=== PATIENT | female | born 1940 | race African-American/Black ===

== ENCOUNTER 2017-08-03 22:07 | Observation (INO) | payer MEDICARE ==
[2017-08-03 23:46] LABS: Prothrombin Time 13.4 SEC (12.0-14.7)
[2017-08-03 23:54] LABS: #Eosinphils 0.1 thou/uL (0.0-0.7); #Lymphocytes 2.5 thou/uL (1.20-3.40); #Monocytes 0.8 thou/uL (0.11-0.59); #Neutrophils 4.6 thou/uL (1.40-6.50); %Basophils 0.6 % (0.0-1.0); %Eosinophils 1.1 % (0.0-10.0); %Lymphocytes 31.4 % (21.0-51.0); %Monocytes 9.8 % (0.0-10.0); %Neutrophils 57.2 % (42.0-75.0); Hemoglobin 12.2 g/dL (12.0-16.0); Mean Corpuscular HGB CONC 36.2 g/dL (32.0-36.0); Mean Corpuscular Hemoglobin 30.7 pg (27.0-31.0); Mean Corpuscular Volume 84.7 fl (81.0-99.0); Platelet Count 277 thou/uL (130-400); RBC Distribution Width 13.9 % (11.5-14.5); Red Blood Cell (RBC) Count 3.98 mill/uL (4.20-5.40); White Blood Cell (WBC) Count 8.1 thou/uL (4.8-10.8)
[2017-08-03 23:55] LABS: ALT (SGPT) 10 U/L (8-55); AST (SGOT) 14 U/L (5-34); Alkaline Phosphatase 76 U/L (40-150); Anion Gap 13 mmol/L (10-20); BUN (Urea Nitrogen) 16 mg/dL (9.8-20.1); Bilirubin, Total 0.5 mg/dL (0.2-1.2); CK (CPK) 191 U/L (29-168); Calc. Creatinine Clearance 0 mL/min (70-130); Calcium 9.6 mg/dL (7.8-10.44); Carbon Dioxide 23 mmol/L (23-31); Chloride 99 mmol/L (98-107); Estimated GFR-MDRD 53; Globulin 3.1 g/dL (2.4-3.5); Glucose 104 mg/dL (83-110); Magnesium 1.7 mg/dL (1.6-2.6); Potassium 3.7 mmol/L (3.5-5.1); Protein, Total 7.1 g/dL (6.0-8.3); Sodium 131 mmol/L (136-145)
[2017-08-03 23:59] LABS: CKMB 3.8 ng/mL (0-6.6); Troponin I Less than 0.010 ng/mL (< 0.028)
--- NOTE | 2017-08-04 00:01 | RAD ---
PORTABLE AP CHEST X-RAY 08/03/17 HISTORY: Chest pain, bilateral arm cramping which started this morning. COMPARISON: 11/18/16. FINDINGS: Postsurgical changes related to CABG are again noted. Cardiac silhouette is magnified by projection b ut does appear mildly enlarged. Vascular calcifications are seen in the an ectatic thoracic aorta. Em physematous changes are again seen within the lungs bilaterally with increased linear densities at ea ch lung base probably related to mild chronic lung changes and scarring. There is patchy densities se en at the right lung base, but there were mass-like opacities within the right lower lobe on prior CT scan on 11/18/16 as well as a study on 11/09/15, and these areas were also present on study in 2012 ag ain suggesting chronic lung changes. There is osteopenia. IMPRESSION: 1. Chronic lung changes without evidence of an acute cardiopulmonary process. 2. Mild cardiomegaly. 3. Ectasia of the thoracic aorta. POS: [facility]
--- NOTE | 2017-08-04 02:07 | PDOC.FPRHP ---
- History of Present Illness Chief Complaint: Arm cramping History of Present Illness: This is a 77 yo AAF w/ PMH CABG x3 in 1999, HTN, tobacco abuse, PAD, HLD, COPD, dCHF presents w/ bilateral arm pain, which she states is the same pain as she had in the past with her heart attack. The pain is described as cramping in nature and starts at her hands and works proximally. Time of onset was around 1200 yesterday when she was going about her daily routine. She denies associated CP, dizziness, or SOB at home. She did have an episode of CP and SOB while here in the ED. The CP here lasted for no more than 10 min. She denies associated n/v or diaphoresis. In the ED, EKG was not concerning for ACS and trops were negative x1. A CTA chest was performed and the read is pending. - Allergies/Adverse Reactions Allergies Allergy/AdvReac Type Severity Reaction Status Date / Time codeine Allergy Verified 10/16/16 00:37 hydrocodone Allergy itching Verified 10/16/16 00:37 hydrocodone bitartrate Allergy itching Verified 10/16/16 00:37 [From Vicodin] - Home Medications Medication Instructions Recorded Confirmed Type Amlodipine Besylate [amLODIPine 0.5 tab PO DAILY #0 tablet 11/09/15 08/04/17 Rx Besylate] Aspirin [Aspirin EC] 325 mg PO DAILY #0 tablet. 11/09/15 08/04/17 Rx Valsartan/Hydrochlorothiazide 0.5 tablet PO DAILY #0 tablet 11/09/15 08/04/17 Rx [Valsartan-Hctz 160-12.5 mg Tab] Budesonide-Formoterol [Symbicort 08/04/17 History 160-4.5] Gabapentin [Gabapentin] 08/04/17 History Rosuvastatin Calcium [Rosuvastatin 08/04/17 History Calcium] - History PMHx: 1. CAD s/p 3v CABG 2. HTN 3. COPD 4. HLD 5. Claudication 6. Tobacco abuse PSHx: 3v CABG in 1999 FHx: Unk Social: 40-50 pack year smoking No etoh No recreational drugs - Review of Systems General: denies: fever/chills, weight/appetite/sleep changes, night sweats Eyes: denies: vision changes ENT: denies: nasal congestion, rhinorrhea Respiratory: reports: cough, shortness of breath, exercise intolerance Cardiovascular: reports: chest pain, paroxysmal nocturnal dyspnea. denies: palpitation, edema Gastrointestinal: denies: nausea, vomiting Skin: denies: rashes, lesions Musculoskeletal: reports: pain (Cramping pain in both arms), stiffness Neurological: denies: numbness, syncope Psychological: denies: anxiety, depression - Vital signs BP: 122/67 HR: 72 RR: 16 Tmax: 98.4 Pox: 96% on RA Wt: 82 kg - Physical Exam Constitutional: NAD, awake, alert and oriented, well developed HEENT: normocephalic and atraumatic, PERRLA, EOMI Neck: supple, FROM, trachea midline Chest: no-tender to palpation Heart: RRR, normal S1/S2, no murmurs/rubs/gallops, no edema Lungs: CTAB, no respiratory distress, good air movement Abdomen: soft, non-tender, bowel sounds present Musculoskeletal: normal structure -Musculoskeletal: Decreased ROM in active flexion of arms b/l Neurological: no focal deficit, CN II-XII intact Skin: no rash/lesions, good turgor Heme/Lymphatic: no unusual bruising or bleeding Psychiatric: normal mood and affect, good judgment and insight FMR H&P: Results - Labs Result Diagrams: 08/03/17 23:25 08/03/17 23:25 Lab results: WBC 8.1 thou/uL (4.8-10.8) 08/03/17 23:25 Hgb 12.2 g/dL (12.0-16.0) 08/03/17 23:25 Hct 33.7 % (36.0-47.0) L 08/03/17 23:25 MCV 84.7 fl (81.0-99.0) 08/03/17 23:25 Plt Count 277 thou/uL (130-400) 08/03/17 23:25 Neutrophils % 57.2 % (42.0-75.0) 08/03/17 23:25 Sodium 131 mmol/L (136-145) L 08/03/17 23:25 Potassium 3.7 mmol/L (3.5-5.1) 08/03/17 23:25 Chloride 99 mmol/L (98-107) 08/03/17 23:25 Carbon Dioxide 23 mmol/L (23-31) 08/03/17 23:25 BUN 16 mg/dL (9.8-20.1) 08/03/17 23:25 Creatinine 1.19 mg/dL (0.6-1.1) H 08/03/17 23:25 Glucose 104 mg/dL (83-110) 08/03/17 23:25 Calcium 9.6 mg/dL (7.8-10.44) 08/03/17 23:25 Total Bilirubin 0.5 mg/dL (0.2-1.2) 08/03/17 23:25 AST 14 U/L (5-34) 08/03/17 23:25 ALT 10 U/L (8-55) 08/03/17 23:25 Alkaline Phosphatase 76 U/L (40-150) 08/03/17 23:25 Creatine Kinase 191 U/L (29-168) H 08/03/17 23:25 CK-MB (CK-2) 3.8 ng/mL (0-6.6) 08/03/17 23:25 Serum Total Protein 7.1 g/dL (6.0-8.3) 08/03/17 23:25 Albumin 4.0 g/dL (3.4-4.8) 08/03/17 23:25 - EKG Interpretation EKG: Rate 71, NSR. No ST or T wave changes - Radiology Interpretation Chest x-ray Status: report reviewed by me (Chronic lung changes w/o acute findings. Mild cardiomegally. Aortic ectasia) CT scan - chest Status: pending FMR H&P: A/P - Problem List (1) Atypical chest pain Current Visit: Yes Status: Acute Priority: High Code(s): R07.89 - OTHER CHEST PAIN (2) Arm pain Current Visit: Yes Status: Acute Priority: Medium Qualifiers: Laterality: bilateral Qualified Code(s): M79.601 - Pain in right arm; M79.602 - Pain in left arm; M79.602 - Pain in left arm (3) COPD (chronic obstructive pulmonary disease) Current Visit: Yes Status: Chronic Priority: Medium Qualifiers: COPD type: unspecified COPD Qualified Code(s): J44.9 - Chronic obstructive pulmonary disease, unspecified (4) HLD (hyperlipidemia) Current Visit: Yes Status: Chronic Priority: Low Code(s): E78.5 - HYPERLIPIDEMIA, UNSPECIFIED Qualifiers: Hyperlipidemia type: unspecified Qualified Code(s): E78.5 - Hyperlipidemia , unspecified (5) Coronary artery disease Current Visit: No Status: Acute Priority: High Code(s): I25.10 - ATHSCL HEART DISEASE OF [place] CORONARY ARTERY W/O ANG PCTRS Qualifiers: Coronary Disease-Associated Artery/Lesion type: bypass graft [place] vs. transplanted heart: [place] heart Associated angina: without angina Qualified Code(s): I25.810 - Atherosclerosis of coronary artery bypass graft(s) without angina pectoris (6) Shortness of breath Current Visit: No Status: Acute Code(s): R06.02 - SHORTNESS OF BREATH (7) Hypertension Current Visit: No Status: Chronic Priority: Medium Code(s): I10 - ESSENTIAL (PRIMARY) HYPERTENSION (8) Elevated CK Current Visit: Yes Status: Acute (9) Elevated serum creatinine Current Visit: Yes Status: Acute Code(s): R79.89 - OTHER SPECIFIED ABNORMAL FINDINGS OF BLOOD CHEMISTRY (10) CHF (congestive heart failure) Current Visit: Yes Status: Acute Code(s): I50.9 - HEART FAILURE, UNSPECIFIED - Plan Atypical chest pain - while this is most likely non cardiac pain with associate arm cramping related to PAD, the fact that she had similar pain when she had an [place] in 1999 warrants further evaluation given she has not had an echo in over 2 years and has not recently had cards follow up. - trend trops x3, BNP, A1c, TSH - continue statin - Echo - Consult cards in am. - NPO at midnight Elevated Creatinine - NALDO vs CKD - Monitor BMP Elevated CK - trend trops and heart work up as above. CAD - continue ASA and home statin CHF - echo as above - pt appears to be euvolemic, does not require O2, lungs are clear COPD - continue home meds - monitor O2, supplement as needed HTN - controlled, continue home meds HLD - statin as above SOB - related to COPD and not taking her controller meds as written daily - she is not requiring O2 and is not on it at home. Arm pain - most likely related to PAD - treat as atypical chest pain as above given hx of similar pain with [place] Tobacco abuse - counseling director on cessation - nicotine replacement if needed PPx - SCD and frequent ambulation Code Full Diet NPO at midnight, then heart healthy Dispo: Pt is stable, however exhibiting signs of previous [place]. She has not had proper follow up for CAD, will consult cardiology for recommendations while here. FMR H&P: Upper Level - Plan Date/Time: 08/04/17 0207 IChiqui, PGY3, have evaluated this patient and agree with findings/plan as outlined by purchasing intern resident. Pertinent changes/additions are listed here. This is a 77 yo AAF w/ PMH CABG x3, HTN, tobacco abuse, PVD, HLD, COPD, dCHF presents w/ bilateral arm pain, which she states is the same pain as she had in the past with her heart attack. It started yesterday at 11:00 when she wasn't doing anything and has continued until coming to the hospital. It went from her fingers to her shoulders bilaterally. She does take a ASA 325 daily and took one today. No associated with chest pain at that time, however developed chest pain tonight in the ED which lasted less than 5 minutes and resolved on it's own. Denies any associated N/V/abdominal pain, diaphoresis. 1) Atypical R/o ACS - Due to her risk factors, her heart score is 5. We will admit patient, and order an ECHO and consult cardiology in the am as patient follows with Dr. Pena outpatient. HgA1c, BNP, FLP, TSH. CEx3. Repeat EKG if patient develops CP again. Monitor on telemetry for abnormal rhythms. Awaiting results from CTA of chest. 2) HTN - continue home medications. 3) PVD - continue ASA. Consider increasing Statin to Crestor 40mg QD 4) dCHF - last ECHo in 2015. which showed HFpEF. F/u with ECHo results. 5) COPD continue Spiriva. 6) Tobacco Abuse - counselling on cessation 7) HLD - Consider increasing crestor to 40mg. 8) Elevated CK - repeat in am. 9) NALDO vs CKD3 - avoid nephrotoxic medications. Consider gentle fluids.
[2017-08-04] MEDS ORDERED: Aspirin 325 MG TAB ONE (03:58)
[2017-08-04 04:18] LABS: Hemoglobin A1c 5.4 % (4.0-6.0)
[2017-08-04 04:27] LABS: Troponin I 0.017 ng/mL (< 0.028)
[2017-08-04 05:08] VITALS: BMI 25.4
[2017-08-04] MEDS ORDERED: Ondansetron HCl/PF 4 MG/2 ML Vial IVP PRN (05:30)
[2017-08-04] MEDS ORDERED: Acetaminophen 325 MG TAB PO PRN (05:30)
[2017-08-04] MEDS ORDERED: Ondansetron ODT 4 MG TAB SL PRN (05:30)
[2017-08-04 06:46] LABS: Troponin I 0.012 ng/mL (< 0.028)
[2017-08-04] MEDS ORDERED: Spiriva 18 MCG CAP (Box of 5 Caps) INH SCH (07:00)
[2017-08-04] MEDS: Amlodipine 5 MG TAB PO SCH (08:35)
[2017-08-04] MEDS: Aspirin 325 mg Enteric Coated Tablet PO SCH (08:35)
[2017-08-04] MEDS ORDERED: Valsartan 80 MG TAB PO SCH ×2 (09:00→17:00)
[2017-08-04] MEDS ORDERED: Aspirin 325 MG TAB PO SCH (09:00)
[2017-08-04] MEDS ORDERED: Hydrochlorothiazide 25 MG TAB PO SCH ×2 (09:00)
[2017-08-04] MEDS ORDERED: Amlodipine 5 MG TAB PO SCH (09:00)
[2017-08-04] MEDS: Hydrochlorothiazide 25 MG TAB PO SCH ×2 (10:27→20:14)
[2017-08-04] MEDS: Valsartan 80 MG TAB PO SCH ×2 (10:28→20:14)
--- NOTE | 2017-08-04 11:27 | CT ---
PRELIMINARY REPORT/[facility]/EMERGENCY AFTER HOURS PROCEDURE: EXAM: CT Angiography Chest With Intravenous Contrast CLINICAL HISTORY: 77 years old, female; Signs and symptoms; Shortness of breath; Prior surgery; Patient HX: Er 1; Gaetano a rm cramps starting this morning w/ on and off SOB. Surgical history of coronary artery bypass graft s urgery, three vessels TECHNIQUE: Axial computed tomographic angiography images of the chest with intravenous contrast using pulmonary embolism protocol. MIP reconstructed images were created and reviewed. COMPARISON: No relevant prior studies available. FINDINGS: Pulmonary arteries: No pulmonary embolism. Aorta: Atherosclerotic disease of the thoracic aorta, without aneurysm or dissection. Lungs: 13 mm pleural-based nodular focus within the left lower lobe, likely area of scarring, althoug h small pneumonia or carcinoma not excluded. Moderate upper lobe predominant centrilobular emphysema, with chronic obstructive pulmonary physiologic changes. Scarring within the right lower lung. Few small subpleural nodules within the periphery of the right middle lobe, likely benign. Pleural space: Normal. No significant effusion. No pneumothorax. Heart: Changes of prior sternotomy and CABG. Mild enlargement of the right atrium. Bones/joints: No acute fracture. No dislocation. Soft tissues: Normal. Lymph nodes: Normal. IMPRESSION: 1. No pulmonary embolism. 2. 13 mm pleural-based nodular focus within the left lower lobe, likely area of scarring, although sm all pneumonia or carcinoma not excluded. Recommend followup/further evaluation. 3. Incidental/non-acute findings are described above. Thank you for allowing us to participate in the care of your patient. Dictated and Authenticated by: Heath Caruso MD 08/04/2017 2:59 AM Central Time ([place] & [place]) FINAL REPORT CT ARTERIOGRAM CHEST WITH IV CONTRAST AND 3D MIP IMAGING PERFORMED ON AN EMERGENCY BASIS: Date: 08/04/17 Time: 0213 hours HISTORY: Dyspnea. Chest pain. COMPARISON: 11/18/16. FINDINGS: Findings agree with the preliminary report by Amita. No CT evidence of pulmonary embolus. Parenchymal scarring at the lung bases are stable. POS: [facility]
[2017-08-04] MEDS: Ipratropium Bromide 2.5 ml Neb NEB SCH ×3 (11:31→18:57)
[2017-08-04] MEDS ORDERED: diphenhydrAMINE 25 MG CAP PO PRN (11:45)
[2017-08-04] MEDS: Acetaminophen/Codeine 30-300mg Tablet PO PRN ×3 (12:57→22:06)
[2017-08-04] MEDS ORDERED: Gabapentin 300 MG CAP PO SCH (14:00)
[2017-08-04] MEDS ORDERED: ISOVUE-370 76%-LOCM 1 ML ONE (14:40)
[2017-08-04] MEDS: Gabapentin 300 MG CAP PO SCH (20:14)
[2017-08-04] MEDS ORDERED: Rosuvastatin 20 MG TAB PO SCH (21:00)
[2017-08-05] MEDS: Ipratropium Bromide 2.5 ml Neb NEB SCH ×3 (02:38→12:53)
[2017-08-05 06:18] LABS: Anion Gap 12 mmol/L (10-20); BUN (Urea Nitrogen) 17 mg/dL (9.8-20.1); Calc. Creatinine Clearance 50 mL/min (70-130); Calcium 9.6 mg/dL (7.8-10.44); Carbon Dioxide 25 mmol/L (23-31); Chloride 99 mmol/L (98-107); Estimated GFR-MDRD 49; Glucose 98 mg/dL (83-110); Sodium 132 mmol/L (136-145)
--- NOTE | 2017-08-05 08:20 | PDOC.FM ---
- Subjective Subjective: Patient endorses leg and hand cramping this morning. She is requesting her gabapentin. She states that she has a history of spinal stenosis in her back. She thinks she has also had prior imaging of cervical spine indicating stenosis. She does feel spasms in back which worsen the cramping in lower extremities. She did not have any significant overnight events. Patient denies any chest pain, shortness of breath, or nausea this AM. - Objective MAR Reviewed: Yes Vital Signs & Weight: Vital Signs (12 hours) Temp Pulse Resp BP Pulse Ox 08/05/17 07:30 97.7 F 68 14 08/05/17 07:26 97.7 F 68 14 118/72 97 08/05/17 06:37 80 14 08/05/17 05:01 98.7 F 85 20 119/64 94 L 08/04/17 23:54 97.8 F 59 L 16 116/63 91 L Weight Weight 84.935 kg I&O: 08/04/17 08/05/17 08/06/17 06:59 06:59 06:59 Intake Total 490 Balance 490 Result Diagrams: 08/03/17 23:25 08/05/17 05:53 EKG Reviewed by me: Yes Radiology Reviewed by me: Yes <Genoveva Lozano - Last Filed: 08/05/17 08:18> - Objective Vital Signs & Weight: Vital Signs (12 hours) Temp Pulse Pulse Pulse Pulse Resp BP 08/05/17 16:00 97.8 F 68 16 08/05/17 08:57 65 68 66 08/05/17 08:52 68 118/72 08/05/17 08:26 65 83 08/05/17 07:30 97.7 F 68 14 08/05/17 07:26 97.7 F 68 14 BP BP BP BP Pulse Ox 08/05/17 16:00 94/54 L 97 08/05/17 08:57 99/70 103/72 96/69 08/05/17 08:52 08/05/17 08:26 105/64 124/74 08/05/17 07:30 08/05/17 07:26 118/72 97 Weight Weight 84.935 kg I&O: 08/04/17 08/05/17 08/06/17 06:59 06:59 06:59 Intake Total 490 Balance 490 Result Diagrams: 08/03/17 23:25 08/05/17 05:53 <Alma Rosa Frankel - Last Filed: 08/05/17 19:12> Phys Exam - Physical Examination Constitutional: NAD HEENT: PERRLA, moist MMs Neck: no nodes Respiratory: no wheezing Cardiovascular: RRR, no significant murmur Gastrointestinal: soft, non-tender, no distention, positive bowel sounds Musculoskeletal: no edema, pulses present Neurological: non-focal, moves all 4 limbs Psychiatric: normal affect Skin: no rash, normal turgor, cap refill <2 seconds Deviation from normal: Sternotomy scar from prior CABG <Genoveva Lozano - Last Filed: 08/05/17 08:18> Dx/Plan (1) Atypical chest pain Code(s): R07.89 - OTHER CHEST PAIN Status: Acute (2) Arm pain Status: Acute QualifierTitle: Laterality: bilateral Qualified Code(s): M79.601 - Pain in right arm; M79.602 - Pain in left arm; M79.602 - Pain in left arm (3) Elevated serum creatinine Code(s): R79.89 - OTHER SPECIFIED ABNORMAL FINDINGS OF BLOOD CHEMISTRY Status : Acute (4) CHF (congestive heart failure) Code(s): I50.9 - HEART FAILURE, UNSPECIFIED Status: Chronic (5) COPD (chronic obstructive pulmonary disease) Status: Chronic QualifierTitle: COPD type: unspecified COPD Qualified Code(s): J44.9 - Chronic obstructive pulmonary disease, unspecified (6) HLD (hyperlipidemia) Code(s): E78.5 - HYPERLIPIDEMIA, UNSPECIFIED Status: Chronic QualifierTitle: Hyperlipidemia type: unspecified Qualified Code(s): E78.5 - Hyperlipidemia, unspecified (7) Bilateral lower extremity pain Code(s): M79.604 - PAIN IN RIGHT LEG; M79.605 - PAIN IN LEFT LEG Status: Chronic (8) Coronary artery disease Code(s): I25.10 - ATHSCL HEART DISEASE OF [place] CORONARY ARTERY W/O ANG PCTRS Status: Chronic QualifierTitle: Coronary Disease-Associated Artery/Lesion type: bypass graft [place] vs. transplanted heart: [place] heart Associated angina: without angina Qualified Code(s): I25.810 - Atherosclerosis of coronary artery bypass graft(s) without angina pectoris (9) Hypertension Code(s): I10 - ESSENTIAL (PRIMARY) HYPERTENSION Status: Chronic (10) Hyponatremia Code(s): E87.1 - HYPO-OSMOLALITY AND HYPONATREMIA Status: Chronic - Plan Plan: Atypical chest pain - while this is most likely non cardiac pain with associated arm cramping related to PAD vs. stenosis, the fact that she had similar pain when she had an [place] in 1999 warrants further evaluation given she has not had recent cardiology follow up. 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 - trops neg x3, A1c 5.4, TSH wnl - continue statin - Echo showed EF 60-65% with mild LVH - Cardiology consulted; appreciate recs - Cards recommended patient have stress test performed. If abnormal or shows signs of reversible ischemia, consider cardiac cath - NPO at midnight - Heart score of 5 - EKG without ST or t wave changes Elevated Creatinine - NALDO vs CKD - Monitor BMP; Cr 1.19 --> 1.2 - Consider mild fluids and encourage PO intake Elevated CK - trops neg x3 - cardaic work up as above. CAD - continue ASA and home statin CHF - echo as above - pt appears to be euvolemic, does not require O2, lungs are clear - monitor I&O's COPD - continue home meds - monitor O2, supplement as needed HTN - controlled, continue home meds HLD - statin as above Arm pain - most likely related to PAD vs cervical stenosis - treat as atypical chest pain as above given hx of similar pain with [place] - consider trial of muscle relaxer Tobacco abuse - international student counselor on cessation - nicotine replacement if needed PPx - SCD and frequent ambulation Code Full Diet NPO until after stress test; HH after stress Dispo: Pt is stable. Plan for stress test this AM. If negative, then may consider d/c home with close cardiology follow up. <Genoveva Lozano - Last Filed: 08/05/17 08:18> Attending Addendum - Attending Addendum Date/Time: 08/05/171907 I personally evaluated the patient and discussed the management with Dr. Lozano. I agree with the History, Examination, Assessment and Plan documented above with any addition or exceptions noted below. The patient is feeling better. She will have a stress test today. If negative , will likely discharge home. <Alma Rosa Frankel - Last Filed: 08/05/17 19:12>
[2017-08-05] MEDS: Aspirin 325 mg Enteric Coated Tablet PO SCH (08:52)
[2017-08-05] MEDS: Gabapentin 300 MG CAP PO SCH (08:52)
[2017-08-05] MEDS: Amlodipine 5 MG TAB PO SCH (08:52)
[2017-08-05] MEDS: Valsartan 80 MG TAB PO SCH (08:53)
[2017-08-05] MEDS: Acetaminophen/Codeine 30-300mg Tablet PO PRN ×2 (08:53→16:34)
[2017-08-05] MEDS: Hydrochlorothiazide 25 MG TAB PO SCH (08:53)
[2017-08-05] MEDS ORDERED: Cyclobenzaprine 10 MG TAB PO SCH (14:45)
[2017-08-05] MEDS ORDERED: Regadenoson 0.4 MG/5 ML SYRINGE ONE (14:46)
--- NOTE | 2017-08-05 16:04 | NM ---
NUCLEAR MEDICINE CARDIAC PERFUSION EXAMINATION WITH EJECTION FRACTION: HISTORY: 77-year-old female with chest pain. History of coronary artery disease, status post CABG. TECHNIQUE: A single day nuclear medicine cardiac perfusion examination was performed. Rest images were obtained using 9.0 mCi of technetium-99m sestamibi. Stress images were obtained using 28.0 mCi of technetium-9 9m sestamibi and Lexiscan. FINDINGS: Tomographic images show no fixed or reversible perfusion defects. Gated images show normal wall motio n with an ejection fraction of greater than 70%. EDV: 56 ml LHR: 0.3 TID: 1.4 IMPRESSION: No evidence of ischemia. POS: [facility]
[2017-08-05 16:15] VITALS: BP 94/54; TEMP 97.8
--- NOTE | 2017-08-06 03:13 | DIS-2 ---
DATE OF ADMISSION: 08/04/2017 DATE OF DISCHARGE: 08/05/2017 ADMITTING PHYSICIAN: Inder Bell M.D. DISCHARGE ATTENDING: Alma Rosa Frankel M.D. RESIDENT: Genoveva Lozano D.O. CONSULT: Dr. Sexton was consulted on 08/04/2017 and she recommended the patient to undergo cardiac stress testing, and if there is any evidence of reversible ischemia, to potentially proceed with catheterization. PROCEDURES: 1. Chest x-ray showed chronic lung changes without evidence of an acute cardiopulmonary process, mild cardiomegaly, ectasia of the thoracic aorta. 2. CTA chest/thorax, no pulmonary embolism. A 13-mm pleural based nodular focus within the left lower lobe, likely indicating scarring. It is stable from prior CT. 3. Echocardiogram showed ejection fraction visually estimated at 60%-65% with mild LVH. There is normal right ventricular size and function. Left atrium was normal size. Normal right atrium size. Mild mitral regurgitation was present. Mild aortic regurgitation was present. Aortic valve leaflets were somewhat thickened. Trace tricuspid regurgitation. 4. Stress test nuclear medicine. A nuclear medicine cardiac perfusion examination with ejection fraction showed no evidence of ischemia. Ejection fraction was noted to be greater than 70% and gated images showed normal wall motion. PRIMARY DIAGNOSES: 1. Atypical chest pain, likely secondary to degenerative changes of cervical spine versus peripheral vascular disease. 2. Coronary artery disease status post coronary artery bypass grafting in 1999. 3. Acute kidney injury. SECONDARY DIAGNOSES: 1. Hypertension. 2. Peripheral vascular disease. 3. Diastolic congestive heart failure with an ejection fraction noted to be 60% -65% on most recent echo. 4. Chronic obstructive pulmonary disease. 5. Tobacco abuse history. DISCHARGE MEDICATIONS: 1. Rosuvastatin 20 mg oral at bedtime. 2. Amlodipine besylate 2.5 mg oral daily. 3. Aspirin 325 mg oral daily. 4. Budesonide/formoterol or Symbicort 160/4.5 one puff inhalation twice daily. 5. Valsartan/hydrochlorothiazide 160/12.5 one tablet oral twice daily. 6. Gabapentin 600 mg p.o. b.i.d. DISCHARGE MEDICATIONS: None. HISTORY OF PRESENT ILLNESS AND HOSPITAL COURSE: This is a 77-year-old - [place] female with past medical history of CABG x3 in 1999, hypertension, tobacco abuse, peripheral artery disease, hyperlipidemia, COPD, diastolic congestive heart failure that presented with bilateral arm pain, which she stated was the same as the pain she had in the past with her heart attack. Pain was described as crampy in nature and started in her hands at work, approximately the time of onset was around 12 p.m., on the day prior to admission, she was going about her daily routine. She denied any chest pain, dizziness, or shortness of breath at home. The patient did have an episode of chest pain and shortness of breath while in the emergency department. The chest pain here lasted for no more than 10 minutes. She denied any associated nausea, vomiting, or diaphoresis. In the ED, EKG was not concerning for ACS and troponins were negative x1. A CTA of the chest was performed and was negative for pulmonary embolism. The patient remained stable throughout the course of her hospital stay. She did not have any chest pain or shortness of breath that she endorsed. She did continue to have some cramping in her hands as well as her legs, which she states gabapentin helps to resolve. She was given a trial of Flexeril for spasms. She states that when she gets back spasms, the cramping in the legs seems to worsen. She is uncertain whether or not it actually did help. Of note , the patient does have a prior CT of the cervical spine, which did show degenerative bone and disk changes extending from C4 through C7. This exam was done in 2003 and recommendations at that time were to do an MRI or CT if symptoms persisted. This is something that could be done as an outpatient. The main concern due to her past medical history with coronary artery disease status post CABG and symptoms consistent with prior OK was to rule out acute coronary syndrome. A nuclear stress test was performed which did not show any evidence of reversible ischemia. Additionally, ejection fraction was estimated to be 70% with no abnormalities in motion of the wall. The findings of the stress test were discussed with the patient and she was very happy to know that they were essentially normal. It was strongly encouraged that she follow with her geriatric personal care aide, Dr. Pena, for further management as she has had poor followup in the past. The patient was also encouraged to follow with Dr. Banks, her primary care physician, within 7 days of discharge from the hospital. The patient was started on a statin medication while here in the hospital, otherwise all her other home medications were continued. Of note, the patient's troponins were all negative x3 and her EKG did not show any evidence of ST or T-wave changes consistent with ischemia. DISPOSITION: Stable. DISCHARGE INSTRUCTIONS: 1. Location: Home. 2. Diet: Heart healthy. 3. Activity: As tolerated. 4. Followup: The patient is to follow up with Cardiology upon discharge from hospital. The patient's geriatric personal care aide is Dr. Pena. This was discussed with the patient at length. Initially, the patient is to follow with her primary care provider, Dr. Banks, at [facility] for further management of right upper extremity pain and cramping. The patient was in understanding of the plan and agreeable. STEPHEN
== END 2017-08-05 16:53 | disposition home or self-care (01) ==
LOC: ERS 22:07 → 2SE 08-04 04:00
PROVIDERS: ADMIT Family Medicine; ATTEND Family Medicine
DX: R07.89 Other chest pain (principal); I25.10 Atherosclerotic heart disease of native coronary artery without angina pectoris; I73.9 Peripheral vascular disease, unspecified; I11.0 Hypertensive heart disease with heart failure; I50.30 Unspecified diastolic (congestive) heart failure; N17.9 Acute kidney failure, unspecified; E78.5 Hyperlipidemia, unspecified; J44.9 Chronic obstructive pulmonary disease, unspecified; F17.210 Nicotine dependence, cigarettes, uncomplicated; M79.601 Pain in right arm; M79.602 Pain in left arm; R79.89 Other specified abnormal findings of blood chemistry; Z79.51 Long term (current) use of inhaled steroids; Z79.899 Other long term (current) drug therapy; Z88.5 Allergy status to narcotic agent; Z95.1 Presence of aortocoronary bypass graft
CPT/HCPCS: 71045; 71275; 78452; 80048; 80053; 82550; 82553; 83036; 83735; 84443; 84484 ×3; 85025; 85610; 85730; 93005; 93017; 93306; 94640 ×3; 94760; 96360; 96361; 97139 ×3; 97530; 97535; 99285; A9500; G0378; G8978; G8979; G8987; G8988; 36415; A4216; J2785; J7620; J7644

== ENCOUNTER 2017-10-24 14:29 | Inpatient (IN) | payer MEDICARE ==
[~2017-10-24 14:29] MED LIST: ISOVUE-370 76%-LOCM 1 ML ONE
--- NOTE | 2017-10-24 14:52 | RAD ---
CHEST 1 VIEW: HISTORY: Chest pain. COMPARISON: 08/03/17. FINDINGS: Cardiac silhouette is magnified by projection. Pulmonary vasculature is upper limits of normal. Med iastinum midline with postoperative changes and aortic calcification. Infiltrate at the right base i s greater than on the prior study. left hemidiaphragm remains elevated. No evidence of pneumothorax . IMPRESSION: 1. Increasing right basilar infiltrate. Clinical correlation regarding other signs and symptoms of right basilar pneumonitis is required. Please consider short-term followup with upright PA and later al views of the chest. 2. Atherosclerosis. POS: [facility]
[2017-10-24 15:43] LABS: Mean Corpuscular HGB CONC 35.5 g/dL (32.0-36.0); Mean Corpuscular Hemoglobin 30.4 pg (27.0-31.0); Mean Corpuscular Volume 85.6 fL (78.0-98.0); Mean Platelet Volume 7.1 fL (7.4-10.4); Platelet Count 248 thou/uL (130-400); RBC Distribution Width 13.2 % (11.5-14.5); Red Blood Cell (RBC) Count 3.94 mill/uL (4.20-5.40)
[2017-10-24 15:50] LABS: Band 1 % (5-11); Eosinophils 1 % (0-10); Lymphocytes 40 % (21-51); MDiff Complete? YES; Monocytes 4 % (0-10); Neutrophil 47 % (42-75); PLT Morphology Comment Appears Adequate; RBC Morphology Normal; Reactive Lymphocytes 6 % (0-10)
[2017-10-24 15:51] LABS: CKMB 3.3 ng/mL (0-6.6)
[2017-10-24] MEDS ORDERED: Nitroglycerin 2% Ointment 1 INCH/1 GM Packet ONE (15:53)
[2017-10-24 15:55] LABS: ALT (SGPT) 11 U/L (8-55); AST (SGOT) 19 U/L (5-34); Albumin 3.7 g/dL (3.4-4.8); Alkaline Phosphatase 73 U/L (40-150); Anion Gap 12 mmol/L (10-20); BUN (Urea Nitrogen) 11 mg/dL (9.8-20.1); Bilirubin, Total 0.8 mg/dL (0.2-1.2); CK (CPK) 173 U/L (29-168); Calc. Creatinine Clearance 0 mL/min (70-130); Calcium 9.1 mg/dL (7.8-10.44); Carbon Dioxide 25 mmol/L (23-31); Chloride 96 mmol/L (98-107); Estimated GFR-MDRD 53; Globulin 3.1 g/dL (2.4-3.5); Glucose 101 mg/dL (83-110); Lipase 30 U/L (8-78); Potassium 3.2 mmol/L (3.5-5.1); Protein, Total 6.8 g/dL (6.0-8.3); Sodium 130 mmol/L (136-145)
[2017-10-24] MEDS ORDERED: Nitroglycerin 0.4 MG TAB (25 Tab Bottle) ONE (15:56)
--- NOTE | 2017-10-24 16:07 | PDOC.FPRHP ---
- History of Present Illness Chief Complaint: Chest pain History of Present Illness: Resident: Tulio Pineda MD PCP: Darren Aminalfa Rick is a 77 year old F with a PMH of CAD s/p CABG, HTN, HLD who presents to the ED with 2-3 day history of chest pain occurring at rest and with activity. States the chest pain is located substernal and radiates to the left arm. It is associated with diaphoresis and nausea/vomiting. She was seen in July with complaints of dyspnea and arm pain. At that time, she had a negative chest CTA, negative stress test, and normal Echo (EF 55-60%). She states that she took Nitro for the pain yesterday and it relieved her symptoms. She also was given nitro in the EMS which improved her symptoms today. She was not actively in pain for the admitting team. She has not had a cath in several years. Dr. Pena is her breaker hand. ED Course: In the ED, she received nitro and aspirin - Allergies/Adverse Reactions Allergies Allergy/AdvReac Type Severity Reaction Status Date / Time codeine Allergy Verified 10/24/17 18:15 hydrocodone Allergy itching Verified 10/24/17 18:15 hydrocodone bitartrate Allergy itching Verified 10/24/17 18:15 [From Vicodin] morphine Allergy ITCHING, Verified 10/24/17 18:14 SEVERE BRADYCARDIA - Home Medications Medication Instructions Recorded Confirmed Type Amlodipine Besylate [amLODIPine 0.5 tab PO DAILY #0 tablet 11/09/15 10/24/17 Rx Besylate] Budesonide-Formoterol [Symbicort 1 puff INH BID 08/04/17 10/24/17 History 160-4.5] Valsartan/Hydrochlorothiazide 1 tablet PO BID 08/04/17 10/24/17 History [Valsartan-Hctz 160-12.5 mg Tab] Rosuvastatin [Crestor] 20 mg PO HS #30 tab 08/05/17 10/24/17 Rx Gabapentin 1 tab PO BID 10/24/17 10/24/17 History Acetaminophen [Tylenol Regular 650 mg PO Q4H PRN tab 10/26/17 Rx Strength] Aspirin [Aspirin Chewable Tablet] 81 mg PO DAILY tab 10/26/17 Rx Naproxen [Naprosyn] 500 mg PO BID #60 tab 10/26/17 Rx Nitroglycerin [Nitrostat] 0.4 mg PO Q5MIN PRN #30 tab 10/26/17 Rx Rosuvastatin Calcium [Crestor] 40 mg PO DAILY #30 tablet 10/26/17 Rx - History PMHx: HLD, Asthma, HTN, CAD s/p CABG X4 PSHx: CABG X4 FHx: noncontributory Social: Denies alcohol, drug use. Smokes one cig/day - Review of Systems General: denies: fever/chills, weight/appetite/sleep changes, night sweats, fatigue Eyes: denies: eye pain, vision changes ENT: denies: nasal congestion, rhinorrhea Respiratory: reports: shortness of breath, exercise intolerance. denies: cough , congestion Cardiovascular: reports: chest pain. denies: palpitation, edema, paroxysmal nocturnal dyspnea, orthopnea Gastrointestinal: reports: nausea, vomiting. denies: diarrhea, constipation, abdominal pain, GI bleeding Genitourinary: denies: incontinence, dysuria, polyuria, discharge Skin: denies: rashes, lesions, jaundice Musculoskeletal: denies: pain, tenderness, stiffness, swelling, arthritis/ arthralgias Neurological: denies: numbness, syncope, seizure, weakness Psychological: denies: anxiety, depression - Vital signs BP: 147/96 HR: 72 RR: 16 Tmax: 98.1 Pox: 100% on RA Wt: 86 kg - Physical Exam Constitutional: NAD, awake, alert and oriented, well developed HEENT: normocephalic and atraumatic, PERRLA, EOMI, conjunctiva clear, no scleral icterus, grossly normal vision, TM's clear and intact, grossly normal hearing, normal nasal mucosa, MMM, oropharynx clear Neck: supple, FROM, trachea midline, no LAD, no JVD Chest: no-tender to palpation, no lesions Heart: RRR, normal S1/S2, no murmurs/rubs/gallops, pulses present Lungs: CTAB, no respiratory distress, good air movement, no wheezing -Lungs: minimal rales on the right Abdomen: soft, non-tender, bowel sounds present, no masses/distention Musculoskeletal: normal structure, normal tone, ROM grossly normal Neurological: no focal deficit, CN II-XII intact, normal sensation Skin: no rash/lesions, good turgor, capillary refill <2 seconds Heme/Lymphatic: no unusual bruising or bleeding, no purpura Psychiatric: normal mood and affect, good judgment and insight, intact recent and remote memory FMR H&P: Results - Labs Result Diagrams: 10/26/17 07:06 10/26/17 09:15 Lab results: WBC 6.0 thou/uL (4.8-10.8) 10/24/17 15:14 Hgb 12.0 g/dL (12.0-16.0) 10/24/17 15:14 Hct 33.8 % (36.0-47.0) L 10/24/17 15:14 MCV 85.6 fL (78.0-98.0) 10/24/17 15:14 Plt Count 248 thou/uL (130-400) 10/24/17 15:14 Band Neuts % (Manual) 1 % (5-11) L 10/24/17 15:14 Sodium 130 mmol/L (136-145) L 10/24/17 15:14 Potassium 3.2 mmol/L (3.5-5.1) L 10/24/17 15:14 Chloride 96 mmol/L (98-107) L 10/24/17 15:14 Carbon Dioxide 25 mmol/L (23-31) 10/24/17 15:14 BUN 11 mg/dL (9.8-20.1) 10/24/17 15:14 Creatinine 1.19 mg/dL (0.6-1.1) H 10/24/17 15:14 Glucose 101 mg/dL (83-110) 10/24/17 15:14 Calcium 9.1 mg/dL (7.8-10.44) 10/24/17 15:14 Total Bilirubin 0.8 mg/dL (0.2-1.2) 10/24/17 15:14 AST 19 U/L (5-34) 10/24/17 15:14 ALT 11 U/L (8-55) 10/24/17 15:14 Alkaline Phosphatase 73 U/L (40-150) 10/24/17 15:14 Creatine Kinase 173 U/L (29-168) H 10/24/17 15:14 CK-MB (CK-2) 3.3 ng/mL (0-6.6) 10/24/17 15:14 B-Natriuretic Peptide 121.6 pg/mL (0-100) H 10/24/17 15:14 Serum Total Protein 6.8 g/dL (6.0-8.3) 10/24/17 15:14 Albumin 3.7 g/dL (3.4-4.8) 10/24/17 15:14 Lipase 30 U/L (8-78) 10/24/17 15:14 - EKG Interpretation EKG: NSR in EKG from EMS FMR H&P: A/P - Problem List (1) Stable angina Status: Acute Code(s): I20.8 - OTHER FORMS OF ANGINA PECTORIS (2) NALDO (acute kidney injury) Status: Acute Code(s): N17.9 - ACUTE KIDNEY FAILURE, UNSPECIFIED (3) Coronary artery disease Status: Chronic Priority: High Code(s): I25.10 - ATHSCL HEART DISEASE OF [place] CORONARY ARTERY W/O ANG PCTRS Qualifiers: Coronary Disease-Associated Artery/Lesion type: bypass graft [place] vs. transplanted heart: [place] heart Associated angina: without angina Qualified Code(s): I25.810 - Atherosclerosis of coronary artery bypass graft(s) without angina pectoris (4) HLD (hyperlipidemia) Status: Chronic Priority: Low Code(s): E78.5 - HYPERLIPIDEMIA, UNSPECIFIED Qualifiers: Hyperlipidemia type: unspecified Qualified Code(s): E78.5 - Hyperlipidemia , unspecified (5) Hypertension Status: Chronic Priority: Medium Code(s): I10 - ESSENTIAL (PRIMARY) HYPERTENSION - Plan 1) Stable Angina: - History of chest pain 2-3 days, relieved with nitro, substernal, radiating to left arm, associated with nausea and diaphoresis - Initial Trop was 0.50, will continue to trend trops - Last Echo (EF 55-60%) on 07/2017 - Stress in July 2017, no signs of ischemia - Continue home meds - Check D-dimer to r/o PE, Check procalcitonin to r/o PNA 2) NALDO - Elevated Cr from baseline, GFR slightly lower than baseline - IVFs, NS @ 110 ml/hr - Recheck BMP in AM 3) CAD s/p CABG X4 in 1999 - Cont home meds 4) HTN - Monitor on tele - Continue home meds 5) HLD - home meds Diet: HH incl low Na Act: Ad abrahan, fall precautions Code Status: FULL CODE FMR H&P: Upper Level - Pertinent history 77 year old BF pmhx of 3vCAD s/p CABG, HTN, HLD. COPD, and tobacco abuse who presents to the ED with 2-3 day history of intermittent chest pain occurring both at rest and with activity. Describes it as substernal, pressure-like, and radiating to the left arm. Associated with significant dyspnea, diaphoresis and nausea/vomiting. Says the last time she had this type of pain was prior to her CABG. She was seen in July with complaints of dyspnea and arm paresthesias with negative chest CTA, negative stress test, and normal Echo (EF 55-60%). She states SL nitro relieved her symptoms yesterday, and today's CP has resolved after nitro patch. She has not had a cath in several years. Dr. Pena is her breaker hand, and Dr. Chaudhary is her CV surgeon. - Pertinent findings PE Gen: obese, AAOx3, NAD CV: nml S1/S2; no m/g/r Lungs: CTAB, mild increased WOB Abd: +BS, NT/ND Ext: no c/c/e Skin: no rashes or other lesions Psych: judgment and insight intact - Plan Date/Time: 10/24/17 [id number] I, Jose Alejandro Regalado MD, have evaluated this patient and agree with findings/plan as outlined by architect intern resident. Pertinent changes/additions are listed here. 1) Stable Angina: Obs to tele. Initial Trop 0.50, will continue to trend. Plan to consult cardiology if continuing to up-trend. S/p negative stress in July 2017 with essential normal echo. Checking D-dimer to r/o PE; procalcitonin pending. Cont. home meds. Continue home BUCKY-i, statin. 2) NALDO: IVF, recheck BMP in AM 3) CAD s/p 3vCABG: plan as above. 4) Chronic lung changes: unlikely any acute process, procalcitonin pending as above. 5) HTN 6) HLD Attending Addendum - Attending Addendum Date/Time: 10/24/17 4086 I personally evaluated the patient and discussed the management with Dr. Pineda and Dr. Regalado I agree with the History, Examination, Assessment and Plan documented above with any addition or exceptions noted below. 77 yo female her for chest pain evaluation. Will admit and rule out. Recent negative stress. Possible PNA however history not completely consistent. Procal ordered. Patient also reporting acute SOB during evaluation. Will rule out PE. Adjust home meds as needed. Carrie
[2017-10-24 16:31] LABS: Bilirubin Negative (Negative); Blood, Urine Negative (Negative); Clarity CLEAR (Clear); Glucose, Urine (Dipstick) Negative (Negative); Leukocyte Negative (Negative); Nitrite Negative (Negative); Protein, Urine (Dipstick) Negative (Neg-Trace); Specific Gravity, Urine 1.007 (1.002-1.036); Urobilinogen 0.2 mg/dL (0.2-1.0); pH, Urine 7.5 (5.0-9.0)
[2017-10-24] MEDS ORDERED: Acetaminophen 325 MG TAB PO PRN (16:44)
[2017-10-24] MEDS ORDERED: Ondansetron HCl/PF 4 MG/2 ML Vial IVP PRN (16:44)
[2017-10-24] MEDS ORDERED: Piperacillin/Tazobactam 4.5 GM VIAL ONE (17:13)
[2017-10-24 18:22] VITALS: BMI 26.4
[2017-10-24 18:53] LABS: Troponin I 0.167 ng/mL (< 0.028)
[2017-10-24] MEDS: Mometasone/Formoterol 120 PUFF INHALER INH SCH (19:44)
[2017-10-24] MEDS: Gabapentin 300 MG CAP PO SCH (20:34)
[2017-10-24] MEDS: Sodium Chloride 0.9% 1,000 ML IV SCH (20:34)
[2017-10-24] MEDS ORDERED: Rosuvastatin 20 MG TAB PO SCH (21:00)
[2017-10-24] MEDS ORDERED: Gabapentin 300 MG CAP PO SCH (21:00)
--- NOTE | 2017-10-24 21:32 | CT ---
CTA THORAX WITH CONTRAST: 10/24/16 (Computed Tomographic Angiography, chest(noncoronary) with contrast material, and image postprocessin g) (PE protocol) HISTORY: 77-year-old female with dyspnea and elevated D-dimer. TECHNIQUE: IV injection of iodinated contrast: 100 mL Isovue 370. Scan acquisition timing attempted to coincide with iodinated contrast bolus reaching maximal density in pulmonary arteries. 3D MIP reconstructions. FINDINGS: There are diffuse emphysematous changes throughout the bilateral lungs, especially the bilateral uppe r lobes, right greater than left. Very good opacification of pulmonary arteries. No pulmonary thrombo embolism. Minimal contrast material within the lumen of the thoracic aorta. Mild ectasia and tortuosi ty of the thoracic aorta with atherosclerotic calcification but no aneurysm. No cardiomegaly, pleural effusion, or pneumothorax. Irregular, thick plate-like densities at the posterior base of the right lower lobe, consistent with pulmonary scarring. Nonspecific small focal dome shaped 1 x 1.5 x 2 cm pu lmonary density with a broad base against the left posterolateral lower pleural surface. Broad based fatty density protruding medially from the left anterolateral mid pleural surface consistent with sma ll pleural lipoma. Trachea and main stem bronchi are patent and clear. No mediastinal or hilar lympha denopathy. Signs of previous CABG. IMPRESSION: 1. No pulmonary thromboembolism. 2. Moderate to severe emphysema. 3. Nonspecific pleural-based small left lung nodule. clarice[] POS: [facility]
[2017-10-24 21:46] LABS: Troponin I 0.221 ng/mL (< 0.028)
[2017-10-24] MEDS: Nitroglycerin 0.4 MG TAB (25 Tab Bottle) PO PRN (22:09)
[2017-10-25 01:27] LABS: CKMB 3.6 ng/mL (0-6.6)
[2017-10-25] MEDS: Nitroglycerin 0.4 MG TAB (25 Tab Bottle) PO PRN ×5 (03:22→19:58)
[2017-10-25] MEDS: Sodium Chloride 0.9% 1,000 ML IV SCH ×2 (05:39→21:21)
[2017-10-25 05:47] LABS: #Basophils 0.1 thou/uL (0.0-0.2); #Eosinphils 0.2 thou/uL (0.0-0.7); #Lymphocytes 2.7 thou/uL (1.20-3.40); #Monocytes 0.6 thou/uL (0.11-0.59); #Neutrophils 2.5 thou/uL (1.40-6.50); %Basophils 0.9 % (0.0-1.0); %Eosinophils 3.3 % (0.0-10.0); %Lymphocytes 44.8 % (21.0-51.0); %Monocytes 9.5 % (0.0-10.0); %Neutrophils 41.5 % (42.0-75.0); Hemoglobin 11.6 g/dL (12.0-16.0); Mean Corpuscular Hemoglobin 29.9 pg (27.0-31.0); Mean Corpuscular Volume 85.3 fL (78.0-98.0); Platelet Count 252 thou/uL (130-400); RBC Distribution Width 13.1 % (11.5-14.5); Red Blood Cell (RBC) Count 3.87 mill/uL (4.20-5.40); White Blood Cell (WBC) Count 5.9 thou/uL (4.8-10.8)
[2017-10-25 06:07] LABS: Troponin I 0.196 ng/mL (< 0.028)
--- NOTE | 2017-10-25 06:13 | PDOC.FM ---
- Subjective Subjective: Bteh Rick seen at bedside this morning. She had no acute events overnight. States that she still gets some minor chest pain when she gets up and moves around. She denies any current chest pain, dyspnea, fever, chills, cough. - Objective MAR Reviewed: Yes Vital Signs & Weight: Vital Signs (12 hours) Temp Pulse Resp BP Pulse Ox 10/25/17 04:21 98.1 F 69 19 97/58 L 99 10/24/17 20:28 99 10/24/17 20:00 99.5 F 82 21 H 10/24/17 19:52 99.5 F 82 21 H 135/71 98 10/24/17 19:44 81 16 99 Weight Weight 88.451 kg Result Diagrams: 10/25/17 05:28 10/25/17 05:28 <Tulio Pineda - Last Filed: 10/25/17 08:02> - Objective Vital Signs & Weight: Vital Signs (12 hours) Temp Pulse Resp BP Pulse Ox 10/25/17 10:25 70 10/25/17 08:00 97.8 F 70 14 120/67 100 10/25/17 07:12 70 16 10/25/17 04:21 98.1 F 69 19 97/58 L 99 Weight Weight 88.451 kg I&O: 10/24/17 10/25/17 10/26/17 06:59 06:59 06:59 Output Total 600 Balance -600 Result Diagrams: 10/25/17 05:28 10/25/17 05:28 <Addison Gonzales - Last Filed: 10/25/17 11:11> Phys Exam - Physical Examination Constitutional: NAD HEENT: moist MMs, sclera anicteric Neck: no JVD, supple, full ROM Respiratory: no wheezing, no rales, no rhonchi, clear to auscultation bilateral Cardiovascular: RRR, no significant murmur Gastrointestinal: soft, non-tender, no distention Musculoskeletal: no edema, pulses present Neurological: non-focal, moves all 4 limbs Psychiatric: normal affect, A&O x 3 Skin: no rash, normal turgor <Tulio Pineda - Last Filed: 10/25/17 08:02> Dx/Plan (1) Stable angina Code(s): I20.8 - OTHER FORMS OF ANGINA PECTORIS Status: Acute (2) NALDO (acute kidney injury) Code(s): N17.9 - ACUTE KIDNEY FAILURE, UNSPECIFIED Status: Acute (3) Coronary artery disease Code(s): I25.10 - ATHSCL HEART DISEASE OF [place] CORONARY ARTERY W/O ANG PCTRS Status: Chronic QualifierTitle: Coronary Disease-Associated Artery/Lesion type: bypass graft [place] vs. transplanted heart: [place] heart Associated angina: without angina Qualified Code(s): I25.810 - Atherosclerosis of coronary artery bypass graft(s) without angina pectoris (4) HLD (hyperlipidemia) Code(s): E78.5 - HYPERLIPIDEMIA, UNSPECIFIED Status: Chronic QualifierTitle: Hyperlipidemia type: unspecified Qualified Code(s): E78.5 - Hyperlipidemia, unspecified (5) Hypertension Code(s): I10 - ESSENTIAL (PRIMARY) HYPERTENSION Status: Chronic - Plan Plan: 1) Stable Angina: - History of chest pain 2-3 days, relieved with nitro, substernal, radiating to left arm, associated with nausea and diaphoresis - Initial Trop was 0.50, trops initially [place] but remained indeterminant, last trop was downtrending - Last Echo (EF 55-60%) on 07/2017 - Stress in July 2017, no signs of ischemia - Continue home meds - Positive D-dimer but neg Chest CTA to r/o PE, Negative procalcitonin and normal WBC r/o PNA - Will notify patients Quality Control Engineering Technician of her admission 2) NALDO - Elevated Cr from baseline, GFR slightly lower than baseline - IVFs, NS @ 110 ml/hr - Recheck BMP in AM 3) CAD s/p CABG X4 in 1999 - Cont home meds 4) HTN - Monitor on tele - Continue home meds 5) HLD - home meds <Tulio Pineda - Last Filed: 10/25/17 08:02> Attending Addendum - Attending Addendum Date/Time: 10/25/17 [id number] I personally evaluated the patient and discussed the management with Dr. Pineda I agree with the History, Examination, Assessment and Plan documented above with any addition or exceptions noted below. Patient with known CAD s/p CABG years ago presents with angina with indeterminant troponins will consult Cardiology and appreciate any recommendations. <Addison Gonzales - Last Filed: 10/25/17 11:11>
[2017-10-25 06:16] LABS: Anion Gap 12 mmol/L (10-20); BUN (Urea Nitrogen) 12 mg/dL (9.8-20.1); Calc. Creatinine Clearance 52 mL/min (70-130); Calcium 8.9 mg/dL (7.8-10.44); Carbon Dioxide 25 mmol/L (23-31); Cardiac Risk 3.6 (Less than 4.5); Chloride 100 mmol/L (98-107); Cholesterol 167 mg/dl (< 200 Desired); Estimated GFR-MDRD 49; Glucose 95 mg/dL (83-110); HDL Cholesterol 46 mg/dL (>60 Neg Risk); LDL Cholesterol, Calculated 97 mg/dL; Potassium 3.5 mmol/L (3.5-5.1); Sodium 133 mmol/L (136-145); Triglycerides 122 mg/dL (Less than 150)
[2017-10-25] MEDS: Mometasone/Formoterol 120 PUFF INHALER INH SCH ×2 (07:12→18:39)
[2017-10-25] MEDS ORDERED: Aspirin 325 mg Enteric Coated Tablet PO SCH (09:00)
[2017-10-25] MEDS ORDERED: Amlodipine 10 MG TAB PO SCH (09:00)
[2017-10-25] MEDS: Valsartan 80 MG TAB PO SCH (10:23)
[2017-10-25] MEDS: Gabapentin 300 MG CAP PO SCH ×2 (10:24→20:00)
[2017-10-25] MEDS: Amlodipine 10 MG TAB PO SCH (10:25)
[2017-10-25] MEDS: Hydrochlorothiazide 25 MG TAB PO SCH (10:26)
[2017-10-25] MEDS: Aspirin 325 MG TAB PO SCH (10:28)
[2017-10-25] MEDS: Enoxaparin Sodium 40 MG/0.4 ML SYRINGE SC SCH (10:29)
[2017-10-25] MEDS ORDERED: Nitroglycerin 2% Ointment 1 INCH/1 GM Packet TOP PRN (13:48)
[2017-10-25 16:50] LABS: CKMB 3.8 ng/mL (0-6.6); Troponin I 0.095 ng/mL (< 0.028)
[2017-10-25] MEDS: Naproxen 500 MG TAB PO SCH (20:00)
[2017-10-25] MEDS ORDERED: Rosuvastatin 20 MG TAB PO SCH (21:00)
[2017-10-25] MEDS: Nitroglycerin 2% Ointment 1 INCH/1 GM Packet TOP SCH (23:51)
--- NOTE | 2017-10-26 01:19 | CON ---
DATE OF CONSULTATION: 10/25/2017 HISTORY: Beth Rick is a 77-year-old black female with history of coronary artery disease admitted with chest discomfort. In 06/1999, she was admitted with a history of exertional pain that started in the left arm going to the right arm all the way across her chest. With rest, this would resolve. She ultimately underwent catheterization and was found to have 3-vessel coronary artery disease. She underwent CABG in 08/1999 with GARCIA to LAD, saphenous vein graft to the diagonal, radial to the first obtuse marginal (piggybacked onto the diagonal graft) and graft to the right coronary artery. In 06/2000, she underwent another catheterization. There was a 90% proximal LAD, 90% proximal circumflex, and 90% mid RCA. Bypass grafts revealed patent GARCIA to the LAD. The vein graft to the diagonal was patent. The radial to the obtuse marginal was patent. The right coronary artery graft was occluded and this was small vessel. It was felt best to continue to treat her medically. She also was admitted here in 07/2017 with chest discomfort and underwent adenosine Cardiolite testing, which revealed no evidence of ischemia. She now was admitted with chest pain over the last 3-4 days. The episodes are definitely pleuritic in nature. She also has been having a cough productive of yellow sputum during that time. At the present time, if she takes a deep breath in, this will bring on her chest pain. In the emergency room, she underwent CTA of the chest which revealed no evidence of pulmonary embolism and [id number] emphysema and nonspecific small left lung nodule. She has been admitted and placed on IV antibiotics, but continues to have chest discomfort. PAST MEDICAL HISTORY: Hypertension, hyperlipidemia, coronary artery disease, COPD. OPERATIONS: CABG x4. HOME MEDICATIONS: Amlodipine one-half tablet (questionable mg) daily, aspirin 325 daily, Symbicort 1 puff b.i.d., gabapentin 1 b.i.d., Crestor 20 mg at bedtime, valsartan/hydrochlorothiazide 160/12.5 b.i.d. SOCIAL HISTORY: She states she stopped smoking in 02/2017. She does not drink. REVIEW OF SYSTEMS: A 12-point review of systems, otherwise unremarkable. PHYSICAL EXAMINATION: VITAL SIGNS: 154/78, pulse is 75. HEENT: PERRL. NECK: Supple. LUNGS: Chest reveals clear, but distant breath sounds. CARDIAC: S1 and S2 are normal without any S3, S4, murmurs, or rubs. Carotid upstrokes normal without bruit. ABDOMEN: Normal bowel sounds without tenderness, organomegaly. EXTREMITIES: Revealed no clubbing, cyanosis, or edema. NEUROLOGIC: Grossly intact. SKIN: Warm and dry. MUSCULOSKELETAL: Revealed palpable lower sternal tenderness that seems to reproduce all of her pain. LABORATORY DATA: EKG revealed normal sinus rhythm with nonspecific ST and T- wave changes. Hemoglobin 11.6, hematocrit 33.0, white count 5900, platelets 252 ,000. Sodium 133, potassium 3.5, chloride 100, carbon dioxide 25, BUN 12, creatinine 1.29. Troponin I is 0.050 up to 2.30 and is now on the way down. Cholesterol 167, triglycerides 122, HDL 46, LDL 97. IMPRESSION: 1. Atypical chest discomfort - pain is pleuritic in nature and she has palpable chest wall pain that seems to reproduce her symptoms. There is also questionable infiltrate on x-ray, and she has had cough productive of yellow sputum. 2. Chronic obstructive pulmonary disease exacerbation. 3. Status post coronary artery bypass graft x4 with three grafts patent in 2000. 4. Hypercholesterolemia, poorly controlled. Crestor will be increased to 40. 5. Smoker, she states she stopped in 02/2017. 6. Hypertension. 7. Chronic kidney disease. PLAN: Clinically, Ms. Arredondos chest discomfort does not appear to be cardiac in nature - pleuritic as well as palpable chest wall pain. I will start her on anti-inflammatory medication in the hopes of lessening her pain. After 18 years , certainly consideration may need to be given to catheterization to better clarify this but at the present time, I do not feel that she needs to go the clinical lab specialist emergently. And she had a normal cardiolite 2 months ago. STEPHEN
[2017-10-26] MEDS: Sodium Chloride 0.9% 1,000 ML IV SCH ×2 (06:11→08:54)
[2017-10-26] MEDS: Nitroglycerin 2% Ointment 1 INCH/1 GM Packet TOP SCH ×2 (06:14→11:06)
--- NOTE | 2017-10-26 06:40 | PDOC.FM ---
- Subjective Subjective: Beth Rick seen at bedside this morning. She is doing well and has no complaints. She had no acute events overnight. She was seen by cardiology yesterday afternoon. She denies any active chest pain, dyspnea, fever, chills. - Objective MAR Reviewed: Yes Vital Signs & Weight: Vital Signs (12 hours) Temp Pulse Resp BP Pulse Ox 10/26/17 04:00 97.9 F 71 18 135/84 96 10/26/17 00:00 98.3 F 74 18 115/64 94 L 10/25/17 19:55 99 F 94 20 179/86 H 95 10/25/17 19:35 99 F 94 20 10/25/17 18:40 98 Weight Weight 87.815 kg I&O: 10/24/17 10/25/17 10/26/17 06:59 06:59 06:59 Intake Total 500 Output Total 600 1500 Balance -600 -1000 Result Diagrams: 10/25/17 05:28 10/25/17 05:28 <Tulio Pineda - Last Filed: 10/26/17 07:41> - Objective Vital Signs & Weight: Vital Signs (12 hours) Temp Pulse Resp BP Pulse Ox 10/26/17 08:53 68 10/26/17 08:45 97.5 F L 70 18 119/65 99 10/26/17 08:18 68 16 10/26/17 04:00 97.9 F 71 18 135/84 96 10/26/17 00:00 98.3 F 74 18 115/64 94 L Weight Weight 87.815 kg I&O: 10/25/17 10/26/17 10/27/17 06:59 06:59 06:59 Intake Total 500 Output Total 600 1500 Balance -600 -1000 Result Diagrams: 10/26/17 07:06 10/25/17 05:28 <Addison Gonzales - Last Filed: 10/26/17 10:11> Phys Exam - Physical Examination Constitutional: NAD HEENT: moist MMs, sclera anicteric Neck: no JVD, supple, full ROM Respiratory: no wheezing, no rales, no rhonchi, clear to auscultation bilateral Cardiovascular: RRR, no significant murmur Gastrointestinal: soft, non-tender, no distention Musculoskeletal: no edema, pulses present Neurological: non-focal, normal sensation, moves all 4 limbs Psychiatric: normal affect, A&O x 3 Skin: no rash <Tulio Pineda - Last Filed: 10/26/17 07:41> Dx/Plan (1) Stable angina Code(s): I20.8 - OTHER FORMS OF ANGINA PECTORIS Status: Acute (2) NALDO (acute kidney injury) Code(s): N17.9 - ACUTE KIDNEY FAILURE, UNSPECIFIED Status: Acute (3) Coronary artery disease Code(s): I25.10 - ATHSCL HEART DISEASE OF [place] CORONARY ARTERY W/O ANG PCTRS Status: Chronic QualifierTitle: Coronary Disease-Associated Artery/Lesion type: bypass graft [place] vs. transplanted heart: [place] heart Associated angina: without angina Qualified Code(s): I25.810 - Atherosclerosis of coronary artery bypass graft(s) without angina pectoris (4) HLD (hyperlipidemia) Code(s): E78.5 - HYPERLIPIDEMIA, UNSPECIFIED Status: Chronic QualifierTitle: Hyperlipidemia type: unspecified Qualified Code(s): E78.5 - Hyperlipidemia, unspecified (5) Hypertension Code(s): I10 - ESSENTIAL (PRIMARY) HYPERTENSION Status: Chronic - Plan Plan: 1) Stable Angina: - History of chest pain 2-3 days, relieved with nitro, substernal, radiating to left arm, associated with nausea and diaphoresis - Initial Trop was 0.50, trops initially shame[place] but remained indeterminant, last trop was downtrending - Last Echo (EF 55-60%) on 07/2017 - Stress in July 2017, no signs of ischemia - Continue home meds - Positive D-dimer but neg Chest CTA to r/o PE, Negative procalcitonin and normal WBC r/o PNA - Cardiology consulted, appreciate recommendations - Cardiology suspects this pain is less likely to be cardiac in origin - Started on NSAIDs for pain control and treatment for emphysema - recommends against cath at this time, but possibly in the future 2) NALDO - Elevated Cr from baseline, GFR slightly lower than baseline - IVFs, NS @ 110 ml/hr 3) CAD s/p CABG X4 in 1999 - Cont home meds 4) HTN - Monitor on tele - Continue home meds 5) HLD - home meds <Tulio Pineda - Last Filed: 10/26/17 07:41> Attending Addendum - Attending Addendum Date/Time: 10/26/17 1007 I personally evaluated the patient and discussed the management with Dr. Pineda I agree with the History, Examination, Assessment and Plan documented above with any addition or exceptions noted below.Patient is stable has received maximum hospital benefit. Appreciate Cardiology recommendations. Patient has appointment f/u with Cardiology will check to see if see will qualify for home oxygen prior to dismissal and encourage to take all RX for COPD specifically Dulera which she has been reluctant to take. <Addison Gonzales - Last Filed: 10/26/17 10:11>
[2017-10-26 08:04] LABS: Eosinophils 2 % (0-10); Hemoglobin 13.1 g/dL (12.0-16.0); Lymphocytes 49 % (21-51); MDiff Complete? YES; Mean Corpuscular HGB CONC 34.3 g/dL (32.0-36.0); Mean Corpuscular Hemoglobin 29.8 pg (27.0-31.0); Mean Corpuscular Volume 86.6 fL (78.0-98.0); Monocytes 11 % (0-10); Neutrophil 38 % (42-75); Platelet Count 252 thou/uL (130-400); RBC Distribution Width 13.5 % (11.5-14.5)
[2017-10-26] MEDS: Mometasone/Formoterol 120 PUFF INHALER INH SCH (08:18)
[2017-10-26] MEDS: Enoxaparin Sodium 40 MG/0.4 ML SYRINGE SC SCH (08:52)
[2017-10-26] MEDS: Valsartan 80 MG TAB PO SCH (08:52)
[2017-10-26] MEDS: Amlodipine 10 MG TAB PO SCH (08:53)
[2017-10-26] MEDS: Naproxen 500 MG TAB PO SCH (08:53)
[2017-10-26] MEDS: Gabapentin 300 MG CAP PO SCH (08:53)
[2017-10-26 10:07] VITALS: BP 119/65
[2017-10-26] MEDS: Aspirin 325 MG TAB PO SCH (10:12)
[2017-10-26] MEDS: Hydrochlorothiazide 25 MG TAB PO SCH (10:40)
[2017-10-26 12:03] VITALS: TEMP 99
[2017-10-26 12:16] LABS: Anion Gap 15 mmol/L (10-20); BUN (Urea Nitrogen) 11 mg/dL (9.8-20.1); Calc. Creatinine Clearance 56 mL/min (70-130); Carbon Dioxide 24 mmol/L (23-31); Chloride 98 mmol/L (98-107); Estimated GFR-MDRD 53; Glucose 97 mg/dL (83-110); Potassium 3.6 mmol/L (3.5-5.1); Sodium 133 mmol/L (136-145)
--- NOTE | 2017-10-26 22:35 | DIS-2 ---
DATE OF ADMISSION: 10/24/2017 DATE OF DISCHARGE: 10/26/2017 RESIDENT: Tulio Pineda MD ADMITTING ATTENDING: Berta Alonzo MD DISCHARGE ATTENDING: Addison Gonzales MD CONSULTATION: Cardiology, Dr. Mao Montalvo on 10/25/2017. PROCEDURES: 1. Chest x-ray on 10/24/2017. Impression: Increasing right basilar infiltrate. Clinical correlati on regarding other signs and symptoms of right basilar pneumonitis is required. Atherosclerosis. 2. CTA of the chest. Impression: No pulmonary thromboembolism. [id number] emphysema. 3. Blood cultures x2 from 10/24/2017. Blood culture #1, no growth in 48 hours. Blood culture #2, b acillus species not anthracis. Likely contaminant. PRIMARY DIAGNOSIS: Atypical chest discomfort. SECONDARY DIAGNOSES: 1. Chronic obstructive pulmonary disease exacerbation. 2. Hypercholesterolemia. 3. Coronary artery disease. 4. Hypertension. 5. Chronic kidney disease. DISCONTINUE HOME MEDICATION: Rosuvastatin 20 mg p.o. at bedtime. NEW HOME MEDICATIONS: 1. Tylenol 650 mg p.o. q.4. p.r.n. 2. Aspirin 81 mg p.o. daily. 3. Naproxen 500 mg p.o. b.i.d. 4. Nitroglycerin 0.4 mg p.o. every 5 minute p.r.n. 5. Rosuvastatin calcium 40 mg p.o. daily. RESUME HOME MEDICATIONS: Includin. Amlodipine besylate 5 mg p.o. daily. 2. Symbicort 160/4.5 one puff INH b.i.d. 3. Valsartan hydrochlorothiazide 160/12.5 one tablet p.o. b.i.d. 4. Gabapentin 300 mg p.o. b.i.d. HISTORY OF PRESENT ILLNESS AND HOSPITAL COURSE: Beth Rick is a 77-year-old female with past medical history of coronary artery disease, status post CABG; hypertension; hyperlipidemia, who presented to the ED with a 2-3 day history of chest pain occurring at rest and with activity. States chest pain is located substernal, radiates to the left arm. It is associated with diaphoresis and nausea and vo miting. She was last seen in July with complaints of dyspnea and arm pain. At that time, she had a negative chest CTA, negative stress test, normal echo with an EF of 55-60%. She states that she too k nitro for this pain yesterday and it relieved her symptoms was also given nitro in the EMS, which i mproved her symptoms on day of admission. She has not had any heart catheterization in several years . Dr. Pena is her retail client solutions consultant. In the ED, she received nitro and aspirin. Initial vital signs of blood pressure 147/96, heart rate 72, respiratory rate 16, temperature 98.1, pulse ox 100% on sravan m air. Initial labs, white blood cell count 6.0, hemoglobin 12.0, hematocrit 33.8, platelets 248,000 . Sodium 130, potassium 3.2, chloride 96, bicarbonate 25, BUN 11, creatinine 1.19. EKG in the ED sh owed normal sinus rhythm. The patient was admitted for stable angina. Troponins were trended. Init ial troponin was 0.5. These tropes increased to 0.230 of the first 12 hours of her admission and the n down trended to 0.095. Cardiology, Dr. Montalvo, was consulted and saw the patient on 10/25/2017. Cardiology felt that this pain was more atypical in nature and pleuritic, likely secondary to pneumo nitis after being admitted from the ED, procalcitonin was checked and was normal. A D-dimer was chec ked as the patient became tachypneic in the ED and D-dimer slightly elevated. CTA was performed and was negative for PE. Ms. Rick was cleared for discharge on 10/26/2017 after being started on anti-inf lammatory medication. Cardiology felt that since last catheterization was approximately 18 years ago that consideration may need to be given to catheterization to better clarify chest pain, but did not feel that patient needed to go to the labor relations analyst emergently as she had a normal Cardiolite stress test 2 months ago. Recommended following up with patient's retail client solutions consultant, Dr. Pena, in 2-3 weeks and continue all other home medications. The patient understood the instructions and was in agreement wi th the plan. On the day of discharge, the patient said that her chest pain was improved. DISPOSITION: Stable. The patient should do well if she continues to take home medications and follo w up with her primary retail client solutions consultant, Dr. Pena. DISCHARGE INSTRUCTIONS: 1. Location: Home. 2. Diet: Heart healthy. 3. Activity: As tolerated. 4. Followup: Follow up with Dr. Pena as well as primary care provider in 2-3 weeks.
== END 2017-10-26 12:08 | disposition home or self-care (01) | DRG 303 ==
LOC: ERS 14:29 → 2NO 16:20
PROVIDERS: ADMIT Family Medicine; ATTEND Family Medicine
DX: I25.118 Atherosclerotic heart disease of native coronary artery with other forms of angina pectoris (principal); J44.1 Chronic obstructive pulmonary disease with (acute) exacerbation; N17.9 Acute kidney failure, unspecified; E78.00 Pure hypercholesterolemia, unspecified; Z95.1 Presence of aortocoronary bypass graft; I12.9 Hypertensive chronic kidney disease with stage 1 through stage 4 chronic kidney disease, or unspecified chronic kidney disease; F17.210 Nicotine dependence, cigarettes, uncomplicated; N18.9 Chronic kidney disease, unspecified; Z79.82 Long term (current) use of aspirin; B96.89 Other specified bacterial agents as the cause of diseases classified elsewhere
CPT/HCPCS: 36415; 36416; 71045; 71275; 80048; 80053; 80061; 81003; 82553; 83690; 83880; 84145; 84484; 85025; 85379; 87040; 93005; 93010; 94664; 99406; A4216; G8978-GP-CK; G8979-GP-CJ; J1650; J2543

== ENCOUNTER 2017-10-30 21:02 | Observation (INO) | payer MEDICARE ==
--- NOTE | 2017-10-30 21:58 | RAD ---
PORTABLE CHEST: 10/30/17 INDICATIONS: Dyspnea. COMPARISON: 10/24/17. There continues to be patchy density in the right lower lung, similar in appearance to the prior exam . I cannot exclude patch infiltrate. Elevated left hemidiaphragm is unchanged. The upper lung nuñez are clear and unchanged. No evidence of vascular congestion. Heart is mildly enlarged with postop st ernotomy change. IMPRESSION: Continued evidence of patchy right lower lung infiltrate. POS: [facility]
[2017-10-30 22:20] LABS: Band 6 % (5-11); Eosinophils 4 % (0-10); Hemoglobin 11.7 g/dL (12.0-16.0); Lymphocytes 39 % (21-51); MDiff Complete? YES; Mean Corpuscular HGB CONC 36.4 g/dL (32.0-36.0); Mean Corpuscular Hemoglobin 30.9 pg (27.0-31.0); Mean Corpuscular Volume 84.9 fL (78.0-98.0); Mean Platelet Volume 8.6 fL (7.4-10.4); Monocytes 3 % (0-10); Neutrophil 47 % (42-75); PLT Morphology Comment Appears Adequate; Platelet Count 264 thou/uL (130-400); RBC Morphology Normal; White Blood Cell (WBC) Count 8.3 thou/uL (4.8-10.8)
[2017-10-30 22:22] LABS: CKMB 3.7 ng/mL (0-6.6); Troponin I 0.093 ng/mL (< 0.028)
[2017-10-30 22:31] LABS: ALT (SGPT) 18 U/L (8-55); AST (SGOT) 28 U/L (5-34); Albumin 3.8 g/dL (3.4-4.8); Alkaline Phosphatase 74 U/L (40-150); Anion Gap 14 mmol/L (10-20); BUN (Urea Nitrogen) 18 mg/dL (9.8-20.1); Bilirubin, Total 0.5 mg/dL (0.2-1.2); CK (CPK) 241 U/L (29-168); Calc. Creatinine Clearance 0 mL/min (70-130); Calcium 8.9 mg/dL (7.8-10.44); Carbon Dioxide 20 mmol/L (23-31); Chloride 99 mmol/L (98-107); Estimated GFR-MDRD 45; Globulin 3.5 g/dL (2.4-3.5); Glucose 111 mg/dL (83-110); Potassium 4.4 mmol/L (3.5-5.1); Protein, Total 7.3 g/dL (6.0-8.3); Sodium 129 mmol/L (136-145)
--- NOTE | 2017-10-30 22:40 | PDOC.FPRHP ---
- History of Present Illness Chief Complaint: SOB History of Present Illness: Ms Rick is a 77yo female with pmh of HLD, HTN, CAD s/p CABG in 1999, and asthma presenting to the ED with worsening SOB. She was admitted 10/24/17 for atypical chest pain. At this time she was having pleuritic pain and SOB, she was afebrile. Her CTA was neg for PE, she had a negative procalcitonin and normal WBC so antibiotic treatment was not started for pneumonia. Cardiology was consulted and cardiac cause for pain was thought to be less likely. She had a stress test in 2018 with no signs of ischemia. Cardiology did not recommend a cath. She was discharged on NSAIDs for pain control and treatment for emphysema. Since discharge she has had worsening SOB, orthopnea and persistent chest tightness with deep inspiration. She has been taking medications as directed and has them in her purse with her today. Denies fever, chills, or cough. ED Course: EKG- nml, CXR- continued evidence of RLL infiltrate. Given Ceftriaxone 1g and Azithromycin 500mg and toradol - Allergies/Adverse Reactions Allergies Allergy/AdvReac Type Severity Reaction Status Date / Time codeine Allergy Verified 10/31/17 03:10 hydrocodone Allergy itching Verified 10/31/17 03:10 hydrocodone bitartrate Allergy itching Verified 10/31/17 03:10 [From Vicodin] morphine Allergy ITCHING, Verified 10/31/17 03:10 SEVERE BRADYCARDIA tramadol Allergy Verified 10/31/17 03:10 - Home Medications Medication Instructions Recorded Confirmed Type Amlodipine Besylate [amLODIPine 0.5 tab PO DAILY #0 tablet 11/09/15 10/24/17 Rx Besylate] Budesonide-Formoterol [Symbicort 1 puff INH BID 08/04/17 10/24/17 History 160-4.5] Valsartan/Hydrochlorothiazide 1 tablet PO BID 08/04/17 10/24/17 History [Valsartan-Hctz 160-12.5 mg Tab] Rosuvastatin [Crestor] 20 mg PO HS #30 tab 08/05/17 10/24/17 Rx Gabapentin 1 tab PO BID 10/24/17 10/24/17 History Acetaminophen [Tylenol Regular 650 mg PO Q4H PRN tab 10/26/17 Rx Strength] Aspirin [Aspirin Chewable Tablet] 81 mg PO DAILY tab 10/26/17 Rx Naproxen [Naprosyn] 500 mg PO BID #60 tab 10/26/17 Rx Nitroglycerin [Nitrostat] 0.4 mg PO Q5MIN PRN #30 tab 10/26/17 Rx Rosuvastatin Calcium [Crestor] 40 mg PO DAILY #30 tablet 10/26/17 Rx - History PMHx: CAD s/p CABG 1999, HTN, HLD PSHx: CABG 1999 FHx: Social: Denies alcohol or drug use. Current smoker. Lives alone in [facility] - Review of Systems General: denies: fever/chills Eyes: reports: other (Headache) Respiratory: reports: shortness of breath, exercise intolerance. denies: cough Cardiovascular: reports: chest pain, palpitation, orthopnea. denies: edema Gastrointestinal: reports: constipation. denies: nausea, vomiting, diarrhea - Vital signs BP: 139/81 HR: 80 RR: 18 Tmax: 97.6 Pox: 96% on RA - Physical Exam Constitutional: NAD, awake, alert and oriented, well developed HEENT: normocephalic and atraumatic, PERRLA, TM's clear and intact, MMM, oropharynx clear Neck: supple, trachea midline, no thyromegaly Heart: RRR, pulses present, no edema Lungs: other (Distant breath sounds in bases bilaterally) Abdomen: soft, bowel sounds present Musculoskeletal: normal structure Skin: no rash/lesions, capillary refill <2 seconds Psychiatric: normal mood and affect FMR H&P: Results - Labs Result Diagrams: 10/30/17 21:45 10/30/17 21:45 Lab results: WBC 8.3 thou/uL (4.8-10.8) 10/30/17 21:45 Hgb 11.7 g/dL (12.0-16.0) L 10/30/17 21:45 Hct 32.3 % (36.0-47.0) L 10/30/17 21:45 MCV 84.9 fL (78.0-98.0) 10/30/17 21:45 Plt Count 264 thou/uL (130-400) 10/30/17 21:45 Band Neuts % (Manual) 6 % (5-11) 10/30/17 21:45 Sodium 129 mmol/L (136-145) L 10/30/17 21:45 Potassium 4.4 mmol/L (3.5-5.1) 10/30/17 21:45 Chloride 99 mmol/L (98-107) 10/30/17 21:45 Carbon Dioxide 20 mmol/L (23-31) L 10/30/17 21:45 BUN 18 mg/dL (9.8-20.1) 10/30/17 21:45 Creatinine 1.38 mg/dL (0.6-1.1) H 10/30/17 21:45 Glucose 111 mg/dL (83-110) H 10/30/17 21:45 Calcium 8.9 mg/dL (7.8-10.44) 10/30/17 21:45 Total Bilirubin 0.5 mg/dL (0.2-1.2) 10/30/17 21:45 AST 28 U/L (5-34) 10/30/17 21:45 ALT 18 U/L (8-55) 10/30/17 21:45 Alkaline Phosphatase 74 U/L (40-150) 10/30/17 21:45 Creatine Kinase 241 U/L (29-168) H 10/30/17 21:45 CK-MB (CK-2) 3.7 ng/mL (0-6.6) 10/30/17 21:45 B-Natriuretic Peptide 81.2 pg/mL (0-100) 10/30/17 21:45 Serum Total Protein 7.3 g/dL (6.0-8.3) 10/30/17 21:45 Albumin 3.8 g/dL (3.4-4.8) 10/30/17 21:45 - EKG Interpretation EKG: Normal EKG - Radiology Interpretation Chest x-ray Status: report reviewed by me Additional comment: Continued evidence of patchy right lower lung infiltrate. FMR H&P: A/P - Problem List (1) Shortness of breath Current Visit: Yes Status: Acute Code(s): R06.02 - SHORTNESS OF BREATH (2) HLD (hyperlipidemia) Current Visit: Yes Status: Chronic Priority: Low Code(s): E78.5 - HYPERLIPIDEMIA, UNSPECIFIED Qualifiers: Hyperlipidemia type: unspecified Qualified Code(s): E78.5 - Hyperlipidemia , unspecified (3) Hypercholesteremia Current Visit: Yes Status: Chronic Priority: Low Code(s): E78.0 - PURE HYPERCHOLESTEROLEMIA * DO NOT USE * (4) NALDO (acute kidney injury) Current Visit: No Status: Acute Code(s): N17.9 - ACUTE KIDNEY FAILURE, UNSPECIFIED (5) Atypical chest pain Current Visit: No Status: Acute Priority: High Code(s): R07.89 - OTHER CHEST PAIN (6) Coronary artery disease Current Visit: No Status: Chronic Priority: High Code(s): I25.10 - ATHSCL HEART DISEASE OF [place] CORONARY ARTERY W/O ANG PCTRS Qualifiers: Coronary Disease-Associated Artery/Lesion type: bypass graft [place] vs. transplanted heart: [place] heart Associated angina: without angina Qualified Code(s): I25.810 - Atherosclerosis of coronary artery bypass graft(s) without angina pectoris (7) Hypertension Current Visit: No Status: Chronic Priority: Medium Code(s): I10 - ESSENTIAL (PRIMARY) HYPERTENSION (8) Hyponatremia Current Visit: No Status: Chronic Code(s): E87.1 - HYPO-OSMOLALITY AND HYPONATREMIA - Plan Ms Rick is a 77yo female with pmh of HTN, HLD, CAD s/p CABG in presenting to the ED with worsening SOB 1. Atypical Chest PAin - Recently discharged 10/26/17 with similar chief complaint of SOB - Normal Stress Test July 2017 - 10/24/17 CTA neg but evidence of pulmonary scarring in RLL, procalcitonin neg - Afebrile, WBC 8.3 - Has been taking NSAIDs, symbicort - Toradol in ED 2. NALDO - Elevated Cr of 1.38 from baseline - IVF NS @ 125ml/hr 3. CAD s/p CABG in 1999 - Cont home meds 4. HTN - Cont home meds 5. HLD - Cont home meds 6. Hyponatremia - Urine Na/Osm/Cr FMR H&P: Upper Level - Pertinent history 77 yr old female with history of COPD, CAD S/P CABG, HLD, CKD stage 3 who presents for worsening SOB. She reports worsened chest pain with deep breaths. The pain is substernal and radiates to left side of chest. Of note she was discharged on 10/26/17 with atypical chest pain thought to be secondary to pneumonitis. She was dc'ed with naproxen BID. She reports this not helping. Nitro has relieved the pain but only temporarily. Pain is worse when lying flat and taking deep breaths. She does not some difficulty with swallowing food and onset of pain as well. No nausea, vomiting, diaphoresis. The patient was evaluated by Renee Hernandez in the ER and admitted for failed outpatient treatment of PNA. She has not been treated for PNA. She denies cough or sputum production. - Pertinent findings GEN: patient appears to be in pain and is rubbing her chest for relief. Patient tearful. Cardiac: RRR with no M/R/G lungs: BLL with crackles posteriorly and diminished breath sounds, anterior lungs CTAB Abd: BS normal active, non tender to palpation Ext: No edema to BLE cxr: patchy RLL infiltrate CTA on 10/24/16- moderate to severe emphysema non specific focal dome shaped 1 x 1.5 x 2 cm pulm density with a broad base against the left posterolateral lower pleural surface - Plan Date/Time: 10/30/172237 I, [Zahida Gillespie], have evaluated this patient and agree with findings/plan as outlined by pharmacy graduate intern resident. Pertinent changes/additions are listed here. 77 yr old female with Atypical chest pain- pleuritic in nature -suspect pneumonitis vs pericarditis -low suspicion for ACS -pain not improved with outpatient naproxen -pain improved briefly with nitro- consider esophageal spasm -recent negative stress test (07/2017) -recently planning outpatient cardiac cath -admit to tele obs -trend trops -no acute EKG changes -She was originally treated with Rocephin in the ED for CAP however this is less likley so will hold further abx. Will check procalcitonin. NALDO on CKD -IV fluid hydration -possibly 2/2 acute increase use of outpatient NSAIDs -recheck BMP in AM hyponatremia -euvolemic -check urine sodium -monitor BMP elevated trop -trend COPD -stable CAD -cont home meds -pending outpatient follow up with cardiology HTN HLD
[2017-10-30] MEDS ORDERED: cefTRIAXone\\ROCEPHIN 2 GM VIAL ONE (22:54)
[2017-10-30] MEDS ORDERED: Ketorolac Tromethamine 30 MG/ML VIAL ONE (23:45)
[2017-10-30] MEDS ORDERED: Azithromycin 500 MG VIAL ONE (23:45)
[2017-10-31 01:18] LABS: Troponin I 0.115 ng/mL (< 0.028)
[2017-10-31] MEDS: Sodium Chloride 0.9% 1,000 ML IV SCH ×3 (01:49→18:19)
[2017-10-31 02:19] VITALS: BMI 26.1
[2017-10-31] MEDS ORDERED: Acetaminophen 325 MG TAB PO PRN (03:17)
[2017-10-31] MEDS: Ondansetron ODT 4 MG TAB PO PRN ×2 (04:15→18:18)
[2017-10-31 04:59] LABS: Anion Gap 15 mmol/L (10-20); BUN (Urea Nitrogen) 16 mg/dL (9.8-20.1); Calc. Creatinine Clearance 53 mL/min (70-130); Calcium 9.5 mg/dL (7.8-10.44); Carbon Dioxide 23 mmol/L (23-31); Chloride 99 mmol/L (98-107); Estimated GFR-MDRD 50; Glucose 117 mg/dL (83-110); Sodium 133 mmol/L (136-145)
[2017-10-31 05:05] LABS: Troponin I 0.115 ng/mL (< 0.028)
[2017-10-31] MEDS ORDERED: Lidocaine 2% Viscous Solution 10 ML, Aluminum & Magnesium Hydroxide 30 ML SSW SCH (05:15)
--- NOTE | 2017-10-31 05:28 | PDOC.FM ---
- Subjective Subjective: Pt reports improvement overnight with dose of zofran and GI cocktail. She has no complaints this morning; denies SOB, chest pain, N/V. Resting comfortably in bed with family at bedside. - Objective Vital Signs & Weight: Vital Signs (12 hours) Temp Pulse Resp BP Pulse Ox 10/31/17 00:45 97.8 F 76 16 145/82 H 95 Result Diagrams: 10/30/17 21:45 10/31/17 04:20 <Yang Menchaca - Last Filed: 10/31/17 09:15> - Objective Vital Signs & Weight: Vital Signs (12 hours) Temp Pulse Resp BP BP Pulse Ox 10/31/17 15:54 97.8 F 87 16 151/87 H 90 L 10/31/17 13:20 85 16 94 L 10/31/17 12:15 98.2 F 76 16 124/76 95 10/31/17 08:44 81 123/70 10/31/17 08:20 98 F 81 16 10/31/17 08:00 98 F 73 16 123/70 97 10/31/17 06:21 81 16 95 I&O: 10/30/17 10/31/17 11/01/17 06:59 06:59 06:59 Intake Total 1000 Output Total 100 Balance 900 Result Diagrams: 10/30/17 21:45 10/31/17 04:20 <Alma Rosa Frankel - Last Filed: 10/31/17 17:04> Phys Exam - Physical Examination Constitutional: NAD Respiratory: no wheezing, no rales, no rhonchi, clear to auscultation bilateral Cardiovascular: RRR, no significant murmur, no rub, gallop, irregular Gastrointestinal: soft, non-tender Musculoskeletal: no edema, pulses present Psychiatric: normal affect <Yang Menchaca - Last Filed: 10/31/17 09:15> Dx/Plan (1) Atypical chest pain Code(s): R07.89 - OTHER CHEST PAIN Status: Acute (2) NALDO (acute kidney injury) Code(s): N17.9 - ACUTE KIDNEY FAILURE, UNSPECIFIED Status: Acute (3) Hyponatremia Code(s): E87.1 - HYPO-OSMOLALITY AND HYPONATREMIA Status: Chronic (4) COPD (chronic obstructive pulmonary disease) Status: Chronic QualifierTitle: COPD type: unspecified COPD Qualified Code(s): J44.9 - Chronic obstructive pulmonary disease, unspecified (5) Hypertension Code(s): I10 - ESSENTIAL (PRIMARY) HYPERTENSION Status: Chronic - Plan Plan: 1. Atypical Chest Pain - Recently discharged 10/26/17 with similar chief complaint of SOB - Normal Stress Test July 2017 - 10/24/17 CTA neg but evidence of pulmonary scarring/nodule/lipoma in RLL, procalcitonin neg. could be contributing to patients discomfort. Consider pulm consult for further workup - Afebrile, WBC 8.3 - Has been taking NSAIDs, symbicort - trop: .093-.115 - possibly related to GERD, consider adding pantoprazole 2. NALDO - Elevated Cr of 1.38 from baseline - Now at 1.25, continue to follow - IVF NS @ 125ml/hr 3. Hyponatremia - treated with NS 125ml/hr - resolved 4. CAD s/p CABG in 1999 - Cont home meds 5. HTN - Cont home meds 6. HLD - Cont home meds Dispo: Pt is much improved from last night, will evaluate for GERD today, possible discharge later today or tomorrow <Yang Menchaca - Last Filed: 10/31/17 09:15> Attending Addendum - Attending Addendum Date/Time: 10/31/17 1703 I personally evaluated the patient and discussed the management with Dr. Menchaca. I agree with the History, Examination, Assessment and Plan documented above with any addition or exceptions noted below. The patient was admitted with atypical chest pain. Pain improved with GI cocktail. She also has nodule on ct scan that hasn't been addressed. Will consult pulmonology for recs. If patient continues to improve, may d/c this afternoon. She has had recent stress test. <Alma Rosa Frankel - Last Filed: 10/31/17 17:04>
[2017-10-31] MEDS ORDERED: Mometasone/Formoterol 120 PUFF INHALER INH SCH (06:30)
--- NOTE | 2017-10-31 06:49 | PDOC.EVN ---
Event Note - Event Note Event Note: Patient seen and examined on 10/30/2017 @23:30. History,exam, assessment, and plan reviewed and case discussed with Dr. Flower. Briefly this is a 77 year old female with h/o HTN, HLD, CAD, and COPD recently hospitalized for atypical chest pain. Workup negative for ACS and patient discharged home with NSAIDs and inhalers for COPD. Patient returns c/o continued pleuritic type chest pain- pain worse with deep breath. Located along sternum primarily on left side. Denies any cough, fever/chills. Does endorse some difficulty with feeling like food is getting stuck when she eats. During prior hospitalization, she did get some relief from nitro. PMH/PSH/Meds/All reviewed and agree with residents documentation. Afebrile VSS Exam repeated by me and significant for reproducible chest pain with palpation along sternum/ribs. Lungs- CTA b/l. Labs reviewed. A/P: 1) Pleuritic chest pain- continue pain medications. Consider other etiologies including esophageal spasm. 2) NALDO- continue IVF. Recheck basmet in AM.
[2017-10-31] MEDS: Amlodipine 5 MG TAB PO SCH (08:44)
[2017-10-31] MEDS: Acetaminophen 325 MG TAB PO PRN ×2 (08:44→15:18)
[2017-10-31] MEDS: Enoxaparin Sodium 40 MG/0.4 ML SYRINGE SC SCH (08:45)
[2017-10-31 09:10] LABS: CKMB 4.8 ng/mL (0-6.6); Troponin I 0.146 ng/mL (< 0.028)
--- NOTE | 2017-10-31 12:28 | CON ---
DATE OF CONSULTATION: 10/31/2017 HISTORY: This is a 77-year-old female admitted with multiple complaints, who stated that she was just recently discharged from the hospital, presented with severe leg pain feet pain, c ough and shortness of breath. Pulmonary is consulted. Now that the CAT scan was taken which showed a left lower lung pleural base nodule. She has been smoking and continues to smoke up to a half pack to a pack a day. She got a cough. She has wheezing. She has got a low grade fever. She says she can barely walk even 30 feet without get ting markedly short of breath, prior history of pneumonia, but no history of TB or asthma. She additionally has been complaining of some vague left substernal chest pain. PAST MEDICAL HISTORY: Pertinent otherwise for coronary artery disease, hypertension, tobacco abuse, COPD, bronchitis, peripheral vascular disease. She was discharged on 10/26/2017 with a discharge jere gnosis of COPD exacerbation. PAST SURGICAL HISTORY: Included previous bypass surgery. MEDICATIONS: Medications from home includes amlodipine 5 mg, Ecotrin, Symbicort, hydrochlorothiazide , Crestor 40, gabapentin twice a day and Naprosyn. SOCIAL/FAMILY HISTORY: Otherwise disabled. Tobacco as noted. Alcohol none. ALLERGIES: CODEINE, MORPHINE, TRAMADOL. REVIEW OF SYSTEMS: Otherwise, 10-point negative. PHYSICAL EXAMINATION: VITAL SIGNS: Sats are 97 on room air, respiration 16, temperature 98, blood pressure 122/70. GENERAL: She appears to be in no acute distress. CHEST: Chest revealed minimal crackles bilaterally. CARDIOVASCULAR: Normal S1, S2, no gallops. ABDOMEN: Soft. EXTREMITIES: No edema. LABORATORY: Creatinine 1.25. Sodium 133. White count 8000, H&H 11 and 33, platelet count is 64. IMPRESSION: 1. Chronic obstructive pulmonary disease exacerbation. 2. Bronchitis. 3. Extensive emphysema seen on the CAT scan. 4. Left pleural base density nodule of unknown significance and needs outpatient further followup. 5. Right lower lung infiltrate, scarring, probably chronic. PLAN: I have added steroids and neb treatments to her present regimen. Order full PFTs. She is to refrain from smoking. Further recommendations after above. This is a consultation note, 70 minutes, 50% spent in direct patient care.
[2017-10-31 12:38] LABS: CKMB 5.3 ng/mL (0-6.6); Troponin I 0.179 ng/mL (< 0.028)
[2017-10-31 15:16] LABS: CKMB 5.8 ng/mL (0-6.6); Troponin I 0.198 ng/mL (< 0.028)
[2017-10-31 17:48] LABS: Troponin I 0.163 ng/mL (< 0.028)
[2017-10-31] MEDS: Mometasone/Formoterol 120 PUFF INHALER INH SCH (19:24)
[2017-10-31] MEDS ORDERED: Rosuvastatin 20 MG TAB PO SCH (21:00)
[2017-11-01] MEDS: Sodium Chloride 0.9% 1,000 ML IV SCH (02:00)
--- NOTE | 2017-11-01 05:25 | PDOC.FM ---
- Subjective Subjective: Pt reports no chest pain overnight, she feels much improved today and would like to go home. She denies shortness of breath, headache, N/V/D, numbness, or any other new symptoms. - Objective Vital Signs & Weight: Vital Signs (12 hours) Temp Pulse Resp BP Pulse Ox 11/01/17 04:00 99.3 F 75 18 124/65 93 L 11/01/17 00:00 97.8 F 75 18 94/56 L 91 L 10/31/17 22:27 97.8 F 75 18 10/31/17 20:00 97.6 F 82 18 104/61 95 10/31/17 19:22 77 16 96 I&O: 10/30/17 10/31/17 11/01/17 06:59 06:59 06:59 Intake Total 1000 2360 Output Total 100 2000 Balance 900 360 Result Diagrams: 10/30/17 21:45 10/31/17 04:20 <Yang Menchaca - Last Filed: 11/01/17 09:12> - Objective Vital Signs & Weight: Vital Signs (12 hours) Temp Pulse Resp BP Pulse Ox 11/01/17 12:00 97.8 F 96 20 165/87 H 96 11/01/17 09:12 76 11/01/17 08:19 97.8 F 76 14 11/01/17 07:55 97.8 F 76 14 115/67 96 11/01/17 06:19 80 16 94 L 11/01/17 06:17 80 16 94 L I&O: 10/31/17 11/01/17 11/02/17 06:59 06:59 06:59 Intake Total 1000 4100 Output Total 100 2000 Balance 900 2100 Result Diagrams: 10/30/17 21:45 10/31/17 04:20 <Alma Rosa Frankel - Last Filed: 11/01/17 16:29> Phys Exam - Physical Examination Constitutional: NAD Respiratory: no wheezing, no rales, clear to auscultation bilateral Cardiovascular: RRR, no significant murmur Gastrointestinal: soft, non-tender Musculoskeletal: no edema, pulses present <Yang Menchaca - Last Filed: 11/01/17 09:12> Dx/Plan (1) Atypical chest pain Code(s): R07.89 - OTHER CHEST PAIN Status: Acute (2) NALDO (acute kidney injury) Code(s): N17.9 - ACUTE KIDNEY FAILURE, UNSPECIFIED Status: Acute (3) COPD (chronic obstructive pulmonary disease) Status: Chronic QualifierTitle: COPD type: unspecified COPD Qualified Code(s): J44.9 - Chronic obstructive pulmonary disease, unspecified (4) Hyponatremia Code(s): E87.1 - HYPO-OSMOLALITY AND HYPONATREMIA Status: Chronic (5) Hypertension Code(s): I10 - ESSENTIAL (PRIMARY) HYPERTENSION Status: Chronic - Plan Plan: 1. Atypical Chest Pain - Recently discharged 10/26/17 with similar chief complaint of SOB - Normal Stress Test July 2017 - 10/24/17 CTA neg but evidence of pulmonary scarring/nodule/lipoma in RLL, - Afebrile, WBC 8.3 - Has been taking NSAIDs, symbicort - trop: trended down - possibly related to GERD: pantoprazole added 2. NALDO - Elevated Cr of 1.38 from baseline - Now at 1.25, continue to follow - IVF NS @ 125ml/hr 3. COPD exacerbation/bronchitis - Duonebs scheduled, presdisone added - PFTs will be done outpatient - Consult by Dr. Chris 4. Hyponatremia - treated with NS 125ml/hr - resolved 5. CAD s/p CABG in 1999 - Cont home meds 6. HTN - Cont home meds 7. HLD - Cont home meds Dispo: Pt. reports chest pain is resolved, she would like to go home, consider discharge today <Yang Menchaca - Last Filed: 11/01/17 09:12> Attending Addendum - Attending Addendum Date/Time: 11/01/17 7473 I personally evaluated the patient and discussed the management with Dr. Menchaca. I agree with the History, Examination, Assessment and Plan documented above with any addition or exceptions noted below. The patient is feeling much better and is ready for discharge. Pulm has started new meds for copd. Also will continue PPI. f/u with pulm outpatient for evaluation of nodule/scarring on CT scan. <Alma Rosa Frankel - Last Filed: 11/01/17 16:29>
[2017-11-01] MEDS: Mometasone/Formoterol 120 PUFF INHALER INH SCH (06:17)
[2017-11-01 07:56] VITALS: TEMP 97.8
[2017-11-01] MEDS ORDERED: predniSONE 20 MG TAB PO SCH (08:00)
[2017-11-01] MEDS: Amlodipine 5 MG TAB PO SCH (09:12)
[2017-11-01] MEDS: Enoxaparin Sodium 40 MG/0.4 ML SYRINGE SC SCH (09:13)
[2017-11-01] MEDS: Acetaminophen 325 MG TAB PO PRN (09:19)
[2017-11-01 12:01] VITALS: BP 165/87
[2017-11-01] MEDS: Ondansetron ODT 4 MG TAB PO PRN (12:41)
--- NOTE | 2017-11-01 13:42 | PRG ---
DATE OF SERVICE: 11/01/2017 SUBJECTIVE: This morning, she is better, she is less short of breath, less cough. PHYSICAL EXAMINATION: VITAL SIGNS: Sats are 98% on room air, respirations 14, temperature 97, pulse 76, blood pressure 110 /67. CHEST: Decreased breath sounds, no wheezing. CARDIAC: Normal S1, S2. No gallops. ABDOMEN: Soft. No masses. IMPRESSION: 1. Chronic obstructive pulmonary disease with bronchitis. 2. Left lung nodule, needs further outpatient workup. PLAN: She will be discharged home on neb treatments, prednisone, Dulera, outpatient PFT.
--- NOTE | 2017-11-01 17:04 | EKG ---
Test Reason : Blood Pressure : / mmHG Vent. Rate : 073 BPM Atrial Rate : 073 BPM P-R Int : 198 ms QRS Dur : 082 ms QT Int : 436 ms P-R-T Axes : 076 -03 -58 degrees QTc Int : 480 ms Sinus rhythm with Premature atrial complexes Nonspecific ST and T wave abnormality Prolonged QT Abnormal ECG When compared with ECG of 09-OCT-1996 12:58, Premature atrial complexes are now Present ST now depressed in Inferior leads Nonspecific T wave abnormality now evident in Lateral leads QT has lengthened Confirmed by DR. Sharonda LOVE (3) on 11/01/2017 5:04:32 PM Referred By: Confirmed By:DR. Sharonda LOVE
--- NOTE | 2017-11-02 01:10 | DIS-2 ---
DATE OF ADMISSION: 10/30/2017 DATE OF DISCHARGE: 11/01/2017 RESIDENT: Yang Menchaca D.O. ADMITTING ATTENDING: Kady Khan M.D. DISCHARGE ATTENDING: Alma Rosa Frankel M.D. CONSULTATIONS: Dr. Zaki Chris, Pulmonology. PROCEDURES: Chest x-ray: There continues to be patchy density in the right lower lung, similar in appearance to the prior exam. I cannot exclude patchy infiltrate, elevated left hemidiaphragm is unchanged. The upper lung nuñez are clear and unchanged. No evidence of vascular congestion. Heart is mildly enlarged with postop sternotomy change. PRIMARY DIAGNOSIS: Acute COPD exacerbation SECONDARY DIAGNOSES: 1. Acute kidney injury. 2. Chronic obstructive pulmonary disease exacerbation/bronchitis. 3. Hyponatremia. 4. Coronary artery disease. 5. Hypertension. 6. Hyperlipidemia. DISCHARGE MEDICATIONS: 1. Amlodipine 10 mg tab p.o. daily. 2. Gabapentin 300 mg cap p.o. b.i.d. 3. Naproxen 500 mg tab p.o. b.i.d. 4. Nitroglycerin 0.4 mg tab p.o. q.5 minutes p.r.n. 5. Rosuvastatin 40 mg tab p.o. daily. 6. Budesonide/formoterol (Symbicort) 160/4.5 mg aerosolized 1 puff inhaled b.i.d. 7. Diclofenac sodium 75 mg tab p.o. b.i.d. p.r.n. 8. Hydrochlorothiazide 25 mg tab p.o. daily. 9. Aspirin 325 mg tab p.o. daily. 10. Dulera 200/5 mcg inhaler 120 puffs aerosolized two puffs inhaled b.i.d. 11. Zofran ODT 4 mg tab p.o. q.6. hours p.r.n. 12. Pantoprazole 40 mg tab p.o. daily. 13. Prednisone 20 mg tab p.o. q.a.m. HISTORY OF PRESENT ILLNESS AND HOSPITAL COURSE: Ms. Rick is a 77-year-old female with a past medical history of hyperlipidemia, hypertension, coronary artery disease, status post CABG in 1999 and asthma, presenting to the ED with worsening shortness of breath. She was admitted on 10/24/2017 for atypical chest pain. She is now having pleuritic pain and shortness of breath. She was febrile. Her CTA was negative for PE. She had a negative procalcitonin and normal white blood cell count. She had a stress test in 2018 with no signs of ischemia. After her visit to the ED on 10/24/2017, she developed worsening shortness of breath, chest tightness with deep inspiration and returned to the ER at this time. In the emergency department, her EKG and chest x-ray were normal compared to the one she has had in the past with continued evidence of right lower lobe infiltrate. She was given 1 gram of ceftriaxone and 500 mg of azithromycin since she has been in the hospital. Pulmonology has been consulted and made the diagnosis of COPD exacerbation with bronchitis. She was started on DuoNeb and steroids. She has also been started on pantoprazole for suspected gastroesophageal reflux disease. Her atypical chest pain has resolved and she is feeling much better today. She is ready to go home. DISPOSITION: Stable. DISCHARGE INSTRUCTIONS: Include, 1. Location: Home. 2. Diet: Heart healthy. 3. Activity: As tolerated. 4. Followup: She is to follow up in 7 days with her PCP, Dr. Menchaca and also follow up in [address] Chris, Pulmonology. [facility]
== END 2017-11-01 13:35 | disposition home or self-care (01) ==
LOC: ERS 21:02 → 2SE 10-31 00:37 → INTOOBSV 10-31 00:37
PROVIDERS: ADMIT Family Medicine; ATTEND Family Medicine
DX: J44.1 Chronic obstructive pulmonary disease with (acute) exacerbation (principal); E87.1 Hypo-osmolality and hyponatremia; I25.10 Atherosclerotic heart disease of native coronary artery without angina pectoris; I10 Essential (primary) hypertension; E78.5 Hyperlipidemia, unspecified; N17.9 Acute kidney failure, unspecified; I73.9 Peripheral vascular disease, unspecified; F17.200 Nicotine dependence, unspecified, uncomplicated; Z79.82 Long term (current) use of aspirin; Z79.899 Other long term (current) drug therapy; Z88.5 Allergy status to narcotic agent
CPT/HCPCS: 71045; 80048; 80053; 82550; 82553 ×3; 83880; 83930; 84145; 84300; 84484 ×3; 85025; 87040; 93005 ×2; 94640 ×5; 94664; 96361 ×2; 96365; 96372 ×2; 96375; 97139; 99285; G0378; 36415; 93010; J0456; J0696; J1650; J1885; J7506; J7620; Q0162

== ENCOUNTER 2017-11-08 03:54 | Inpatient (IN) | payer MEDICARE ==
[2017-11-08] MEDS ORDERED: Nitroglycerin 2% Ointment 1 INCH/1 GM Packet ONE ×2 (04:11→04:14)
[2017-11-08] MEDS ORDERED: Fentanyl 100 MCG/2 ML VIAL ONE (04:13)
[2017-11-08 04:49] LABS: ALT (SGPT) 22 U/L (8-55); AST (SGOT) 23 U/L (5-34); Alkaline Phosphatase 74 U/L (40-150); Anion Gap 13 mmol/L (10-20); BUN (Urea Nitrogen) 14 mg/dL (9.8-20.1); Bilirubin, Total 0.8 mg/dL (0.2-1.2); Calc. Creatinine Clearance 0 mL/min (70-130); Calcium 9.7 mg/dL (7.8-10.44); Carbon Dioxide 25 mmol/L (23-31); Chloride 98 mmol/L (98-107); Estimated GFR-MDRD 44; Globulin 3.3 g/dL (2.4-3.5); Glucose 110 mg/dL (83-110); Hemoglobin 12.5 g/dL (12.0-16.0); Mean Corpuscular HGB CONC 34.8 g/dL (32.0-36.0); Mean Corpuscular Hemoglobin 29.9 pg (27.0-31.0); Mean Corpuscular Volume 85.7 fL (78.0-98.0); Platelet Count 311 thou/uL (130-400); Potassium 3.7 mmol/L (3.5-5.1); Protein, Total 7.3 g/dL (6.0-8.3); RBC Distribution Width 13.6 % (11.5-14.5); Red Blood Cell (RBC) Count 4.18 mill/uL (4.20-5.40); Sodium 132 mmol/L (136-145); White Blood Cell (WBC) Count 9.8 thou/uL (4.8-10.8)
[2017-11-08 04:52] LABS: CKMB 3.2 ng/mL (0-6.6); Troponin I 0.063 ng/mL (< 0.028)
[2017-11-08 05:08] LABS: Band 2 % (5-11); Eosinophils 2 % (0-10); Lymphocytes 28 % (21-51); MDiff Complete? YES; Monocytes 8 % (0-10); Neutrophil 56 % (42-75); PLT Morphology Comment Appears Adequate; RBC Morphology Normal; Reactive Lymphocytes 4 % (0-10)
--- NOTE | 2017-11-08 06:52 | PDOC.FPRHP ---
- History of Present Illness Chief Complaint: chest pain History of Present Illness: 77 yr old female with history of COPD, CAD s/p CABG, HLD, CKD stage 3 who presents for chest pain. She states the chest pain is chronic and comes and goes. She has been seen twice within the last 2 weeks for this pain as well. Most recently discharged with COPD with exacerbation and bronchitis 7 days ago. Prior to that, she was discharged on 10/26 for pneumonitis and was taking naproxen which did not relieve her pain. She reports vomiting up clear mucous every day. She states easily develops colds. She had flu in March and doesnt think she ever really recovered from that and would like antibiotics for it. She is rubbing her mid to left chest just above the epigastric region stating this is where the pain is. Described as sharp pain and goes to her back. States she feels sore. She reports cough with sputum production. ED Course: In the ER patient got CT dissection protocol which was neg. - Allergies/Adverse Reactions Allergies Allergy/AdvReac Type Severity Reaction Status Date / Time codeine Allergy Verified 10/31/17 03:10 hydrocodone Allergy itching Verified 10/31/17 03:10 hydrocodone bitartrate Allergy itching Verified 10/31/17 03:10 [From Vicodin] morphine Allergy ITCHING, Verified 10/31/17 03:10 SEVERE BRADYCARDIA tramadol Allergy Verified 10/31/17 03:10 - Home Medications Medication Instructions Recorded Confirmed Type Amlodipine Besylate [amLODIPine 0.5 tab PO DAILY #0 tablet 11/09/15 10/31/17 Rx Besylate] Gabapentin 1 tab PO BID 10/24/17 10/31/17 History Naproxen [Naprosyn] 500 mg PO BID #60 tab 10/26/17 10/31/17 Rx Nitroglycerin [Nitrostat] 0.4 mg PO Q5MIN PRN #30 tab 10/26/17 10/31/17 Rx Rosuvastatin Calcium [Crestor] 40 mg PO DAILY #30 tablet 10/26/17 10/31/17 Rx Aspirin [Ecotrin Regular Strength] 325 mg PO DAILY 10/31/17 10/31/17 History Budesonide-Formoterol [Symbicort 1 puff INH BID 10/31/17 10/31/17 History 160-4.5] Diclofenac Sodium 75 mg PO BID PRN 10/31/17 10/31/17 History Hydrochlorothiazide 12.5 mg PO DAILY 10/31/17 10/31/17 History Ipratropium/Albuterol Sulfate 3 ml NEB [id number] #7 neb 11/01/17 Rx [DuoNeb] Mometasone/Formoterol 200/5 2 puff INH BID-RT #7 aer 11/01/17 Rx [Dulera 200 Mcg/5 Mcg Inhaler] Ondansetron [Zofran ODT] 4 mg PO Q6H PRN #7 tab 11/01/17 Rx Pantoprazole [Protonix] 40 mg PO DAILY #30 tab 11/01/17 Rx predniSONE 40 mg PO QAM-WM #3 tab 11/01/17 Rx - History PMHx: CAD, PVD, HFpEF, CKD stage 3, COPD, tobacco abuse, HLD PSHx: CABG FHx: UNKNOWN Social:40-50 PK yr smoking no alcohol or drugs. - Review of Systems General: denies: fever/chills, weight/appetite/sleep changes ENT: denies: nasal congestion, rhinorrhea Respiratory: reports: cough, congestion, shortness of breath Cardiovascular: reports: chest pain. denies: palpitation, edema, paroxysmal nocturnal dyspnea Gastrointestinal: reports: nausea, vomiting Genitourinary: denies: dysuria Skin: denies: rashes, lesions Musculoskeletal: reports: pain, tenderness Neurological: denies: numbness, syncope, seizure - Vital signs BP: [125/80] HR: [71] RR: [18] Tmax: [97.7] Pox: [99]% on [RA] Wt: [81 kg] - Physical Exam Constitutional: NAD, awake, alert and oriented, well developed HEENT: normocephalic and atraumatic, PERRLA, EOMI Neck: supple -Chest: Tender to palpation in mid chest just above epigastric region and below left breast Heart: RRR, normal S1/S2, no murmurs/rubs/gallops, no edema Lungs: no respiratory distress, good air movement -Lungs: crackles in RLL posteriorly Abdomen: soft, non-tender, bowel sounds present Musculoskeletal: normal structure Neurological: no focal deficit, CN II-XII intact Skin: no rash/lesions, capillary refill <2 seconds FMR H&P: Results - Labs Result Diagrams: 11/08/17 04:23 11/08/17 04:23 Lab results: WBC 9.8 thou/uL (4.8-10.8) 11/08/17 04:23 Hgb 12.5 g/dL (12.0-16.0) 11/08/17 04:23 Hct 35.8 % (36.0-47.0) L 11/08/17 04:23 MCV 85.7 fL (78.0-98.0) 11/08/17 04:23 Plt Count 311 thou/uL (130-400) 11/08/17 04:23 Band Neuts % (Manual) 2 % (5-11) L 11/08/17 04:23 Sodium 132 mmol/L (136-145) L 11/08/17 04:23 Potassium 3.7 mmol/L (3.5-5.1) 11/08/17 04:23 Chloride 98 mmol/L (98-107) 11/08/17 04:23 Carbon Dioxide 25 mmol/L (23-31) 11/08/17 04:23 BUN 14 mg/dL (9.8-20.1) 11/08/17 04:23 Creatinine 1.42 mg/dL (0.6-1.1) H 11/08/17 04:23 Glucose 110 mg/dL (83-110) 11/08/17 04:23 Calcium 9.7 mg/dL (7.8-10.44) 11/08/17 04:23 Total Bilirubin 0.8 mg/dL (0.2-1.2) 11/08/17 04:23 AST 23 U/L (5-34) 11/08/17 04:23 ALT 22 U/L (8-55) 11/08/17 04:23 Alkaline Phosphatase 74 U/L (40-150) 11/08/17 04:23 CK-MB (CK-2) 3.2 ng/mL (0-6.6) 11/08/17 04:23 B-Natriuretic Peptide 136.0 pg/mL (0-100) H 11/08/17 04:23 Serum Total Protein 7.3 g/dL (6.0-8.3) 11/08/17 04:23 Albumin 4.0 g/dL (3.4-4.8) 11/08/17 04:23 - EKG Interpretation EKG: NSR, Possible ST depression in V3,4, no ST elevation FMR H&P: A/P - Problem List (1) Atypical chest pain Current Visit: No Status: Acute Priority: High Code(s): R07.89 - OTHER CHEST PAIN (2) NALDO (acute kidney injury) Current Visit: No Status: Acute Code(s): N17.9 - ACUTE KIDNEY FAILURE, UNSPECIFIED (3) COPD (chronic obstructive pulmonary disease) Current Visit: No Status: Chronic Priority: Medium Qualifiers: COPD type: unspecified COPD Qualified Code(s): J44.9 - Chronic obstructive pulmonary disease, unspecified (4) Coronary artery disease Current Visit: No Status: Chronic Priority: High Code(s): I25.10 - ATHSCL HEART DISEASE OF [place] CORONARY ARTERY W/O ANG PCTRS Qualifiers: Coronary Disease-Associated Artery/Lesion type: bypass graft [place] vs. transplanted heart: [place] heart Associated angina: without angina Qualified Code(s): I25.810 - Atherosclerosis of coronary artery bypass graft(s) without angina pectoris (5) HLD (hyperlipidemia) Current Visit: No Status: Chronic Priority: Low Code(s): E78.5 - HYPERLIPIDEMIA, UNSPECIFIED Qualifiers: Hyperlipidemia type: unspecified Qualified Code(s): E78.5 - Hyperlipidemia , unspecified (6) Hypercholesteremia Current Visit: No Status: Chronic Priority: Low Code(s): E78.0 - PURE HYPERCHOLESTEROLEMIA * DO NOT USE * (7) Hypertension Current Visit: No Status: Chronic Priority: Medium Code(s): I10 - ESSENTIAL (PRIMARY) HYPERTENSION - Plan 77 yr old female with Atypical chest pain- -Recently diagnosed with COPD exacerbation with bronchitis -reproducable chest pain -consider costochondritis vs esophageal spasm, vs GERD -admit to tele obs -trend trops- they are less than her recent hospitalization -no acute EKG changes -recent negative stress test (07/2017) -low suspicion for ACS left lower lung nodule -needs outpatient workup per pulmonology GERD -check H pylori COPD -does not appear to be in exacerbation mild NALDO on CKD -oral fluid hydration -recheck BMP in AM -near baseline elevated trop -trend -EKG CAD -cont home meds -pending outpatient follow up with cardiology HTN HLD Attending Addendum - Attending Addendum Date/Time: 11/08/17 9172 I personally evaluated the patient and discussed the management with Dr. Gillespie. I agree with the History, Examination, Assessment and Plan documented above with any addition or exceptions noted below. Patient with 2 week history of substernal chest pain, tight in nature, with some radiation to b/l breasts here after several hospitalizations for similar symptoms. She was evaluated 2 weeks ago and felt to have a pneumonitis, and then was seen 1 week ago for COPD. Today, she complains of similar pain. On initial labs, her troponins were lower than in previous lab draws. However, her second set of enzymes became elevated with no noted EKG changes from baseline. Patient continued to express pain responsive to Nitro. Of note, she had normal nuclear medicine stress test about 3 months ago. She will admitted to telemetry inpatient for NSTEMI. She has been loaded with lovenox, ASA, and Cardiology consulted. Oxygen will be given as needed, and will need to start patient on beta gen and ACEi unless contraindications exist. Further mgmt per cardiology recs. Chronic conditions will be treated as needed with home meds and changes in therapy as needed.
--- NOTE | 2017-11-08 08:38 | CT ---
PRELIMINARY REPORT/[facility]/EMERGENTY AFTER-HOURS PROCEDURE CT Angiography Chest With Intravenous Contrast CLINICAL HISTORY: 77 years old, female; Pain; Chest pain; Prior surgery; Surgery type: Surgical history of coronary art dimitry bypass graft surgery, four vessels. ; Patient HX: FKishore presents to ed for chest pain. Pt reports c hest pain to the center of her chest since 12: 15. Pt reports nausea. Pt denies shortness of breath. TECHNIQUE: Axial computed tomographic angiography images of the chest with intravenous contrast using pulmonary embolism protocol. MIP reconstructed images were created and reviewed. Coronal and sagittal reformatt ed images were created and reviewed. COMPARISON: Reference is made to report from chest CTA performed 08/04/2017. FINDINGS: Pulmonary arteries: No pulmonary embolism. Aorta: No acute findings. No thoracic aortic aneurysm. No aortic dissection. Atherosclerosis. Lungs: Centrilobular emphysematous changes. Bilateral atelectasis. Discoid atelectasis and/or scarrin g in the bilateral lower lobes. 13 mm semi-nodular juxtapleural density in the left lower lobe (serie s 2, image 82), similar to description in the prior report. Juxtapleural nodules in the right middle lobe measuring up to 8 mm in diameter, not described in the prior report. Small calcified granuloma a t the right lung base. Pleural space: Small calcified right pleural plaque. No large pleural effusion. No pneumothorax. Heart: Cardiomegaly. No large pericardial effusion. Bones/joints: Status post median sternotomy. No acute fracture. No dislocation. Soft tissues: Normal. Lymph nodes: Normal. No enlarged lymph nodes. IMPRESSION: No thoracic aortic aneurysm or dissection. No pulmonary embolism. Bilateral pulmonary nodules, some of which may be new. Comparison with prior study needed when availa ble. Nonacute/incidental findings above. CT Angiography Abdomen With Intravenous Contrast TECHNIQUE: Axial computed tomographic angiography images of the abdomen with intravenous contrast. MIP reconstru cted images were created and reviewed. Coronal and sagittal reformatted images were created and revie wed. COMPARISON: Reference is made to report from CT of the chest/abdomen/pelvis performed 10/20/2011. FINDINGS: Aorta: Unruptured fusiform infrarenal abdominal aortic aneurysm measuring up to 3.5 cm in diameter wi th peripheral thrombus and/or plaque (3.6 cm on 10/20/2011 per prior report). No dissection. No hemod ynamically significant stenosis. Celiac trunk and mesenteric arteries: No acute findings. No occlusion or significant stenosis. Renal arteries: No acute findings. No occlusion or significant stenosis. Iliac arteries: Ectatic bilateral common iliac arteries. No hemodynamically significant stenosis or o cclusion. Other arteries: Moderate stenosis of the proximal superior mesenteric artery. No occlusion. Lung bases: See chest CTA report above. Liver: Normal. No mass. Gallbladder and bile ducts: Cholelithiasis. No gallbladder wall thickening or pericholecystic fluid. Mildly distended gallbladder. No biliary dilatation. Pancreas: Normal. No ductal dilation. No mass. Spleen: Normal. No splenomegaly. Adrenals: Normal. No mass. Kidneys and ureters: Normal. No hydronephrosis. No solid mass. Stomach and bowel: Normal as visualized. No obstruction. No mucosal thickening. Intraperitoneal space: Normal. No significant fluid collection. No free air. Bones/joints: Degenerative changes in the spine. No acute fracture. Normal alignment. Soft tissues: Small fat containing umbilical hernia. Lymph nodes: Normal. No enlarged lymph nodes. IMPRESSION: No acute findings. Unruptured infrarenal abdominal aortic aneurysm similar to description in the prior report. Nonacute/incidental findings above. Thank you for allowing us to participate in the care of your patient. Dictated and Authenticated by: Darius Perea MD 11/08/2017 6:22 AM Central Time ([place] & [place]) FINAL REPORT CT AORTIC DISSECTION PROTOCOL: Date: 11/08/17 FINDINGS: I agree with the preliminary report provided by [facility]. There is a stable infrarenal abdominal aortic a neurysm actually measuring up to 3.9 cm in greatest dimension. This is stable to a comparison from . There is stable aneurysmal dilatation of the common iliac arteries. There is prominent mural thro mbus involving the abdominal aorta. 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 There are areas of subpleural pulmonary no dularity involving the right middle lobe that appears similar to a comparison from 2011. There are ar eas of subsegmental volume loss within the lungs. There is severe emphysema. Pleural based lipoma ove rlying anterolateral chest wall is stable. Post CABG change is similar appearing. There is scattered degenerative and osteoarthritic change. IMPRESSION: 1. I generally agree with the preliminary report provided. 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 2. Stable aneurysmal dilatation of the infrarenal abdominal aorta up to 3.9 cm. 3. Other stable chronic findings as detailed in the preliminary report. POS: HOLA
--- NOTE | 2017-11-08 08:49 | RAD ---
SINGLE VIEW CHEST: HISTORY: Chest pain for four hours. COMPARISON: 10/30/2017 FINDINGS: A single view of the chest shows an enlarged but stable cardiomediastinal silhouette. The patient is status post CABG. There is no evidence of consolidation, mass, or pleural effusion. Scarring is se en in the right lung base. IMPRESSION: Cardiomegaly without evidence of acute cardiopulmonary disease. POS: CET
[2017-11-08] MEDS ORDERED: Enoxaparin Sodium 40 MG/0.4 ML SYRINGE SC SCH (09:00)
[2017-11-08] MEDS ORDERED: Naproxen 500 MG TAB PO SCH (09:30)
[2017-11-08] MEDS ORDERED: Mometasone/Formoterol 120 PUFF INHALER INH SCH (09:30)
[2017-11-08 09:53] LABS: CKMB 36.6 ng/mL (0-6.6); Troponin I 0.957 ng/mL (< 0.028)
[2017-11-08] MEDS ORDERED: Naproxen 500 MG TAB ONE (10:44)
[2017-11-08] MEDS ORDERED: predniSONE 20 MG TAB ONE (10:44)
[2017-11-08] MEDS ORDERED: Enoxaparin Sodium 80 MG/0.8 ML SYRINGE ONE (10:44)
[2017-11-08] MEDS ORDERED: Nitroglycerin 0.4 MG TAB (25 Tab Bottle) ONE (11:38)
[2017-11-08] MEDS ORDERED: ISOVUE-370 76%-LOCM 1 ML ONE (12:11)
--- NOTE | 2017-11-08 13:22 | CON ---
DATE OF CONSULTATION: 11/08/2017 INDICATION FOR CONSULTATION: This is a 77-year-old female with known coronary artery disease, periph eral vascular disease who has had several ER visits now for chest pain. She describes her chest pain essentially as being chronic all the time, it may wax and wane, but for the last 3 months she has mcdonnell d this chest pain on and off. Fortunately she did have a stress test in July of this year which was unremarkable for any evidence of ischemia. She had a normal ejection fraction. She did have bypass surgery in 1999. She had a repeat cardiac catheterization in 2000 at which time she had a GARCIA to l eft anterior descending artery which remain patent, a saphenous vein graft to a diagonal branch which was patent. She had a radial graft to the first obtuse marginal branch also which was patent. She has saphenous vein graft to the right coronary which also was occluded. She has continued to have th e discomfort. She presented to the emergency room today and unfortunately cardiac enzymes were sligh tly abnormal. Her troponin I is slightly elevated. Originally when she presented to the emergency r oom it was 0.063, it has now increased up to 0.95 and the CPK MB was 3.2 on admission at 4:00 o'clock this morning, it has now increased up to 36.6, which is most likely indicative of a non-ST segment e levation myocardial infarction. Her EKG has normal sinus rhythm with nonspecific changes. There are only minimal changes from previously. However, in comparison, the EKG actually from earlier today a t 4:00 o'clock this morning, the EKG at 10:00 o'clock today actually looks somewhat improved. She st ill continued to have discomfort. She said her pain is not relieved by the nitroglycerin. She has h ad 2 nitroglycerins at home just a few minutes apart and only had a few minutes of resolution, this has been an ongoing problem. She does have chest wall tenderness on palpation and she has had a hist ory of atypical chest pain in the past. This is certainly a very confusing picture with the elevated enzymes and most likely at this time she likely is suffering a non-ST segment elevation myocardial i nfarction. Unfortunately she continues to smoke. She said she stopped back in 03/2017, but previous to that, she smoked at least a half a pack a day up to 50 years and has known peripheral vascular di sease. 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 She does have no significant stenosis in the external iliacs according to a study from 2016. She has had no recen t studies since that time as far as arteries are concerned and she had diffuse disease in the bilater al superficial femoral arteries with occlusions and likely this has progressed as she has continued t o smoke. I was unable to feel any pulses on the femoral areas today and I could hear a slight bruit. PAST MEDICAL HISTORY: Significant for the coronary artery disease, bypass surgery. She has had sync opal episodes according to the patient. However, this does not seem to be jaja syncope, and it coul d be that she just falls asleep. She has a history of COPD. She has abdominal aortic aneurysm. She has history of hypertension, hypercholesterolemia. She denies any history of diabetes. MEDICATIONS: Her present medications, at least according to the records prior to admission, she was taking amlodipine, gabapentin, Naprosyn, nitroglycerin, Crestor, Symbicort, diclofenac, hydrochloroth iazide, aspirin 325 mg a day, ipratropium/albuterol inhalers. She is also taking Dulera, Zofran, Pro tonix, and prednisone. This was a recent medication after she was admitted for COPD exacerbation and possible pneumonia. She may no longer be taking this medication. We will need to determine whether she is taking this or not. Since being in the emergency room, she was given sublingual nitroglyceri n. She also was given 1 mg/kg of Lovenox. She was given Fentanyl. She has a nitroglycerin paste in place. ALLERGIES: Again, she says she is allergic to HYDROCODONE and MORPHINE. REVIEW OF SYSTEMS: Twelve point review of systems, she says she has false teeth. She wears glasses. She has had several episodes of syncope which are unclear as to whether or not these syncopal episo korey or not. These usually occur while she is either lying down or sitting. She has had no major inj uries associated with the syncopal episodes per the patient. She has COPD and she says that she has asthma. She had no major GI complaints or complaints such as nausea, vomiting, diarrhea, dysuria, polyuria, or hematuria. Musculoskeletal; she is unable to walk very far due to claudication and thi s is associated with her severe peripheral vascular disease. Neurologically, there are no other sign ificant abnormalities except for the episodes of questionable syncope. PHYSICAL EXAMINATION: GENERAL: Reveals a middle-aged female who is in mild distress at this time, complaining of chest dis comfort and also leg cramps. VITAL SIGNS: Blood pressure was 125/81, repeated later today was 171/125, heart rate is 75 and regul ar, shows a sinus rhythm. O2 saturation 94%, respiratory rate was approximately 16. HEENT: Shows the head to be normocephalic and atraumatic. Carotid pulses are present. Difficult to auscultate however, there were bilateral bruits noted. CHEST: Her chest was actually clear to auscultation, I did not hear any rales, rhonchi or wheezing. CARDIOVASCULAR: Heart sounds are somewhat distant, but she has a normal S1, S2. I did not hear an S 3 nor an S4 and there were no significant murmurs noted. ABDOMEN: Shows obesity. Also, please note she has well-healed midline surgical incision after media n sternotomy. Femoral pulses; I cannot palpate any femoral pulses or any pedal pulses or popliteal p ulses. I could barely hear a bruit on both sides in the femoral areas. There was no significant taylor ma. NEUROLOGIC: The patient appears to be intact. She appears to have normal strength and normal tone. Her EKG as noted above shows a normal sinus rhythm. She did have 1 isolated PVC on one of the EKGs. She has some nonspecific ST segment changes, but otherwise no acute changes were noted as far as ST segment elevation. She did have some nonspecific T-wave inversions in 1 and aVL and biphasic T waves earlier in leads V4 through V6 and these seem to have improved at least the lateral leads have impro ve somewhat. LABORATORY DATA: Her laboratory data is as above for the troponin I and CPK MB. Her creatinine is 1 .42 with a BUN of 14, her hemoglobin is 12.5, blood sugar is 110. There is no history of diabetes. Her BNP was 136. Sodium was 132 and a potassium 3.7. IMPRESSION: 1. A middle-aged female with known coronary artery disease, status post bypass surgery with one milind t failure in 2000 with some minimal non-ST segment elevation changes, but however, appears to be suff ering a non-ST segment elevation myocardial infarction which certainly could be anterior lateral dist ribution. We will at this time give her full dose Lovenox. We will continue to follow the patient luis moraes carefully. This will be somewhat difficult situation since she has severe peripheral vascular di sease, we may not be able to gain access to do a cardiac catheterization. 2. Hypertension. We will need to readjust her medications and ensure that her blood pressure remain s stable. She is not on a beta-gen, but this may be due to underlying COPD. This will also need to be addressed. 3. Chronic obstructive pulmonary disease. This will be dealt with by the primary care service. 4. Chronic chest pain which is also chest wall. At this time, may actually be some non-ST elevation myocardial infarction. 5. History of hypercholesterolemia. We will need to resume her medications, her statin medications if at all possible. 6. Severe peripheral vascular disease and a history of abdominal aortic aneurysm. This will need to be dealt with also by the perhaps surgeries. I do know that she is a candidate any aortobifemoral b ypass since she has severe stenosis involving the superficial femoral artery. She would not have run off to undergo an aortobifemoral bypass. We will continue to monitor the patient very carefully. Should her enzymes continue to increase, we will need to make a decision whether or not to continue medical treatment or not. We can start her o n Ranexa as well as Lovenox to see whether or not we can get some assistance with her coronary artery disease.
[2017-11-08 13:26] LABS: CKMB 98.5 ng/mL (0-6.6); Troponin I 4.053 ng/mL (< 0.028)
[2017-11-08] MEDS: Nitroglycerin 0.4 MG TAB (25 Tab Bottle) SL PRN ×2 (15:05→16:10)
[2017-11-08] MEDS: Naproxen 500 MG TAB PO SCH (15:05)
[2017-11-08] MEDS: Amlodipine 10 MG TAB PO SCH (15:07)
[2017-11-08] MEDS: Aspirin 325 mg Enteric Coated Tablet PO SCH (15:08)
[2017-11-08] MEDS: Rosuvastatin 20 MG TAB PO SCH (16:06)
[2017-11-08] MEDS: Hydrochlorothiazide 25 MG TAB PO SCH (16:07)
[2017-11-08] MEDS: Gabapentin 300 MG CAP PO SCH ×2 (16:07→20:36)
[2017-11-08] MEDS: Ondansetron ODT 4 MG TAB PO PRN (17:12)
--- NOTE | 2017-11-08 17:13 | PDOC.EVN ---
Event Note - Event Note Event Note: Residents paged due to pt continuing to c/o of CP. Pt's most recent cardiac enzymes continued to rise and cardiology have evaluated. Due to concern of PVD and access, [facility] does not seem accessible at this point but will defer to cardiology. Pt evaluated and c/o 8 central CP that radiated to both sides of chest. Associated with nausea and SOB. Pt had just received nitro SL and stated it did not help. VSS, HR sinus rhythm on telemetry, O2 sat 100% on 2L. Pt had reproducible CP on exam. She notes nitro has not helped but that zofran did. Discussed case with pt's nurse. Order given for now dose of zofran. Pt's nurse also paged cardiology who are aware of developments and stated to continue current management.
[2017-11-08 17:16] LABS: Platelet Count 312 thou/uL (130-400)
[2017-11-08 18:06] LABS: CKMB 129.3 ng/mL (0-6.6); Troponin I 3.852 ng/mL (< 0.028)
--- NOTE | 2017-11-08 18:31 | PDOC.EVN ---
Event Note - Event Note Event Note: Per cardiology recommendations, will transfer pt to CCU for nitroglycerin gtt, titrate to effect.
[2017-11-08] MEDS ORDERED: Lorazepam 2 MG/ML VIAL SLOW IVP SCH (18:45)
[2017-11-08] MEDS ORDERED: Nitroglycerin 50 MG/250 ML BOT 250 ML IVPB SCH (19:14)
[2017-11-08] MEDS: Enoxaparin Sodium 80 MG/0.8 ML SYRINGE SC SCH (19:21)
[2017-11-08 20:03] VITALS: BMI 24.5
[2017-11-08] MEDS: Mometasone/Formoterol 120 PUFF INHALER INH SCH (22:34)
--- NOTE | 2017-11-09 00:18 | CON ---
DATE OF CONSULTATION: 11/08/2017 TRANSFER NOTE HISTORY OF PRESENT ILLNESS: A 77-year-old who is being transferred to the ICU for nitroglycerin drip and for what appears to be a non-Q-wave DE based on enzymes. Cardiology evaluated her and did not t hink she is a good candidate or could even potentially have an access her coronary system through a l eft heart cath, so decided just to treat her medically and will watch her in the unit. The patient a pparently had just received lorazepam, but when I got to see her really at this point in time, not co mplaining of any chest pain, any shortness of breath, sounds like she had a lot of edema last week, b ut that has been came off her and is currently stable, otherwise see the note from the residents this morning, which I agree. PHYSICAL EXAMINATION: VITAL SIGNS: Currently, afebrile. Vital signs are stable. Pulse rate in the 60s. GENERAL: No apparent distress. Again, somewhat sedated. HEENT: Within normal limits. Conjunctivae not pale. CHEST: Clear. CARDIOVASCULAR: Regular rate and rhythm. EXTREMITIES: Show no edema. LABORATORY AND X-RAY FINDINGS: Most recent labs did show a CK-MB is still rising and is up to 129 an d troponin went up to 4, but now it back down to 3.8. Creatinine a little bit elevated at 1.4. ASSESSMENT: Coronary artery disease and non-Q-wave myocardial infarction likely. PLAN: The patient is transferred to the ICU for closer management. Continue cardiac management and nitroglycerin drip. Otherwise, recommendations per Cardiology as far as doing any intervention beyon d this. Also is on Lovenox.
[2017-11-09 04:06] LABS: Band 2 % (5-11); Hemoglobin 12.8 g/dL (12.0-16.0); Lymphocytes 18 % (21-51); MDiff Complete? YES; Mean Corpuscular HGB CONC 35.9 g/dL (32.0-36.0); Mean Corpuscular Hemoglobin 30.8 pg (27.0-31.0); Mean Corpuscular Volume 85.8 fL (78.0-98.0); Mean Platelet Volume 7.5 fL (7.4-10.4); Monocytes 5 % (0-10); Neutrophil 75 % (42-75); PLT Morphology Comment Appears Adequate; Platelet Count 287 thou/uL (130-400); RBC Distribution Width 13.7 % (11.5-14.5); Red Blood Cell (RBC) Count 4.16 mill/uL (4.20-5.40)
[2017-11-09 04:07] LABS: Anion Gap 16 mmol/L (10-20); BUN (Urea Nitrogen) 15 mg/dL (9.8-20.1); Calc. Creatinine Clearance 56 mL/min (70-130); Calcium 9.9 mg/dL (7.8-10.44); Carbon Dioxide 21 mmol/L (23-31); Chloride 97 mmol/L (98-107); Estimated GFR-MDRD 58; Glucose 127 mg/dL (83-110); Potassium 4.5 mmol/L (3.5-5.1); Sodium 129 mmol/L (136-145)
--- NOTE | 2017-11-09 05:50 | PDOC.FM ---
- Subjective Subjective: Ms. Rick reports chest pain in the same location as yesterday. Says it comes and goes at times but it feels sharper. It is also very tender to palpation. Denies nausea, vomiting. Is tolerating PO intake well. Reports some lower leg cramping. - Objective MAR Reviewed: Yes Vital Signs & Weight: Vital Signs (12 hours) Temp Pulse Resp Pulse Ox 11/09/17 04:00 97.9 F 11/09/17 00:00 98.4 F 11/08/17 22:34 75 16 100 11/08/17 20:00 98.1 F 75 16 100 Weight Weight 82.157 kg Most Recent Monitor Data Heart Rate from ECG 80 NIBP 132/85 NIBP BP-Mean 97 Respiration from ECG 13 SpO2 99 I&O: 11/07/17 11/08/17 11/09/17 06:59 06:59 06:59 Intake Total 300 Output Total 650 Balance -350 Result Diagrams: 11/09/17 03:14 11/09/17 03:14 Phys Exam - Physical Examination Constitutional: NAD Respiratory: no wheezing, no rhonchi, clear to auscultation bilateral Cardiovascular: RRR, no significant murmur Gastrointestinal: soft, non-tender, positive bowel sounds Musculoskeletal: no edema, pulses present Neurological: non-focal Psychiatric: normal affect, A&O x 3 Skin: normal turgor, cap refill <2 seconds Dx/Plan (1) NSTEMI (non-ST elevated myocardial infarction) Code(s): I21.4 - NON-ST ELEVATION (NSTEMI) MYOCARDIAL INFARCTION Status: Acute (2) NALDO (acute kidney injury) Code(s): N17.9 - ACUTE KIDNEY FAILURE, UNSPECIFIED Status: Acute (3) Atypical chest pain Code(s): R07.89 - OTHER CHEST PAIN Status: Chronic (4) CHF (congestive heart failure) Code(s): I50.9 - HEART FAILURE, UNSPECIFIED Status: Chronic (5) COPD (chronic obstructive pulmonary disease) Status: Chronic Qualifiers: COPD type: unspecified COPD Qualified Code(s): J44.9 - Chronic obstructive pulmonary disease, unspecified (6) Coronary artery disease Code(s): I25.10 - ATHSCL HEART DISEASE OF [place] CORONARY ARTERY W/O ANG PCTRS Status: Chronic Qualifiers: Coronary Disease-Associated Artery/Lesion type: bypass graft [place] vs. transplanted heart: [place] heart Associated angina: without angina Qualified Code(s): I25.810 - Atherosclerosis of coronary artery bypass graft(s) without angina pectoris (7) HLD (hyperlipidemia) Code(s): E78.5 - HYPERLIPIDEMIA, UNSPECIFIED Status: Chronic Qualifiers: Hyperlipidemia type: unspecified Qualified Code(s): E78.5 - Hyperlipidemia , unspecified (8) Hypertension Code(s): I10 - ESSENTIAL (PRIMARY) HYPERTENSION Status: Chronic (9) Hyponatremia Code(s): E87.1 - HYPO-OSMOLALITY AND HYPONATREMIA Status: Chronic - Plan Plan: NSTEMI -in setting of CAD s/p CABG (2000) chronic chest pain, atypical symptoms, reproducible w/palpation. Pt reports pain responds best to zofran and nitro. -Recently diagnosed with COPD exacerbation with bronchitis -admitted to tele. transferred to CCU 11/08 for closer management/nitro drip. -troponins: 0.63->0.95->4->3.8 -cardiology consulted, appreciate recommendations -on nitro drip, ranexa -zofran prn -therapeutic lovenox -recent negative stress test (07/2017) HTN -pt on amlodipine and HCTZ at home -not on beta gen, but with hx of COPD. Will consider before discharge. Mild NALDO on CKD stage 3, resolved -Cr 1.42 on admission, now 1.1 which is at patient's baseline -will monitor BMP COPD -diagnosed one week ago with COPD exacerbation w/ bronchitis. Does not appear to be in exacerbation currently. -continue home meds Hyponatremia chronic -129 this am -on past admissions, pt has consistently had hyponatremia in upper 120s, low 130s GERD -on protonix HLD -will continue statin Left lower lung nodule -needs outpatient workup per pulmonology Ppx: Lovenox. Protonix.
[2017-11-09] MEDS: Mometasone/Formoterol 120 PUFF INHALER INH SCH ×2 (07:28→19:14)
[2017-11-09] MEDS ORDERED: predniSONE 20 MG TAB PO SCH (08:00)
--- NOTE | 2017-11-09 08:10 | CON ---
DATE OF CONSULTATION: 11/09/2017 CONSULTING PHYSICIAN: [facility] residency [facility]. REASON FOR CONSULTATION: Mandatory ICU consult. HISTORY OF PRESENT ILLNESS: This is a 77-year-old female with significant coronary artery disease, w belinda came into the hospital yesterday for chest pain. It was apparently refractory to standard care, a nd she was transferred to the ICU for nitroglycerin drip. She states that one of her grandchildren j umped onto her chest the other day and she has had pain ever since, and in fact, she does have reprod ucible sternal chest pain when palpated. PAST MEDICAL HISTORY: 1. Coronary artery disease, requiring bypass surgery. 2. Syncopal episodes. 3. Chronic obstructive pulmonary disease. 4. Past tobacco abuse. 5. Peripheral vascular disease. 6. Hypertension. 7. Hyperlipidemia. FAMILY MEDICAL HISTORY: Unremarkable. SOCIAL HISTORY: A [id number] history of smoking, quit back in March. Does not consume alcohol, does not use illicit drugs. MEDICATIONS PRIOR TO ADMISSION: Amlodipine, gabapentin, naproxen, Crestor, Nitrostat, Symbicort, dic lofenac, hydrochlorothiazide, DuoNeb, Dulera, Zofran, Protonix, and prednisone. ALLERGIES: CODEINE, HYDROCODONE, MORPHINE, TRAMADOL. REVIEW OF SYSTEMS: Twelve-point review of systems, otherwise, negative. PHYSICAL EXAMINATION: VITAL SIGNS: Temperature 97.9, pulse 76, blood pressure 139/81, O2 sat 100%. GENERAL: She is awake, alert, and in no distress. HEENT EXAM: Pupils react. Sclerae anicteric. Oropharynx clear. NECK: Without adenopathy or JVD. LUNGS: Clear to auscultation. She has palpable sternal tenderness to deep palpation. CARDIAC: S1 and S2, regular. ABDOMEN: Soft, nontender, nondistended. EXTREMITIES: No clubbing, cyanosis, or edema. LABORATORY DATA: White blood cell count 11, hematocrit 35.7, platelet count 287. Sodium 129, potass ium 4.5, chloride 97, CO2 of 21, BUN 15, creatinine 1.1, glucose 127. Her chest x-ray from yesterday demonstrates old sternal wires, mild hyperinflation, some chronic inte rstitial changes, but nothing acute per se. ASSESSMENT: 1. Chest pain, musculoskeletal versus cardiac. 2. Stable underlying chronic obstructive pulmonary disease. PLAN: Continued care per Cardiology and Family Medicine. If her chest pain is truly chest wall in o rigin, then I would recommend stopping the nitroglycerin drip and observing her. If she can remain o ff nitroglycerin drip then she would be stable to transfer to the floor.
[2017-11-09] MEDS: Ondansetron ODT 4 MG TAB PO PRN (08:14)
[2017-11-09] MEDS: Aspirin 325 mg Enteric Coated Tablet PO SCH (08:43)
[2017-11-09] MEDS: Enoxaparin Sodium 80 MG/0.8 ML SYRINGE SC SCH ×2 (08:43→20:50)
[2017-11-09] MEDS: Amlodipine 10 MG TAB PO SCH (08:43)
[2017-11-09] MEDS: Rosuvastatin 20 MG TAB PO SCH (08:44)
[2017-11-09] MEDS: Gabapentin 300 MG CAP PO SCH ×2 (08:44→20:50)
[2017-11-09] MEDS: Hydrochlorothiazide 25 MG TAB PO SCH (08:49)
[2017-11-09 09:11] LABS: Troponin I 12.232 ng/mL (< 0.028)
[2017-11-09] MEDS: Naproxen 500 MG TAB PO SCH ×2 (10:20→17:25)
[2017-11-09] MEDS ORDERED: Aspirin 325 mg Enteric Coated Tablet PO SCH (11:30)
[2017-11-09] MEDS ORDERED: Aspirin 81 mg Enteric Coated Tablet ONE (11:41)
[2017-11-09] MEDS ORDERED: Aspirin 81 mg Enteric Coated Tablet PO SCH (11:45)
[2017-11-09 12:32] LABS: CKMB 109.6 ng/mL (0-6.6); Troponin I 17.125 ng/mL (< 0.028)
--- NOTE | 2017-11-10 05:23 | PDOC.FM ---
- Subjective Subjective: Pt says chest pain has completely resolved. Denies nausea, vomiting. She is eating well. Reports constipation and requests something for it. - Objective MAR Reviewed: Yes Vital Signs & Weight: Vital Signs (12 hours) Temp Pulse Resp BP Pulse Ox 11/10/17 00:30 97.9 F 72 16 107/53 L 96 11/09/17 20:45 98.1 F 73 16 96 11/09/17 20:44 98.1 F 73 16 90/58 L 96 Weight Weight 82.157 kg Most Recent Monitor Data Heart Rate from ECG 80 NIBP 118/69 NIBP BP-Mean 85 Respiration from ECG 17 SpO2 98 I&O: 11/08/17 11/09/17 11/10/17 06:59 06:59 06:59 Intake Total 330 600 Output Total 925 2 Balance -595 598 Result Diagrams: 11/09/17 03:14 11/09/17 03:14 Phys Exam - Physical Examination Constitutional: NAD HEENT: moist MMs Respiratory: no wheezing, no rhonchi, clear to auscultation bilateral Cardiovascular: RRR, no significant murmur Gastrointestinal: soft, non-tender, positive bowel sounds Musculoskeletal: no edema Neurological: non-focal Psychiatric: normal affect Skin: normal turgor, cap refill <2 seconds Dx/Plan (1) NSTEMI (non-ST elevated myocardial infarction) Code(s): I21.4 - NON-ST ELEVATION (NSTEMI) MYOCARDIAL INFARCTION Status: Acute (2) NALDO (acute kidney injury) Code(s): N17.9 - ACUTE KIDNEY FAILURE, UNSPECIFIED Status: Acute (3) Atypical chest pain Code(s): R07.89 - OTHER CHEST PAIN Status: Chronic (4) CHF (congestive heart failure) Code(s): I50.9 - HEART FAILURE, UNSPECIFIED Status: Chronic (5) COPD (chronic obstructive pulmonary disease) Status: Chronic Qualifiers: COPD type: unspecified COPD Qualified Code(s): J44.9 - Chronic obstructive pulmonary disease, unspecified (6) Coronary artery disease Code(s): I25.10 - ATHSCL HEART DISEASE OF [place] CORONARY ARTERY W/O ANG PCTRS Status: Chronic Qualifiers: Coronary Disease-Associated Artery/Lesion type: bypass graft [place] vs. transplanted heart: [place] heart Associated angina: without angina Qualified Code(s): I25.810 - Atherosclerosis of coronary artery bypass graft(s) without angina pectoris (7) HLD (hyperlipidemia) Code(s): E78.5 - HYPERLIPIDEMIA, UNSPECIFIED Status: Chronic Qualifiers: Hyperlipidemia type: unspecified Qualified Code(s): E78.5 - Hyperlipidemia , unspecified (8) Hypertension Code(s): I10 - ESSENTIAL (PRIMARY) HYPERTENSION Status: Chronic (9) Hyponatremia Code(s): E87.1 - HYPO-OSMOLALITY AND HYPONATREMIA Status: Chronic (10) Constipation Code(s): K59.00 - CONSTIPATION, UNSPECIFIED Status: Acute - Plan Plan: NSTEMI -in setting of CAD s/p CABG (2000) chronic chest pain, atypical symptoms, reproducible w/palpation. Pt reports pain responds best to zofran and nitro. chest pain now resolved. -Recently diagnosed with COPD exacerbation with bronchitis -admitted to tele. transferred to CCU 11/08 for nitro drip, stopped 11/09 and transferred back to tele. -troponins: 0.63->0.95->4->3.8->12->17 -cardiology consulted, appreciate recommendations -zofran prn -therapeutic lovenox -recent negative stress test (07/2017) Constipation -prn miralax HTN -pt on amlodipine and HCTZ at home -not on beta gen, but with hx of COPD. Will consider before discharge. Mild NALDO on CKD stage 3, resolved -Cr 1.42 on admission, now 1.1 which is at patient's baseline -will monitor Cr COPD -diagnosed one week ago with COPD exacerbation w/ bronchitis. Does not appear to be in exacerbation currently. -continue home meds Hyponatremia, chronic -on past admissions, pt has consistently had hyponatremia in upper 120s, low 130s GERD -on protonix HLD -will continue statin Left lower lung nodule -needs outpatient workup per pulmonology Ppx: Lovenox. Protonix.
[2017-11-10] MEDS: Mometasone/Formoterol 120 PUFF INHALER INH SCH ×2 (06:32→19:07)
[2017-11-10] MEDS ORDERED: Polyethylene Glycol 3350 17 GM Packet PO PRN (06:57)
[2017-11-10] MEDS: Amlodipine 10 MG TAB PO SCH (09:02)
[2017-11-10] MEDS: Naproxen 500 MG TAB PO SCH ×2 (09:02→16:58)
[2017-11-10] MEDS: Rosuvastatin 20 MG TAB PO SCH (09:02)
[2017-11-10] MEDS: Aspirin 81 mg Enteric Coated Tablet PO SCH (09:02)
[2017-11-10] MEDS: Enoxaparin Sodium 80 MG/0.8 ML SYRINGE SC SCH ×2 (09:03→21:53)
[2017-11-10] MEDS: Gabapentin 300 MG CAP PO SCH ×2 (09:03→21:54)
[2017-11-10] MEDS: Hydrochlorothiazide 25 MG TAB PO SCH (09:03)
[2017-11-10 10:33] LABS: CKMB 40.6 ng/mL (0-6.6); Troponin I 18.573 ng/mL (< 0.028)
[2017-11-10] MEDS ORDERED: Milk Of Magnesia 30 ML UDCUP PO PRN (15:14)
--- NOTE | 2017-11-10 15:24 | PDOC.CTH ---
<Trinidad Davies - Last Filed: 11/10/17 15:16> Cardiology Progress Note - Subjective The pt seen and examined. No overnight events. No cardiac complaints. She complains of constipation. - Objective Vital Signs Temp Pulse Resp BP Pulse Ox 11/10/17 11:57 97.6 F 71 16 103/62 98 11/10/17 09:02 72 11/10/17 08:55 97.6 F 72 16 102/62 99 11/10/17 06:32 72 12 11/10/17 05:16 97.8 F 15 97/58 L 94 L Weight 189 lb 4 oz 11/09/17 11/10/17 11/11/17 06:59 06:59 06:59 Intake Total 330 840 Output Total 925 2 Balance -595 838 - Physical Examination General/Neuro: alert & oriented x3 Neck: no JVD present Lungs: CTA Heart: RRR Abdomen: soft Extremities: other: (No edema) - Telemetry Telemetry Rhythm: SR, PACs, 74 - Labs Result Diagrams: 11/09/17 03:14 11/09/17 03:14 Troponin/CKMB CK-MB (CK-2) 40.6 ng/mL (0-6.6) H* 11/10/17 09:16 Troponin I 18.573 ng/mL (< 0.028) H* 11/10/17 09:16 - Assessment/Plan 1. NSTEMI with recent negative stress test in 07/2017 - No CP; On Ranexa and Lovenox BID 2. CAD with s/p CABG in 2000 - on ASA, Lovenox BID, or Statin; no Bblocker due to hx of COPD. No BUCKY/ARE due to CKD 3. HTN - stable 4. Hyperlipidemia - on Statin 5. COPD - stable with RA 6. NALDO on CKD stage 3 - Improving; 7. DM type 2 - managed by PCP 8. Left lower lung nodule - outpatient workup per pulmonology 9. Constipation - MOM qd PRN MAR reviewed Review of Systems - Review of Systems Constitutional: reports: no symptoms reported EENTM: reports: no symptoms reported Respiratory: reports: no symptoms reported Cardiac (ROS): reports: no symptoms reported ABD/GI: reports: no symptoms reported : reports: no symptoms reported Musculoskeletal: reports: no symptoms reported <William Sexton - Last Filed: 11/10/17 22:44> Cardiology Progress Note - Objective Vital Signs Temp Pulse Resp BP Pulse Ox 11/10/17 21:49 97.5 F L 78 14 99/52 L 95 11/10/17 16:45 97.5 F L 70 17 92/52 L 96 11/10/17 11:57 97.6 F 71 16 103/62 98 Weight 189 lb 4 oz 11/09/17 11/10/17 11/11/17 06:59 06:59 06:59 Intake Total 330 840 480 Output Total 925 2 Balance -595 838 480 - Labs Result Diagrams: 11/10/17 17:23 11/10/17 17:23 Troponin/CKMB CK-MB (CK-2) 40.6 ng/mL (0-6.6) H* 11/10/17 09:16 Troponin I 18.573 ng/mL (< 0.028) H* 11/10/17 09:16 - Assessment/Plan Pt. was seen and eval. by me. I have discussed the management of the pt. and agree with the A/P by the AUDREY Davies.
[2017-11-10 17:38] LABS: Hemoglobin 12.6 g/dL (12.0-16.0); Platelet Count 279 thou/uL (130-400)
[2017-11-10 18:23] LABS: Calc. Creatinine Clearance 32 mL/min (70-130); Estimated GFR-MDRD 29
[2017-11-10 19:03] LABS: Anion Gap 18 mmol/L (10-20); BUN (Urea Nitrogen) 25 mg/dL (9.8-20.1); Calcium 9.4 mg/dL (7.8-10.44); Carbon Dioxide 20 mmol/L (23-31); Chloride 95 mmol/L (98-107); Glucose 118 mg/dL (83-110); Potassium 4.1 mmol/L (3.5-5.1); Sodium 129 mmol/L (136-145)
--- NOTE | 2017-11-10 20:50 | ADD-PRG ---
DATE OF SERVICE: 11/09/2017 Please see note from Dr. Bell for which I agree. The patient was seen, evaluated, examined, and discussed with the residents by bedside. The patient was moved to the ICU last night for needing nitroglycerin drip, but actually physically is doing a lo t better and not many complaints at all today, not particularly short of breath, not complaining of c hest pain and we are waiting to see Cardiology as far as if they are going to proceed with a cardiac catheterization or just manage this cardiac event just medically. Pulmonary is involve too and manag ing her from COPD standpoint, though has been stable from that standpoint.
--- NOTE | 2017-11-10 21:17 | ADD-PRG ---
ADDENDUM DATE OF SERVICE: 11/10/2017 Please see notes from Dr. Ricks for which I concur. The patient was seen and evaluated, examined a nd discussed with the residents by bedside. Patient is chest pain free, although her troponin levels were still rising. Exam is normal. A littl e coarse breath sounds about it, but waiting on cardiology's input on her, they want to consider doin g a heart catheterization or not as certainly has a lot of risk factors for needing a stent, etc., as it does it looks like she had a NSTEMI.
[2017-11-10] MEDS ORDERED: Sodium Chloride 0.9% 500 ML IVPB SCH (21:45)
[2017-11-10] MEDS ORDERED: Sodium Chloride 0.9% 1,000 ML IV SCH (23:15)
[2017-11-10] MEDS ORDERED: Sodium Chloride 0.9% 500 ML IV SCH (23:15)
[2017-11-11] MEDS ORDERED: Lactated Ringer's 500 ML IV SCH (05:30)
--- NOTE | 2017-11-11 05:31 | PDOC.FM ---
- Subjective Subjective: Ms. Rick is an 86yo F admitted for NSTEMI with persistently elevated troponins. Since admission chest pain has been persistent, relieved with zofran and IV Nitro. She has been stable up until overnight where she developed hypotension with BPs down in 80s which was unresponsive to two 500cc boluses. This morning repeat blood pressures were in the 80s (systolic) and abdomen was soft and tender to palpation with patient consciously localizing pain to the LLQ. She was transferred to the CCU due to persistent, unresponsive hypotension. In the CCU pressure dropped to 60s and a right IJ central line was placed. - Objective MAR Reviewed: Yes Vital Signs & Weight: Vital Signs (12 hours) Temp Pulse Resp BP Pulse Ox 11/11/17 04:12 99.4 F 16 86/54 L 92 L 11/10/17 23:23 98.2 F 16 11/10/17 22:50 76 16 88/53 L 11/10/17 21:50 97.5 F L 78 14 95 11/10/17 21:49 97.5 F L 78 14 99/52 L 95 Weight Weight 91.314 kg Most Recent Monitor Data Heart Rate from ECG 80 NIBP 118/69 NIBP BP-Mean 85 Respiration from ECG 17 SpO2 98 I&O: 11/09/17 11/10/17 11/11/17 06:59 06:59 06:59 Intake Total 330 840 480 Output Total 925 2 Balance -595 838 480 Result Diagrams: 11/11/17 08:40 11/11/17 11:22 <Patti Leblanc - Last Filed: 11/11/17 13:37> - Objective Vital Signs & Weight: Vital Signs (12 hours) Temp Pulse Resp BP Pulse Ox 11/11/17 08:00 99.1 F 86 21 H 95 11/11/17 07:20 82/52 L 11/11/17 07:16 99.1 F 86 21 H 79/51 L 95 11/11/17 07:05 80 14 Weight Weight 91.314 kg Most Recent Monitor Data Heart Rate from ECG 95 NIBP 91/66 NIBP BP-Mean 73 Respiration from ECG 13 SpO2 82 I&O: 11/10/17 11/11/17 11/12/17 06:59 06:59 06:59 Intake Total 840 480 Output Total 2 Balance 838 480 Result Diagrams: 11/11/17 08:40 11/11/17 11:22 <Michael Dye - Last Filed: 11/11/17 16:40> Phys Exam - Physical Examination In distress from abdominal pain Neck: supple, full ROM Cardiovascular: no significant murmur Abdomen soft, but extremely tender to palpation especially in LLQ. No guard ing or rigidity. Musculoskeletal: edema present Skin: no rash <Patti Leblanc - Last Filed: 11/11/17 13:37> Dx/Plan - Plan Plan: 1. Persistent hypotension -Unresponsive to boluses x2, BPs dropped to 60s -Will plan for placement of central line -Transferred to CCU 2. Leukocytosis with bandemia -Will order blood cultures -Will empirically start on zosyn until sensitivites come back 3. NSTEMI -cards rx -in setting of CAD s/p CABG (2000) chronic chest pain, atypical symptoms, reproducible w/palpation. Pt reports pain responds best to zofran and nitro. chest pain now resolved. -Recently diagnosed with COPD exacerbation with bronchitis -admitted to tele. transferred to CCU 11/08 for nitro drip, stopped 11/09 and transferred back to tele. -troponins: 0.63->0.95->4->3.8->12->17 -zofran prn -recent negative stress test (07/2017) 4. Constipation -prn miralax 5. HTN -pt on amlodipine and HCTZ at home, will discontinue anti-hypertensives for now due to low BPs -not on beta gen, but with hx of COPD. Will consider before discharge. 6. Mild NALDO on CKD stage 3, resolved -Cr 1.42 on admission, now 1.1 which is at patient's baseline -will monitor Cr 7. COPD -diagnosed one week ago with COPD exacerbation w/ bronchitis. Does not appear to be in exacerbation currently. -continue home meds 8. Hyponatremia, chronic -on past admissions, pt has consistently had hyponatremia in upper 120s, low 130s 9. GERD -on protonix 10. HLD -will continue statin 11. Left lower lung nodule -needs outpatient workup per pulmonology 12. Ppx: Will switch to heparin. Protonix. <Patti Leblanc - Last Filed: 11/11/17 13:37> Attending Addendum - Attending Addendum Date/Time: 11/11/17 3918 I personally evaluated the patient in ICU C1 and discussed the management with Dr. Patti Leblanc. I agree with the History, Examination, Assessment and Plan documented above with any addition or exceptions noted below. She complains of abdominal pain and being constipated. States she had a BM last week and reports she normallly only has a BM about once a month. Exam: Lungs: CTA, Cor: RRR, no murmur. She has a soft protruberant and generalized tender abdomen with voluntary guarding and equivocal rebound that has developed over night. She has elevated WBC with bandemia, T99.4, BP ranges 66-92 systolic. Tachycardia. Symptoms of sepsis with hypotension. Blood cultures and Lactate drawn at time central line started. DDX: Acute Diverticulitis vs. other causes of intraabdominal sepsis. CT Abdomen /Pelvis with oral and Rectal Contrast. I was present for, supervised and assisted an ultrasound guided Right IJ Central Venous Catheter insertion by Drs. Patti Leblanc MD and Betito Olson DO. Procedure was accomplished without complication and post op CXR shows the catheter tip in the proximal SVC and no evidence of pneumothorax, pending radiology review. Lines flushed easily with good flow. 1 liter bolus (500x2) given and flow rate increased to 250/h4. Zosyn has been started by Dr. Kuhn. [facility] <Michael Dye - Last Filed: 11/11/17 16:40>
[2017-11-11] MEDS ORDERED: Lactated Ringer's 1,000 ML IV SCH ×3 (06:00→11:45)
[2017-11-11 06:31] LABS: CKMB 8.9 ng/mL (0-6.6); Troponin I 19.168 ng/mL (< 0.028)
[2017-11-11] MEDS: Mometasone/Formoterol 120 PUFF INHALER INH SCH (07:05)
--- NOTE | 2017-11-11 08:21 | RAD ---
SINGLE VIEW OF THE CHEST: COMPARISON: 11/08/17. HISTORY: Congestive heart failure. FINDINGS: A single view of the chest shows an enlarged but stable cardiomediastinal silhouette. The patient is status post CABG. There is no evidence of consolidation, mass, or pleural effusion. IMPRESSION: No evidence of acute cardiopulmonary disease. POS: [facility]
[2017-11-11 08:57] LABS: Mean Corpuscular Hemoglobin 30.7 pg (27.0-31.0); Mean Corpuscular Volume 85.3 fL (78.0-98.0); Platelet Count 258 thou/uL (130-400); RBC Distribution Width 13.8 % (11.5-14.5); Red Blood Cell (RBC) Count 3.57 mill/uL (4.20-5.40); White Blood Cell (WBC) Count 17.9 thou/uL (4.8-10.8)
[2017-11-11] MEDS: Enoxaparin Sodium 30 MG/0.3 ML SYRINGE SC SCH ×2 (09:00→23:12)
[2017-11-11] MEDS: Gabapentin 300 MG CAP PO SCH ×2 (09:00→23:11)
[2017-11-11] MEDS: Aspirin 81 mg Enteric Coated Tablet PO SCH (09:00)
[2017-11-11 09:07] LABS: Band 37 % (5-11); Lymphocytes 8 % (21-51); MDiff Complete? YES; Monocytes 3 % (0-10); Neutrophil 51 % (42-75); Nucleated RBC 1 % (0); PLT Morphology Comment Appears Adequate; RBC Morphology Normal; Reactive Lymphocytes 1 % (0-10)
[2017-11-11 09:25] LABS: ALT (SGPT) 28 U/L (8-55); AST (SGOT) 48 U/L (5-34); Albumin 3.1 g/dL (3.4-4.8); Alkaline Phosphatase 79 U/L (40-150); Anion Gap 13 mmol/L (10-20); BUN (Urea Nitrogen) 32 mg/dL (9.8-20.1); Bilirubin, Total 1.8 mg/dL (0.2-1.2); Calc. Creatinine Clearance 30 mL/min (70-130); Calcium 8.4 mg/dL (7.8-10.44); Carbon Dioxide 22 mmol/L (23-31); Chloride 98 mmol/L (98-107); Estimated GFR-MDRD 25; Globulin 2.5 g/dL (2.4-3.5); Glucose 116 mg/dL (83-110); Magnesium 1.4 mg/dL (1.6-2.6); Phosphorus 2.9 mg/dL (2.3-4.7); Potassium 5.4 mmol/L (3.5-5.1); Protein, Total 5.6 g/dL (6.0-8.3); Sodium 128 mmol/L (136-145)
--- NOTE | 2017-11-11 09:33 | RAD ---
KUB: DATE: 11/11/17. COMPARISON: None. HISTORY: Hypotension. FINDINGS: Multilevel lower lumbar spine degenerative change present. Cardiac silhouette is prominent. Incompl etely imaged postoperative clips overlie the cardiac silhouette. Supine imaging limits assessment fo r pneumothorax and pleural fluid. The bowel gas pattern appears nonobstructed. IMPRESSION: Nonobstructed bowel gas pattern. POS: [facility]
--- NOTE | 2017-11-11 09:34 | RAD ---
SINGLE VIEW OF THE CHEST: COMPARISON: 11/08/17. HISTORY: Hypotension. FINDINGS: A single view of the chest shows an enlarged but stable cardiomediastinal silhouette. The patient is status post CABG. There is no evidence of consolidation, mass, or pleural effusion. Degenerative c hanges are seen in the spine. IMPRESSION: No evidence of acute cardiopulmonary disease. POS: [facility]
[2017-11-11 11:15] LABS: Lactic Acid 2.1 mmol/L (0.5-2.2)
[2017-11-11] MEDS ORDERED: Piperacillin/Tazobactam 3.375 GM in Sodium Chloride 0.9% 100 ML IVPB SCH (11:30)
[2017-11-11] MEDS ORDERED: DOPamine 400 MG/D5W 250 ML 250 ML IVPB SCH (11:45)
--- NOTE | 2017-11-11 11:56 | PRG ---
DATE OF SERVICE: 11/11/2017 SERVICE: Pulmonary Medicine. INTERVAL HISTORY: The patient is doing poorly. She started having soft blood pressures on the floor. She was subsequently brought to the ICU. Over the hospital stay, she has been having increasing left lower quadrant abdominal discomfort. She is not currently on any of the antibiotics. A central line was placed and we are working on stabilizing her blood pressure to some extent. I did review the chart. On presentation, she was hypertensive and had complaints of chest discomfort. She currently does not have any chest discomfort. She had an acute kidney injury, likely secondary to hypoperfusion, contrast. On presentation, the CT dissection protocol demonstrated narrowing of the celiac artery. PHYSICAL EXAMINATION: VITAL SIGNS: Afebrile. T-max is 99.1. Pulse 86, blood pressure 79/51, respirations 21, saturation 95% on room air. GENERAL: The patient is awake, alert, in no apparent distress. LUNGS: Decent air entry. There is no prolonged expiratory phase. Some crackles are present in the right lung. No wheezing or rhonchi, otherwise, appreciated. HEART: Normal rate, regular. ABDOMEN: Soft. There is no guarding. There is tenderness to palpation, which is most severe in the left lower quadrant with associated rebound tenderness. Bowel sounds are absent. GENITOURINARY: Pena catheter in place. NEUROLOGIC: Grossly nonfocal. LABORATORY DATA: WBC 17.9, hemoglobin 11.0 with increasing band count of 37%, platelets 258,000. Troponin 19, BNP 535. Total bilirubin 1.8, AST 48, ALT 28. Creatinine is up-trending to 2.28, BUN 32. Potassium 5.4, sodium 128. IMAGIN. Chest x-ray demonstrates no acute cardiopulmonary abnormality. 2. X-ray of the abdomen demonstrates normal bowel gas pattern. 3. 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 ASSESSMENT: 1. Severe sepsis. 2. Diverticulitis, suspected. 3. Peripheral vascular disease and possible mesenteric ischemia. 4. Acute kidney injury. 5. Hyperkalemia. 6. [id number] myocardial infarction. PLAN: It is not clear what the underlying etiology of her abdominal discomfort is. She does have rebound tenderness suggestive of diverticulitis. As such, we will initiate her on Zosyn. I am going to transduce a CVP on the IJ that was recently placed. If she remains low, multiple boluses of fluid will be considered. We will get her CVP up to 8-12. Once this occurs, if she remains hypotensive, Levophed will be initiated. Surgical consultation will be placed. I would like to get a CT scan, but we will not be able to use any IV contrast , which may limit the usefulness of this study. I will leave this for Surgery to decide. She needs to remain in the ICU, as she is very likely to become less stable after she gets her antibiotics. Pulmonary Critical Care will continue to follow in this location. I will notify Dr. Chris that she has returned to the ICU. Critical care time: 30 minutes. STEPHEN
[2017-11-11 12:01] LABS: Anion Gap 13 mmol/L (10-20); BUN (Urea Nitrogen) 32 mg/dL (9.8-20.1); Calc. Creatinine Clearance 34 mL/min (70-130); Calcium 8.3 mg/dL (7.8-10.44); Carbon Dioxide 22 mmol/L (23-31); Chloride 98 mmol/L (98-107); Estimated GFR-MDRD 29; Glucose 112 mg/dL (83-110); Potassium 4.9 mmol/L (3.5-5.1); Sodium 128 mmol/L (136-145)
--- NOTE | 2017-11-11 14:16 | RAD ---
PORTABLE SEMIUPRIGHT FRONTAL CHEST RADIOGRAPH: Date: 11/11/17 Time: 1058 hours COMPARISON: 11/11/17 at 1842 hours. HISTORY: Line placement. FINDINGS: There is a right-sided central vascular catheter, distal tip overlying the expected location of the s uperior vena cava. Midline sternotomy wires and mediastinal clips are present. There is increased hortensia ear interstitial density noted bilaterally, stable. No lobar consolidation or alveolar edema. No pneu mothorax seen. IMPRESSION: Interval placement of right vascular catheter as detailed above. POS: [facility]
[2017-11-11] MEDS ORDERED: Sodium Chloride 0.9% 500 ML IV SCH (15:00)
[2017-11-11] MEDS ORDERED: Hydrocortisone Sod Succ/PF 100 mg/2 ml Vial IVP SCH (15:15)
--- NOTE | 2017-11-11 16:56 | RAD ---
SINGLE VIEW OF UPPER ABDOMEN: Date: 11/11/17 COMPARISON: 11/11/17. HISTORY: Dobbhoff placement. FINDINGS: Single view of the upper abdomen shows a Dobbhoff tube overlying the left upper quadrant of the abdom en, likely within the stomach. There is a nonobstructive bowel gas pattern. IMPRESSION: Dobbhoff tube located in the stomach. POS: [facility]
[2017-11-11] MEDS: Piperacillin/Tazobactam 2.25 GM in Sodium Chloride 0.9% 100 ML IVPB SCH (18:10)
[2017-11-11 18:15] LABS: CO2 Tension 26.2 mmHg (35.0-45.0); pH, Arterial 7.47 (7.35-7.45)
[2017-11-11 18:16] LABS: Actual Bicarbonate (HCO3a) 18.8 mEq/L (22-28); Base Excess (BEa) -3.6 mEq/L (-2.0 to +3.0); Hemoglobin (Hb) 10.8 g/dL (12.0-16.0); O2 Tension (PaO2) 59.8 mmHg (> 70.0)
[2017-11-11 18:17] LABS: Calcium, Ionized 1.1 mmol/L (1.12-1.30)
[2017-11-11 18:18] LABS: Puncture Site RBA
[2017-11-11 20:01] LABS: Bacteria/HPF None Seen HPF (None Seen); Bilirubin Moderate (Negative); Blood, Urine Negative (Negative); Glucose, Urine (Dipstick) Negative (Negative); Pathc Cast-AUWi Flag 2.47 (0-2.49); Protein, Urine (Dipstick) Trace mg/dL (Neg-Trace); RBC/HPF 0-3 HPF (0-3); Specific Gravity, Urine 1.015 (1.005-1.030); Squamous Epithelial 0-3 HPF (0-3); WBC/HPF 0-3 HPF (0-3); pH, Urine 6.5 (5.0-9.0)
[2017-11-11 20:02] LABS: Clarity Clear (Clear); Leukocyte Negative (Negative); Nitrite Negative (Negative)
[2017-11-11 20:10] LABS: Crystals/HPF None Seen HPF (Negative); Hyaline Casts/LPF NONE SEEN LPF (0-3 Hyaline)
--- NOTE | 2017-11-11 21:30 | CT ---
CT ABDOMEN AND PELVIS WITHOUT CONTRAST: HISTORY: Diffuse abdominal pain. COMPARISON: None. TECHNIQUE: Multiple contiguous axial images were obtained in a CT of the abdomen and pelvis without contrast. O ral contrast was administered. Coronal reformats were performed. FINDINGS: The liver, kidneys, adrenal glands, spleen, and pancreas are unremarkable. There is a small amount of stranding change in the left pericolic gutter. The colon is thickened in this location, which may be secondary to focal colitis. No diverticula are seen in this location. T here are diverticula seen in other portions of the colon. No free air or free fluid is seen in the a bdomen or pelvis. The small bowel is normal in caliber. The appendix is normal. Atherosclerotic calcification changes are seen in the aorta. There is ectasia of the infrarenal aort a. No abdominal or pelvic lymphadenopathy is seen. The reproductive organs are unremarkable. A Pena catheter is seen in the urinary bladder. Degenerative changes are seen in the spine. Bibasi lar atelectasis is seen. The abdominal wall soft tissues are unremarkable. IMPRESSION: There is focal thickening of the left colon, which is greatest at the splenic flexure. This colitis could be secondary to infectious colitis or ischemic colitis. POS: [facility]
[2017-11-11] MEDS: Hydrocortisone Sod Succ/PF 100 mg/2 ml Vial IVP SCH (23:10)
--- NOTE | 2017-11-11 23:26 | CON ---
DATE OF CONSULTATION: 11/11/2017 REQUESTING PHYSICIAN: Dr. Gen Kuhn. HISTORY OF PRESENT ILLNESS: This is a 77-year-old -[place] woman, who was admitted 3 days ag o with recurrent epigastric abdominal pain. The patient has had three hospital admissions within the last one month for the same complaint. At this time, she was found with non-ST elevation myocardial infarction. The patient was transferred from the telemetry to the intensive care unit today for wor sening left lower quadrant abdominal pain associated with hypotension. She has received approximatel y 2 liters of crystalloids and systolic blood pressure has been less than 100. Currently, the patien t is on norepinephrine at 10 mcg per minute. The patient denies any hematochezia, but reports occasi onal melena at home. She has been constipated over the last 3 weeks. She denies any fevers or chill s. She denies any unexplained weight loss. Her last colonoscopy was 4 years ago and was reportedly normal. PAST MEDICAL HISTORY: Significant for coronary arterial disease, COPD, hyperlipidemia, stage 3 kidne y disease. PAST SURGICAL HISTORY: Pertinent for 4-vessel coronary arterial bypass graft, colonoscopy. SOCIAL HISTORY: The patient admits to smoking approximately a pack of cigarette per day and did so f or over 50 years. She has not smoked since 03/2017. She denies any ethanol or illicit drug abuse. FAMILY HISTORY: Noncontributory for this patient's age. PREHOSPITALIZATION MEDICATIONS: Include diclofenac sodium 75 mg p.o. b.i.d., amlodipine 10 mg p.o. d aily, aspirin 325 mg p.o. daily, gabapentin 300 mg p.o. b.i.d., hydrochlorothiazide 12.5 mg p.o. dane y, naproxen 500 mg p.o. b.i.d., pantoprazole 40 mg p.o. daily, Crestor 40 mg p.o. daily, Dulera 200 m cg inhalation therapy 2 puffs b.i.d., DuoNeb q.6 hours p.r.n. ALLERGIES: CODEINE, MORPHINE, and TRAMADOL. REVIEW OF SYSTEMS: A 10-point review of systems essentially unremarkable except for as stated in pas t medical history and chief complaint. PHYSICAL EXAMINATION: GENERAL: This reveals a 77-year-old normally developed woman, who is otherwise coherent and interact anna and appears stated age. The patient is alert and oriented x3. She appears to be in no significa nt acute distress at the time of my evaluation. VITAL SIGNS: Include blood pressure 106/51, pulse is 92, respiratory rate is 16, maximum temperature in the last 24 hours is 99.4 degrees Fahrenheit, oxygen saturation currently is 93% on 2 liters by n janis cannula oxygen. HEENT: Reveals normocephalic and atraumatic. Pupils are equal, round, and reactive to light and acc ommodation. Oral mucosa is pale and dry. NECK: She has no jugular venous distention noted. HEART: Reveals regular rate and rhythm. No murmurs or gallops auscultated. LUNGS: Clear to auscultation bilaterally. Her breathing is regular and unlabored. ABDOMEN: Soft with left lower quadrant tenderness to palpation. She has a moderate rebound tenderne ss present. Liver and spleen are otherwise nonpalpable below costal margins. EXTREMITIES: Reveal 2+ radial and pedal pulses bilaterally. No ankle edema is present. NEUROLOGIC: Reveals no focal deficits present. LABORATORY DATA AND IMAGING: Laboratory findings today includes a CBC with 17,900 white blood cells, hemoglobin and hematocrit are stable at 11.0 and 30.4 respectively. Platelet count is 258,000. Dif ferential counts as follows, 51% segmented neutrophils, 37% bands, 8 lymphocytes, and 3 monocytes. N ote that a CBC from 11/09/2017 was with 11,000 white blood cells. Metabolic profile today; sodium of 128, which she has been low since admission. Potassium is 4.9, chloride is 98, bicarbonate is 22, B UN is 32, creatinine is 2.04, glucose is 112. I have reviewed the chest x-ray, which was obtained today and unremarkable for any cardiomegaly or pl eural effusions. IMPRESSION: 1. Acute abdominal pain, likely secondary to ischemic colitis. 2. Acute non-ST elevation myocardial infarction. 3. Acute hypotension, likely secondary to non-ST elevation myocardial infarction. 4. Acute on chronic hyponatremia likely secondary to hydrochlorothiazide. 5. Acute kidney injury. PLAN: 1. Continue with fluid resuscitation using urinary output as endpoint of resuscitation. 2. We will obtain a transthoracic echocardiography to evaluate cardiac chamber size, wall motion and function. 3. Last echocardiogram was in 07/2017 and this was essentially normal and provides a decent baseline . 4. There is no acute surgical indication for this patient at this time. 5. General Surgery will continue to follow the patient and make further recommendations as necessary . 6. CT scan of the abdomen and pelvis has been ordered with p.o. and rectal contrast will be reviewed . Thank you again, Dr. Kuhn, for allowing me the opportunity to participate in the care of this samuel ent.
[2017-11-12] MEDS: Piperacillin/Tazobactam 2.25 GM in Sodium Chloride 0.9% 100 ML IVPB SCH ×2 (00:54→06:10)
[2017-11-12] MEDS: Acetaminophen 325 MG TAB PO PRN ×3 (00:55→17:00)
[2017-11-12] MEDS: Norepinephrine 8 MG/0.9% NS 250 ML IVPB SCH (01:30)
[2017-11-12] MEDS: Hydrocortisone Sod Succ/PF 100 mg/2 ml Vial IVP SCH ×4 (04:02→20:33)
[2017-11-12 05:28] LABS: ALT (SGPT) 23 U/L (8-55); AST (SGOT) 31 U/L (5-34); Albumin 2.9 g/dL (3.4-4.8); Alkaline Phosphatase 70 U/L (40-150); Anion Gap 15 mmol/L (10-20); BUN (Urea Nitrogen) 30 mg/dL (9.8-20.1); Bilirubin, Total 1.9 mg/dL (0.2-1.2); Calc. Creatinine Clearance 39 mL/min (70-130); Calcium 8.1 mg/dL (7.8-10.44); Carbon Dioxide 21 mmol/L (23-31); Chloride 97 mmol/L (98-107); Estimated GFR-MDRD 33; Globulin 2.5 g/dL (2.4-3.5); Glucose 125 mg/dL (83-110); Protein, Total 5.4 g/dL (6.0-8.3); Sodium 129 mmol/L (136-145)
[2017-11-12 06:20] LABS: Band 36 % (5-11); Hemoglobin 9.9 g/dL (12.0-16.0); Hypochromia SLIGHT = 6-15 cells (100X) (0-5/hpf); Lymphocytes 1 % (21-51); MDiff Complete? YES; Mean Corpuscular HGB CONC 35.9 g/dL (32.0-36.0); Mean Corpuscular Hemoglobin 30.5 pg (27.0-31.0); Mean Corpuscular Volume 84.8 fL (78.0-98.0); Mean Platelet Volume 7.5 fL (7.4-10.4); Monocytes 7 % (0-10); Neutrophil 56 % (42-75); PLT Morphology Comment Appears Adequate; Platelet Count 240 thou/uL (130-400); RBC Distribution Width 13.7 % (11.5-14.5); Red Blood Cell (RBC) Count 3.25 mill/uL (4.20-5.40); White Blood Cell (WBC) Count 15.3 thou/uL (4.8-10.8)
--- NOTE | 2017-11-12 06:42 | PDOC.FM ---
- Subjective Subjective: Patient is doing well this morning. She reports improved abd pain and resolved chest pain. She is wanting to eat breakfast but cant due to dobhoff. Dobhoff was removed at bedside. No acute events overnight. Levophed has been weaned down to 5mcg/min. Urine has cleared and is no longer tea colored but clear yellow. - Objective MAR Reviewed: Yes Vital Signs & Weight: Vital Signs (12 hours) Temp Pulse Resp Pulse Ox 11/12/17 04:00 98.1 F 11/11/17 20:00 98.0 F 87 17 94 L Weight Weight 91.314 kg Most Recent Monitor Data Heart Rate from ECG 89 NIBP 83/48 NIBP BP-Mean 73 Respiration from ECG 26 SpO2 96 I&O: 11/10/17 11/11/17 11/12/17 06:59 06:59 06:59 Intake Total 901 335 8074 Output Total 2 1325 Balance 183 433 7277 Result Diagrams: 11/12/17 05:05 11/12/17 05:05 <Kelsea Lebron - Last Filed: 11/12/17 11:15> - Objective Vital Signs & Weight: Vital Signs (12 hours) Temp Pulse Resp Pulse Ox 11/12/17 12:56 87 13 98 11/12/17 12:00 98.4 F 11/12/17 10:36 91 11/12/17 07:27 98.2 F 91 18 96 11/12/17 07:00 98.2 F 11/12/17 04:00 98.1 F Weight Weight 91.314 kg Most Recent Monitor Data Heart Rate from ECG 90 NIBP 94/54 NIBP BP-Mean 70 Respiration from ECG 19 SpO2 96 I&O: 11/11/17 11/12/17 11/13/17 06:59 06:59 06:59 Intake Total 480 3373 540 Output Total 1325 500 Balance 480 2048 40 Result Diagrams: 11/12/17 05:05 11/12/17 05:05 <Michael Dye - Last Filed: 11/12/17 14:28> Phys Exam - Physical Examination Constitutional: NAD HEENT: moist MMs Respiratory: no wheezing, no rales, clear to auscultation bilateral Cardiovascular: RRR, no significant murmur Gastrointestinal: soft, no distention, positive bowel sounds mildly ttp diffusely Musculoskeletal: no edema, pulses present Neurological: moves all 4 limbs Lymphatic: no nodes Psychiatric: A&O x 3 Skin: cap refill <2 seconds <Kelsea Lebron - Last Filed: 11/12/17 11:15> Dx/Plan (1) Colitis Code(s): K52.9 - NONINFECTIVE GASTROENTERITIS AND COLITIS, UNSPECIFIED Status : Acute (2) Sepsis Code(s): A41.9 - SEPSIS, UNSPECIFIED ORGANISM Status: Acute (3) CKD (chronic kidney disease) stage 3, GFR 30-59 ml/min Code(s): N18.3 - CHRONIC KIDNEY DISEASE, STAGE 3 (MODERATE) Status: Acute (4) NSTEMI (non-ST elevated myocardial infarction) Code(s): I21.4 - NON-ST ELEVATION (NSTEMI) MYOCARDIAL INFARCTION Status: Acute (5) NALDO (acute kidney injury) Code(s): N17.9 - ACUTE KIDNEY FAILURE, UNSPECIFIED Status: Acute (6) COPD (chronic obstructive pulmonary disease) Status: Chronic QualifierTitle: COPD type: unspecified COPD Qualified Code(s): J44.9 - Chronic obstructive pulmonary disease, unspecified (7) Coronary artery disease Code(s): I25.10 - ATHSCL HEART DISEASE OF [place] CORONARY ARTERY W/O ANG PCTRS Status: Chronic QualifierTitle: Coronary Disease-Associated Artery/Lesion type: bypass graft [place] vs. transplanted heart: [place] heart Associated angina: without angina Qualified Code(s): I25.810 - Atherosclerosis of coronary artery bypass graft(s) without angina pectoris (8) HLD (hyperlipidemia) Code(s): E78.5 - HYPERLIPIDEMIA, UNSPECIFIED Status: Chronic QualifierTitle: Hyperlipidemia type: unspecified Qualified Code(s): E78.5 - Hyperlipidemia, unspecified (9) Hypertension Code(s): I10 - ESSENTIAL (PRIMARY) HYPERTENSION Status: Chronic (10) Hyperbilirubinemia Code(s): E80.6 - OTHER DISORDERS OF BILIRUBIN METABOLISM Status: Acute - Plan Plan: Sepsis 2/2 Colitis - ischemic colitis vs diverticulitis - stool cx and blood cx pending - Continue Zosyn - Continue Levophed as needed, in the process of weaning off - LA downtrended, wnl - WBC downtrended, 15 today, recheck tomorrow. NSTEMI -cardiology following, CP resolved, s/p therapeutic lovenox but decreased to prophylactic dose with NALDO -chest pain could be related to abd pathology. -troponins: 0.63->0.95->4->3.8->12->17 -zofran prn -recent negative stress test (07/2017) HTN -currently hypotensive on levophed, hold antihypertensives for now. Mild NALDO on CKD stage 3 -Cr 1.7 -will monitor Cr COPD -diagnosed one week ago with COPD exacerbation w/ bronchitis. Does not appear to be in exacerbation currently. -continue home meds -duonebs q6h brody and q2h prn Hyponatremia, chronic -at baseline -continue to monitor GERD -on protonix HLD -will continue statin Left lower lung nodule -needs outpatient workup per pulmonology Hyprebilirubinemia -direct bili pending -consider RUQ u/s with elevated AST if pain becomes resistant to abx, currently abd pain improving and AST downtrending -repeat tomorrow <Kelsea Lebron - Last Filed: 11/12/17 11:15> Attending Addendum - Attending Addendum Date/Time: 11/12/17 7932 I personally evaluated the patient in the ICu and discussed the management with Dr. Lebron. I agree with the History, Examination, Assessment and Plan documented above with any addition or exceptions noted below. Over all her clinical picture is improved. She has had 4 bowel movements over night and was not endorsing much pain earlier but now rates her pain 9/10 and it is L-sided chest pain radiating into Left and generalized abdomen. Lungs: CTA, Cor: RRR with ECG/Rhythm showing freq PACs, abdomen soft and mild L>R tenderness with equivocal rebound and mild voluntary guarding. CT Shows evidence of bowel wall thickening in the colon at the region of the splenic flexure consistent with infectious vs ischemic colitis. She has diverticulae in other areas of the colon. Echo report shows EF 40-45%. Have asked Dr. Lebron to get a stool for culture. Continue Zosyn. Repeat troponin this am is lower/coming down. EKG appears improved. I believe she is having referred abdominal pain into the L chest. Continue current course. [facility] <Michael Dye - Last Filed: 11/12/17 14:28>
--- NOTE | 2017-11-12 08:16 | PRG ---
DATE OF SERVICE: 11/12/2017 This morning she says she is better. She is complaining of difficulty breathing. A CT of the abdome n was done which was unremarkable. PHYSICAL EXAMINATION: VITAL SIGNS: Blood pressure 107/67, sats are 98 on room air, respiration 20. CHEST: Chest revealed decreased breath sounds, no wheezing. CARDIAC: Normal S1, S2, no gallops. ABDOMEN: Soft. LABORATORY: White count 15,000, H&H 9 and 27, platelet count 240. Her pO2 is 49, pCO2 26, pH 7.47 o n room air. Creatinine 1.79, sodium 128. IMPRESSION: 1. Chronic obstructive pulmonary disease. 2. Tobacco abuse. 3. Left lung nodules. 4. Ileus. 5. Renal failure. 6. Myocardial infarction. PLAN: I will continue neb treatments, continue steroids as initiated, supportive care. Empiric antibiotics. So far all cultures are negative. We will follow while in the ICU.
[2017-11-12] MEDS: Aspirin 81 mg Enteric Coated Tablet PO SCH (09:00)
[2017-11-12] MEDS: Enoxaparin Sodium 30 MG/0.3 ML SYRINGE SC SCH ×2 (09:00→20:34)
[2017-11-12] MEDS: Rosuvastatin 20 MG TAB PO SCH ×2 (09:00)
[2017-11-12] MEDS: Gabapentin 300 MG CAP PO SCH ×2 (09:01→20:34)
--- NOTE | 2017-11-12 09:07 | OP ---
INTERNAL JUGULAR CENTRAL LINE PROCEDURE NOTE INDICATIONS: Patient was having persistent hypotension, unresponsive to fluid boluses. PROCEDURE MUSIC TEACHER: Dr. Patti Leblanc. ATTENDING PHYSICIAN: Dr. Michael Dye in attendance. CONSENT: Procedure was discussed with family and patient, and consent was obtained from patient after risks and benefits were discussed. PROCEDURE SUMMARY: My hands were washed immediately prior to the procedure. I wore surgical cap, mask with protective eyewear, full gown, and sterile gloves throughout the procedure. The patient was placed in Trendelenburg position. Right chest region was prepped using chlorhexidine scrub and draped in sterile fashion using the sterile 3/4 paper/plastic drape provided in kit. The internal jugular vein was identified using ultrasound. Local anesthesia was achieved over the vein using 1% lidocaine. The introducer needle was inserted into the internal jugular vein under direct ultrasound visualization. Venous blood was withdrawn. The syringe was removed and a guidewire was advanced into the introducer needle. A small incision was made at the skin surface with a scalpel and the introducer needle was exchanged for a dilator over the guidewire. After appropriate dilation was obtained, the dilator was exchanged over the wire for central venous catheter. The wire was removed and the catheter was sutured in place at 6 cm from the hub. A sterile swab was then placed over the catheter at the insertion site. The patient tolerated the procedure without any hemodynamic compromise. At time of procedure completion, all ports aspirated and flushed properly. Postprocedure showed appropriate placement. ESTIMATED BLOOD LOSS: Minimal. 12 ml blood aspirated and sent for Blood Culture. [facility]
[2017-11-12] MEDS ORDERED: Lidocaine 2% Viscous Solution 10 ML, Aluminum & Magnesium Hydroxide 30 ML SSW SCH (10:00)
--- NOTE | 2017-11-12 10:35 | PQF ---
CLINICAL DOCUMENTATION IMPROVEMENT CLARIFICATION FORM: ICD-10 Updated PLEASE DO AN ADDENDUM TO THE PROGRESS NOTE WITH ANY DOCUMENTATION UPDATES OR ADDITIONS AND CARRY THROUGH TO DC SUMMARY. THANK YOU. DATE: 11/12/17, 11/13/17 ATTN: Dr. Lebron/ Attending Dr. Dye Please exercise your independent, professional judgment in responding to the clarification form. Clinical indicators are provided on the bottom of this form for your review Please check appropriate box(s): [ ] Hypovolemic Shock [ ] Cardiogenic Shock [ ] Septic Shock [ ] Shock Unspecified [ ] Other diagnosis [ ] Unable to determine In addition, please specify: Present on Admission (POA): [ ] Yes [ ] No [ ] Unable to determine For continuity of documentation, please document condition throughout progress notes and discharge summary. Thank You. CLINICAL INDICATORS - SIGNS / SYMPTOMS / LABS PN 11/11: SHE HAS BEEN STABLE UP UNTIL OVERNIGHT WHERE SHE DEVELOPED HYPOTENSION W/ BPs DOWN IN 80s WHICH WAS UNRESPONSIVE TO TWO 500 cc BOLUSES. IN CCU PRESSURE DROPPED TO 60s & A RIGHT IJ CENTRAL LINE WAS PLACED. ATTENDING: SHE HAS ELEVATED WBC W/ BANDEMIA, T99.4, BP RANGES 66-92 SYSTOLIC. TACHYCARDIA. SYMPTOMS OF SEPSIS W/ HYPOTENSION. GS CONSULT 11/11: SHE HAS RECEIVED APPROXIMATELY 2 LITERS OF CRYSTALLOIDS & SBP HAS BEEN LESS THAN 100. CURRENTLY THE PT IS ON NOREPINEPHRINE AT 10 MCG PER MINUTE. ACUTE HYPOTENSION, LIKELY 2/2 TO NSTEMI RISKS: PN 11/11: PERSISTENT HYPOTENSION. NSTEMI. PN 11/12: COLITIS, SEPSIS, NALDO TREATMENTS: PROCEDURE NOTE 11/11: INTERNAL JUGULAR CENTRAL LINE CPOE 11/11: NOREPINEPHRINE 8MG/0,9% NS IV 250ML MAP > 65 Thank you, Amy (This form is maintained as a part of the permanent medical record) Viewer 2015 [employer]. All Rights Reserved Amy Bucio RN, BSN [email or web address] Office: [phone] STEPHEN
[2017-11-12] MEDS: Amlodipine 10 MG TAB PO SCH (10:36)
[2017-11-12] MEDS: Naproxen 500 MG TAB PO SCH (10:36)
--- NOTE | 2017-11-12 10:48 | PRG ---
DATE OF SERVICE: 11/12/2017 SUBJECTIVE: Ms. Rick is a 77-year-old woman with ischemic colitis. This morning, the patient reports decreased abdominal pain. Norepinephrine has been weaned to 5 mcg per minute. The patient records adequate urinary output. She did have a bowel movement this morning . OBJECTIVE: VITAL SIGNS: This morning includes blood pressure 107/67, pulse is 97, respiratory rate is 22, maxim um temperature in the last 24 hours is 98.2 degrees Fahrenheit. Oxygen saturation is 96% on 2 liters by nasal cannula oxygen. HEART: Reveals regular rate and rhythm. LUNGS: Clear to auscultation bilaterally. ABDOMEN: Soft, moderately distended with mild tenderness to palpation. The patient has no rebound t enderness today. LABORATORY DATA: Includes a CBC with decreasing white blood cell count of 15,300, hemoglobin and hem atocrit stable at 9.9 and 27.6 respectively. Platelet count is stable at 240,000. Metabolic profile : Sodium 129, potassium is 4.0, chloride is 97, bicarbonate is 21, BUN 30, creatinine is 1.79, gluco se is 125. IMPRESSION: 1. Resolving abdominal pain. 2. Resolving ischemic colitis. PLAN: 1. There remains no acute surgical indication for this patient at this time. Recommend judicious fl uid resuscitation using urinary output as end point of resuscitation. 2. Wean vasopressors to off as soon as possible. The above findings and plan discussed with the patient who indicates understanding of information giv en. I answered her questions.
--- NOTE | 2017-11-12 10:55 | EKG ---
Test Reason : Blood Pressure : / mmHG Vent. Rate : 077 BPM Atrial Rate : 077 BPM P-R Int : 190 ms QRS Dur : 096 ms QT Int : 436 ms P-R-T Axes : 079 046 075 degrees QTc Int : 493 ms Sinus rhythm with Premature atrial complexes Septal infarct , age undetermined T wave abnormality, consider inferolateral ischemia Abnormal ECG Confirmed by AUSTIN SCHNEIDER ([id number]) on 11/12/2017 10:55:15 AM Referred By: MARTIN Confirmed By:AUSTIN SCHNEIDER
[2017-11-12 11:11] LABS: CKMB 6.8 ng/mL (0-6.6); Critical Call CKMBM RESULT DECREASING; Critical Call Chem Troponin I RESULT DECREASING; Troponin I 7.208 ng/mL (< 0.028)
[2017-11-12] MEDS: Ondansetron ODT 4 MG TAB PO PRN (11:43)
[2017-11-12] MEDS: Piperacillin/Tazobactam 2.25 GM, Admixture Fee 1 EACH in Sodium Chloride 0.9% 100 ML IVPB SCH ×2 (11:44→17:00)
[2017-11-12 16:02] LABS: Hemoglobin 9.4 g/dL (12.0-16.0); Platelet Count 230 thou/uL (130-400)
[2017-11-12] MEDS ORDERED: Nitroglycerin 2% Ointment 1 INCH/1 GM Packet TOP SCH (23:45)
[2017-11-12] MEDS ORDERED: Clopidogrel Bisulfate 300 MG TAB PO SCH (23:45)
[2017-11-13] MEDS: Piperacillin/Tazobactam 2.25 GM, Admixture Fee 1 EACH in Sodium Chloride 0.9% 100 ML IVPB SCH ×4 (00:08→18:07)
[2017-11-13] MEDS: Hydrocortisone Sod Succ/PF 100 mg/2 ml Vial IVP SCH (03:15)
[2017-11-13] MEDS: Norepinephrine 8 MG/0.9% NS 250 ML IVPB SCH (03:16)
[2017-11-13 04:58] LABS: Band 34 % (5-11); Hemoglobin 9.5 g/dL (12.0-16.0); Lymphocytes 10 % (21-51); MDiff Complete? YES; Mean Corpuscular HGB CONC 36.2 g/dL (32.0-36.0); Mean Corpuscular Hemoglobin 30.6 pg (27.0-31.0); Mean Corpuscular Volume 84.5 fL (78.0-98.0); Mean Platelet Volume 7.4 fL (7.4-10.4); Monocytes 4 % (0-10); Neutrophil 52 % (42-75); PLT Morphology Comment Appears Adequate; Platelet Count 236 thou/uL (130-400); RBC Distribution Width 13.5 % (11.5-14.5); Red Blood Cell (RBC) Count 3.12 mill/uL (4.20-5.40); White Blood Cell (WBC) Count 15.1 thou/uL (4.8-10.8)
[2017-11-13 05:03] LABS: ALT (SGPT) 20 U/L (8-55); AST (SGOT) 27 U/L (5-34); Albumin 3.1 g/dL (3.4-4.8); Alkaline Phosphatase 90 U/L (40-150); Anion Gap 14 mmol/L (10-20); BUN (Urea Nitrogen) 28 mg/dL (9.8-20.1); Bilirubin, Total 0.9 mg/dL (0.2-1.2); Calc. Creatinine Clearance 43 mL/min (70-130); Calcium 8.3 mg/dL (7.8-10.44); Carbon Dioxide 23 mmol/L (23-31); Chloride 100 mmol/L (98-107); Estimated GFR-MDRD 38; Globulin 2.7 g/dL (2.4-3.5); Glucose 134 mg/dL (83-110); Potassium 3.4 mmol/L (3.5-5.1); Protein, Total 5.8 g/dL (6.0-8.3); Sodium 134 mmol/L (136-145)
[2017-11-13] MEDS ORDERED: Potassium Chloride 20 MEQ TAB PO SCH (07:00)
--- NOTE | 2017-11-13 07:02 | PDOC.FM ---
- Subjective Subjective: Patient is in pain beneath her L breast and into her LUQ abd. She also reports pain in her R chest that is reproducible with palpation. She reports pain started after drinking coffee although had similar episode last night and it was not spurred by any PO intake. Overnight she had the CP event and she was given Plavix and nitro paste, which seemed to relieve her pain. She denies SOB , N/V, diaphoresis during these CP events. Yesterday had CP episode that was relieved by GI cocktail. EKG have been unchanged from initial, and troponins are downtrending. - Objective MAR Reviewed: Yes Vital Signs & Weight: Vital Signs (12 hours) Temp Pulse Resp Pulse Ox 11/13/17 06:00 100 11/13/17 04:00 98.2 F 99 11/13/17 03:00 98 11/13/17 02:00 97 11/13/17 01:00 98 11/13/17 00:00 95 11/12/17 23:32 81 22 H 97 11/12/17 23:00 98 11/12/17 22:00 98 11/12/17 21:00 98 11/12/17 20:00 98.5 F 77 20 98 Weight Weight 91.314 kg Most Recent Monitor Data Heart Rate from ECG 77 NIBP 115/70 NIBP BP-Mean 100 Respiration from ECG 15 SpO2 100 I&O: 11/12/17 11/13/17 11/14/17 06:59 06:59 06:59 Intake Total 3373 2679 Output Total 1325 2110 Balance 2046 569 Result Diagrams: 11/13/17 04:00 11/13/17 04:00 <Kelsea Lebron - Last Filed: 11/13/17 09:07> - Objective Vital Signs & Weight: Vital Signs (12 hours) Temp Pulse Resp Pulse Ox 11/13/17 19:24 96 11/13/17 19:23 96 11/13/17 19:00 98.9 F 11/13/17 16:00 99.0 F 11/13/17 12:48 85 13 11/13/17 12:00 98.2 F 11/13/17 11:30 81 11/13/17 11:15 81 11/13/17 11:00 98.2 F 81 11/13/17 10:45 83 Weight Weight 91.314 kg Most Recent Monitor Data Heart Rate from ECG 87 NIBP 121/81 NIBP BP-Mean 90 Respiration from ECG 20 SpO2 98 I&O: 11/12/17 11/13/17 11/14/17 06:59 06:59 06:59 Intake Total 3373 2679 1330 Output Total 1325 2110 1355 Balance 2048 569 -25 Result Diagrams: 11/13/17 04:00 11/13/17 04:00 <Kady Khan - Last Filed: 11/13/17 20:45> Phys Exam - Physical Examination in pain, no distress, having normal conversation HEENT: moist MMs Respiratory: no wheezing, no rales, clear to auscultation bilateral Cardiovascular: RRR, no significant murmur ttp along L chest that reproduces CP Gastrointestinal: positive bowel sounds epigastric and LUQ pain with palpation, moderate distension from prior days Musculoskeletal: no edema, pulses present Neurological: moves all 4 limbs Psychiatric: A&O x 3 Skin: cap refill <2 seconds <Kelsea Leborn - Last Filed: 11/13/17 09:07> Dx/Plan (1) Colitis Code(s): K52.9 - NONINFECTIVE GASTROENTERITIS AND COLITIS, UNSPECIFIED Status : Acute (2) Sepsis Code(s): A41.9 - SEPSIS, UNSPECIFIED ORGANISM Status: Acute (3) CKD (chronic kidney disease) stage 3, GFR 30-59 ml/min Code(s): N18.3 - CHRONIC KIDNEY DISEASE, STAGE 3 (MODERATE) Status: Acute (4) NSTEMI (non-ST elevated myocardial infarction) Code(s): I21.4 - NON-ST ELEVATION (NSTEMI) MYOCARDIAL INFARCTION Status: Acute (5) NALDO (acute kidney injury) Code(s): N17.9 - ACUTE KIDNEY FAILURE, UNSPECIFIED Status: Acute (6) COPD (chronic obstructive pulmonary disease) Status: Chronic QualifierTitle: COPD type: unspecified COPD Qualified Code(s): J44.9 - Chronic obstructive pulmonary disease, unspecified (7) Coronary artery disease Code(s): I25.10 - ATHSCL HEART DISEASE OF [place] CORONARY ARTERY W/O ANG PCTRS Status: Chronic QualifierTitle: Coronary Disease-Associated Artery/Lesion type: bypass graft [place] vs. transplanted heart: [place] heart Associated angina: without angina Qualified Code(s): I25.810 - Atherosclerosis of coronary artery bypass graft(s) without angina pectoris (8) HLD (hyperlipidemia) Code(s): E78.5 - HYPERLIPIDEMIA, UNSPECIFIED Status: Chronic QualifierTitle: Hyperlipidemia type: unspecified Qualified Code(s): E78.5 - Hyperlipidemia, unspecified (9) Hypertension Code(s): I10 - ESSENTIAL (PRIMARY) HYPERTENSION Status: Chronic (10) Hyperbilirubinemia Code(s): E80.6 - OTHER DISORDERS OF BILIRUBIN METABOLISM Status: Acute - Plan Plan: Sepsis 2/2 Colitis - likely ischemic colitis from hypotension vs diverticulitis - stool cx and blood cx pending - Continue Zosyn - Currently on Levophed, wean today or switch to dobutamine - LA downtrended, wnl - WBC downtrended, 15 today, recheck tomorrow. - tolerating clear liquid diet - Gen Surg consulted, appreciate recs. NSTEMI -cardiology following, had an episode of CP yesterday and one overnight that responded to Nitro, no EKG changes, trops downtrended. Again CP this am, but not convinced this is cardiac in nature, will give Nitro for CP and discuss possible need for further evaluation with cardiology -chest pain could be related to abd pathology or costochondritis, consider fentanyl for pain management -troponins: 0.63->0.95->4->3.8->12->17->7--> 4 -zofran prn -recent negative stress test (07/2017) HTN -currently hypotensive on levophed, hold antihypertensives for now. NALDO on CKD stage 3, improving -Cr 1.7--> 1.6 -will monitor Cr COPD -diagnosed one week ago with COPD exacerbation w/ bronchitis. Does not appear to be in exacerbation currently. -continue home meds -duonebs q6h brody and q2h prn Hyponatremia, chronic -at baseline -continue to monitor Hypokalemia - replace - Mg, Phos pending GERD -on protonix HLD -will continue statin Left lower lung nodule -needs outpatient workup per pulmonology Hyprebilirubinemia, resolved - bili wnl today <Kelsea Lebron - Last Filed: 11/13/17 09:07> Attending Addendum - Attending Addendum Date/Time: 11/13/172039 I personally evaluated the patient and discussed the management with Dr. Lebron I agree with the History, Examination, Assessment and Plan documented above with any addition or exceptions noted below- Patient reports abdominal pain improved. Advanced to full liquids as per surgery. No further chest pain. Afebrile VSS.A/P: 1) Ischemic colitis- improving; contineu supportive care. 2) Chest pain->CAD- pt taken to laborer/key man earlier today and stent placed. Continue to monitor. 3) Hypotension- improved; wean levaphed as tolerated. <Kady Khan - Last Filed: 11/13/17 20:45>
[2017-11-13 07:33] LABS: Magnesium 1.8 mg/dL (1.6-2.6); Phosphorus 4.8 mg/dL (2.3-4.7)
[2017-11-13 07:43] LABS: Troponin I 4.134 ng/mL (< 0.028)
--- NOTE | 2017-11-13 08:48 | PRG ---
DATE OF SERVICE: 11/13/2017 She is complaining of significant left-sided chest pain. She said it is not fluid. She says she is not short of breath. She says she is not having abdominal pain. PHYSICAL EXAMINATION: VITAL SIGNS: Her sats are 99% on 2 liters, pulse 109, blood pressure is 127/100. CHEST: Chest reveals no wheezing or crackles. CARDIAC: Normal S1, S2. No gallops. ABDOMEN: Soft, without any masses. X-ray yesterday showed no acute infiltrates. LABORATORY: Her labs shows elevated troponin of 4.1. CK was 7. Cardiology has been consulted. Cre atinine 1.6. Electrolytes are normal. White count 15,000, H&H 9 and 26, platelet count is 263. Cul tures are negative. IMPRESSION: 1. Severe chest pain, elevated troponin. Cardiology has seen the patient. 2. Abdominal pain has improved. She had colitis. 3. Underlying chronic obstructive pulmonary disease. 4. Previous tobacco abuse. PLAN: At this stage, probably continue neb treatments, supportive care. Await input from Cardiology. May have to consider repeating a CT of her chest. I doubt she got pulmonary emboli. We will follow while in the ICU.
[2017-11-13] MEDS ORDERED: Nitroglycerin 50 MG/250 ML BOT 250 ML ONE (08:52)
[2017-11-13] MEDS ORDERED: Metoprolol Tartrate 5 MG/5 ML VIAL ONE (08:56)
[2017-11-13] MEDS ORDERED: Lidocaine 1% (PF) 30 ML VIAL ONE (09:07)
[2017-11-13] MEDS ORDERED: Nitroglycerin 2% Ointment 1 INCH/1 GM Packet TOP SCH (09:30)
[2017-11-13] MEDS ORDERED: Nitroglycerin 50 MG/250 ML BOT 250 ML IVPB SCH (09:30)
[2017-11-13] MEDS ORDERED: Metoprolol Tartrate 5 MG/5 ML VIAL IVP SCH (09:30)
[2017-11-13] MEDS ORDERED: Fentanyl 100 MCG/2 ML VIAL ONE (09:31)
[2017-11-13] MEDS ORDERED: Midazolam HCl 2 mg/2 ml Vial ONE (09:31)
--- NOTE | 2017-11-13 09:51 | RAD ---
SINGLE VIEW OF THE CHEST: Comparison: 11-11-17 History: Chest pain. FINDINGS: Single view of the chest shows an enlarged cardiomediastinal silhouette. The patient is status post C ABG. There is a right IJ central venous catheter with its tip at the superior vena cava. No consolida tion, mass, or pleural effusions are seen. IMPRESSION: Cardiomegaly without evidence of acute cardiopulmonary disease. POS: [facility]
[2017-11-13] MEDS ORDERED: Heparin 10,000 UNITS/1 ML VIAL ONE (09:58)
[2017-11-13] MEDS ORDERED: Clopidogrel Bisulfate 300 MG TAB ONE (10:13)
[2017-11-13] MEDS ORDERED: Sodium Chloride 0.9% 1,000 ML IV SCH (10:30)
[2017-11-13] MEDS ORDERED: Iopamidol 370 76% 100 ML VIAL ONE (11:13)
[2017-11-13] MEDS ORDERED: Iopamidol 370 76% 50 ML VIAL FS ONE (11:13)
--- NOTE | 2017-11-13 11:48 | PRG ---
DATE OF SERVICE: 11/13/2017 SUBJECTIVE: Ms. Rick is a 77-year-old woman who was admitted following a non-ST elev ation myocardial infarction. I have been seeing the patient for abdominal pain. CT scan of the abdo men and pelvis that revealed thickened left colonic wall suspicious for ischemic colitis. Clinical e xamination is quite consistent with acute ischemic colitis. At the time of my evaluation, the patient denies any abdominal pain. She is, however, caution her ch est and complaining of persistent chest pain. She has been evaluated by Cardiology due to this unstable angina. OBJECTIVE: VITAL SIGNS: However includes blood pressure 130/88, pulse 106, respiratory rate 28. Maximum temper ature in the last 24 hours 97.7 degrees Fahrenheit, oxygen saturation 100% on 2 liters by nasal cannu la oxygen. HEART: Reveals regular rate with mild sinus tachycardia. LUNGS: Clear to auscultation bilaterally. Breathing regular and unlabored. ABDOMEN: Soft, nontender, nondistended. Liver and spleen are nonpalpable below costal margin. LABORATORY DATA: CBC with 15,100 white blood cells, hemoglobin and hematocrit 9.5 and 26.3 respectiv eliseo. Platelet count is 236,000. Metabolic profile: Sodium 134, potassium 3.4, chloride is 100, bic arbonate 23, BUN 28, creatinine is 1.60, glucose is 134, magnesium 1.8, phosphorus is 4.8. Troponin I this morning is 4.13. IMPRESSION: 1. Resolved acute ischemic colitis. 2. Unstable angina, likely acute coronary syndrome. PLAN: The patient has been evaluated by Cardiology in consideration for an emergent cardiac catheter ization. There was no acute general surgical indication for this patient at this time.
[2017-11-13] MEDS: Aspirin 81 mg Enteric Coated Tablet PO SCH (12:23)
[2017-11-13] MEDS: Rosuvastatin 20 MG TAB PO SCH (12:23)
[2017-11-13] MEDS: Enoxaparin Sodium 30 MG/0.3 ML SYRINGE SC SCH (12:24)
[2017-11-13] MEDS: Gabapentin 300 MG CAP PO SCH ×2 (12:24→20:45)
[2017-11-13] MEDS: Acetaminophen 325 MG TAB PO PRN ×2 (14:09→22:38)
--- NOTE | 2017-11-13 16:28 | CT ---
CT OF THE ABDOMEN AND PELVIS WITHOUT CONTRAST 11/13/17 COMPARISON: 11/11/17 HISTORY: Status post cardiac catheterization with back pain. Evaluate for retroperitoneal hemorrhage. TECHNIQUE: Multiple contiguous axial images were obtained in a CT of the abdomen and pelvis without contrast. PO contrast was administered. Coronal reformats were performed. FINDINGS: The gallbladder is distended. There may be a small radiopaque gallstone in the dependent aspect of th e gallbladder. Contrast is seen in the kidneys from recent contrast examination. The liver, adrenal glands, spleen, and pancreas are unremarkable. There is thickening of the wall of the left colon near the splenic flexure, unchanged compared to the prior examination. The small bowel is normal in caliber. A few scattered diverticula are seen in the colon. The reproductive organs are grossly unremarkable. A Pena catheter is seen in the urinary bladder. A right sided arterial catheter is seen within the common femoral artery. No free air, free fluid, or s tranding changes are seen in the abdomen or pelvis. No retroperitoneal hemorrhage is seen. Occasionally, the infrarenal aorta is again seen. No abdominal or pelvic lymphadenopathy are seen. Degenerative changes are seen in the spine. Bilateral dependent atelectasis is seen in the lung bases. The abdominal wall soft tissues are unremarkable. IMPRESSION: 1. No evidence of retroperitoneal hemorrhage. 2. Persistent thickening of the colon near the splenic flexure. 3. Possible cholelithiasis. POS: [facility]
[2017-11-13] MEDS: Simethicone Chewable 80 MG TAB PO PRN (18:07)
[2017-11-14] MEDS: Nitroglycerin 0.4 MG TAB (25 Tab Bottle) SL PRN ×2 (01:07→01:14)
[2017-11-14] MEDS: Piperacillin/Tazobactam 2.25 GM, Admixture Fee 1 EACH in Sodium Chloride 0.9% 100 ML IVPB SCH ×3 (01:22→12:03)
[2017-11-14 05:27] LABS: ALT (SGPT) 19 U/L (8-55); AST (SGOT) 26 U/L (5-34); Alkaline Phosphatase 74 U/L (40-150); Anion Gap 12 mmol/L (10-20); BUN (Urea Nitrogen) 23 mg/dL (9.8-20.1); Bilirubin, Total 0.6 mg/dL (0.2-1.2); Calc. Creatinine Clearance 56 mL/min (70-130); Calcium 8.7 mg/dL (7.8-10.44); Carbon Dioxide 23 mmol/L (23-31); Chloride 104 mmol/L (98-107); Estimated GFR-MDRD 51; Globulin 2.8 g/dL (2.4-3.5); Glucose 122 mg/dL (83-110); Protein, Total 5.8 g/dL (6.0-8.3); Sodium 135 mmol/L (136-145)
[2017-11-14 05:45] LABS: Band 24 % (5-11); Hemoglobin 8.7 g/dL (12.0-16.0); Lymphocytes 6 % (21-51); MDiff Complete? YES; Mean Corpuscular HGB CONC 36.3 g/dL (32.0-36.0); Mean Corpuscular Hemoglobin 30.6 pg (27.0-31.0); Mean Corpuscular Volume 84.2 fL (78.0-98.0); Mean Platelet Volume 7.2 fL (7.4-10.4); Monocytes 2 % (0-10); Neutrophil 68 % (42-75); Platelet Count 225 thou/uL (130-400); RBC Distribution Width 13.4 % (11.5-14.5); Red Blood Cell (RBC) Count 2.85 mill/uL (4.20-5.40); White Blood Cell (WBC) Count 12.9 thou/uL (4.8-10.8)
--- NOTE | 2017-11-14 06:24 | PDOC.FM ---
- Subjective Subjective: Patient is sitting up at the side of the bed today. She went to [facility] yesterday with Dr. Sexton and received stent placement x1. She did have some episodes of CP overnight but resolved with passing gas. This morning she denies abd pain and CP. She is hungry and would like breakfast. She is walking to and from the bathroom and having bowel movements and normal urination. - Objective MAR Reviewed: Yes Vital Signs & Weight: Vital Signs (12 hours) Temp Pulse Resp Pulse Ox 11/14/17 04:00 97.9 F 11/14/17 00:00 98.5 F 11/13/17 23:41 98 11/13/17 20:00 98.9 F 80 20 100 11/13/17 19:24 96 11/13/17 19:23 96 11/13/17 19:00 98.9 F Weight Weight 91.314 kg Most Recent Monitor Data Heart Rate from ECG 83 NIBP 124/75 NIBP BP-Mean 84 Respiration from ECG 26 SpO2 98 I&O: 11/12/17 11/13/17 11/14/17 06:59 06:59 06:59 Intake Total 3373 2679 3430 Output Total 1325 2110 2030 Balance 2048 569 1400 Result Diagrams: 11/14/17 04:56 11/14/17 04:56 <Kelsea Lebron - Last Filed: 11/14/17 09:19> - Objective Vital Signs & Weight: Vital Signs (12 hours) Temp Pulse Resp BP Pulse Ox 11/14/17 14:42 98 F 90 14 97 11/14/17 14:39 90 14 11/14/17 14:26 98 F 86 16 111/65 97 11/14/17 08:00 98.5 F 85 20 100 11/14/17 07:52 99 11/14/17 07:50 85 14 99 11/14/17 04:00 97.9 F Weight Weight 91.314 kg Most Recent Monitor Data Heart Rate from ECG 101 NIBP 162/39 NIBP BP-Mean 142 Respiration from ECG 25 SpO2 97 I&O: 11/13/17 11/14/17 11/15/17 06:59 06:59 06:59 Intake Total 2679 3530 300 Output Total 2110 2110 425 Balance 569 1420 -125 Result Diagrams: 11/14/17 04:56 11/14/17 04:56 <Michael Dye - Last Filed: 11/14/17 15:15> Phys Exam - Physical Examination Constitutional: NAD HEENT: moist MMs Respiratory: no wheezing, no rales, clear to auscultation bilateral Cardiovascular: RRR, no significant murmur Gastrointestinal: soft, non-tender, positive bowel sounds continues to be moderately distended Musculoskeletal: no edema, pulses present Neurological: moves all 4 limbs Psychiatric: normal affect, A&O x 3 Skin: cap refill <2 seconds <Kelsea Lebron - Last Filed: 11/14/17 09:19> Dx/Plan (1) Colitis Code(s): K52.9 - NONINFECTIVE GASTROENTERITIS AND COLITIS, UNSPECIFIED Status : Acute (2) Sepsis Code(s): A41.9 - SEPSIS, UNSPECIFIED ORGANISM Status: Acute (3) CKD (chronic kidney disease) stage 3, GFR 30-59 ml/min Code(s): N18.3 - CHRONIC KIDNEY DISEASE, STAGE 3 (MODERATE) Status: Acute (4) NSTEMI (non-ST elevated myocardial infarction) Code(s): I21.4 - NON-ST ELEVATION (NSTEMI) MYOCARDIAL INFARCTION Status: Acute (5) NALDO (acute kidney injury) Code(s): N17.9 - ACUTE KIDNEY FAILURE, UNSPECIFIED Status: Acute (6) COPD (chronic obstructive pulmonary disease) Status: Chronic QualifierTitle: COPD type: unspecified COPD Qualified Code(s): J44.9 - Chronic obstructive pulmonary disease, unspecified (7) Coronary artery disease Code(s): I25.10 - ATHSCL HEART DISEASE OF [place] CORONARY ARTERY W/O ANG PCTRS Status: Chronic QualifierTitle: Coronary Disease-Associated Artery/Lesion type: bypass graft [place] vs. transplanted heart: [place] heart Associated angina: without angina Qualified Code(s): I25.810 - Atherosclerosis of coronary artery bypass graft(s) without angina pectoris (8) HLD (hyperlipidemia) Code(s): E78.5 - HYPERLIPIDEMIA, UNSPECIFIED Status: Chronic QualifierTitle: Hyperlipidemia type: unspecified Qualified Code(s): E78.5 - Hyperlipidemia, unspecified (9) Hypertension Code(s): I10 - ESSENTIAL (PRIMARY) HYPERTENSION Status: Chronic (10) Hyperbilirubinemia Code(s): E80.6 - OTHER DISORDERS OF BILIRUBIN METABOLISM Status: Acute - Plan Plan: NSTEMI - s/p stent placement x1 yesterday by Dr. Pena - patient continues to have CP, relieved by passing gas, simethicone ordered - troponins: 0.63->0.95->4->3.8->12->17->7-> 4 - continue plavix, ASA Sepsis 2/2 Colitis - sepsis resolved, VSS - likely ischemic colitis from hypotension vs diverticulitis - stool cx and blood cx negative - Transition to PO Abx vs d/c abx. Plan to discuss with attending. - WBC downtrended, 12 today, recheck tomorrow. - tolerating full liquid diet, transition to reg diet today. - Gen Surg consulted, appreciate recs. - possibly tx to tele today vs tomorrow HTN -pressures stable off levophed - continue to hold home antihypertensives as BP is wnl, plan to start tomorrow NALDO on CKD stage 3, resolved -Cr 1.7--> 1.6--> 1.2 COPD -diagnosed one week ago with COPD exacerbation w/ bronchitis. Does not appear to be in exacerbation currently. -continue home meds -duonebs q6h brody and q2h prn Hyponatremia, chronic -at baseline -continue to monitor GERD - on protonix - also with gas pain, continue simethicone prn HLD -will continue statin Left lower lung nodule -needs outpatient workup per pulmonology Hyprebilirubinemia, resolved - bili wnl today Hypokalemia, resolved - continue to monitor <Kelsea Lebron - Last Filed: 11/14/17 09:19> Attending Addendum - Attending Addendum Date/Time: 11/14/17 9260 I personally evaluated the patient in the ICU and discussed the management with Dr. Cydney Leblanc. I agree with the History, Examination, Assessment and Plan documented above with any addition or exceptions noted below. Alert sitting in chair, smiling and interactive with family/sisters. Lungs: scattered rhonchi and coarse breath sounds. Cor: RRR with freq ectopic beats and Gr 1/6 DEANA. Abdom: soft non-tender. She feels much better. No CP, Cough, SOB, or abdominal pain. Having formed soft stools. V/S stable/normal. NSR with freq PACs. Hb down to 8.7 and WBC down to 12. GFR up to 51 with serum creat 1.2 at baseline. AFter stent she is now on ASA/Plavix and on prophylactic Lovenox which will be increased base on her wt to 40 mg HS. Significantly improved. CAD, post stent in RCA. Colitis: infectious vs ischemic (more likely). Discontinue Zosyn and transfer to floor. [facility] <Michael Dye - Last Filed: 11/14/17 15:15>
[2017-11-14] MEDS ORDERED: Furosemide 40 MG/4 ML VIAL SLOW IVP SCH (08:15)
[2017-11-14] MEDS: Simethicone Chewable 80 MG TAB PO PRN (08:33)
[2017-11-14] MEDS: Gabapentin 300 MG CAP PO SCH ×2 (08:37→20:49)
[2017-11-14] MEDS: Rosuvastatin 20 MG TAB PO SCH (08:37)
[2017-11-14] MEDS: Clopidogrel Bisulfate 75 MG TAB PO SCH (08:38)
[2017-11-14] MEDS: Aspirin 81 mg Enteric Coated Tablet PO SCH (08:38)
[2017-11-14] MEDS ORDERED: Enoxaparin Sodium 30 MG/0.3 ML SYRINGE SC SCH ×2 (09:00→21:00)
[2017-11-14] MEDS: Acetaminophen 325 MG TAB PO PRN (10:16)
--- NOTE | 2017-11-14 11:57 | PRG ---
DATE OF SERVICE: 11/14/2017 SUBJECTIVE: Prabhjot is no longer having pain or shortness of breath. No abdominal pain. OBJECTIVE: VITAL SIGNS: Sats 98% on 2 liters, pulse 85, blood pressure is 118/66. CHEST: Decreased breath sounds, no wheezing. CARDIAC: Normal S1 and S2, no gallops or masses. LABORATORY DATA: Baseline creatinine 1.23. White count 12,000, hemoglobin and hematocrit 8 and 24, platelet count normal. IMPRESSION: 1. Chest pain, coronary artery disease, status post single stent. 2. Chronic obstructive pulmonary disease, stable. 3. Abdominal pain, ileus resolved. PLAN: Probably can be transferred out of the ICU at this stage. Continue PT and supportive care. We will follow while in the ICU.
--- NOTE | 2017-11-14 11:57 | PRG ---
DATE OF SERVICE: 11/14/2017 Ms. Rick is a 77-year-old woman who I have been following with ischemic colitis. The patient is posto p day #1 status post emergent cardiac catheterization, which was successful. Since yesterday the patient reported a short episode of epigastric abdominal pain which was relieved with a bowel movement. At the time of my evaluation. She denies any abdominal pain, nausea or vomiting. She denies any malia st pain or syncope. OBJECTIVE: VITAL SIGNS: Today includes blood pressure 153/80, pulse is 100, respirations 17, temperature is 98. 5 degrees Fahrenheit, oxygen saturation is 100% on 2 liters by nasal cannula oxygen. HEART: Reveals regular rate and rhythm. CHEST: Clear to auscultation bilaterally. Breathing regular and unlabored. ABDOMEN: Soft and moderately distended, but nontender to palpation. She has good bowel sounds in al l 4 quadrants. NEUROLOGIC: Reveals no focal deficits present. LABORATORY DATA: Today includes a CBC with a normalizing white blood cell count 12,900, hemoglobin a nd hematocrit is 8.7 and 24.0 respectively. Platelet count is 225,000. Metabolic profile: Sodium 1 35, potassium is 4.0, chloride is 104, bicarbonate 23, BUN 23, creatinine is 1.23. Note that the BUN and creatinine has shown marked improvement compared to yesterday's at 28 and 1.60 respectively. Gl ucose today is 122. IMPRESSION: 1. Now resolved acute ischemic colitis. 2. Resolving acute coronary syndrome, status post cardiac catheterization. PLAN: There is no acute surgical indication for this patient at this time. I recommend that we adva nce diet to general. General Surgery will sign off of this case and be available to reevaluate the patient on demand.
[2017-11-14 16:12] LABS: Hemoglobin 9.9 g/dL (12.0-16.0); Platelet Count 246 thou/uL (130-400)
[2017-11-14] MEDS: Carvedilol 3.125 MG TAB PO SCH (17:05)
[2017-11-14] MEDS: Ferrous Sulfate 325 MG TAB PO SCH (17:05)
[2017-11-14] MEDS ORDERED: Enoxaparin Sodium 40 MG/0.4 ML SYRINGE SC SCH (21:00)
[2017-11-15 05:55] LABS: ALT (SGPT) 26 U/L (8-55); AST (SGOT) 36 U/L (5-34); Alkaline Phosphatase 80 U/L (40-150); Anion Gap 15 mmol/L (10-20); BUN (Urea Nitrogen) 21 mg/dL (9.8-20.1); Bilirubin, Total 0.5 mg/dL (0.2-1.2); Calc. Creatinine Clearance 55 mL/min (70-130); Calcium 8.7 mg/dL (7.8-10.44); Carbon Dioxide 20 mmol/L (23-31); Chloride 103 mmol/L (98-107); Estimated GFR-MDRD 50; Glucose 87 mg/dL (83-110); Potassium 3.6 mmol/L (3.5-5.1); Sodium 134 mmol/L (136-145)
[2017-11-15] MEDS: Acetaminophen 325 MG TAB PO PRN (06:11)
[2017-11-15 06:18] LABS: Band 16 % (5-11); Hemoglobin 9.4 g/dL (12.0-16.0); Lymphocytes 16 % (21-51); MDiff Complete? YES; Mean Corpuscular HGB CONC 35.2 g/dL (32.0-36.0); Mean Corpuscular Volume 85.5 fL (78.0-98.0); Mean Platelet Volume 8.2 fL (7.4-10.4); Monocytes 7 % (0-10); Neutrophil 61 % (42-75); Platelet Count 239 thou/uL (130-400); RBC Distribution Width 13.8 % (11.5-14.5); Red Blood Cell (RBC) Count 3.14 mill/uL (4.20-5.40); White Blood Cell (WBC) Count 6.2 thou/uL (4.8-10.8)
[2017-11-15] MEDS ORDERED: Furosemide 40 MG/4 ML VIAL SLOW IVP SCH (07:15)
[2017-11-15] MEDS: Gabapentin 300 MG CAP PO SCH ×2 (08:07→20:15)
[2017-11-15] MEDS: predniSONE 20 MG TAB PO SCH (08:07)
[2017-11-15] MEDS: Ferrous Sulfate 325 MG TAB PO SCH ×2 (08:07→16:50)
[2017-11-15] MEDS: Amiodarone 200 MG TAB PO SCH ×2 (08:07→20:15)
[2017-11-15] MEDS: Carvedilol 3.125 MG TAB PO SCH ×2 (08:07→16:50)
[2017-11-15] MEDS: Ascorbic Acid 500 mg Chewable Tablet PO SCH (08:09)
[2017-11-15] MEDS: Rosuvastatin 20 MG TAB PO SCH (08:10)
[2017-11-15] MEDS: Clopidogrel Bisulfate 75 MG TAB PO SCH (08:10)
[2017-11-15] MEDS ORDERED: Amiodarone HCl 150 MG in Dextrose 5% in Water 100 ML IVPB SCH ×2 (08:45→12:00)
--- NOTE | 2017-11-15 08:52 | PRG ---
DATE OF SERVICE: 11/15/2017 This morning she says she has less chest pain, less shortness of breath. PHYSICAL EXAMINATION: VITAL SIGNS: Sats 96 on room air, temperature 98, pulse 24, blood pressure 125/90. CHEST: Chest reveals decreased breath sounds, no wheezing. CARDIAC: Normal S1, S2. No gallops. ABDOMEN: Soft, no masses. LABORATORY: H&H is 9 and 26, platelet count is normal. Creatinine 1.26. IMPRESSION: 1. Status post ileus, resolved. 2. Left chest pain, found to have coronary disease, status post single stent. 3. No evidence of any acute pulmonary problem at this time. PLAN: Pulmonary Critical Care will follow at a distance. Disposition as per primary care physician. Call if needed.
--- NOTE | 2017-11-15 09:07 | PDOC.FM ---
- Subjective Subjective: Patient looks better from days prior, unfortunately around 0600 this am went into Afib with RVR. She is asymptomatic from this. Her only concern is her belly being "filled with fluid." She denies abd pain and chest pain. She reports she is have multiple BM's that are soft. She does endorse FERRELL. - Objective MAR Reviewed: Yes Vital Signs & Weight: Vital Signs (12 hours) Temp Pulse Resp BP Pulse Ox 11/15/17 07:45 98.5 F 124 H 20 125/90 91 L 11/15/17 07:01 97 16 91 L 11/15/17 04:33 98.5 F 85 17 110/59 L 96 11/15/17 00:17 79 14 94 L 11/15/17 00:00 98.9 F 82 16 98/59 L Weight Weight 91.314 kg Most Recent Monitor Data Heart Rate from ECG 101 NIBP 162/39 NIBP BP-Mean 142 Respiration from ECG 25 SpO2 97 I&O: 11/14/17 11/15/17 11/16/17 06:59 06:59 06:59 Intake Total 3530 780 Output Total 2110 425 Balance 1420 355 Result Diagrams: 11/15/17 04:49 11/15/17 04:49 <Kelsea Lebron - Last Filed: 11/15/17 09:06> - Objective Vital Signs & Weight: Vital Signs (12 hours) Temp Pulse Resp BP Pulse Ox 11/15/17 13:09 70 16 92 L 11/15/17 07:45 98.5 F 124 H 20 125/90 91 L 11/15/17 07:01 97 16 91 L 11/15/17 04:33 98.5 F 85 17 110/59 L 96 Weight Weight 91.314 kg Most Recent Monitor Data Heart Rate from ECG 101 NIBP 162/39 NIBP BP-Mean 142 Respiration from ECG 25 SpO2 97 I&O: 11/14/17 11/15/17 11/16/17 06:59 06:59 06:59 Intake Total 3530 780 Output Total 2110 425 Balance 1420 355 Result Diagrams: 11/15/17 15:47 11/15/17 04:49 <Michael Dye - Last Filed: 11/15/17 16:32> Phys Exam - Physical Examination Constitutional: NAD HEENT: PERRLA, moist MMs Neck: no nodes, no JVD Respiratory: no wheezing rhonchi at bases tachycardic, irregularly irregular Gastrointestinal: soft, non-tender, positive bowel sounds distended Musculoskeletal: pulses present, edema present trace edema of b/l LE Neurological: moves all 4 limbs Psychiatric: normal affect, A&O x 3 Skin: cap refill <2 seconds <Kelsea Lebron - Last Filed: 11/15/17 09:06> Dx/Plan (1) Colitis Code(s): K52.9 - NONINFECTIVE GASTROENTERITIS AND COLITIS, UNSPECIFIED Status : Acute (2) Sepsis Code(s): A41.9 - SEPSIS, UNSPECIFIED ORGANISM Status: Acute (3) CKD (chronic kidney disease) stage 3, GFR 30-59 ml/min Code(s): N18.3 - CHRONIC KIDNEY DISEASE, STAGE 3 (MODERATE) Status: Acute (4) NSTEMI (non-ST elevated myocardial infarction) Code(s): I21.4 - NON-ST ELEVATION (NSTEMI) MYOCARDIAL INFARCTION Status: Acute (5) NALDO (acute kidney injury) Code(s): N17.9 - ACUTE KIDNEY FAILURE, UNSPECIFIED Status: Acute (6) COPD (chronic obstructive pulmonary disease) Status: Chronic QualifierTitle: COPD type: unspecified COPD Qualified Code(s): J44.9 - Chronic obstructive pulmonary disease, unspecified (7) Coronary artery disease Code(s): I25.10 - ATHSCL HEART DISEASE OF [place] CORONARY ARTERY W/O ANG PCTRS Status: Chronic QualifierTitle: Coronary Disease-Associated Artery/Lesion type: bypass graft [place] vs. transplanted heart: [place] heart Associated angina: without angina Qualified Code(s): I25.810 - Atherosclerosis of coronary artery bypass graft(s) without angina pectoris (8) HLD (hyperlipidemia) Code(s): E78.5 - HYPERLIPIDEMIA, UNSPECIFIED Status: Chronic QualifierTitle: Hyperlipidemia type: unspecified Qualified Code(s): E78.5 - Hyperlipidemia, unspecified (9) Hypertension Code(s): I10 - ESSENTIAL (PRIMARY) HYPERTENSION Status: Chronic (10) Hyperbilirubinemia Code(s): E80.6 - OTHER DISORDERS OF BILIRUBIN METABOLISM Status: Acute (11) Atrial fibrillation with RVR Code(s): I48.91 - UNSPECIFIED ATRIAL FIBRILLATION Status: Acute (12) Normocytic anemia Code(s): D64.9 - ANEMIA, UNSPECIFIED Status: Acute (13) Heart failure with reduced ejection fraction Code(s): I50.20 - UNSPECIFIED SYSTOLIC (CONGESTIVE) HEART FAILURE Status: Acute - Plan Plan: Afib with RVR, new onset - Amio drip - therapeutic lovenox, plan to switch to NOAC, insurance permitting - echo done at this hospitalization with EF 40-45% HFrEF - mild swelling with FERRELL - will give small dose PO lasix if BP permits NSTEMI, resolved - s/p stent placement x1 by Dr. Pena - troponins: 0.63->0.95->4->3.8->12->17->7-> 4 - continue plavix, ASA Sepsis 2/2 Colitis - sepsis resolved, VSS - likely ischemic colitis from hypotension - stool cx and blood cx negative - WBC wnl today - tolerating regular diet - will give lactobacillus HTN - pressures stable off levophed, continues to be mildly hypotensive to low normal - continue to hold home antihypertensives NALDO on CKD stage 3, resolved -Cr 1.7--> 1.6--> 1.2 COPD -diagnosed one week ago with COPD exacerbation w/ bronchitis. Does not appear to be in exacerbation currently. -continue home meds -duonebs q6h brody and q2h prn -d/c prednisone Hyponatremia, chronic -at baseline -continue to monitor GERD - on protonix - also with gas pain, continue simethicone prn HLD -will continue statin Left lower lung nodule -needs outpatient workup per pulmonology Hyprebilirubinemia, resolved - bili wnl today Hypokalemia, resolved - continue to monitor <Kelsea Lebron - Last Filed: 11/15/17 09:06> Attending Addendum - Attending Addendum Date/Time: 11/15/17 1630 I personally evaluated the patient and discussed the management with Dr. Lebron. I agree with the History, Examination, Assessment and Plan documented above with any addition or exceptions noted below. She feels fine. Went into A-fib with RVR early this am. No symptoms. Cor: Irreg/ irregular, no murmur. Lungs: CTA except coarse breath sounds and basilar rhonchi. Amiodarone ip going. Plan to transition to Amiodarone PO. Appreciated Cardiology recommendations and following. [facility] <Michael Dye - Last Filed: 11/15/17 16:32>
[2017-11-15] MEDS: Amiodarone HCl 450 MG in Dextrose 5% in Water 250 ML IVPB SCH ×2 (09:18→18:37)
[2017-11-15 16:21] LABS: Hemoglobin 10.2 g/dL (12.0-16.0); Platelet Count 274 thou/uL (130-400)
[2017-11-15 18:51] LABS: Hemoglobin 10.4 g/dL (12.0-16.0); Platelet Count 278 thou/uL (130-400)
[2017-11-15] MEDS ORDERED: Enoxaparin Sodium 100 MG/ML SYRINGE SC SCH ×2 (19:15→21:00)
[2017-11-16 05:38] LABS: ALT (SGPT) 28 U/L (8-55); AST (SGOT) 29 U/L (5-34); Albumin 3.1 g/dL (3.4-4.8); Alkaline Phosphatase 79 U/L (40-150); Anion Gap 15 mmol/L (10-20); BUN (Urea Nitrogen) 19 mg/dL (9.8-20.1); Bilirubin, Total 0.6 mg/dL (0.2-1.2); Calc. Creatinine Clearance 62 mL/min (70-130); Calcium 8.6 mg/dL (7.8-10.44); Carbon Dioxide 20 mmol/L (23-31); Chloride 101 mmol/L (98-107); Estimated GFR-MDRD 58; Globulin 2.8 g/dL (2.4-3.5); Glucose 103 mg/dL (83-110); Protein, Total 5.9 g/dL (6.0-8.3); Sodium 133 mmol/L (136-145)
[2017-11-16 06:16] LABS: Hemoglobin 9.9 g/dL (12.0-16.0); Mean Corpuscular Hemoglobin 30.3 pg (27.0-31.0); Mean Corpuscular Volume 84.2 fL (78.0-98.0); Mean Platelet Volume 7.4 fL (7.4-10.4); Platelet Count 257 thou/uL (130-400); RBC Distribution Width 13.8 % (11.5-14.5); Red Blood Cell (RBC) Count 3.28 mill/uL (4.20-5.40); White Blood Cell (WBC) Count 7.7 thou/uL (4.8-10.8)
[2017-11-16 07:00] LABS: Band 21 % (5-11); Lymphocytes 26 % (21-51); MDiff Complete? YES; Monocytes 12 % (0-10); Neutrophil 41 % (42-75); Nucleated RBC 1 % (0); Target Cells MODERATE= 6-15 cells (100X) (0-1/hpf)
--- NOTE | 2017-11-16 07:31 | PDOC.FM ---
- Subjective Subjective: Pt resting in bed comfortably. Denies any acute events overnight. Denies any chest pain, SOB. Denies any abdominal pain at this time. Denies any fever or chills. No other concerns or complaints at this time. - Objective MAR Reviewed: Yes Vital Signs & Weight: Vital Signs (12 hours) Temp Pulse Resp BP Pulse Ox 11/16/17 05:09 98.2 F 71 12 121/68 94 L 11/16/17 00:44 69 14 94 L 11/15/17 20:00 98.2 F 69 14 92 L Weight Weight 91.314 kg Most Recent Monitor Data Heart Rate from ECG 101 NIBP 162/39 NIBP BP-Mean 142 Respiration from ECG 25 SpO2 97 I&O: 11/15/17 11/16/17 11/17/17 06:59 06:59 06:59 Intake Total 780 600 Output Total 425 1600 Balance 355 -1000 Result Diagrams: 11/16/17 04:50 11/16/17 04:50 EKG Reviewed by me: Yes Radiology Reviewed by me: Yes <Maxwell Park - Last Filed: 11/16/17 07:29> - Objective Vital Signs & Weight: Vital Signs (12 hours) Temp Pulse Pulse Pulse Resp BP BP 11/16/17 12:44 70 16 11/16/17 12:00 97.6 F 71 16 11/16/17 10:08 70 88 131/71 11/16/17 09:11 96 157/94 H 11/16/17 07:35 90 14 11/16/17 07:25 97.2 F L 69 16 11/16/17 07:20 97.2 F L 69 16 11/16/17 05:09 98.2 F 71 12 BP BP Pulse Ox 11/16/17 12:44 11/16/17 12:00 107/58 L 94 L 11/16/17 10:08 143/80 H 11/16/17 09:11 11/16/17 07:35 11/16/17 07:25 142/77 H 95 11/16/17 07:20 95 11/16/17 05:09 121/68 94 L Weight Weight 91.314 kg Most Recent Monitor Data Heart Rate from ECG 101 NIBP 162/39 NIBP BP-Mean 142 Respiration from ECG 25 SpO2 97 I&O: 07/11/16/17 11/17/17 06:59 06:59 06:59 Intake Total 780 600 Output Total 425 1600 Balance 355 -1000 Result Diagrams: 11/16/17 04:50 11/16/17 04:50 <Michael Dye - Last Filed: 11/16/17 16:50> Phys Exam - Physical Examination Constitutional: NAD HEENT: PERRLA, moist MMs Neck: no nodes, supple, full ROM Respiratory: no wheezing, no rales, no rhonchi, clear to auscultation bilateral Cardiovascular: RRR, no significant murmur, no rub Gastrointestinal: soft, non-tender, positive bowel sounds Mildly distended Musculoskeletal: no edema, pulses present Neurological: non-focal, normal sensation, moves all 4 limbs Lymphatic: no nodes Psychiatric: normal affect, A&O x 3 Skin: no rash <Maxwell Park - Last Filed: 11/16/17 07:29> Dx/Plan (1) Atrial fibrillation with RVR Code(s): I48.91 - UNSPECIFIED ATRIAL FIBRILLATION Status: Acute (2) CKD (chronic kidney disease) stage 3, GFR 30-59 ml/min Code(s): N18.3 - CHRONIC KIDNEY DISEASE, STAGE 3 (MODERATE) Status: Acute (3) Colitis Code(s): K52.9 - NONINFECTIVE GASTROENTERITIS AND COLITIS, UNSPECIFIED Status : Acute (4) Heart failure with reduced ejection fraction Code(s): I50.20 - UNSPECIFIED SYSTOLIC (CONGESTIVE) HEART FAILURE Status: Acute (5) Hyperbilirubinemia Code(s): E80.6 - OTHER DISORDERS OF BILIRUBIN METABOLISM Status: Acute (6) NSTEMI (non-ST elevated myocardial infarction) Code(s): I21.4 - NON-ST ELEVATION (NSTEMI) MYOCARDIAL INFARCTION Status: Acute (7) Sepsis Code(s): A41.9 - SEPSIS, UNSPECIFIED ORGANISM Status: Acute (8) NALDO (acute kidney injury) Code(s): N17.9 - ACUTE KIDNEY FAILURE, UNSPECIFIED Status: Acute (9) CHF (congestive heart failure) Code(s): I50.9 - HEART FAILURE, UNSPECIFIED Status: Chronic (10) COPD (chronic obstructive pulmonary disease) Status: Chronic QualifierTitle: COPD type: unspecified COPD Qualified Code(s): J44.9 - Chronic obstructive pulmonary disease, unspecified (11) HLD (hyperlipidemia) Code(s): E78.5 - HYPERLIPIDEMIA, UNSPECIFIED Status: Chronic QualifierTitle: Hyperlipidemia type: unspecified Qualified Code(s): E78.5 - Hyperlipidemia, unspecified (12) Hypertension Code(s): I10 - ESSENTIAL (PRIMARY) HYPERTENSION Status: Chronic (13) Hyponatremia Code(s): E87.1 - HYPO-OSMOLALITY AND HYPONATREMIA Status: Chronic - Plan Plan: Afib with RVR, new onset -Seems to be in normal sinus rhythm this AM - Amio drip and on oral medication -Cardiology consulted- following recs - therapeutic lovenox, plan to switch to NOAC, insurance permitting - echo done at this hospitalization with EF 40-45% HFrEF - No sign of swlling at this time - will give small dose PO lasix if BP permits NSTEMI, resolved - s/p stent placement x1 by Dr. Pena - troponins: 0.63->0.95->4->3.8->12->17->7-> 4 - continue plavix, ASA Sepsis 2/2 Colitis - sepsis resolved, VSS, Simethicone for gas pain as needed - likely ischemic colitis from hypotension - stool cx and blood cx negative - WBC wnl today - tolerating regular diet - will give lactobacillus HTN - pressures stable off levophed, BP been stable - On Carvedilol, lisinopril at this time NALDO on CKD stage 3, resolved -Cr 1.7--> 1.6--> 1.2--> 1.11 COPD -diagnosed one week ago with COPD exacerbation w/ bronchitis. Does not appear to be in exacerbation currently. -continue home meds -duonebs q6h brody and q2h prn -d/c prednisone Hyponatremia, chronic -at baseline -continue to monitor GERD - on protonix - also with gas pain, continue simethicone prn HLD -will continue statin Left lower lung nodule -needs outpatient workup per pulmonology Hyprebilirubinemia, resolved - bili wnl today Hypokalemia, - Low today. will replace orally. <Maxwell Park - Last Filed: 11/16/17 07:29> Attending Addendum - Attending Addendum Date/Time: 11/16/17 3008 I personally evaluated the patient and discussed the management with Dr. Park. I agree with the History, Examination, Assessment and Plan documented above with any addition or exceptions noted below. Ms. Rick feels fine and wants to go home. Lungs: CTA, Cor: RRR. 05/04 DEANA. Continues in NSR rate 71-[address]. [address] Pena wants to keep her one more night while she is transitioned off the Amiodarone drip onto oral Amiodarone. Othewise she appears ready for discharge. [facility] <Michael Dye - Last Filed: 11/16/17 16:50>
[2017-11-16] MEDS ORDERED: Potassium Chloride 20 MEQ TAB PO SCH (08:00)
[2017-11-16] MEDS: Clopidogrel Bisulfate 75 MG TAB PO SCH (09:00)
[2017-11-16] MEDS ORDERED: Lisinopril 2.5 MG TAB PO SCH (09:00)
[2017-11-16] MEDS: predniSONE 20 MG TAB PO SCH (09:00)
[2017-11-16] MEDS: Ferrous Sulfate 325 MG TAB PO SCH ×2 (09:00→16:52)
[2017-11-16] MEDS: Carvedilol 3.125 MG TAB PO SCH ×2 (09:00→16:52)
[2017-11-16] MEDS: Ascorbic Acid 500 mg Chewable Tablet PO SCH (09:03)
[2017-11-16] MEDS: Gabapentin 300 MG CAP PO SCH ×2 (09:03→20:28)
[2017-11-16] MEDS: Rivaroxaban 10 MG TAB PO SCH (09:05)
[2017-11-16] MEDS: Amiodarone 200 MG TAB PO SCH ×3 (09:06→20:29)
[2017-11-16] MEDS: Lisinopril 5 MG TAB PO SCH ×2 (09:11→20:28)
[2017-11-16] MEDS: Simethicone Chewable 80 MG TAB PO PRN (09:19)
--- NOTE | 2017-11-16 17:26 | EKG ---
Test Reason : Blood Pressure : / mmHG Vent. Rate : 090 BPM Atrial Rate : 090 BPM P-R Int : 168 ms QRS Dur : 098 ms QT Int : 368 ms P-R-T Axes : 092 028 129 degrees QTc Int : 450 ms Normal sinus rhythm Abnormal ECG When compared with ECG of 09-NOV-2017 12:21, (Unconfirmed) Premature atrial complexes are no longer Present ST now depressed in Lateral leads T wave inversion no longer evident in Inferior leads T wave inversion more evident in Lateral leads Confirmed by VANDANA MACK (2) on 11/16/2017 5:25:49 PM Referred By: MAREK Confirmed By:VANDANA MACK
--- NOTE | 2017-11-16 17:37 | EKG ---
Test Reason : C/O CHEST PAIN Blood Pressure : / mmHG Vent. Rate : 087 BPM Atrial Rate : 087 BPM P-R Int : 194 ms QRS Dur : 092 ms QT Int : 372 ms P-R-T Axes : 074 022 155 degrees QTc Int : 447 ms Sinus rhythm with Premature atrial complexes Cannot rule out Inferior infarct , age undetermined Abnormal ECG Confirmed by VANDANA MACK (2) on 11/16/2017 5:36:42 PM Referred By: NIC Confirmed By:VANDANA MACK
[2017-11-16] MEDS ORDERED: Menthol/Camphor Lotion 222 ml Bottle TOP PRN (17:42)
--- NOTE | 2017-11-16 17:47 | EKG ---
Test Reason : STAT Blood Pressure : / mmHG Vent. Rate : 086 BPM Atrial Rate : 086 BPM P-R Int : 196 ms QRS Dur : 098 ms QT Int : 376 ms P-R-T Axes : 079 029 125 degrees QTc Int : 449 ms Sinus rhythm with Premature supraventricular complexes and with occasional Premature ventricular comp lexes Abnormal ECG When compared with ECG of 12-NOV-2017 09:51, (Unconfirmed) Premature ventricular complexes are now Present Minimal criteria for Inferior infarct are no longer Present Nonspecific T wave abnormality no longer evident in Inferior leads Confirmed by VANDANA MACK (2) on 11/16/2017 5:47:08 PM Referred By: PADDY Confirmed By:VANDANA MACK
--- NOTE | 2017-11-16 17:51 | EKG ---
Test Reason : Blood Pressure : / mmHG Vent. Rate : 110 BPM Atrial Rate : 108 BPM P-R Int : 000 ms QRS Dur : 092 ms QT Int : 322 ms P-R-T Axes : 000 031 143 degrees QTc Int : 435 ms Sinus tachycardia Low voltage QRS Marked ST abnormality, possible anteroseptal subendocardial injury Abnormal ECG When compared with ECG of 12-NOV-2017 23:02, (Unconfirmed) Current undetermined rhythm precludes rhythm comparison, needs review ST more depressed in Anterior leads T wave inversion now evident in Anterior leads Confirmed by VANDANA MACK (2) on 11/16/2017 5:51:17 PM Referred By: WYATT Confirmed By:VANDANA MACK
--- NOTE | 2017-11-16 17:52 | EKG ---
Test Reason : STENTS Blood Pressure : / mmHG Vent. Rate : 082 BPM Atrial Rate : 082 BPM P-R Int : 196 ms QRS Dur : 090 ms QT Int : 418 ms P-R-T Axes : 066 009 077 degrees QTc Int : 488 ms Sinus rhythm with occasional Premature ventricular complexes and Premature atrial complexes Nonspecific ST and T wave abnormality Prolonged QT Abnormal ECG When compared with ECG of 13-NOV-2017 08:50, (Unconfirmed) Previous ECG has undetermined rhythm, needs review ST no longer depressed in Lateral leads T wave inversion less evident in Anterolateral leads Confirmed by VANDANA MACK (2) on 11/16/2017 5:51:52 PM Referred By: CAMRON Confirmed By:VANDANA MACK
[2017-11-16] MEDS: Menthol/Camphor Lotion 222 ml Bottle TOP SCH (20:27)
[2017-11-16] MEDS: Rosuvastatin 20 MG TAB PO SCH (20:28)
[2017-11-17 05:10] LABS: ALT (SGPT) 25 U/L (8-55); AST (SGOT) 20 U/L (5-34); Alkaline Phosphatase 75 U/L (40-150); Anion Gap 11 mmol/L (10-20); BUN (Urea Nitrogen) 19 mg/dL (9.8-20.1); Bilirubin, Total 0.6 mg/dL (0.2-1.2); Calc. Creatinine Clearance 68 mL/min (70-130); Calcium 8.6 mg/dL (7.8-10.44); Carbon Dioxide 21 mmol/L (23-31); Chloride 105 mmol/L (98-107); Estimated GFR-MDRD 64; Globulin 2.6 g/dL (2.4-3.5); Glucose 99 mg/dL (83-110); Potassium 3.3 mmol/L (3.5-5.1); Protein, Total 5.6 g/dL (6.0-8.3); Sodium 134 mmol/L (136-145)
--- NOTE | 2017-11-17 06:39 | PDOC.FM ---
- Subjective Subjective: Pt doing well this morning. Resting in bed upon entering room. Denies any chest pain or SOB. Has gotten up and walked around and denies any dizziness or lightheadedness. No other concerns or complaints at this time. - Objective MAR Reviewed: Yes Vital Signs & Weight: Vital Signs (12 hours) Temp Pulse Resp BP Pulse Ox 11/17/17 04:16 99.1 F 72 16 130/60 92 L 11/17/17 00:55 66 14 92 L 11/16/17 20:28 79 11/16/17 20:00 98.5 F 79 18 93 L 11/16/17 19:00 75 16 92 L Weight Weight 91.314 kg Most Recent Monitor Data Heart Rate from ECG 101 NIBP 162/39 NIBP BP-Mean 142 Respiration from ECG 25 SpO2 97 I&O: 11/15/17 11/16/17 11/17/17 06:59 06:59 06:59 Intake Total 780 600 Output Total 425 1600 Balance 355 -1000 Result Diagrams: 11/16/17 04:50 11/17/17 04:18 EKG Reviewed by me: Yes Radiology Reviewed by me: Yes <Maxwell Park - Last Filed: 11/17/17 06:37> - Objective Vital Signs & Weight: Vital Signs (12 hours) Temp Pulse Pulse Pulse Resp BP BP 11/17/17 15:56 98.0 F 75 16 11/17/17 12:55 98.5 F 70 16 11/17/17 12:51 80 12 11/17/17 09:03 92 80 154/72 H 11/17/17 08:31 70 117/57 L 11/17/17 07:20 98.2 F 70 18 11/17/17 07:12 98.2 F 70 18 11/17/17 06:56 70 12 BP BP Pulse Ox 11/17/17 15:56 118/61 98 11/17/17 12:55 111/58 L 96 11/17/17 12:51 11/17/17 09:03 121/61 11/17/17 08:31 11/17/17 07:20 98 11/17/17 07:12 117/57 L 98 11/17/17 06:56 Weight Weight 91.314 kg Most Recent Monitor Data Heart Rate from ECG 101 NIBP 162/39 NIBP BP-Mean 142 Respiration from ECG 25 SpO2 97 I&O: 11/16/17 11/17/17 11/18/17 06:59 06:59 06:59 Intake Total 600 Output Total 1600 Balance -1000 Result Diagrams: 11/17/17 04:18 11/17/17 04:18 <Michael Dye - Last Filed: 11/17/17 17:00> Phys Exam - Physical Examination Constitutional: NAD HEENT: PERRLA, moist MMs Neck: no nodes, supple, full ROM Respiratory: no wheezing, no rales, no rhonchi, clear to auscultation bilateral Cardiovascular: no significant murmur, no rub A. Fib Gastrointestinal: soft, non-tender, no distention, positive bowel sounds Musculoskeletal: no edema, pulses present Neurological: non-focal, normal sensation, moves all 4 limbs Lymphatic: no nodes Psychiatric: normal affect, A&O x 3 Skin: no rash <Maxwell Park - Last Filed: 11/17/17 06:37> Dx/Plan (1) Atrial fibrillation with RVR Code(s): I48.91 - UNSPECIFIED ATRIAL FIBRILLATION Status: Acute (2) CKD (chronic kidney disease) stage 3, GFR 30-59 ml/min Code(s): N18.3 - CHRONIC KIDNEY DISEASE, STAGE 3 (MODERATE) Status: Acute (3) Colitis Code(s): K52.9 - NONINFECTIVE GASTROENTERITIS AND COLITIS, UNSPECIFIED Status : Acute (4) Heart failure with reduced ejection fraction Code(s): I50.20 - UNSPECIFIED SYSTOLIC (CONGESTIVE) HEART FAILURE Status: Acute (5) Hyperbilirubinemia Code(s): E80.6 - OTHER DISORDERS OF BILIRUBIN METABOLISM Status: Acute (6) NSTEMI (non-ST elevated myocardial infarction) Code(s): I21.4 - NON-ST ELEVATION (NSTEMI) MYOCARDIAL INFARCTION Status: Acute (7) Sepsis Code(s): A41.9 - SEPSIS, UNSPECIFIED ORGANISM Status: Acute (8) NALDO (acute kidney injury) Code(s): N17.9 - ACUTE KIDNEY FAILURE, UNSPECIFIED Status: Acute (9) CHF (congestive heart failure) Code(s): I50.9 - HEART FAILURE, UNSPECIFIED Status: Chronic (10) COPD (chronic obstructive pulmonary disease) Status: Chronic QualifierTitle: COPD type: unspecified COPD Qualified Code(s): J44.9 - Chronic obstructive pulmonary disease, unspecified (11) HLD (hyperlipidemia) Code(s): E78.5 - HYPERLIPIDEMIA, UNSPECIFIED Status: Chronic QualifierTitle: Hyperlipidemia type: unspecified Qualified Code(s): E78.5 - Hyperlipidemia, unspecified (12) Hypertension Code(s): I10 - ESSENTIAL (PRIMARY) HYPERTENSION Status: Chronic (13) Hyponatremia Code(s): E87.1 - HYPO-OSMOLALITY AND HYPONATREMIA Status: Chronic - Plan Plan: Afib with RVR, new onset -Rate controlled at this time. -Amiodorone PO -Cardiology consulted- following recs -As long as akay with cardiology possibly stable for discharge at this time. - therapeutic lovenox, plan to switch to NOAC, insurance permitting - echo done at this hospitalization with EF 40-45% HFrEF - No sign of swlling at this time - will give small dose PO lasix if BP permits NSTEMI, resolved - s/p stent placement x1 by Dr. Pena - troponins: 0.63->0.95->4->3.8->12->17->7-> 4 - continue plavix, ASA Sepsis 2/2 Colitis - sepsis resolved, VSS, Simethicone for gas pain as needed - likely ischemic colitis from hypotension - stool cx and blood cx negative - WBC wnl today - tolerating regular diet - will give lactobacillus HTN - pressures stable off levophed, BP been stable - On Carvedilol, lisinopril at this time NALDO on CKD stage 3, resolved -Cr 1.7--> 1.6--> 1.2--> 1.11->1.01 COPD -diagnosed one week ago with COPD exacerbation w/ bronchitis. Does not appear to be in exacerbation currently. -continue home meds -duonebs q6h brody and q2h prn -d/c prednisone Hyponatremia, chronic -at baseline -continue to monitor GERD - on protonix - also with gas pain, continue simethicone prn HLD -will continue statin Left lower lung nodule -needs outpatient workup per pulmonology Hyprebilirubinemia, resolved - bili wnl today Hypokalemia, - Low today. will replace orally. <Maxwell Park - Last Filed: 11/17/17 06:37> Attending Addendum - Attending Addendum Date/Time: 11/17/17 9890 I personally evaluated the patient and discussed the management with Dr. Park. I agree with the History, Examination, Assessment and Plan documented above with any addition or exceptions noted below. She feels well and ready to go home. Patient relays that Dr. Pena wants to keep her one more day. She remains in NSRhythm on Oral Amiodarone 400 tid. She is on ASA 81, Plavix 75 and Xarelto. We will watch rhythm overnight, check FOBT, and monitor for rectal bleeding. She reports a normal colonoscopy about 5 years ago. Plan to discuss with Cardiology in A.M. if she may be able to come off of one of the 3 anti-platelet/anticoagulant agents. [facility] <Michael Dye - Last Filed: 11/17/17 17:00>
[2017-11-17 07:01] LABS: Band 17 % (5-11); Hemoglobin 9.6 g/dL (12.0-16.0); Lymphocytes 25 % (21-51); MDiff Complete? YES; Mean Corpuscular HGB CONC 36.9 g/dL (32.0-36.0); Mean Platelet Volume 7.6 fL (7.4-10.4); Monocytes 1 % (0-10); Neutrophil 57 % (42-75); Platelet Count 301 thou/uL (130-400); RBC Distribution Width 13.8 % (11.5-14.5); White Blood Cell (WBC) Count 7.3 thou/uL (4.8-10.8)
[2017-11-17] MEDS: Rivaroxaban 10 MG TAB PO SCH (08:30)
[2017-11-17] MEDS: Clopidogrel Bisulfate 75 MG TAB PO SCH (08:31)
[2017-11-17] MEDS: diphenhydrAMINE 25 MG CAP PO SCH ×4 (08:31→20:32)
[2017-11-17] MEDS: Lisinopril 5 MG TAB PO SCH ×2 (08:31→20:32)
[2017-11-17] MEDS: Ascorbic Acid 500 mg Chewable Tablet PO SCH (08:31)
[2017-11-17] MEDS: predniSONE 20 MG TAB PO SCH (08:31)
[2017-11-17] MEDS: Amiodarone 200 MG TAB PO SCH ×3 (08:31→20:33)
[2017-11-17] MEDS: Potassium Chloride 20 MEQ TAB PO SCH (08:32)
[2017-11-17] MEDS: Ferrous Sulfate 325 MG TAB PO SCH ×2 (08:32→16:00)
[2017-11-17] MEDS: Gabapentin 300 MG CAP PO SCH ×2 (08:32→20:33)
[2017-11-17] MEDS: Carvedilol 3.125 MG TAB PO SCH ×2 (08:32→16:00)
[2017-11-17] MEDS: Menthol/Camphor Lotion 222 ml Bottle TOP SCH ×2 (08:32→20:33)
[2017-11-17] MEDS: Rosuvastatin 20 MG TAB PO SCH (20:32)
--- NOTE | 2017-11-17 20:46 | PRG ---
DATE OF SERVICE: 11/17/2017 SERVICE: Pulmonary Medicine. INTERVAL HISTORY: The patient is doing outstanding from a respiratory standpoint. She is breathing comfortably. She has no chest discomfort, nausea, vomiting, fevers, or chills. Otherwise, there has been no interval change to her condition. She is on room air. She is doing some crossword puzzles. She is in no distress. PHYSICAL EXAMINATION: VITAL SIGNS: Afebrile, pulse 75, blood pressure 118/61, respirations 16, saturation 98% on room air. GENERAL: The patient is awake, alert, in no apparent distress. LUNGS: Excellent air entry. There is no prolonged expiratory phase, wheezing, rhonchi, or crackles. HEART: Normal rate, regular. ABDOMEN: Soft, nontender, nondistended. Bowel sounds are positive. MUSCULOSKELETAL: No cyanosis or clubbing. There is no pitting in bilateral lower extremities. NEUROLOGIC: Grossly nonfocal. LABORATORY DATA: WBC 7.3, hemoglobin 9.6, platelets 301,000. Band count is decreasing to 17% and th e overall neutrophil count is improving as well. Potassium is 3.3. Basic metabolic profile and live r function studies are otherwise unremarkable. ASSESSMENT: 1. Ileus, resolved. 2. Coronary artery disease, status post percutaneous coronary intervention. PLAN: We will continue to follow, intermittently during the hospital stay. Potassium to be replaced today. We will add a magnesium level to tomorrow morning's laboratories. Pulmonary Critical Care w ill continue to follow.
[2017-11-17] MEDS: Simethicone Chewable 80 MG TAB PO PRN (21:40)
[2017-11-18] MEDS: diphenhydrAMINE 25 MG CAP PO SCH ×4 (01:18→13:22)
[2017-11-18 05:10] LABS: Anion Gap 13 mmol/L (10-20); BUN (Urea Nitrogen) 15 mg/dL (9.8-20.1); Calc. Creatinine Clearance 67 mL/min (70-130); Calcium 8.5 mg/dL (7.8-10.44); Carbon Dioxide 20 mmol/L (23-31); Chloride 105 mmol/L (98-107); Estimated GFR-MDRD 63; Glucose 98 mg/dL (83-110); Magnesium 1.4 mg/dL (1.6-2.6); Potassium 3.6 mmol/L (3.5-5.1); Sodium 134 mmol/L (136-145)
[2017-11-18 05:26] LABS: Band 10 % (5-11); Eosinophils 1 % (0-10); Hemoglobin 10.1 g/dL (12.0-16.0); Lymphocytes 17 % (21-51); MDiff Complete? YES; Mean Corpuscular HGB CONC 35.6 g/dL (32.0-36.0); Mean Corpuscular Hemoglobin 30.2 pg (27.0-31.0); Monocytes 9 % (0-10); Neutrophil 63 % (42-75); Platelet Count 343 thou/uL (130-400); RBC Distribution Width 14.2 % (11.5-14.5); Red Blood Cell (RBC) Count 3.36 mill/uL (4.20-5.40); White Blood Cell (WBC) Count 10.1 thou/uL (4.8-10.8)
[2017-11-18] MEDS: Rivaroxaban 10 MG TAB PO SCH (08:13)
[2017-11-18] MEDS: Ascorbic Acid 500 mg Chewable Tablet PO SCH (08:13)
[2017-11-18] MEDS: Potassium Chloride 20 MEQ TAB PO SCH (08:14)
[2017-11-18] MEDS: Amiodarone 200 MG TAB PO SCH (08:14)
[2017-11-18] MEDS: Carvedilol 3.125 MG TAB PO SCH (08:14)
[2017-11-18] MEDS: Ferrous Sulfate 325 MG TAB PO SCH (08:14)
[2017-11-18] MEDS: Lisinopril 5 MG TAB PO SCH (08:14)
[2017-11-18] MEDS: Clopidogrel Bisulfate 75 MG TAB PO SCH (08:15)
[2017-11-18] MEDS: Menthol/Camphor Lotion 222 ml Bottle TOP SCH (08:15)
[2017-11-18] MEDS: Gabapentin 300 MG CAP PO SCH (08:15)
--- NOTE | 2017-11-18 08:20 | PDOC.FM ---
- Subjective Subjective: Patient is doing well this morning. NAEO. Wants to go home. - Objective MAR Reviewed: Yes Vital Signs & Weight: Vital Signs (12 hours) Temp Pulse Resp BP BP Pulse Ox 11/18/17 08:14 68 123/63 11/18/17 08:09 98.6 F 68 16 123/63 95 11/18/17 03:46 98.1 F 65 16 122/64 96 11/18/17 00:25 66 14 96 11/17/17 20:32 69 Weight Weight 91.314 kg Most Recent Monitor Data Heart Rate from ECG 101 NIBP 162/39 NIBP BP-Mean 142 Respiration from ECG 25 SpO2 97 Result Diagrams: 11/18/17 04:28 11/18/17 04:28 <Kelsea Lebron - Last Filed: 11/18/17 09:33> - Objective Vital Signs & Weight: Vital Signs (12 hours) Temp Pulse Pulse Pulse Resp BP BP 11/18/17 11:56 99.1 F 66 16 11/18/17 10:43 85 71 162/74 H 11/18/17 08:18 70 16 11/18/17 08:14 68 123/63 11/18/17 08:10 98.6 F 68 16 11/18/17 08:09 98.6 F 68 16 11/18/17 03:46 98.1 F 65 16 11/18/17 00:25 66 14 BP BP Pulse Ox 11/18/17 11:56 121/63 96 11/18/17 10:43 133/70 11/18/17 08:18 94 L 11/18/17 08:14 11/18/17 08:10 95 11/18/17 08:09 123/63 95 11/18/17 03:46 122/64 96 11/18/17 00:25 96 Weight Weight 91.314 kg Most Recent Monitor Data Heart Rate from ECG 101 NIBP 162/39 NIBP BP-Mean 142 Respiration from ECG 25 SpO2 97 Result Diagrams: 11/18/17 04:28 11/18/17 04:28 <Addison Gonzales - Last Filed: 11/18/17 12:17> Phys Exam - Physical Examination Constitutional: NAD Respiratory: no rales exp wheezing Cardiovascular: RRR, no significant murmur Gastrointestinal: soft, non-tender Musculoskeletal: no edema Neurological: moves all 4 limbs Psychiatric: A&O x 3 <Kelsea Lebron - Last Filed: 11/18/17 09:33> Dx/Plan (1) Colitis Code(s): K52.9 - NONINFECTIVE GASTROENTERITIS AND COLITIS, UNSPECIFIED Status : Acute (2) Sepsis Code(s): A41.9 - SEPSIS, UNSPECIFIED ORGANISM Status: Acute (3) CKD (chronic kidney disease) stage 3, GFR 30-59 ml/min Code(s): N18.3 - CHRONIC KIDNEY DISEASE, STAGE 3 (MODERATE) Status: Acute (4) NSTEMI (non-ST elevated myocardial infarction) Code(s): I21.4 - NON-ST ELEVATION (NSTEMI) MYOCARDIAL INFARCTION Status: Acute (5) NALDO (acute kidney injury) Code(s): N17.9 - ACUTE KIDNEY FAILURE, UNSPECIFIED Status: Acute (6) COPD (chronic obstructive pulmonary disease) Status: Chronic QualifierTitle: COPD type: unspecified COPD Qualified Code(s): J44.9 - Chronic obstructive pulmonary disease, unspecified (7) Coronary artery disease Code(s): I25.10 - ATHSCL HEART DISEASE OF [place] CORONARY ARTERY W/O ANG PCTRS Status: Chronic QualifierTitle: Coronary Disease-Associated Artery/Lesion type: bypass graft [place] vs. transplanted heart: [place] heart Associated angina: without angina Qualified Code(s): I25.810 - Atherosclerosis of coronary artery bypass graft(s) without angina pectoris (8) HLD (hyperlipidemia) Code(s): E78.5 - HYPERLIPIDEMIA, UNSPECIFIED Status: Chronic QualifierTitle: Hyperlipidemia type: unspecified Qualified Code(s): E78.5 - Hyperlipidemia, unspecified (9) Hypertension Code(s): I10 - ESSENTIAL (PRIMARY) HYPERTENSION Status: Chronic (10) Hyperbilirubinemia Code(s): E80.6 - OTHER DISORDERS OF BILIRUBIN METABOLISM Status: Acute (11) Atrial fibrillation with RVR Code(s): I48.91 - UNSPECIFIED ATRIAL FIBRILLATION Status: Acute (12) Normocytic anemia Code(s): D64.9 - ANEMIA, UNSPECIFIED Status: Acute (13) Heart failure with reduced ejection fraction Code(s): I50.20 - UNSPECIFIED SYSTOLIC (CONGESTIVE) HEART FAILURE Status: Acute - Plan Plan: Afib with RVR, new onset - NSR with rate of 68 this am - continue Amiodorone PO - Cardiology consulted- following recs - continue xarelto - echo done at this hospitalization with EF 40-45% - TSH slightly low, t4 pending - d/c pending cardiology recs HFrEF - No sign of swlling at this time - will give small dose PO lasix if BP permits NSTEMI, resolved - s/p stent placement x1 by Dr. Pena - troponins: 0.63->0.95->4->3.8->12->17->7-> 4 - continue plavix, ASA Hyopmagnesemia - replace with 1g IV Mag sulfate Sepsis 2/2 Colitis, resolved - sepsis resolved, VSS, FOBT neg Simethicone for gas pain as needed - likely ischemic colitis from hypotension - stool cx and blood cx negative - WBC wnl today - tolerating regular diet - will give lactobacillus HTN - pressures stable off levophed, BP been stable - On Carvedilol, lisinopril at this time NALDO on CKD stage 3, resolved -Cr 1.7--> 1.6--> 1.2--> 1.11->1.01 COPD -diagnosed two weeks ago with COPD exacerbation w/ bronchitis. Does not appear to be in exacerbation currently. -continue home meds -duonebs q6h brody and q2h prn -d/c prednisone Hyponatremia, chronic -at baseline -continue to monitor GERD - on protonix - also with gas pain, continue simethicone prn HLD -will continue statin Left lower lung nodule -needs outpatient workup per pulmonology Hyprebilirubinemia, resolved - bili wnl today Hypokalemia, resolved <Kelsea Lebron - Last Filed: 11/18/17 09:33> Attending Addendum - Attending Addendum Date/Time: 11/18/17 1215 I personally evaluated the patient and discussed the management with Dr. Lebron I agree with the History, Examination, Assessment and Plan documented above with any addition or exceptions noted below.Patient with NSR to d/c with amiodarone taper to maintenance therapy. Patient stable for dismissal. <Addison Gonzales - Last Filed: 11/18/17 12:17>
--- NOTE | 2017-11-18 10:15 | PRG ---
DATE OF SERVICE: 11/18/2017 This morning she is better, less pain, less shortness of breath. PHYSICAL EXAMINATION: VITAL SIGNS: Sats 100% on room air, respiration 16, temperature 98, blood pressure 120/63. CHEST: Chest reveals decreased breath sounds, no wheezing. CARDIAC: Normal S1, S2. ABDOMEN: Soft, no masses. IMPRESSION: 1. Chest pain. 2. Coronary artery disease. 3. Ileus, resolved. 4. Respiratory distress, improved. 5. Baseline underlying chronic obstructive pulmonary disease. PLAN: She can be discharged home anytime. Pulmonary will follow at a distance. Please call if need ed.
[2017-11-18 11:58] VITALS: BP 121/63; TEMP 99.1
--- NOTE | 2017-11-19 14:40 | PQF ---
FREDDY BHAGAT ANUP William [id number] [address] [id number] CLINICAL DOCUMENTATION CLARIFICATION FORM: POST DISCHARGE Addendum to original discharge summary date: ____ Late entry note date: __ Your assistance is needed to assign the appropriate diagnosis code for cause of Abdominal Pain. Multiple conditions are mentioned through out the progress notes and clarification is needed. Possible, probable and suspected conditions are acceptable. Please exercise your independent, professional judgment in responding to the clarification form. Clinical indicators are provided on the bottom of this form for your review Please check appropriate box(s): [ ] Colitis: [ ] acute ischemic colitis [ ] chronic ischemic Colitis [ ] Infectious Colitis ( ) viral ( ) bacterial specify organism if known Site (if applicable): [ ] Small Intestine [ ] Large Intestine [ ] Other site [ ] Diverticulitis Site (if applicable): [ ] Small Intestine ( ] Large Intestine ] Other site [ ] Ileus ( ) paralytic ( )adynamic ( )mechanical ( ) other (specify) [ ] Other specified [ ] Other diagnosis [ ] Unable to determine In addition, please specify: Present on Admission (POA): [ ] Yes [ ] No [ ] Unable to determine For continuity of documentation, please document condition throughout progress notes and discharge summary. Thank You. CLINICAL INDICATORS - SIGNS / SYMPTOMS / LABS Abdominal pain Cramping Constipation absominal pain RISK FACTORS NSTEMI medication administration TREATMENT: Antibiotics IVF NG tube abdominal radiograph surgery/GI consult [ ] Other specified [ ] Other diagnosis [ ] Unable to determine In addition, please specify: Present on Admission (POA): [ ] Yes [ ] No [ ] Unable to determine For continuity of documentation, please document condition throughout progress notes and discharge summary. Thank You. (This form is maintained as a part of the permanent medical record) 2015 [employer]. All Rights Reserved Johanna [email or web address] [phone] STEPHEN
== END 2017-11-18 13:34 | disposition home health service (06) | DRG 246 ==
LOC: ERS 03:54 → INTOOBSV 05:06 → ERHOLD 05:06 → OBSVTOIN 10:25 → 2NO 13:25 → CCU 13:55 → 2NO 11-09 16:03 → CCU 11-11 08:07 → 2NO 11-14 14:15
PROVIDERS: ADMIT Student in an Organized Health Care Education/Training Program; ATTEND Student in an Organized Health Care Education/Training Program
PROC: 02HV33Z Insertion of Infusion Device into Superior Vena Cava, Percutaneous Approach (ICD-10-PCS; 2017-11-11)
PROC: 3E053XZ Introduction of Vasopressor into Peripheral Artery, Percutaneous Approach (ICD-10-PCS; 2017-11-11)
PROC: 02C03ZZ Extirpation of Matter from Coronary Artery, One Artery, Percutaneous Approach (ICD-10-PCS; principal; 2017-11-13)
PROC: B211YZZ Fluoroscopy of Multiple Coronary Arteries using Other Contrast (ICD-10-PCS; 2017-11-13)
PROC: B213YZZ Fluoroscopy of Multiple Coronary Artery Bypass Grafts using Other Contrast (ICD-10-PCS; 2017-11-13)
PROC: 027034Z Dilation of Coronary Artery, One Artery with Drug-eluting Intraluminal Device, Percutaneous Approach (ICD-10-PCS; 2017-11-13)
PROC: 4A023N7 Measurement of Cardiac Sampling and Pressure, Left Heart, Percutaneous Approach (ICD-10-PCS; 2017-11-13)
DX: I21.4 Non-ST elevation (NSTEMI) myocardial infarction (principal); A41.9 Sepsis, unspecified organism; K55.039 Acute (reversible) ischemia of large intestine, extent unspecified; I50.23 Acute on chronic systolic (congestive) heart failure; N17.9 Acute kidney failure, unspecified; E87.1 Hypo-osmolality and hyponatremia; I25.810 Atherosclerosis of coronary artery bypass graft(s) without angina pectoris; I13.0 Hypertensive heart and chronic kidney disease with heart failure and stage 1 through stage 4 chronic kidney disease, or unspecified chronic kidney disease; I77.4 Celiac artery compression syndrome; K57.32 Diverticulitis of large intestine without perforation or abscess without bleeding; K56.7 Ileus, unspecified; I25.119 Atherosclerotic heart disease of native coronary artery with unspecified angina pectoris; I25.5 Ischemic cardiomyopathy; E78.5 Hyperlipidemia, unspecified; K21.9 Gastro-esophageal reflux disease without esophagitis; F17.210 Nicotine dependence, cigarettes, uncomplicated; J44.9 Chronic obstructive pulmonary disease, unspecified; N18.3 Chronic kidney disease, stage 3 (moderate); I49.3 Ventricular premature depolarization; I71.4 Abdominal aortic aneurysm, without rupture; I70.209 Unspecified atherosclerosis of native arteries of extremities, unspecified extremity; R91.1 Solitary pulmonary nodule; K59.00 Constipation, unspecified; I95.9 Hypotension, unspecified; E87.5 Hyperkalemia; T50.2X5A Adverse effect of carbonic-anhydrase inhibitors, benzothiadiazides and other diuretics, initial encounter; Y92.9 Unspecified place or not applicable; E80.6 Other disorders of bilirubin metabolism; E87.6 Hypokalemia; I48.91 Unspecified atrial fibrillation; D64.9 Anemia, unspecified; E83.42 Hypomagnesemia; Z88.5 Allergy status to narcotic agent; Z79.899 Other long term (current) drug therapy; Z87.01 Personal history of pneumonia (recurrent); Z87.09 Personal history of other diseases of the respiratory system; Z95.1 Presence of aortocoronary bypass graft
CPT/HCPCS: 36415; 71045; 71275; 74018; 74176; 76942; 80048; 80053; 81001; 82248; 82274; 82533; 82553; 82565; 82805; 83605; 83735; 83880; 84100; 84439; 84443; 84484; 85007; 85014; 85018; 85025; 85027; 85049; 85347; 87040; 87045; 87046; 87081; 87086; 87449; 87899; 92937; 93005; 93010; 93306; 93455; 93798; 94640; 94664; 96372; 96374; 96376; A4216; C1769; C1874; C1887; C9604; J0282; J1644; J1650; J1720; J1940; J2001; J2060; J2250; J2543; J2920; J3010; J3475; J7050; J7070; J7506; J7620; P9045; Q0162

== ENCOUNTER 2017-12-02 11:39 | Emergency (ER) | payer MEDICARE ==
[2017-12-02 12:36] LABS: Hemoglobin 8.9 g/dL (12.0-16.0); Mean Corpuscular HGB CONC 33.6 g/dL (32.0-36.0); Mean Corpuscular Volume 86.4 fL (78.0-98.0); Mean Platelet Volume 6.8 fL (7.4-10.4); Platelet Count 317 thou/uL (130-400); RBC Distribution Width 14.9 % (11.5-14.5); Red Blood Cell (RBC) Count 3.07 mill/uL (4.20-5.40); White Blood Cell (WBC) Count 4.6 thou/uL (4.8-10.8)
[2017-12-02 12:53] LABS: ALT (SGPT) 14 U/L (8-55); AST (SGOT) 18 U/L (5-34); Albumin 3.1 g/dL (3.4-4.8); Alkaline Phosphatase 84 U/L (40-150); BUN (Urea Nitrogen) 13 mg/dL (9.8-20.1); Bilirubin, Total 0.5 mg/dL (0.2-1.2); CK (CPK) 86 U/L (29-168); Calc. Creatinine Clearance 0 mL/min (70-130); Calcium 8.2 mg/dL (7.8-10.44); Carbon Dioxide 19 mmol/L (23-31); Estimated GFR-MDRD 36; Globulin 2.8 g/dL (2.4-3.5); Glucose 97 mg/dL (83-110); Lipase 25 U/L (8-78); Protein, Total 5.9 g/dL (6.0-8.3)
--- NOTE | 2017-12-02 12:54 | RAD ---
PORTABLE AP CHEST RADIOGRAPH: Date: 12-02-17 History: Dyspnea. Bilateral feet swelling and discoloration. Comparison: 11-13-17 FINDINGS: Post-surgical changes related to CABG are again seen. Cardiac silhouette is enlarged. There are incre ased interstitial densities at the right lung base with minimal patchy density also present which cou ld be related to pneumonia. Left lung is clear aside from minimal atelectasis at the left lung base. Pulmonary vasculature is within normal limits. Bullous emphysematous changes are again seen in the up per lobes. Prominent vascular calcifications are seen in the thoracic aorta. IMPRESSION: 1. Interstitial and patchy parenchymal changes right lung base worrisome for pneumonia. Follow up to complete resolution is recommended. 2. COPD. 3. Mild cardiomegaly. POS: HOLA
[2017-12-02 12:55] LABS: CKMB 3.7 ng/mL (0-6.6); Troponin I 0.026 ng/mL (< 0.028)
[2017-12-02 13:01] LABS: Anion Gap 14 mmol/L (10-20); Chloride 108 mmol/L (98-107); Sodium 137 mmol/L (136-145)
[2017-12-02 13:05] LABS: Band 13 % (5-11); Eosinophils 5 % (0-10); Lymphocytes 27 % (21-51); MDiff Complete? YES; Monocytes 7 % (0-10); Neutrophil 47 % (42-75); PLT Morphology Comment Appears Adequate; RBC Morphology Normal
[2017-12-02] MEDS ORDERED: Acetaminophen 500 MG TAB ONE (13:59)
[2017-12-02] MEDS ORDERED: Furosemide 40 MG TAB ONE (14:12)
[2017-12-02] MEDS ORDERED: Potassium Chloride 20 MEQ TAB ONE (14:14)
--- NOTE | 2017-12-14 10:57 | EKG ---
Test Reason : SOB Blood Pressure : / mmHG Vent. Rate : 062 BPM Atrial Rate : 071 BPM P-R Int : 000 ms QRS Dur : 080 ms QT Int : 488 ms P-R-T Axes : 000 002 095 degrees QTc Int : 495 ms Normal sinus rhythm Nonspecific T wave abnormality Abnormal ECG Confirmed by TAMAR MCGRAW DO ([id number]), sports editor LYN FORD ([id number]) on 12/14/2017 10:57:15 AM Referred By: Confirmed By:TAMAR MCGRAW DO
== END 2017-12-02 14:18 | disposition home or self-care (01) ==
LOC: ERS 11:39
DX: I11.0 Hypertensive heart disease with heart failure (principal); I50.9 Heart failure, unspecified; J18.9 Pneumonia, unspecified organism; R60.0 Localized edema; E78.5 Hyperlipidemia, unspecified; J45.909 Unspecified asthma, uncomplicated; I25.10 Atherosclerotic heart disease of native coronary artery without angina pectoris; F17.210 Nicotine dependence, cigarettes, uncomplicated; Z79.899 Other long term (current) drug therapy; Z79.82 Long term (current) use of aspirin
CPT/HCPCS: 36415; 71045; 80053; 82553; 83690; 83880; 84484; 85025; 93005

== ENCOUNTER 2017-12-10 10:33 | Inpatient (IN) | payer MEDICARE ==
[2017-12-10 10:57] LABS: #Eosinphils 0.1 thou/uL (0.0-0.7); #Lymphocytes 2.2 thou/uL (1.20-3.40); #Monocytes 0.8 thou/uL (0.11-0.59); #Neutrophils 4.5 thou/uL (1.40-6.50); %Basophils 0.4 % (0.0-1.0); %Eosinophils 1.2 % (0.0-10.0); %Lymphocytes 29.1 % (21.0-51.0); %Neutrophils 58.3 % (42.0-75.0); Hemoglobin 10.5 g/dL (12.0-16.0); Mean Corpuscular HGB CONC 36.4 g/dL (32.0-36.0); Mean Corpuscular Hemoglobin 31.3 pg (27.0-31.0); Mean Platelet Volume 6.5 fL (7.4-10.4); Platelet Count 359 thou/uL (130-400); RBC Distribution Width 15.3 % (11.5-14.5); Red Blood Cell (RBC) Count 3.36 mill/uL (4.20-5.40); White Blood Cell (WBC) Count 7.7 thou/uL (4.8-10.8)
[2017-12-10 11:22] LABS: ALT (SGPT) 15 U/L (8-55); AST (SGOT) 24 U/L (5-34); Albumin 3.7 g/dL (3.4-4.8); Alkaline Phosphatase 87 U/L (40-150); Anion Gap 15 mmol/L (10-20); BUN (Urea Nitrogen) 14 mg/dL (9.8-20.1); Bilirubin, Total 0.8 mg/dL (0.2-1.2); CK (CPK) 172 U/L (29-168); Calc. Creatinine Clearance 0 mL/min (70-130); Calcium 7.7 mg/dL (7.8-10.44); Carbon Dioxide 32 mmol/L (23-31); Chloride 94 mmol/L (98-107); Estimated GFR-MDRD 29; Globulin 2.8 g/dL (2.4-3.5); Glucose 117 mg/dL (83-110); Protein, Total 6.5 g/dL (6.0-8.3); Sodium 138 mmol/L (136-145)
[2017-12-10 11:27] LABS: CKMB 3.1 ng/mL (0-6.6); Troponin I 0.062 ng/mL (< 0.028)
[2017-12-10 11:30] LABS: Potassium 2.6 mmol/L (3.5-5.1)
[2017-12-10 11:54] LABS: Bilirubin Small (Negative); Blood, Urine Negative (Negative); Clarity CLEAR (Clear); Glucose, Urine (Dipstick) Negative (Negative); Leukocyte Small (Negative); Nitrite Negative (Negative); Protein, Urine (Dipstick) 100 mg/dL (Neg-Trace); Specific Gravity, Urine 1.022 (1.002-1.036)
[2017-12-10 11:55] LABS: Bacteria/HPF None Seen HPF (None Seen); Pathc Cast-AUWi Flag 1.45 (0-2.49); RBC/HPF 0-3 HPF (0-3)
[2017-12-10] MEDS ORDERED: Potassium Chloride 20 MEQ TAB ONE (11:59)
[2017-12-10] MEDS ORDERED: NS 0.9% w/ 40 MEQ KCL 1,000 ML IV SCH (12:00)
[2017-12-10 12:14] LABS: Hyaline Casts/LPF 0-3 HYALINE CAST LPF (0-3 Hyaline); Transitional Epithelial 0-3 HPF (0-3)
--- NOTE | 2017-12-10 12:25 | PDOC.FPROB ---
FMR OB H&P: Medications - Current Home Medications: Medication Instructions Recorded Confirmed Type Gabapentin 300 mg PO BID 10/24/17 11/08/17 History Naproxen [Naprosyn] 500 mg PO BID #60 tab 10/26/17 11/08/17 Rx Budesonide-Formoterol [Symbicort 1 puff INH BID 10/31/17 11/08/17 History 160-4.5] Diclofenac Sodium 75 mg PO BID PRN 10/31/17 11/08/17 History Ipratropium/Albuterol Sulfate 3 ml NEB [id number] #7 neb 11/01/17 11/08/17 Rx [DuoNeb] Mometasone/Formoterol 200/5 2 puff INH BID-RT #7 aer 11/01/17 11/08/17 Rx [Dulera 200 Mcg/5 Mcg Inhaler] Ondansetron [Zofran ODT] 4 mg PO Q6H PRN #7 tab 11/01/17 11/08/17 Rx Pantoprazole [Protonix] 40 mg PO DAILY #30 tab 11/01/17 11/08/17 Rx Amiodarone [Cordarone] 400 mg PO BID #28 tab 11/18/17 Rx Aspirin [Aspirin Chewable Tablet] 81 mg PO DAILY #0 tab 11/18/17 Rx Carvedilol [Coreg] 3.125 mg PO BID-WM #60 tab 11/18/17 Rx Clopidogrel Bisulfate [Plavix] 75 mg PO DAILY #30 tab 11/18/17 Rx Lisinopril [Zestril] 5 mg PO BID #30 tab 11/18/17 Rx Nitroglycerin [Nitrostat] 0.4 mg PO Q5MIN PRN #30 tab 11/18/17 Rx Rosuvastatin [Crestor] 40 mg PO HS #30 tab 11/18/17 Rx Allergies/Adverse Reactions: Allergies Allergy/AdvReac Type Severity Reaction Status Date / Time codeine Allergy Verified 10/31/17 03:10 hydrocodone Allergy itching Verified 10/31/17 03:10 hydrocodone bitartrate Allergy itching Verified 10/31/17 03:10 [From Vicodin] morphine Allergy ITCHING, Verified 10/31/17 03:10 SEVERE BRADYCARDIA tramadol Allergy Verified 10/31/17 03:10 FMR OB H&P: Results - Labs Lab results: Laboratory Results - last 24 hr 12/10/17 12/10/17 12/10/17 10:49 10:49 10:49 WBC 7.7 RBC 3.36 L Hgb 10.5 L Hct 28.9 L MCV 86.0 MCH 31.3 H MCHC 36.4 H RDW 15.3 H Plt Count 359 MPV 6.5 L Neutrophils % 58.3 Lymphocytes % 29.1 Monocytes % 11.0 H Eosinophils % 1.2 Basophils % 0.4 Neutrophils # 4.5 Lymphocytes # 2.2 Monocytes # 0.8 H Eosinophils # 0.1 Basophils # 0.0 Sodium Potassium Chloride Carbon Dioxide Anion Gap BUN Creatinine Estimated GFR (MDRD) Glucose Lactic Acid Calcium Total Bilirubin AST ALT Alkaline Phosphatase Creatine Kinase CK-MB (CK-2) 3.1 Troponin I 0.062 H B-Natriuretic Peptide 506.0 H Serum Total Protein Albumin Globulin Albumin/Globulin Ratio Urine Color Urine Clarity Urine pH Ur Specific [place] Urine Protein Urine Glucose (UA) Urine Ketones Urine Blood Urine Nitrite Urine Bilirubin Urine Urobilinogen Ur Leukocyte Esterase Urine RBC Urine WBC Ur Squamous Epith Cells Ur Transition Epith Cell Urine Bacteria Hyaline Casts 12/10/17 12/10/17 12/10/17 10:49 10:50 11:15 WBC RBC Hgb Hct MCV MCH MCHC RDW Plt Count MPV Neutrophils % Lymphocytes % Monocytes % Eosinophils % Basophils % Neutrophils # Lymphocytes # Monocytes # Eosinophils # Basophils # Sodium 138 Potassium 2.6 L* Chloride 94 L Carbon Dioxide 32 H Anion Gap 15 BUN 14 Creatinine 2.01 H Estimated GFR (MDRD) 29 Glucose 117 H Lactic Acid 1.6 Calcium 7.7 L Total Bilirubin 0.8 AST 24 ALT 15 Alkaline Phosphatase 87 Creatine Kinase 172 H CK-MB (CK-2) Troponin I B-Natriuretic Peptide Serum Total Protein 6.5 Albumin 3.7 Globulin 2.8 Albumin/Globulin Ratio 1.3 Urine Color ERIC Urine Clarity CLEAR Urine pH 6.0 Ur Specific [place] 1.022 Urine Protein 100 H Urine Glucose (UA) Negative Urine Ketones Trace H Urine Blood Negative Urine Nitrite Negative Urine Bilirubin Small H Urine Urobilinogen 1.0 Ur Leukocyte Esterase Small H Urine RBC 0-3 Urine WBC 4-6 H Ur Squamous Epith Cells 7-10 H Ur Transition Epith Cell 0-3 Urine Bacteria None Seen Hyaline Casts 0-3 HYALINE CAST FMR OB H&P: A/P Discussion: Date/Time: 12/10/17 9709 This H&P was discussed with [] and [] who agree with the above documentation and plan.
--- NOTE | 2017-12-10 12:34 | PDOC.FPRHP ---
- History of Present Illness Chief Complaint: weakness, nausea History of Present Illness: 77 yo F with PMH of NSTEMI with stents presents with nausea, weakness, dec appetite for past couple of days. She denies emesis, recent illnesses. Unable to identify any triggering factor. Upon further questioning, it was found out that she hadn't been taking her potassium supplmement b/c "pills were too big" but was continuing to take her lasix BID. ED Course: In ED K+ was found to be 2.6 and was given KCL 20meq and starting on KCl drip 40meq - Allergies/Adverse Reactions Allergies Allergy/AdvReac Type Severity Reaction Status Date / Time codeine Allergy Verified 12/10/17 14:11 hydrocodone Allergy itching Verified 12/10/17 14:11 hydrocodone bitartrate Allergy itching Verified 12/10/17 14:11 [From Vicodin] morphine Allergy ITCHING, Verified 12/10/17 14:11 SEVERE BRADYCARDIA tramadol Allergy Verified 12/10/17 14:11 - Home Medications Medication Instructions Recorded Confirmed Type Budesonide-Formoterol [Symbicort 1 puff INH BID 10/31/17 12/10/17 History 160-4.5] Ipratropium/Albuterol Sulfate 3 ml NEB [id number] #7 neb 11/01/17 12/10/17 Rx [DuoNeb] Aspirin [Aspirin Chewable Tablet] 81 mg PO DAILY #0 tab 11/18/17 12/10/17 Rx Carvedilol [Coreg] 3.125 mg PO BID-WM #60 tab 11/18/17 12/10/17 Rx Clopidogrel Bisulfate [Plavix] 75 mg PO DAILY #30 tab 11/18/17 12/10/17 Rx Nitroglycerin [Nitrostat] 0.4 mg PO Q5MIN PRN #30 tab 11/18/17 12/10/17 Rx Rosuvastatin [Crestor] 40 mg PO HS #30 tab 11/18/17 12/10/17 Rx Amiodarone [Cordarone] 400 mg PO DAILY 12/10/17 12/10/17 History Furosemide [Lasix] 40 mg PO BID 12/10/17 12/10/17 History Gabapentin 300 mg PO BID 12/10/17 12/10/17 History Lisinopril [Zestril] 5 mg PO DAILY 12/10/17 12/10/17 History Naproxen 500 mg PO BID 12/10/17 12/10/17 History Potassium Chloride 10 meq PO BID 12/10/17 12/10/17 History - History PMHx: NSTEMI s/p stents, COPD, HLD, CKD 3, Paroxysmal afib wtih RVR, HFrEF PSHx: cardiac cath wtih stent FHx: HTN Social: 30 pack year history (no longer smokes), denies ETOH and drugs - Review of Systems General: reports: weight/appetite/sleep changes, fatigue. denies: fever/chills Eyes: denies: eye pain, vision changes ENT: reports: nasal congestion. denies: rhinorrhea Respiratory: denies: cough, congestion, shortness of breath Cardiovascular: denies: chest pain, edema, orthopnea Gastrointestinal: reports: nausea. denies: vomiting, diarrhea, constipation, abdominal pain, GI bleeding Genitourinary: denies: dysuria Skin: denies: rashes Musculoskeletal: denies: pain, tenderness Neurological: reports: weakness Psychological: denies: anxiety, depression - Vital signs BP: 132/59 HR: 67 RR: 16 Tmax: 98.6 Pox: 94% on RA Wt: [83.26] - Physical Exam Constitutional: NAD, awake, alert and oriented HEENT: EOMI, conjunctiva clear Neck: supple Chest: no-tender to palpation Heart: RRR, normal S1/S2 Lungs: CTAB, no respiratory distress, good air movement Abdomen: soft, non-tender, bowel sounds present Musculoskeletal: normal structure, ROM grossly normal Skin: no rash/lesions -Skin: cap refill >2 seconds, dec. skin turgor Psychiatric: normal mood and affect FMR H&P: Results - Labs Result Diagrams: 12/10/17 10:49 12/10/17 14:53 Lab results: WBC 7.7 thou/uL (4.8-10.8) 12/10/17 10:49 Hgb 10.5 g/dL (12.0-16.0) L 12/10/17 10:49 Hct 28.9 % (36.0-47.0) L 12/10/17 10:49 MCV 86.0 fL (78.0-98.0) 12/10/17 10:49 Plt Count 359 thou/uL (130-400) 12/10/17 10:49 Neutrophils % 58.3 % (42.0-75.0) 12/10/17 10:49 Sodium 138 mmol/L (136-145) 12/10/17 10:50 Potassium 2.6 mmol/L (3.5-5.1) L* 12/10/17 10:50 Chloride 94 mmol/L (98-107) L 12/10/17 10:50 Carbon Dioxide 32 mmol/L (23-31) H 12/10/17 10:50 BUN 14 mg/dL (9.8-20.1) 12/10/17 10:50 Creatinine 2.01 mg/dL (0.6-1.1) H 12/10/17 10:50 Glucose 117 mg/dL (83-110) H 12/10/17 10:50 Lactic Acid 1.6 mmol/L (0.5-2.2) 12/10/17 10:49 Calcium 7.7 mg/dL (7.8-10.44) L 12/10/17 10:50 Total Bilirubin 0.8 mg/dL (0.2-1.2) 12/10/17 10:50 AST 24 U/L (5-34) 12/10/17 10:50 ALT 15 U/L (8-55) 12/10/17 10:50 Alkaline Phosphatase 87 U/L (40-150) 12/10/17 10:50 Creatine Kinase 172 U/L (29-168) H 12/10/17 10:50 CK-MB (CK-2) 3.1 ng/mL (0-6.6) 12/10/17 10:49 B-Natriuretic Peptide 506.0 pg/mL (0-100) H 12/10/17 10:49 Serum Total Protein 6.5 g/dL (6.0-8.3) 12/10/17 10:50 Albumin 3.7 g/dL (3.4-4.8) 12/10/17 10:50 Urine Ketones Trace mg/dL (Negative) H 12/10/17 11:15 Urine Blood Negative (Negative) 12/10/17 11:15 Urine Nitrite Negative (Negative) 12/10/17 11:15 Ur Leukocyte Esterase Small (Negative) H 12/10/17 11:15 Urine RBC 0-3 HPF (0-3) 12/10/17 11:15 Urine WBC 4-6 HPF (0-3) H 12/10/17 11:15 Ur Squamous Epith Cells 7-10 HPF (0-3) H 12/10/17 11:15 Urine Bacteria None Seen HPF (None Seen) 12/10/17 11:15 - EKG Interpretation EKG: left axis deviation, non specific t wave changes FMR H&P: A/P - Problem List (1) NALDO (acute kidney injury) Current Visit: No Status: Acute Code(s): N17.9 - ACUTE KIDNEY FAILURE, UNSPECIFIED (2) NSTEMI (non-ST elevated myocardial infarction) Current Visit: No Status: Acute Code(s): I21.4 - NON-ST ELEVATION (NSTEMI) MYOCARDIAL INFARCTION (3) CHF (congestive heart failure) Current Visit: No Status: Chronic Code(s): I50.9 - HEART FAILURE, UNSPECIFIED (4) COPD (chronic obstructive pulmonary disease) Current Visit: No Status: Chronic Priority: Medium Qualifiers: COPD type: unspecified COPD Qualified Code(s): J44.9 - Chronic obstructive pulmonary disease, unspecified (5) Coronary artery disease Current Visit: No Status: Chronic Priority: High Code(s): I25.10 - ATHSCL HEART DISEASE OF FALSE [place] CORONARY ARTERY W/O ANG PCTRS Qualifiers: Coronary Disease-Associated Artery/Lesion type: bypass graft [place] vs. transplanted heart: [place] heart Associated angina: without angina Qualified Code(s): I25.810 - Atherosclerosis of coronary artery bypass graft(s) without angina pectoris (6) HLD (hyperlipidemia) Current Visit: No Status: Chronic Priority: Low Code(s): E78.5 - HYPERLIPIDEMIA, UNSPECIFIED Qualifiers: Hyperlipidemia type: unspecified Qualified Code(s): E78.5 - Hyperlipidemia , unspecified (7) Hypertension Current Visit: No Status: Chronic Priority: Medium Code(s): I10 - ESSENTIAL (PRIMARY) HYPERTENSION (8) Atrial fibrillation with RVR Current Visit: No Status: Acute Code(s): I48.91 - UNSPECIFIED ATRIAL FIBRILLATION - Plan 77 yo F with hypokalemia, indeterminate troponins, NALDO 1. Hypokalemia -2/2 to not taking K+ supplement in addition to K+ wasting lasix -given 60mEq total, recheck K+ in morning -check Mg 2. Indeterminate troponins - pt has h/o of NSTEMI with recent cath 1 month ago -likely 2/2 demand from volume depletion, continue to trend -continue ASA, coreg, plavix, lovenox, nitro 3. NALDO -maintenance fluids at 150cc -hold lasix -recheck in AM 4. h/o of CHFrEF -hold lasix for now so as to not exacerbate NALDO -if s/s of fluid overload, resume lasix 4. h/o paroxymal afib -tele monitor -amiodarone 5. h/o COPD -duonebs -ICS 6. HTN -lisinopril 7. HLD -rosuvastatin DVT ppx: lovenox GI ppx: protonix Diet: HH Discussed with Dr. Kelly FMR H&P: Upper Level - Pertinent history 77 yo F here with complaint of weakness and general malaise for the past 2 days. She was recently admitted with and NSTEMI where she was she was cathed and stented. Since then she was restarted on her home meds and claims that she has been compliant with all meds other than her K as the pills are too big. She denies SOB, CP, peripheral symptoms, fever/chills, headache, changes in vision. - Pertinent findings General A&O x3 HEENT atraumatic, normocephalic CV RRR, no murmur Resp CTA b/l Abd non TTP, no distension, Extremities no edema, normal ROM Labs K 2.6 Cr 2.01 eGFR 29 Trop 0.062 BNP 506 - Plan Date/Time: 12/10/17 1234 IMik DO, have evaluated this patient and agree with findings/plan as outlined by sports intern resident. Pertinent changes/additions are listed here. This is a 77 yo F here with complain of weakness. She has been taking lasix at home following her NSTEMI, however she has had poor oral intake and has not been compliant with oral potassium. A/P NALDO - secondary to poor oral intake and loop diuretics - Gentle IVF over night and hold lasix, recheck BMP in am Hypokalemia - no concerning EKG changes, asymptomatic - Replaced in ER. Continue to replace PO - Recheck in am Indeterminate trops - pt was recently stented x3. Currently experiencing no chest pain and no acute EKG findings. Low concern for ACS - trend trops, this is most likely dt demand from hypovolemia HTN - restart home meds, currently controlled COPD - controlled, monitor O2 sat and continue home meds GERD - home meds PPx - lovenox Code Full Diet heart healthy Attending Addendum - Attending Addendum Date/Time: 12/10/17 2375 I personally evaluated the patient and discussed the management with Dr. Leblanc and Jimi. I agree with and repeated the History, Examination, Assessment and Plan documented above with any addition or exceptions noted below. Tells me that in addition to above has been having intermittent headache, but not currently. Replete K, monitor TnI. Low suspicion for ACS or PE.
[2017-12-10] MEDS ORDERED: Acetaminophen 325 MG TAB PO PRN (14:22)
[2017-12-10] MEDS ORDERED: Ondansetron ODT 4 MG TAB PO PRN (14:22)
[2017-12-10 15:30] LABS: Troponin I 0.079 ng/mL (< 0.028)
[2017-12-10] MEDS ORDERED: Nitroglycerin 0.4 MG TAB (25 Tab Bottle) SL PRN (16:25)
[2017-12-10] MEDS: Carvedilol 3.125 MG TAB PO SCH ×2 (17:04→18:05)
[2017-12-10] MEDS: Lactated Ringer's 1,000 ML IV SCH ×2 (18:05→21:46)
[2017-12-10] MEDS: Mometasone/Formoterol 120 PUFF INHALER INH SCH (18:53)
[2017-12-10] MEDS: Potassium Chloride 10 MEQ TAB PO SCH (20:27)
[2017-12-10] MEDS: Gabapentin 300 MG CAP PO SCH (20:27)
[2017-12-10] MEDS: Naproxen 500 MG TAB PO SCH (20:27)
[2017-12-10 20:53] LABS: Troponin I 0.086 ng/mL (< 0.028)
[2017-12-10] MEDS ORDERED: Pantoprazole 40 MG GRANULES PACKET PO SCH (21:00)
[2017-12-10] MEDS ORDERED: Rosuvastatin 20 MG TAB PO SCH (21:00)
[2017-12-10] MEDS: Magnesium Oxide 400 MG TAB PO SCH (21:45)
[2017-12-10] MEDS ORDERED: Magnesium Sulfate 4 GM in Sodium Chloride 0.9% 250 ML 250 ML IVPB SCH (23:59)
--- NOTE | 2017-12-11 05:18 | PDOC.FM ---
- Subjective Subjective: 77 yo F with PMH of NSTEMI with stents, COPD, afib, CKD stage 3, presented yesterday to the ED with nausea, weakness, dec appetite for past couple of days. Upon exam today, the patient states she is "doing great" and is "starvin' Inderjit" this morning. She understands the need to take her potassium medication. She states she is ready to go home. She denies weakness, SOB, chest pain, NVD. - Objective MAR Reviewed: Yes Vital Signs & Weight: Vital Signs (12 hours) Temp Pulse Resp BP Pulse Ox 12/11/17 04:00 98.6 F 67 20 93/52 L 91 L 12/11/17 00:28 67 16 92 L 12/10/17 20:00 99.1 F 67 18 115/58 L 99 12/10/17 18:49 69 18 98 Weight Weight 85.411 kg I&O: 12/09/17 12/10/17 12/11/17 06:59 06:59 06:59 Intake Total 960 Output Total 560 Balance 400 Result Diagrams: 12/11/17 08:30 12/11/17 08:30 <Irlanda Blount - Last Filed: 12/11/17 09:52> - Objective Vital Signs & Weight: Vital Signs (12 hours) Temp Pulse Pulse Resp BP BP BP 12/11/17 16:47 98.5 F 67 16 123/58 L 12/11/17 13:41 65 12 12/11/17 12:08 72 104/58 L 133/61 12/11/17 11:41 98.2 F 71 17 119/59 L 12/11/17 08:42 98.1 F 65 17 98/57 L 12/11/17 06:37 70 14 Pulse Ox Pulse Ox Pulse Ox 12/11/17 16:47 92 L 12/11/17 13:41 88 L 12/11/17 12:08 92 L 90 L 12/11/17 11:41 92 L 12/11/17 08:42 94 L 12/11/17 06:37 Weight Admit Weight 83.263 kg Weight 85.411 kg I&O: 12/10/17 12/11/17 12/12/17 06:59 06:59 06:59 Intake Total 960 480 Output Total 560 Balance 400 480 Result Diagrams: 12/11/17 08:30 12/11/17 08:30 <Alma Rosa Frankel - Last Filed: 12/11/17 17:10> Phys Exam - Physical Examination Constitutional: NAD no acute distress, well groomed HEENT: PERRLA, moist MMs Neck: supple, full ROM Respiratory: clear to auscultation bilateral Cardiovascular: RRR, no significant murmur Gastrointestinal: soft, non-tender, positive bowel sounds Musculoskeletal: pulses present, edema present +1 pitting edema Neurological: non-focal, moves all 4 limbs Psychiatric: A&O x 3 Skin: no rash <Irlanda Blount - Last Filed: 12/11/17 09:52> Dx/Plan (1) Hyperkalemia Code(s): E87.5 - HYPERKALEMIA Status: Acute (2) NALDO (acute kidney injury) Code(s): N17.9 - ACUTE KIDNEY FAILURE, UNSPECIFIED Status: Acute (3) Atrial fibrillation with RVR Code(s): I48.91 - UNSPECIFIED ATRIAL FIBRILLATION Status: Acute (4) CHF (congestive heart failure) Code(s): I50.9 - HEART FAILURE, UNSPECIFIED Status: Chronic (5) COPD (chronic obstructive pulmonary disease) Status: Chronic Qualifiers: COPD type: unspecified COPD Qualified Code(s): J44.9 - Chronic obstructive pulmonary disease, unspecified (6) HLD (hyperlipidemia) Code(s): E78.5 - HYPERLIPIDEMIA, UNSPECIFIED Status: Chronic Qualifiers: Hyperlipidemia type: unspecified Qualified Code(s): E78.5 - Hyperlipidemia , unspecified (7) Hypertension Code(s): I10 - ESSENTIAL (PRIMARY) HYPERTENSION Status: Chronic - Plan Plan: 77 yo F with hypokalemia, indeterminate troponins, NALDO Hypokalemia - 2/2 to not taking K+ supplement in addition to K+ wasting lasix - given 60mEq total, recheck K+ in morning - Mg came back at 0.9 last night -> 2.4 this morning Indeterminate troponins - pt has h/o of NSTEMI with recent cath 1 month ago - likely 2/2 demand ischemia from volume depletion, continue to trend - continue ASA, coreg, plavix, lovenox, nitro NALDO - BUN/CR: 14/2.01 yesterday. Patient refused lab draw this morning but patient clinically feeling better. - maintenance fluids at 150cc - hold lasix CHFrEF - last EF 40-45% in October; July EF showed 60-65% with LVH - hold lasix for now so as to not exacerbate NALDO - if s/s of fluid overload, resume lasix Paroxymal afib - tele monitor - Will continue home med of amiodarone COPD - PRN duonebs - ICS HTN - Will hold lisinopril this moring as most recent BP was 98/57 HLD - Will resume rosuvastatin DVT ppx: lovenox GI ppx: protonix Diet: HH DISPO: likely discharge today Discussed with Dr. Frankel <Irlanda Blount - Last Filed: 12/11/17 09:52> Attending Addendum - Attending Addendum Date/Time: 12/11/17 [id number] I personally evaluated the patient and discussed the management with Dr. Blount. I agree with the History, Examination, Assessment and Plan documented above with any addition or exceptions noted below. The patient is feeling better. WE have counseled on importance of taking her potassium. Will d/c home. <Alma Rosa Frankel - Last Filed: 12/11/17 17:10>
[2017-12-11] MEDS: Mometasone/Formoterol 120 PUFF INHALER INH SCH (06:37)
[2017-12-11] MEDS: Magnesium Oxide 400 MG TAB PO SCH (08:45)
[2017-12-11] MEDS: Potassium Chloride 10 MEQ TAB PO SCH (08:45)
[2017-12-11] MEDS: Naproxen 500 MG TAB PO SCH (08:46)
[2017-12-11] MEDS: Gabapentin 300 MG CAP PO SCH (08:46)
[2017-12-11] MEDS: Carvedilol 3.125 MG TAB PO SCH ×2 (08:52→16:50)
[2017-12-11 08:57] LABS: ALT (SGPT) 13 U/L (8-55); AST (SGOT) 25 U/L (5-34); Albumin 3.3 g/dL (3.4-4.8); Alkaline Phosphatase 78 U/L (40-150); Anion Gap 15 mmol/L (10-20); BUN (Urea Nitrogen) 13 mg/dL (9.8-20.1); Bilirubin, Total 0.8 mg/dL (0.2-1.2); Calc. Creatinine Clearance 35 mL/min (70-130); Calcium 7.3 mg/dL (7.8-10.44); Carbon Dioxide 27 mmol/L (23-31); Chloride 101 mmol/L (98-107); Estimated GFR-MDRD 33; Globulin 2.5 g/dL (2.4-3.5); Glucose 128 mg/dL (83-110); Magnesium 2.4 mg/dL (1.6-2.6); Potassium 3.3 mmol/L (3.5-5.1); Protein, Total 5.8 g/dL (6.0-8.3); Sodium 140 mmol/L (136-145)
[2017-12-11] MEDS ORDERED: Enoxaparin Sodium 40 MG/0.4 ML SYRINGE SC SCH (09:00)
[2017-12-11] MEDS ORDERED: Lisinopril 5 MG TAB PO SCH (09:00)
[2017-12-11] MEDS ORDERED: Clopidogrel Bisulfate 75 MG TAB PO SCH (09:00)
[2017-12-11] MEDS ORDERED: Amiodarone 200 MG TAB PO SCH (09:00)
[2017-12-11 09:30] LABS: #Eosinphils 0.1 thou/uL (0.0-0.7); #Lymphocytes 2.2 thou/uL (1.20-3.40); #Monocytes 0.8 thou/uL (0.11-0.59); #Neutrophils 3.5 thou/uL (1.40-6.50); %Basophils 0.7 % (0.0-1.0); %Eosinophils 1.5 % (0.0-10.0); %Lymphocytes 32.9 % (21.0-51.0); %Monocytes 11.4 % (0.0-10.0); %Neutrophils 53.6 % (42.0-75.0); Hemoglobin 9.9 g/dL (12.0-16.0); Mean Corpuscular HGB CONC 34.7 g/dL (32.0-36.0); Mean Corpuscular Hemoglobin 29.7 pg (27.0-31.0); Mean Corpuscular Volume 85.7 fL (78.0-98.0); Mean Platelet Volume 7.7 fL (7.4-10.4); Platelet Count 302 thou/uL (130-400); RBC Distribution Width 15.1 % (11.5-14.5); Red Blood Cell (RBC) Count 3.33 mill/uL (4.20-5.40); White Blood Cell (WBC) Count 6.6 thou/uL (4.8-10.8)
--- NOTE | 2017-12-11 09:50 | CON ---
DATE OF CONSULTATION: 12/11/2017 HISTORY OF PRESENT ILLNESS: The patient is a pleasant 77-year-old woman who presented with nausea, vomiting and diarrhea. The patient has a history of severe coronary artery disease. The patient was recently hospitalized with an acute myocardial infarction. The patient underwent emergent PTCA and stent placement into the graft to the obtuse marginal branch. The patient at home became increasingly nauseated and developed diarrhea. She was unable to keep her medications down. The patient denied having any chest discomfort. PAST MEDICAL HISTORY: 1. Coronary artery disease. 2. Cardiomyopathy. 3. Hypertension. 4. Chronic renal insufficiency. 5. Peripheral vascular disease. 6. Chronic obstructive pulmonary disease. PAST SURGICAL HISTORY: SOCIAL HISTORY: Former smoker. MEDICATIONS: See nursing list. ALLERGIES: CODEINE, HYDROCODONE, MORPHINE, TRAMADOL. REVIEW OF SYSTEMS: Ten point system noticeable increasing lower extremity weakness. PHYSICAL EXAMINATION: GENERAL: Elderly woman in no acute distress. VITAL SIGNS: Blood pressure is 98/57. NECK: No jugular vein distention. LUNGS: Clear to auscultation. HEART: Regular rate and rhythm, normal S1, S2. ABDOMEN: Nondistended. EXTREMITIES: Showed trace edema. LABORATORY RESULTS: Sodium 138, potassium 2.6, chloride 94, BUN 14, creatinine is 2.0, glucose 117. Troponin 0.079. White blood cell count 7.7, hemoglobin 10.5, hematocrit 28.9, platelets 359. EKG revealed normal sinus rhythm, nonspecific ST-T wave abnormality. IMPRESSION: 1. Dehydration. 2. History of recent percutaneous transluminal coronary angioplasty and stent placement of obtuse marginal branch. 3. Diffuse coronary artery disease. 4. Cardiomyopathy. 5. Hypertension. 6. Dyslipidemia. 7. Chronic renal insufficiency. This patient presents with dehydration. The patient has been receiving IV hydration. From a cardiac standpoint, I would hold her BUCKY inhibitor therapy. I would discontinue the use of Naprosyn. We will follow this patient with you through her hospitalization. STEPHEN
[2017-12-11] MEDS ORDERED: Lactated Ringer's 500 ML IV SCH (10:00)
[2017-12-11 11:51] VITALS: BMI 25.5
--- NOTE | 2017-12-11 11:55 | PQF ---
CLINICAL DOCUMENTATION IMPROVEMENT CLARIFICATION FORM: ICD-10 Updated PLEASE DO AN ADDENDUM TO THE PROGRESS NOTE WITH ANY DOCUMENTATION UPDATES OR ADDITIONS AND CARRY THROUGH TO DC SUMMARY. THANK YOU. DATE: 12/11/17 ATTN: DR. HAYNES Please exercise your independent, professional judgment in responding to the clarification form. Clinical indicators are provided on the bottom of this form for your review Please check appropriate box(s): HEART FAILURE: A. TYPE: [ x ] Systolic / HFrEF [ ] Diastolic / HFpEF [ ] Combined Systolic / Diastolic B. ACUITY [ ] Acute [ ] Acute on Chronic [ x ] Chronic [ ] Other diagnosis [ ] Unable to determine In addition, please specify: Present on Admission (POA): [ x] Yes [ ] No [ ] Unable to determine For continuity of documentation, please document condition throughout progress notes and discharge summary. Thank You. CLINICAL INDICATORS - SIGNS / SYMPTOMS / LABS H&P 12/10: H/O CHF PROGRESS NOTE 12/11: "SEPTEMBER EF SHOWED 40-45%" 12/10 BNP: 506 RISKS: H/O AFIB (H&P 12/10) H/O NSTEMI (PER H&P 12/10) TREATMENT: COREG (12/10-PRESENT) CARDIAC MONITORING CARDIOLOGY CONSULT (This form is maintained as a part of the permanent medical record) 2014 [employer]. All Rights Reserved [email or web address] [email or web address] Office: [phone] STEPHEN
--- NOTE | 2017-12-11 12:11 | EKG ---
Test Reason : TIMED Blood Pressure : / mmHG Vent. Rate : 068 BPM Atrial Rate : 068 BPM P-R Int : 190 ms QRS Dur : 082 ms QT Int : 482 ms P-R-T Axes : 090 -08 065 degrees QTc Int : 512 ms Normal sinus rhythm Nonspecific T wave abnormality Abnormal ECG When compared with ECG of November 2017 (Unconfirmed) No significant change was found Confirmed by CASTRO PEDROZA ([id number]) on 12/11/2017 12:10:51 PM Referred By: Confirmed By:CASTRO PEDROZA
[2017-12-11] MEDS: Lactated Ringer's 1,000 ML IV SCH (15:36)
[2017-12-11 16:49] VITALS: BP 123/58; TEMP 98.5
--- NOTE | 2017-12-12 01:25 | DIS-2 ---
DATE OF ADMISSION: 12/10/2017 DATE OF DISCHARGE: 12/11/2017 RESIDENT: Irlanda Blount M.D. ADMITTING ATTENDING: Phillip Kelly M.D. DISCHARGE ATTENDING: Alma Rosa Frankel M.D. CONSULTATIONS: Dr. Pena - Cardiology. PROCEDURES: None. PRIMARY DIAGNOSIS: Hypokalemia. SECONDARY DIAGNOSES: Non ST elevation myocardial infarction status post stent, chronic kidney disease, congestive heart failure with reduced ejection fraction , history of atrial fibrillation, chronic obstructive pulmonary disease, hypertension, and hyperlipidemia. DISCHARGE MEDICATIONS: 1. Symbicort 1 puff inhalation twice daily. 2. Ipratropium/albuterol sulfate (DuoNeb) 3 mL nebulizer every 6 hours. 3. Aspirin 81 mg oral daily. 4. Carvedilol (Coreg) 3.125 mg oral twice daily with meals. 5. Clopidogrel (Plavix) 75 mg oral daily. 6. Rosuvastatin (Crestor) 40 mg oral at bedtime. 7. Potassium chloride 10 mEq oral twice daily. 8. Furosemide (Lasix) 40 mg oral twice daily. 9. Amiodarone (Cordarone) 400 mg oral daily. DISCONTINUED MEDICATIONS: BUCKY inhibitor and naproxen. HISTORY OF PRESENT ILLNESS AND HOSPITAL COURSE: This is a 77-year-old -[place] female with past medical history significant for non ST elevation myocardial infarction with stent, chronic obstructive pulmonary disease, atrial fibrillation, chronic kidney disease stage 3, who presented to the ED complaining of nausea, weakness, and decreased appetite. In addition, she was quite dehydrated. She states she had not been taking her potassium pills at home and she presented with a potassium level of 2.6. In addition, her magnesium level was 0.9. These electrolytes were replenished and normalized during her hospital stay. The patient was educated on the importance of taking her medications. In addition, she presented with an acute kidney injury and received fluids which resolved the injury. Dr. Pena saw the patient and recommended stopping BUCKY inhibitor and naproxen. Upon discharge, the patient was feeling much better with acute problems resolved. DISPOSITION: Stable. DISCHARGE INSTRUCTIONS: 1. Location: Home. 2. Diet: Heart healthy. 3. Activity: Ad abrahan. 4. Followup: Follow up with Dr. Lebron at [facility] within 1 -2 weeks. [facility] OISHE[facility] CHILDREN'S HOSPITALIshaan
--- NOTE | 2017-12-14 10:58 | EKG ---
Test Reason : Blood Pressure : / mmHG Vent. Rate : 069 BPM Atrial Rate : 069 BPM P-R Int : 180 ms QRS Dur : 082 ms QT Int : 514 ms P-R-T Axes : 070 -16 050 degrees QTc Int : 550 ms Normal sinus rhythm Nonspecific T wave abnormality Abnormal ECG Confirmed by TAMAR MCGRAW DO ([id number]), city editor LYN FORD ([id number]) on 12/14/2017 10:58:02 AM Referred By: Confirmed By:TAMAR MCGRAW DO
== END 2017-12-11 18:04 | disposition home or self-care (01) | DRG 683 ==
LOC: ERS 10:33 → 2NO 14:08
PROVIDERS: ADMIT Family Medicine; ATTEND Family Medicine
DX: N17.9 Acute kidney failure, unspecified (principal); I13.0 Hypertensive heart and chronic kidney disease with heart failure and stage 1 through stage 4 chronic kidney disease, or unspecified chronic kidney disease; I42.8 Other cardiomyopathies; I50.22 Chronic systolic (congestive) heart failure; E87.6 Hypokalemia; N18.3 Chronic kidney disease, stage 3 (moderate); J44.9 Chronic obstructive pulmonary disease, unspecified; E78.5 Hyperlipidemia, unspecified; I25.10 Atherosclerotic heart disease of native coronary artery without angina pectoris; E86.0 Dehydration; I48.0 Paroxysmal atrial fibrillation; Z95.5 Presence of coronary angioplasty implant and graft; I25.2 Old myocardial infarction; Z87.891 Personal history of nicotine dependence
CPT/HCPCS: 36415; 80053; 81003; 81015; 82553; 83605; 83735; 83880; 84484; 85025; 93005; 93010; 94640; 94760; 96365; A4216; G8978-GP-CJ; G8979-GP-CJ; G8980-GP-CJ; J1650; J3475; J7050; J7120; J7620; Q0162

== ENCOUNTER 2017-12-31 12:43 | Observation (INO) | payer MEDICARE ==
[2017-12-31 13:44] LABS: ALT (SGPT) 19 U/L (8-55); AST (SGOT) 25 U/L (5-34); Albumin 3.8 g/dL (3.4-4.8); Alkaline Phosphatase 86 U/L (40-150); Anion Gap 17 mmol/L (10-20); BUN (Urea Nitrogen) 13 mg/dL (9.8-20.1); Bilirubin, Total 1.1 mg/dL (0.2-1.2); Calc. Creatinine Clearance 0 mL/min (70-130); Calcium 9.2 mg/dL (7.8-10.44); Carbon Dioxide 22 mmol/L (23-31); Chloride 101 mmol/L (98-107); Estimated GFR-MDRD 32; Globulin 3.8 g/dL (2.4-3.5); Glucose 100 mg/dL (83-110); Protein, Total 7.6 g/dL (6.0-8.3); Sodium 137 mmol/L (136-145)
[2017-12-31 13:51] LABS: Potassium 2.7 mmol/L (3.5-5.1)
[2017-12-31] MEDS ORDERED: Potassium Chloride 20 MEQ TAB ONE (15:12)
[2017-12-31] MEDS ORDERED: Potassium Chloride 40 MEQ in Sodium Chloride 0.9% 250 ML 250 ML IVPB SCH (15:30)
[2017-12-31 15:57] LABS: Troponin I 0.074 ng/mL (< 0.028)
[2017-12-31 16:22] LABS: #Eosinphils 0.2 thou/uL (0.0-0.7); #Lymphocytes 2.5 thou/uL (1.20-3.40); #Monocytes 0.7 thou/uL (0.11-0.59); %Basophils 0.2 % (0.0-1.0); %Eosinophils 2.3 % (0.0-10.0); %Lymphocytes 34.2 % (21.0-51.0); %Monocytes 9.1 % (0.0-10.0); %Neutrophils 54.3 % (42.0-75.0); Hemoglobin 11.5 g/dL (12.0-16.0); Mean Corpuscular HGB CONC 34.2 g/dL (32.0-36.0); Mean Corpuscular Hemoglobin 28.8 pg (27.0-31.0); Mean Corpuscular Volume 84.4 fL (78.0-98.0); Mean Platelet Volume 8.7 fL (7.4-10.4); Platelet Count 285 thou/uL (130-400); RBC Distribution Width 14.9 % (11.5-14.5); White Blood Cell (WBC) Count 7.4 thou/uL (4.8-10.8)
--- NOTE | 2017-12-31 16:44 | PDOC.FPRHP ---
- History of Present Illness Chief Complaint: Abnormal Lab Values History of Present Illness: This is a 77 y/o F with PMHx of CAD s/p 4v CABG and stent placement, COPD, HLD, CKD 3, Paroxysmal afib, HFrEF who presents to the ED after she was called by her cardiologists office (Dr. Pena) due to low potassium. His office told her she should go get evaluated at the ED. She reports that over the past 3 days she has felt more weak than usual and has been having nausea/vomiting. She has not been able to tolerate much by mouth, but has felt hungry. She also reports a fever today to 100. She was recently admitted about 3 weeks ago due to hypokalemia and at that time she had not been taking her medications as prescribed. She reports that she has been taking her medications correctly, except she did not take them last night. ED Course: The patient was evaluated in the ED by Dr. Concepcion and was found to be hypokalemic to 2.7 and was given KCl 40mEq PO and KCl 40mEq in 1L NS. - Allergies/Adverse Reactions Allergies Allergy/AdvReac Type Severity Reaction Status Date / Time codeine Allergy Verified 12/31/17 18:23 hydrocodone Allergy itching Verified 12/31/17 18:23 hydrocodone bitartrate Allergy itching Verified 12/31/17 18:23 [From Vicodin] morphine Allergy ITCHING, Verified 12/31/17 18:23 SEVERE BRADYCARDIA tramadol Allergy Verified 12/31/17 18:23 - Home Medications Medication Instructions Recorded Confirmed Type Budesonide-Formoterol [Symbicort 1 puff INH BID 10/31/17 12/10/17 History 160-4.5] Ipratropium/Albuterol Sulfate 3 ml NEB [id number] #7 neb 11/01/17 12/10/17 Rx [DuoNeb] Aspirin [Aspirin Chewable Tablet] 81 mg PO DAILY #0 tab 11/18/17 12/31/17 Rx Carvedilol [Coreg] 3.125 mg PO BID-WM #60 tab 11/18/17 12/10/17 Rx Clopidogrel Bisulfate [Plavix] 75 mg PO DAILY #30 tab 11/18/17 12/31/17 Rx Rosuvastatin [Crestor] 40 mg PO HS #30 tab 11/18/17 12/31/17 Rx Amiodarone [Cordarone] 400 mg PO DAILY 12/10/17 12/10/17 History Furosemide [Lasix] 20 mg PO DAILY 12/10/17 12/31/17 History Gabapentin 300 mg PO BID 12/10/17 12/31/17 History Lisinopril [Zestril] 5 mg PO DAILY 12/10/17 12/31/17 History Naproxen 500 mg PO BID 12/10/17 12/10/17 History Potassium Chloride 10 meq PO BID 12/10/17 12/10/17 History Fluticasone Propionate [Flonase 1 spray EA NARE DAILY 12/31/17 12/31/17 History Nasal [place]] Metoprolol Succinate 25 mg PO DAILY 12/31/17 12/31/17 History - History PMHx: 1. CAD s/p 4v CABG and stents 2. COPD 3. HLD 4. CKD 3 5. Paroxysmal afib 6. HFrEF (most recent EF 40-45% 10/2017) PSHx: cardiac cath with stent, 4v CABG FHx: HTN Social: 30 pack year history - smoked 1/2 ppd for 60 years, quit in Mar 2017, denies EtOH and drug use PCP: Dr. Lebron with [facility] [employer] Helper: Dr. Pena - Review of Systems General: reports: fever/chills, fatigue Eyes: denies: eye pain, vision changes ENT: reports: nasal congestion, rhinorrhea Respiratory: reports: cough. denies: shortness of breath Cardiovascular: denies: chest pain, edema Gastrointestinal: reports: nausea, vomiting. denies: diarrhea, abdominal pain Genitourinary: reports: polyuria (due to lasix). denies: dysuria Skin: denies: rashes, lesions Musculoskeletal: denies: pain, tenderness Neurological: denies: numbness, weakness Psychological: denies: anxiety, depression - Vital signs BP: 170/89 HR: 67 RR: 19 Tmax: 98.2 Pox: 97% on RA Wt: 82 kg - Physical Exam Constitutional: NAD, awake, alert and oriented, well developed HEENT: normocephalic and atraumatic, PERRLA, EOMI, normal nasal mucosa, MMM Neck: supple, FROM Heart: RRR, normal S1/S2, no murmurs/rubs/gallops, no edema Lungs: CTAB, no respiratory distress, good air movement, no rales/rhonchi, no wheezing Abdomen: soft, non-tender, bowel sounds present, no masses/distention Musculoskeletal: normal structure, normal tone Neurological: no focal deficit Skin: good turgor, capillary refill <2 seconds Psychiatric: normal mood and affect, good judgment and insight, intact recent and remote memory FMR H&P: Results - Labs Result Diagrams: 12/31/17 13:04 12/31/17 13:04 Lab results: WBC 7.4 thou/uL (4.8-10.8) 12/31/17 13:04 Hgb 11.5 g/dL (12.0-16.0) L 12/31/17 13:04 Hct 33.8 % (36.0-47.0) L 12/31/17 13:04 MCV 84.4 fL (78.0-98.0) 12/31/17 13:04 Plt Count 285 thou/uL (130-400) 12/31/17 13:04 Neutrophils % 54.3 % (42.0-75.0) 12/31/17 13:04 Sodium 137 mmol/L (136-145) 12/31/17 13:04 Potassium 2.7 mmol/L (3.5-5.1) L* 12/31/17 13:04 Chloride 101 mmol/L (98-107) 12/31/17 13:04 Carbon Dioxide 22 mmol/L (23-31) L 12/31/17 13:04 BUN 13 mg/dL (9.8-20.1) 12/31/17 13:04 Creatinine 1.85 mg/dL (0.6-1.1) H 12/31/17 13:04 Glucose 100 mg/dL (83-110) 12/31/17 13:04 Calcium 9.2 mg/dL (7.8-10.44) 12/31/17 13:04 Total Bilirubin 1.1 mg/dL (0.2-1.2) 12/31/17 13:04 AST 25 U/L (5-34) 12/31/17 13:04 ALT 19 U/L (8-55) 12/31/17 13:04 Alkaline Phosphatase 86 U/L (40-150) 12/31/17 13:04 CK-MB (CK-2) 3.0 ng/mL (0-6.6) 12/31/17 13:04 Serum Total Protein 7.6 g/dL (6.0-8.3) 12/31/17 13:04 Albumin 3.8 g/dL (3.4-4.8) 12/31/17 13:04 - EKG Interpretation EKG: NSR, QTc prolonged at 522. FMR H&P: A/P - Problem List (1) Hypokalemia Current Visit: Yes Status: Acute Code(s): E87.6 - HYPOKALEMIA (2) Elevated troponin Current Visit: Yes Status: Acute Code(s): R74.8 - ABNORMAL LEVELS OF OTHER SERUM ENZYMES (3) Paroxysmal atrial fibrillation Current Visit: Yes Status: Acute Code(s): I48.0 - PAROXYSMAL ATRIAL FIBRILLATION (4) CKD (chronic kidney disease) stage 3, GFR 30-59 ml/min Current Visit: No Status: Acute Code(s): N18.3 - CHRONIC KIDNEY DISEASE, STAGE 3 (MODERATE) (5) Heart failure with reduced ejection fraction Current Visit: No Status: Acute Code(s): I50.20 - UNSPECIFIED SYSTOLIC ( CONGESTIVE) HEART FAILURE Qualifiers: Heart failure chronicity: chronic Qualified Code(s): I50.22 - Chronic systolic (congestive) heart failure (6) COPD (chronic obstructive pulmonary disease) Current Visit: No Status: Chronic Priority: Medium Qualifiers: COPD type: unspecified COPD Qualified Code(s): J44.9 - Chronic obstructive pulmonary disease, unspecified (7) Coronary artery disease Current Visit: No Status: Chronic Priority: High Code(s): I25.10 - ATHSCL HEART DISEASE OF [place] CORONARY ARTERY W/O ANG PCTRS Qualifiers: Coronary Disease-Associated Artery/Lesion type: bypass graft [place] vs. transplanted heart: [place] heart Associated angina: without angina Qualified Code(s): I25.810 - Atherosclerosis of coronary artery bypass graft(s) without angina pectoris (8) HLD (hyperlipidemia) Current Visit: No Status: Chronic Priority: Low Code(s): E78.5 - HYPERLIPIDEMIA, UNSPECIFIED Qualifiers: Hyperlipidemia type: unspecified Qualified Code(s): E78.5 - Hyperlipidemia , unspecified (9) Hypertension Current Visit: No Status: Chronic Priority: Medium Code(s): I10 - ESSENTIAL (PRIMARY) HYPERTENSION Qualifiers: Hypertension type: essential hypertension Qualified Code(s): I10 - Essential (primary) hypertension - Plan Hypokalemia Likely 2/2 N/V and decreased PO intake over the past 3 days. s/p 80mEq total in the ED -Will recheck K tonight and determine if she needs more potassium overnight -Check magnesium -Monitor on tele Indeterminate troponins Pt has h/o recent NSTEMI with stent placement about 2 months ago. Trop is less than previously and pt is not complaining of any chest pain. -Will trend -Repeat EKG if pt develops chest pain CKDIII around baseline -Monitor HFrEF No signs of fluid overload at this time -Hold fluids and fluid restrict -Continue home meds paroxymal afib -Continue home meds COPD No signs of acute exacerbation at this time -Duonebs prn HTN BP mildly elevated in the ED -Will resume home meds and monitor closely HLD -Continue home statin VTE ppx: Lovenox Code status: full Disposition/LOS: Obs on tele, length of stay likely less than 48 hours Attending Addendum - Attending Addendum Date/Time: 12/31/172030 I personally evaluated the patient and discussed the management with Dr. Garcia. I agree with the History, Examination, Assessment and Plan documented above with any addition or exceptions noted below.
[2017-12-31] MEDS ORDERED: Ondansetron HCl/PF 4 MG/2 ML Vial IVP PRN (18:25)
[2017-12-31] MEDS ORDERED: Ondansetron ODT 4 MG TAB PO PRN (18:25)
[2017-12-31] MEDS ORDERED: Mometasone/Formoterol 120 PUFF INHALER INH SCH (19:00)
[2017-12-31] MEDS ORDERED: Carvedilol 3.125 MG TAB PO SCH (19:00)
[2017-12-31] MEDS: Acetaminophen 325 MG TAB PO PRN (20:09)
[2017-12-31 20:47] LABS: Anion Gap 12 mmol/L (10-20); BUN (Urea Nitrogen) 12 mg/dL (9.8-20.1); Calc. Creatinine Clearance 31 mL/min (70-130); Carbon Dioxide 25 mmol/L (23-31); Chloride 102 mmol/L (98-107); Estimated GFR-MDRD 28; Glucose 110 mg/dL (83-110); Sodium 136 mmol/L (136-145)
[2017-12-31 20:48] LABS: Magnesium 1.5 mg/dL (1.6-2.6); Phosphorus 2.3 mg/dL (2.3-4.7)
[2017-12-31 20:53] LABS: Troponin I 0.074 ng/mL (< 0.028)
[2017-12-31] MEDS ORDERED: Dextromethorphan Polistirex 30 MG/5 ML (89 ML BOTTLE) PO PRN (21:59)
[2017-12-31] MEDS ORDERED: cefTRIAXone\\ROCEPHIN 1 GM in Sodium Chloride 0.9% 100 ML IVPB SCH (22:00)
[2017-12-31] MEDS ORDERED: Doxycycline 100 MG CAP PO SCH (22:15)
[2017-12-31] MEDS ORDERED: Vancomycin HCl 1.25 GM in Sodium Chloride 0.9% 250 ML 250 ML IVPB SCH (22:30)
[2017-12-31] MEDS: Benzonatate 100 MG CAP PO PRN (22:36)
[2018-01-01 01:31] LABS: #Basophils 0.1 thou/uL (0.0-0.2); #Eosinphils 0.2 thou/uL (0.0-0.7); #Lymphocytes 2.4 thou/uL (1.20-3.40); #Monocytes 0.6 thou/uL (0.11-0.59); #Neutrophils 3.2 thou/uL (1.40-6.50); %Basophils 1.1 % (0.0-1.0); %Eosinophils 3.6 % (0.0-10.0); %Lymphocytes 37.2 % (21.0-51.0); %Monocytes 8.5 % (0.0-10.0); %Neutrophils 49.6 % (42.0-75.0); Hemoglobin 10.1 g/dL (12.0-16.0); Mean Corpuscular Hemoglobin 29.1 pg (27.0-31.0); Mean Corpuscular Volume 85.4 fL (78.0-98.0); Mean Platelet Volume 7.9 fL (7.4-10.4); Platelet Count 276 thou/uL (130-400); RBC Distribution Width 14.8 % (11.5-14.5); Red Blood Cell (RBC) Count 3.46 mill/uL (4.20-5.40); White Blood Cell (WBC) Count 6.5 thou/uL (4.8-10.8)
[2018-01-01 01:50] LABS: Troponin I 0.073 ng/mL (< 0.028)
[2018-01-01 01:55] LABS: Anion Gap 14 mmol/L (10-20); BUN (Urea Nitrogen) 14 mg/dL (9.8-20.1); Calc. Creatinine Clearance 31 mL/min (70-130); Calcium 8.9 mg/dL (7.8-10.44); Carbon Dioxide 24 mmol/L (23-31); Chloride 101 mmol/L (98-107); Estimated GFR-MDRD 29; Glucose 153 mg/dL (83-110); Sodium 136 mmol/L (136-145)
[2018-01-01 01:58] LABS: Potassium 2.8 mmol/L (3.5-5.1)
[2018-01-01] MEDS ORDERED: Potassium Chloride 20 MEQ TAB PO SCH (02:45)
[2018-01-01] MEDS: Magnesium Oxide 400 MG TAB PO SCH ×2 (02:49→13:51)
--- NOTE | 2018-01-01 05:34 | PDOC.FM ---
- Subjective Subjective: Pt feels well this AM. Reports improved N/V. V x2 since admission with last one being earlier this AM. reports continued cough this AM (started at same time as N/V). No other complaints at this time. pt denies fevers/chills, no sob. ros: no fever/chills, no cp no palpitations - Objective Vital Signs & Weight: Vital Signs (12 hours) Temp Pulse Resp BP BP Pulse Ox 01/01/18 02:52 97.8 F 70 15 125/67 94 L 12/31/17 20:55 72 138/67 12/31/17 19:46 98.3 F 69 18 12/31/17 19:29 73 12 97 12/31/17 19:00 98.1 F 73 15 182/88 H 97 12/31/17 18:28 98.3 F 69 18 124/59 L 93 L Weight Weight 84.232 kg Result Diagrams: 01/01/18 01:00 01/01/18 01:00 <Momo Jensen - Last Filed: 01/01/18 08:34> - Objective Vital Signs & Weight: Vital Signs (12 hours) Temp Pulse Resp BP Pulse Ox 01/01/18 15:21 98.1 F 70 18 143/74 H 93 L 01/01/18 12:10 98.3 F 60 20 159/74 H 93 L 01/01/18 08:00 98.2 F 66 20 151/68 H 94 L 01/01/18 07:39 97.8 F 71 15 01/01/18 06:56 71 15 96 Weight Admit Weight 83.518 kg Weight 84.232 kg I&O: 12/31/17 01/01/18 01/02/18 06:59 06:59 06:59 Intake Total 1585 720 Output Total 600 400 Balance 985 320 Result Diagrams: 01/01/18 01:00 01/01/18 12:41 <Alma Rosa Frankel - Last Filed: 01/01/18 16:46> Phys Exam - Physical Examination Constitutional: NAD HEENT: moist MMs, sclera anicteric Respiratory: no wheezing, clear to auscultation bilateral Cardiovascular: RRR, no significant murmur Gastrointestinal: soft, positive bowel sounds Musculoskeletal: pulses present Neurological: moves all 4 limbs Skin: no rash, normal turgor <Momo Jensen - Last Filed: 01/01/18 08:34> Dx/Plan (1) Hypokalemia Code(s): E87.6 - HYPOKALEMIA Status: Acute (2) CKD (chronic kidney disease) stage 3, GFR 30-59 ml/min Code(s): N18.3 - CHRONIC KIDNEY DISEASE, STAGE 3 (MODERATE) Status: Acute (3) Heart failure with reduced ejection fraction Code(s): I50.20 - UNSPECIFIED SYSTOLIC (CONGESTIVE) HEART FAILURE Status: Acute Qualifiers: Heart failure chronicity: chronic Qualified Code(s): I50.22 - Chronic systolic (congestive) heart failure (4) Paroxysmal atrial fibrillation Code(s): I48.0 - PAROXYSMAL ATRIAL FIBRILLATION Status: Acute (5) Pneumonia Code(s): J18.9 - PNEUMONIA, UNSPECIFIED ORGANISM Status: Acute - Plan Plan: Hypokalemia Likely 2/2 N/V and decreased PO intake over the past 3 days. s/p 80mEq total in the ED, 40meq PO last night due to a returned level of 2.8, Mg was 1.5, and has been repleneshed since. -recheck mg -redraw potassium after last nights 40meq -Monitor on tele Pneumonia A- Pt had R sided lung base rales on exam last night on exam and CXR shows possible residual pneumonia vs. atelectasis in R lower lobe. WBC 6.5, and pt afebrile. Vanc, Doxy, Rocephin started last night as pt QT interval is large P- continue Vanc, Doxy, Rocephin -monitor vitals and WBC -hold lasix -will discuss pulmonary findings being of pneumonia etiology vs. CHF vs. atelectasis during rounds and possibly DC abx Indeterminate troponins Pt has h/o recent NSTEMI with stent placement about 2 months ago. Trop is less than previously and pt is not complaining of any chest pain. trops stable around .074 x3 -Repeat EKG if pt develops chest pain CKDIII around baseline -Monitor HFrEF No signs of fluid overload at this time -Hold fluids and fluid restrict -Continue home meds except lasix paroxymal afib -Continue home meds COPD No signs of acute exacerbation at this time -Duonebs prn HTN BP mildly elevated in the ED, normal now -Will resume home meds and monitor closely HLD -Continue home statin Home meds: pt was unable to provide complete and accurate list of home meds in ED. Reports children will be bringing a list later today. VTE ppx: Lovenox Code status: full <Momo Jensen - Last Filed: 01/01/18 08:34> Attending Addendum - Attending Addendum Date/Time: 01/01/18 [id number] I personally evaluated the patient and discussed the management with Dr. Jensen. I agree with the History, Examination, Assessment and Plan documented above with any addition or exceptions noted below. Pt with hypokalemia and hypomagnesemia. Will give IV mag and continue potassium replacement. If patient is feeling better this afternoon she may be able to go home. CE are stable. <Alma Rosa Frankel - Last Filed: 01/01/18 16:46>
[2018-01-01] MEDS ORDERED: Furosemide 40 MG TAB PO SCH ×2 (06:00→14:00)
[2018-01-01] MEDS ORDERED: Mometasone/Formoterol 120 PUFF INHALER INH SCH (06:30)
--- NOTE | 2018-01-01 07:21 | RAD ---
PORTABLE AP CHEST: Date: 12/31/17 HISTORY: Clinical signs and symptoms of pneumonia. COMPARISON: 12/02/17. FINDINGS: Postsurgical changes related to CABG are again noted. The cardiac silhouette is magnified by projecti on, but does appear mildly enlarged and stable in size compared to prior study. The parenchymal jenkins es at the right lung base have almost completely resolved with a curvilinear area of increased densit y present which may be related to residual pneumonia and/or scarring. The left lung remains clear. Li near areas of scarring are again seen in the upper lung zones bilaterally with findings suggestive of bullous emphysematous changes in the upper lobes. Vascular calcifications seen in an ectatic thoraci c aorta. No other interval change. IMPRESSION: 1. Improvement in parenchymal opacities at the right lung base, likely related to improvement in pne umonia. However, there is a persistent curvilinear band-like area of increased density right lung bas e which may be related to either residual pneumonia or scarring or possibly atelectasis. 2. Stable chronic lung changes. 3. Cardiomegaly. POS: HOLA
[2018-01-01] MEDS ORDERED: Carvedilol 3.125 MG TAB PO SCH (08:00)
[2018-01-01] MEDS ORDERED: Enoxaparin Sodium 30 MG/0.3 ML SYRINGE SC SCH (09:00)
[2018-01-01] MEDS ORDERED: Clopidogrel Bisulfate 75 MG TAB PO SCH (09:00)
[2018-01-01] MEDS ORDERED: Doxycycline 100 MG CAP PO SCH (09:00)
[2018-01-01] MEDS ORDERED: Amiodarone 200 MG TAB PO SCH (09:00)
[2018-01-01] MEDS ORDERED: Magnesium 2 GM/NS 0.9% 100 ML 2 GM in Premix Bag 1 BAG IVPB SCH (10:45)
[2018-01-01] MEDS: Acetaminophen 325 MG TAB PO PRN (10:48)
[2018-01-01] MEDS: Benzonatate 100 MG CAP PO PRN (10:51)
[2018-01-01] MEDS ORDERED: Metoclopramide HCl 10 MG/2 ML VIAL IVP PRN (12:12)
[2018-01-01 13:17] LABS: Anion Gap 13 mmol/L (10-20); BUN (Urea Nitrogen) 11 mg/dL (9.8-20.1); Calc. Creatinine Clearance 37 mL/min (70-130); Calcium 9.2 mg/dL (7.8-10.44); Carbon Dioxide 23 mmol/L (23-31); Chloride 104 mmol/L (98-107); Estimated GFR-MDRD 34; Glucose 118 mg/dL (83-110); Potassium 3.8 mmol/L (3.5-5.1); Sodium 136 mmol/L (136-145)
[2018-01-01 13:59] VITALS: BMI 25.2
[2018-01-01 16:03] VITALS: BP 143/74; TEMP 98.1
--- NOTE | 2018-01-04 | DIS-2 ---
DATE OF ADMISSION: 12/31/2017 DATE OF DISCHARGE: 01/01/2018 RESIDENT: Momo Jensen M.D. ADMITTING ATTENDING: Kady Khan M.D. DISCHARGE ATTENDING: Alma Rosa Frankel M.D. CONSULTATIONS: None. PROCEDURE: Chest x-ray on 12/31/2017. Impression: Improvement in parenchymal opacities at the righ t lung base, likely related to improvement in pneumonia. However, there is a persistent curvilinear band-like area of increased density in the right lung base which may be related to either residual pn eumonia or scarring or possibly atelectasis. Stable chronic lung changes, cardiomegaly. PRIMARY DIAGNOSIS: Gastroenteritis, likely viral. SECONDARY DIAGNOSES: Hypokalemia; indeterminate troponins; chronic kidney disease, 3; coronary arter y disease, status post 4-vessel CABG and stents; paroxysmal atrial fibrillation; chronic obstructive pulmonary disease; hypertension; hyperlipidemia; heart failure with reduced ejection fraction. DISCHARGE MEDICATIONS: 1. Budesonide/formoterol, Symbicort, 1 puff inhaled b.i.d. 2. Ipratropium/albuterol sulfate 3 mL nebulized q.6 hours. 3. Aspirin 81 mg p.o. daily. 4. Coreg 3.125 mg p.o. b.i.d. 5. Plavix 75 mg p.o. daily. 6. Rosuvastatin 40 mg p.o. at bedtime. 7. Potassium chloride 10 mEq p.o. b.i.d. 8. Furosemide 20 mg p.o. daily. 9. Amiodarone 400 mg p.o. daily. 10. Gabapentin 300 mg p.o. b.i.d. 11. Naproxen 500 mg p.o. b.i.d. 12. Lisinopril 5 mg p.o. daily. 13. Metoprolol succinate 25 mg p.o. daily. 14. Fluticasone proprionate nasal spray, one spray each naris daily. 15. Acetaminophen 650 mg p.o. q.6 hours p.r.n. 16. Doxycycline 100 mg p.o. b.i.d. for 7 days. DISCONTINUED MEDICATIONS: None. HISTORY OF PRESENT ILLNESS AND HOSPITAL COURSE: This is a 77-year-old female with extensive medical history including CABG; CHF; CKD, 3; and atrial fibrillation; reporting to the ER with a 3-day compla int of nausea, vomiting, and weakness. Reports her emesis is mainly posttussive and worse at night. Reports home temperatures up to 100 degrees. She was recently admitted 3 weeks ago due to hypokalem ia. At that time, she had not been taking her medications as prescribed, but reported that this time she had been taking her medications correctly except that she did not take them the night before adm ission. On admission, the patient was found to be hypokalemic at 2.7 and was replenished with oral p otassium. The patient was started on antiemetic medication and replenished with potassium. Chest x- ray was done, which showed a curvilinear opacity suspicious for recovering pneumonia as she had been hospitalized with pneumonia not long ago versus atelectasis versus residual pneumonia. The patient w as started on vancomycin, doxycycline and Rocephin due to prolonged QT interval. During the patient' s hospital stay, nausea and vomiting resolved and the patient no longer complained of cough, fevers. The patient never complained of shortness of breath. After discussing case with pharmacy, the patie nt was switched to just doxycycline and after showing clinical improvement, deemed safe for discharge with oral doxycycline as potassium had been successfully replenished. Hospital stay was further com plicated by indeterminate troponins on admission with troponin equaling 0.074. Troponins were steady and 0.073 on discharge. All other medical problems were managed with home medications. DISPOSITION: Stable. DISCHARGE INSTRUCTIONS: 1. Location: Home. 2. Diet: Healthy heart. 3. Activity: As tolerated. 4. Followup: Follow up with PCP Dr. Kelsea Lebron in 3 days.
--- NOTE | 2018-01-04 19:56 | EKG ---
Test Reason : Blood Pressure : / mmHG Vent. Rate : 065 BPM Atrial Rate : 065 BPM P-R Int : 192 ms QRS Dur : 090 ms QT Int : 502 ms P-R-T Axes : 097 -16 039 degrees QTc Int : 522 ms Normal sinus rhythm Prolonged QT Flatten T waves Abnormal ECG Confirmed by GORAN OCONNELL, YVETTE ([id number]), publishing editor LIZ NAQVI ([id number] on 01/04/2018 7:56:06 PM Referred By: Confirmed By:YVETTE ZIMMER MD
== END 2018-01-01 17:42 | disposition home or self-care (01) ==
LOC: ERS 12:43 → 2SW 18:20
PROVIDERS: ADMIT Family Medicine; ATTEND Family Medicine
DX: K52.9 Noninfective gastroenteritis and colitis, unspecified (principal); E87.6 Hypokalemia; I13.0 Hypertensive heart and chronic kidney disease with heart failure and stage 1 through stage 4 chronic kidney disease, or unspecified chronic kidney disease; I50.20 Unspecified systolic (congestive) heart failure; N18.3 Chronic kidney disease, stage 3 (moderate); I25.10 Atherosclerotic heart disease of native coronary artery without angina pectoris; J44.9 Chronic obstructive pulmonary disease, unspecified; E78.5 Hyperlipidemia, unspecified; I48.0 Paroxysmal atrial fibrillation; J18.9 Pneumonia, unspecified organism; Z95.1 Presence of aortocoronary bypass graft; Z95.5 Presence of coronary angioplasty implant and graft; Z79.82 Long term (current) use of aspirin; Z79.02 Long term (current) use of antithrombotics/antiplatelets; Z79.899 Other long term (current) drug therapy; Z88.5 Allergy status to narcotic agent
CPT/HCPCS: 71046; 80048 ×4; 80061; 80076; 82553; 83735 ×2; 84100; 84145; 84484 ×3; 85025; 87040; 93005; 94640 ×2; 96365; 96366 ×2; 96367 ×2; 99285; G0378 ×2; 36415; 84443; A4216; J0696; J3370; J3475; J3480; J7050

== ENCOUNTER 2018-04-14 09:10 | Outpatient (CLI) | payer MEDICARE ==
--- NOTE | 2018-04-14 14:29 | RAD ---
TWO VIEWS CHEST: History: Dyspnea. Comparison: 12-31-17 FINDINGS: Lungs appear clear of infiltrate. No infiltrate or vascular congestion. Heart is mildly enlarged with post sternotomy change, stable. IMPRESSION: No acute process. No interval change. POS: C
== END 2018-04-14 09:11 | disposition home or self-care (01) ==
LOC: RAD 09:10
PROVIDERS: ATTEND Internal Medicine Critical Care Medicine
DX: R06.00 Dyspnea, unspecified (principal)
CPT/HCPCS: 71046

== ENCOUNTER 2019-10-15 17:17 | Emergency (ER) | payer MEDICARE ==
[2019-10-15] MEDS ORDERED: Silver Nitrate Application 1 EACH ONE ×4 (18:47→18:56)
== END 2019-10-15 19:30 | disposition home or self-care (01) ==
LOC: ERS 17:17
DX: S01.512A Laceration without foreign body of oral cavity, initial encounter (principal); I11.0 Hypertensive heart disease with heart failure; I50.9 Heart failure, unspecified; E78.5 Hyperlipidemia, unspecified; E78.00 Pure hypercholesterolemia, unspecified; J45.909 Unspecified asthma, uncomplicated; I25.10 Atherosclerotic heart disease of native coronary artery without angina pectoris; W26.8XXA Contact with other sharp object(s), not elsewhere classified, initial encounter
CPT/HCPCS: 99283

== ENCOUNTER 2020-05-19 05:40 | Inpatient (IN) | payer MEDICARE ==
[2020-05-19] MEDS ORDERED: methylPREDNISolone Sod Succ/PF 125 MG/2 ML VIAL ONE (05:54)
[2020-05-19] MEDS ORDERED: Albuterol Sulfate 2.5 mg/3 ml Neb ONE ×2 (05:58→10:54)
[2020-05-19] MEDS ORDERED: Sodium Chloride 0.9% 15 ML NEB ONE (05:59)
[2020-05-19 06:54] LABS: Mean Corpuscular HGB CONC 34.7 g/dL (32.0-36.0); Mean Corpuscular Hemoglobin 30.6 pg (27.0-31.0); Mean Corpuscular Volume 88.2 fL (78.0-98.0); Mean Platelet Volume 7.5 fL (7.4-10.4); Platelet Count 234 thou/uL (130-400); RBC Distribution Width 16.2 % (11.5-14.5); Red Blood Cell (RBC) Count 3.26 mill/uL (4.20-5.40)
[2020-05-19 06:59] LABS: ALT (SGPT) 15 U/L (8-55); AST (SGOT) 25 U/L (5-34); Albumin 3.6 g/dL (3.4-4.8); Alkaline Phosphatase 70 U/L (40-110); Anion Gap 14 mmol/L (10-20); BUN (Urea Nitrogen) 12 mg/dL (9.8-20.1); Bilirubin, Total 0.9 mg/dL (0.2-1.2); Calc. Creatinine Clearance 0 mL/min (70-130); Calcium 8.7 mg/dL (7.8-10.44); Carbon Dioxide 24 mmol/L (23-31); Chloride 105 mmol/L (98-107); Globulin 3.1 g/dL (2.4-3.5); Glucose 110 mg/dL (83-110); Potassium 3.7 mmol/L (3.5-5.1); Protein, Total 6.7 g/dL (6.0-8.3); Sodium 139 mmol/L (136-145)
[2020-05-19] MEDS ORDERED: Aspirin Chewable 81 MG TAB ONE (07:19)
[2020-05-19 07:22] LABS: CKMB 4.5 ng/mL (0-6.6)
[2020-05-19 07:56] LABS: Band 6 % (5-11); Eosinophils 1 % (0-10); Lymphocytes 32 % (21-51); MDiff Complete? YES; Monocytes 6 % (0-10); Neutrophil 55 % (42-75); Polychromasia SLIGHT = 2-3 cells (100X) (0-2/hpf); Reflex for Review?? NO; Schistocytes SLIGHT = 2-5 cells (100X) (0-1/hpf); Target Cells MARKED = >16 cells (100X) (0-1/hpf)
[2020-05-19] MEDS ORDERED: Ipratropium Bromide 2.5 ml Neb NEB PRN (08:17)
--- NOTE | 2020-05-19 08:26 | PDOC.FPRHP ---
- History of Present Illness Chief Complaint: SOB History of Present Illness: 79 y/o F with pmhx of COPD, asthma, tobacco use long standing, and CAD s/p CABG and stent, presents with worsening SOB since early . Pt states her house was sprayed with insecticide last week and this made her SOB much worse. Denies cough or chest pain. SOB worse with exertion or lying flat. Pt has been trying albuterol nebs at home without alleviation of SOB. Denies fevers, chills no known sick contacts or covid exposure. Has been staying home since last June to avoid covid-19. 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 Pena PCP: ANGEL, previously Dr. Lebron ED Course: given albuterol nebs, solu-medrol and ASA in ER No hypoxia documented - Allergies/Adverse Reactions Allergies Allergy/AdvReac Type Severity Reaction Status Date / Time codeine Allergy Verified 05/19/20 15:52 hydrocodone Allergy itching Verified 05/19/20 15:52 hydrocodone bitartrate Allergy itching Verified 05/19/20 15:52 [From Vicodin] morphine Allergy ITCHING, Verified 05/19/20 15:52 SEVERE BRADYCARDIA tramadol Allergy Verified 05/19/20 15:52 - Home Medications Medication Instructions Recorded Confirmed Type Budesonide-Formoterol [Symbicort 2 puff INH BID 10/31/17 05/19/20 History 160-4.5] Aspirin Chewable [Aspirin Chewable 81 mg PO DAILY #0 tab 11/18/17 05/19/20 Rx Tablet] Rosuvastatin [Crestor] 40 mg PO HS #30 tab 11/18/17 05/19/20 Rx Amiodarone [Cordarone] 200 mg PO DAILY 12/10/17 05/19/20 History Furosemide [Lasix] 40 mg PO Q3DAYS 12/10/17 05/19/20 History Gabapentin 300 mg PO BID 12/10/17 05/19/20 History Potassium Chloride 10 meq PO BID 12/10/17 05/19/20 History Fluticasone Propionate [Flonase 1 spray EA NARE DAILY 12/31/17 05/19/20 History Nasal [place]] Acetaminophen [Tylenol Regular 650 mg PO Q6H PRN tab 01/01/18 05/19/20 Rx Strength] Albuterol Sulfate [Proair HFA] 1 - 2 puff INH Q4HR PRN 05/19/20 05/19/20 History Amlodipine [Norvasc] 5 mg PO DAILY 05/19/20 05/19/20 History Cyclobenzaprine [Flexeril] 10 mg PO TID PRN 05/19/20 05/19/20 History Icosapent Ethyl [Vascepa] 2 g PO BID-WM 05/19/20 05/19/20 History Ipratropium/Albuterol Sulfate 3 ml NEB [id number] PRN 05/19/20 05/19/20 History [DuoNeb] Multivitamin/Iron/Folic Acid 1 each PO DAILY 05/19/20 05/19/20 History [Centrum Adults Tablet] Nitroglycerin [Nitrostat] 0.4 mg SL Q5MIN 05/19/20 05/19/20 History Potassium Gluconate 99 mg PO DAILY 05/19/20 05/19/20 History - History PMHx: COPD, asthma, CAD s/p CABG and stent, HTN, A fib PSHx: CABG 20 years ago, stent placement about 2 years ago, dental sx FHx: mother breast cancer. sisters cardiac problems Social: lives at home, recent insecticide spraying for roaches, long standing cigarette smoker. - Review of Systems General: reports: fatigue. denies: fever/chills Eyes: denies: eye pain, vision changes ENT: denies: nasal congestion, rhinorrhea Respiratory: reports: shortness of breath, exercise intolerance. denies: cough, congestion Cardiovascular: reports: palpitation, orthopnea. denies: chest pain, edema, paroxysmal nocturnal dyspnea Gastrointestinal: reports: constipation. denies: nausea, vomiting, diarrhea, abdominal pain Genitourinary: reports: other (decreased urine output). denies: dysuria, polyuria Skin: denies: rashes, lesions Musculoskeletal: denies: swelling, arthritis/arthralgias Neurological: denies: syncope, seizure Psychological: denies: anxiety, depression - Vital signs BP: 120/76 HR: 114 RR: 17 Tmax: 98.4 Pox: 97% on RA Wt: 81 kg - Physical Exam Constitutional: NAD, awake, alert and oriented, well developed HEENT: PERRLA, EOMI, conjunctiva clear, no scleral icterus, grossly normal vision, grossly normal hearing -HEENT: dry MM Neck: supple, no LAD, no JVD Chest: no-tender to palpation, no lesions Heart: RRR, normal S1/S2, pulses present, no edema -Lungs: poor air movement, with diminished breath sounds all lung nuñez. Expiratory wheezing. Abdomen: soft, non-tender, bowel sounds present, no masses/distention Musculoskeletal: normal structure, normal tone Neurological: no focal deficit, normal sensation Skin: no rash/lesions, good turgor Heme/Lymphatic: no unusual bruising or bleeding, no purpura, no petechia Psychiatric: normal mood and affect, good judgment and insight, intact recent and remote memory FMR H&P: Results - Labs Result Diagrams: 05/20/20 04:09 05/20/20 04:09 Lab results: WBC 6.0 thou/uL (4.8-10.8) 05/19/20 06:26 Hgb 10.0 g/dL (12.0-16.0) L 05/19/20 06:26 Hct 28.8 % (36.0-47.0) L 05/19/20 06:26 MCV 88.2 fL (78.0-98.0) 05/19/20 06:26 Plt Count 234 thou/uL (130-400) 05/19/20 06:26 Band Neuts % (Manual) 6 % (5-11) 05/19/20 06:26 Sodium 139 mmol/L (136-145) 05/19/20 06:26 Potassium 3.7 mmol/L (3.5-5.1) 05/19/20 06:26 Chloride 105 mmol/L (98-107) 05/19/20 06:26 Carbon Dioxide 24 mmol/L (23-31) 05/19/20 06:26 BUN 12 mg/dL (9.8-20.1) 05/19/20 06:26 Creatinine 1.52 mg/dL (0.6-1.1) H 05/19/20 06:26 Glucose 110 mg/dL (83-110) 05/19/20 06:26 Calcium 8.7 mg/dL (7.8-10.44) 05/19/20 06:26 Total Bilirubin 0.9 mg/dL (0.2-1.2) 05/19/20 06:26 AST 25 U/L (5-34) 05/19/20 06:26 ALT 15 U/L (8-55) 05/19/20 06:26 Alkaline Phosphatase 70 U/L (40-110) 05/19/20 06:26 CK-MB (CK-2) 4.5 ng/mL (0-6.6) 05/19/20 06:26 B-Natriuretic Peptide 423.0 pg/mL (0-100) H 05/19/20 06:26 Serum Total Protein 6.7 g/dL (6.0-8.3) 05/19/20 06:26 Albumin 3.6 g/dL (3.4-4.8) 05/19/20 06:26 - EKG Interpretation EKG: A fib with RVR, rate 117 - Radiology Interpretation Chest x-ray Status: image reviewed by me, report reviewed by me (report pending) FMR H&P: A/P - Problem List (1) COPD with exacerbation Current Visit: Yes Status: Acute Code(s): J44.1 - CHRONIC OBSTRUCTIVE PULMONARY DISEASE W (ACUTE) EXACERBATION (2) Normocytic anemia Current Visit: No Status: Acute Code(s): D64.9 - ANEMIA, UNSPECIFIED (3) CHF (congestive heart failure) Current Visit: Yes Status: Chronic Code(s): I50.9 - HEART FAILURE, UNSPECIFIED Qualifiers: Heart failure type: systolic Heart failure chronicity: chronic Qualified Code(s): I50.22 - Chronic systolic (congestive) heart failure (4) Coronary artery disease Current Visit: Yes Status: Chronic Priority: High Code(s): I25.10 - ATHSCL HEART DISEASE OF [place] CORONARY ARTERY W/O ANG PCTRS Qualifiers: Coronary Disease-Associated Artery/Lesion type: bypass graft [place] vs. transplanted heart: [place] heart Associated angina: without angina Qualified Code(s): I25.810 - Atherosclerosis of coronary artery bypass graft(s) without angina pectoris (5) HLD (hyperlipidemia) Current Visit: Yes Status: Chronic Priority: Low Code(s): E78.5 - HYPERLIPIDEMIA, UNSPECIFIED Qualifiers: Hyperlipidemia type: unspecified Qualified Code(s): E78.5 - Hyperlipidemia, unspecified (6) Hypertension Current Visit: Yes Status: Chronic Priority: Medium Code(s): I10 - ESSENTIAL (PRIMARY) HYPERTENSION Qualifiers: Hypertension type: essential hypertension Qualified Code(s): I10 - Essential (primary) hypertension (7) CKD (chronic kidney disease) stage 3, GFR 30-59 ml/min Current Visit: No Status: Acute Code(s): N18.3 - CHRONIC KIDNEY DISEASE, STAGE 3 (MODERATE) * DO NOT USE * - Plan 79 y/o F admitted for CODP exacerbation 1. COPD exacerbation without hypoxia - keep o2 sat 88-92% - prednisone 40 for 5 days, duonebs and abluterol nebs - restart home inhalers - nml WBC, band 6%, will order procal to further eval for possible infection. I suspect just COPD exacerbation rather than PNA. - hx of asthma 2. A fib with RVR - rate could be due to being clinically dry, will give 500 mL LR and if still tachy with give IV diltiazem to treat RVR - hold BB due to COPD exacerbation at this time. 3. HFrEF history - BMP at baseline, and not clinically volume overloaded - echo in 2018 EF 40-45% - repeat echo ordered - monitor fluid status and avoid unnecessary IVF hydration. 4. CKD stage III - Cr. @ baseline - clinically dry, will give one time 500 ml LR bolus 5. Indeterminant tropinin levels - at baseline since 2018. - Likely secondary to a fib with rvr and decreased renal clearance. 6. CAD s/p CABG and stent - EKG A fib with rate 117, no ST changes. - no current CP. - continue home meds. hold BB until copd exacerbation improved 7. HTN hx - continue home medications - BP controlled Code status: full code dvt ppx: lovenox diet: HH, fluid restrict 1800 ml daily Dispo: tele obs, <48 hrs anticipated. FMR H&P: Upper Level - Plan Date/Time: 05/19/20 0887 care plan discussed with Dr. Khan Addendum - Attending - Attending Attestation Date/Time: 05/19/20 1204 I personally evaluated the patient and discussed the management with Dr. Viramontes I agree with the History, Examination, Assessment and Plan documented above with any addition or exceptions noted below -79 y/o F with h/o COPD, asthma, tobacco use and CAD s/p CABG and stent presents with worsening SOB since early April. Pt states her house was sprayed with insecticide last week and this made her SOB much worse. Denies cough or chest pain. SOB worse with exertion or lying flat. Pt has been trying albuterol nebs at home without alleviation of SOB. Denies fevers, chills. No known sick contacts or covid exposure. PMH/PSH/Meds/SH reviewed and agree with resident's documentation. Afebrile VSS. Exam repeated by me and agree with resident's findings. Labs: NMO=[id number] A/P: 1) COPD ex acerbation- continue O2; wean as tolerated. Continue nebs q4 hours and steroids. 2) Afib- stable; continue to monitor.
[2020-05-19 08:33] LABS: SARS-CoV-2 NAA Rapid Test Not Detected (NotDetected)
--- NOTE | 2020-05-19 08:33 | RAD ---
Chest one view HISTORY: Dyspnea. COMPARISON: 04/14/2018. FINDINGS: Cardiac silhouette is magnified and upper limits of normal in size. Pulmonary vasculature a lso upper limits of normal. Reticulonodular markings at the base are somewhat pronounced, certainly more than on the prior exam. Mediastinum is midline with postoperative changes and aortic calcification. No lobar consolidation or evidence of pneumothorax. IMPRESSION : Cardiomegaly. Given the symmetry of the bibasilar infiltrates, vascular congestion is favored over in flammatory infiltrate.
[2020-05-19] MEDS ORDERED: Furosemide 40 MG TAB PO SCH (09:00)
[2020-05-19] MEDS ORDERED: Amiodarone 200 MG TAB PO SCH ×2 (09:00→22:45)
[2020-05-19 09:48] LABS: Troponin I 0.063 ng/mL (< 0.028)
[2020-05-19] MEDS ORDERED: Icosapent Ethyl 1 GM CAPSULE PO SCH (10:00)
[2020-05-19] MEDS ORDERED: Gabapentin 300 MG CAP PO SCH (10:00)
[2020-05-19] MEDS ORDERED: Enoxaparin Sodium 40 MG/0.4 ML SYRINGE ONE (10:58)
[2020-05-19] MEDS ORDERED: Furosemide 40 MG TAB ONE (10:58)
[2020-05-19] MEDS: Albuterol Sulfate 2.5 mg/3 ml Neb NEB SCH ×4 (11:01→22:53)
[2020-05-19] MEDS: Ipratropium Bromide 2.5 ml Neb NEB SCH ×4 (11:02→22:53)
[2020-05-19] MEDS: Enoxaparin Sodium 40 MG/0.4 ML SYRINGE SC SCH (11:07)
[2020-05-19] MEDS: Amlodipine 10 MG TAB PO SCH (11:10)
[2020-05-19] MEDS: Fluticasone Propionate Nasal Spray 16 gm Bottle NASAL SCH (11:12)
[2020-05-19] MEDS ORDERED: Acetaminophen 325 MG TAB ONE (11:18)
[2020-05-19] MEDS: Acetaminophen 325 MG TAB PO PRN (11:19)
[2020-05-19] MEDS ORDERED: Polyethylene Glycol 3350 17 GM Packet PO SCH (13:15)
[2020-05-19 13:47] VITALS: BMI 25.7
[2020-05-19] MEDS ORDERED: Furosemide 40 MG/4 ML VIAL SLOW IVP SCH (14:57)
[2020-05-19] MEDS ORDERED: Sodium Chloride 0.9% 10 ML ONE (15:03)
[2020-05-19] MEDS: Potassium Chloride 10 MEQ TAB PO SCH (18:44)
[2020-05-19] MEDS: Mometasone 200 MCG/Formoterol 5 MCG 120 PUFF INHALER INH SCH (18:51)
[2020-05-19] MEDS ORDERED: Simethicone Chewable 80 MG TAB PO PRN (21:06)
[2020-05-19] MEDS ORDERED: Milk Of Magnesia 30 ML UDCUP PO SCH (21:15)
[2020-05-19] MEDS: Gabapentin 300 MG CAP PO SCH (21:24)
[2020-05-19] MEDS: Rosuvastatin 20 MG TAB PO SCH (21:24)
[2020-05-19] MEDS: Icosapent Ethyl 1 GM CAPSULE PO SCH (21:27)
[2020-05-19 21:59] LABS: Magnesium 1.8 mg/dL (1.6-2.6); Phosphorus 2.8 mg/dL (2.3-4.7)
[2020-05-20] MEDS: Albuterol Sulfate 2.5 mg/3 ml Neb NEB SCH ×3 (02:35→11:04)
[2020-05-20] MEDS: Ipratropium Bromide 2.5 ml Neb NEB SCH ×3 (02:37→11:04)
[2020-05-20 05:35] LABS: Anion Gap 14 mmol/L (10-20); BUN (Urea Nitrogen) 14 mg/dL (9.8-20.1); Calc. Creatinine Clearance 42 mL/min (70-130); Calcium 8.7 mg/dL (7.8-10.44); Carbon Dioxide 25 mmol/L (23-31); Chloride 101 mmol/L (98-107); Glucose 142 mg/dL (83-110); Potassium 3.8 mmol/L (3.5-5.1); Sodium 136 mmol/L (136-145)
[2020-05-20 05:47] LABS: Hemoglobin 9.8 g/dL (12.0-16.0); Hypochromia SLIGHT = 6-15 cells (100X) (0-5/hpf); Lymphocytes 20 % (21-51); MDiff Complete? YES; Mean Corpuscular HGB CONC 34.1 g/dL (32.0-36.0); Mean Platelet Volume 7.8 fL (7.4-10.4); Monocytes 18 % (0-10); Neutrophil 62 % (42-75); Platelet Count 253 thou/uL (130-400); Platelet Morphology Comment Appears Adequate; RBC Distribution Width 16.3 % (11.5-14.5); Red Blood Cell (RBC) Count 3.26 mill/uL (4.20-5.40); Target Cells SLIGHT = 2-5 cells (100X) (0-1/hpf); White Blood Cell (WBC) Count 4.4 thou/uL (4.8-10.8)
[2020-05-20] MEDS: Mometasone 200 MCG/Formoterol 5 MCG 120 PUFF INHALER INH SCH ×2 (07:02→19:32)
--- NOTE | 2020-05-20 07:16 | PDOC.FM ---
- Subjective Subjective: Pt reports much better breathing this morning. does not feel palpitations or chest pain tele overnight rate 110's average. a fib c/o constipation stared on amiodarone loading dose as pt thinks she has not been taking meds. - Objective MAR Reviewed: Yes Vital Signs & Weight: Vital Signs (12 hours) Temp Pulse Resp BP Pulse Ox 05/20/20 07:06 92 L 05/20/20 07:05 118 H 20 92 L 05/20/20 07:02 118 H 20 92 L 05/20/20 04:00 98.3 F 115 H 20 124/74 99 05/20/20 02:35 110 H 20 97 05/19/20 22:53 20 05/19/20 20:55 98.3 F 110 H 18 117/74 96 Weight Weight 86.183 kg I&O: 05/19/20 05/20/20 05/21/20 06:59 06:59 06:59 Intake Total 615 Output Total 850 Balance -235 Result Diagrams: 05/20/20 04:09 05/20/20 04:09 Phys Exam - Physical Examination Constitutional: NAD HEENT: moist MMs, sclera anicteric Neck: no JVD, supple, full ROM Respiratory: wheezing present (end exp wheezing ) right sided base crackles. Cardiovascular: RRR, no rub Gastrointestinal: soft, non-tender, no distention, positive bowel sounds Musculoskeletal: no edema, pulses present Neurological: non-focal, moves all 4 limbs Psychiatric: normal affect, A&O x 3 Skin: normal turgor, cap refill <2 seconds Dx/Plan (1) COPD with exacerbation Code(s): J44.1 - CHRONIC OBSTRUCTIVE PULMONARY DISEASE W (ACUTE) EXACERBATION Status: Acute (2) Normocytic anemia Code(s): D64.9 - ANEMIA, UNSPECIFIED Status: Acute (3) CHF (congestive heart failure) Code(s): I50.9 - HEART FAILURE, UNSPECIFIED Status: Chronic Qualifiers: Heart failure type: systolic Heart failure chronicity: chronic Qualified Code(s): I50.22 - Chronic systolic (congestive) heart failure (4) Coronary artery disease Code(s): I25.10 - ATHSCL HEART DISEASE OF [place] CORONARY ARTERY W/O ANG PCTRS Status: Chronic Qualifiers: Coronary Disease-Associated Artery/Lesion type: bypass graft [place] vs. transplanted heart: [place] heart Associated angina: without angina Qualified Code(s): I25.810 - Atherosclerosis of coronary artery bypass graft(s) without an garima pectoris (5) HLD (hyperlipidemia) Code(s): E78.5 - HYPERLIPIDEMIA, UNSPECIFIED Status: Chronic Qualifiers: Hyperlipidemia type: unspecified Qualified Code(s): E78.5 - Hyperlipidemia, unspecified (6) Hypertension Code(s): I10 - ESSENTIAL (PRIMARY) HYPERTENSION Status: Chronic Qualifiers: Hypertension type: essential hypertension Qualified Code(s): I10 - Essential (primary) hypertension (7) CKD (chronic kidney disease) stage 3, GFR 30-59 ml/min Code(s): N18.3 - CHRONIC KIDNEY DISEASE, STAGE 3 (MODERATE) * DO NOT USE * Status: Acute - Plan Plan: 79 y/o F admitted for CODP exacerbation 1. COPD exacerbation without hypoxia - keep o2 sat 88-92% - prednisone 40 for 5 days, duonebs and abluterol nebs - restart home inhalers - nml WBC, band 6%, procal neg. I suspect just COPD exacerbation rather than infection. - hx of asthma 2. A fib with RVR - rate could be due to being clinically dry, but rate 100's after 500 mL LR on 05/19. Amniodarone loaded and restarted yesterday, pt endorses not taking medications well the past month. - restarted BB and amniodarone - TSH slightly low @ 0.2, T4 wnl. mag 1.8, given 2 g IV 05/20, and phos 2.8. - only on ASA for antigoagulation, will do ppx lovenox while in hx. and will discuss with her anticoagulation options, CHADVASC score 5 3. HFrEF history - BMP at baseline, and not clinically volume overloaded - echo in 2018 EF 40-45% - repeat echo ordered - monitor fluid status and avoid unnecessary IVF hydration. - home dose lasix Po [id number], will increase to daily while hospitalized. 4. CKD stage III - Cr. @ baseline - euvoulemic 05/20. 5. Indeterminant tropinin levels, downtrended - at baseline since 2018. - Likely secondary to a fib with rvr and decreased renal clearance. 6. CAD s/p CABG and stent - EKG A fib with rate 117, no ST changes. - no current CP. - continue home meds. 7. HTN hx - continue home medications - BP controlled Code status: full code dvt ppx: lovenox diet: HH, fluid restrict 1800 ml daily Dispo: tele obs, <48 hrs anticipated. Addendum - Attending - Attending Attestation Date/Time: 05/20/20 4827 I personally evaluated the patient and discussed the management with Dr. Viramontes I agree with the History, Examination, Assessment and Plan documented above with any addition or exceptions noted below - Patient feeling better; SOB improved. Afebrile VSS. A/P: 1) COPD exacerbation - continue steroids/nebs, 2) Afib with RVR- start on diltiazem; continue amio. Discussed anticoagulation- and will reatrt on eliquis.
[2020-05-20] MEDS ORDERED: Potassium Chloride 20 MEQ TAB PO SCH (07:30)
[2020-05-20] MEDS ORDERED: Magnesium Sulfate 2 GM in Sodium Chloride 0.9% 100 ML IVPB SCH (07:30)
[2020-05-20] MEDS ORDERED: Magnesium 2 GM/50 ML 2 GM in Premix Bag 1 BAG IVPB SCH (07:30)
[2020-05-20] MEDS: predniSONE 20 MG TAB PO SCH (08:33)
[2020-05-20] MEDS: Aspirin Chewable 81 MG TAB PO SCH (08:33)
[2020-05-20] MEDS: Gabapentin 300 MG CAP PO SCH ×2 (08:34→21:44)
[2020-05-20] MEDS: Enoxaparin Sodium 40 MG/0.4 ML SYRINGE SC SCH (08:35)
[2020-05-20] MEDS: Fluticasone Propionate Nasal Spray 16 gm Bottle NASAL SCH (08:35)
[2020-05-20] MEDS: Icosapent Ethyl 1 GM CAPSULE PO SCH ×2 (08:36→17:22)
[2020-05-20] MEDS: Amlodipine 10 MG TAB PO SCH (08:36)
[2020-05-20] MEDS ORDERED: Amiodarone 200 MG TAB PO SCH (09:00)
[2020-05-20] MEDS ORDERED: Polyethylene Glycol 3350 17 GM Packet PO SCH (09:00)
[2020-05-20] MEDS: Potassium Chloride 10 MEQ TAB PO SCH ×2 (09:24→17:22)
[2020-05-20] MEDS ORDERED: Diltiazem 125 MG in Sodium Chloride 0.9% 100 ML IVPB SCH ×2 (10:00→13:15)
--- NOTE | 2020-05-20 10:34 | PDOC.BPN ---
- Brief Progress Note Pt states she had been on anticoagulant in past, no falls, or ICH however did have her tongue bleed, she also ate hard candy that day. a nurse told her to stop the medication. / risk and benefits of anticoagulant therapy discussed and pt opted for anticoagulant therapy. will start eliquis 5 mg bid. only 1/3 criteria met for lower dose at this time.
[2020-05-20] MEDS: Acetaminophen 325 MG TAB PO PRN ×2 (11:10→23:04)
[2020-05-20] MEDS ORDERED: Furosemide 20 MG/2 ML VIAL SLOW IVP SCH (12:15)
[2020-05-20] MEDS: Polyethylene Glycol 3350 17 GM Packet PO SCH ×2 (14:34→21:47)
[2020-05-20] MEDS ORDERED: Cyclobenzaprine 10 MG TAB PO PRN (17:10)
[2020-05-20] MEDS: Rosuvastatin 20 MG TAB PO SCH (21:44)
[2020-05-20] MEDS: Apixaban 5 MG TAB PO SCH (21:46)
[2020-05-20] MEDS: Glycerin Adult Supp. (12 ct jar) PR SCH (21:48)
[2020-05-21 05:07] LABS: Anion Gap 15 mmol/L (10-20); BUN (Urea Nitrogen) 21 mg/dL (9.8-20.1); Calc. Creatinine Clearance 39 mL/min (70-130); Calcium 8.5 mg/dL (7.8-10.44); Carbon Dioxide 23 mmol/L (23-31); Chloride 101 mmol/L (98-107); Glucose 126 mg/dL (83-110); Potassium 4.1 mmol/L (3.5-5.1); Sodium 135 mmol/L (136-145)
[2020-05-21 05:08] LABS: Band 2 % (5-11); Lymphocytes 9 % (21-51); MDiff Complete? YES; Mean Corpuscular HGB CONC 34.8 g/dL (32.0-36.0); Mean Corpuscular Hemoglobin 30.8 pg (27.0-31.0); Mean Corpuscular Volume 88.4 fL (78.0-98.0); Mean Platelet Volume 7.6 fL (7.4-10.4); Monocytes 11 % (0-10); Neutrophil 78 % (42-75); Platelet Count 224 thou/uL (130-400); Platelet Morphology Comment Appears Adequate; RBC Distribution Width 16.5 % (11.5-14.5); Red Blood Cell (RBC) Count 3.23 mill/uL (4.20-5.40); White Blood Cell (WBC) Count 7.5 thou/uL (4.8-10.8)
--- NOTE | 2020-05-21 06:28 | PDOC.FM ---
- Subjective Subjective: Patient doing well no issues, breathing better. Still on cardizem drip and requiring oxygen. - Objective Vital Signs & Weight: Vital Signs (12 hours) Temp Pulse Resp BP Pulse Ox 05/21/20 03:55 98.2 F 95 18 106/70 92 L 05/21/20 03:37 93 L 05/21/20 00:14 99 18 108/82 91 L 05/20/20 22:06 94 L 05/20/20 20:00 97.4 F L 102 H 18 134/84 92 L 05/20/20 19:38 93 L 05/20/20 19:32 93 L 05/20/20 19:31 94 L Weight Weight 86.183 kg I&O: 05/19/20 05/20/20 05/21/20 06:59 06:59 06:59 Intake Total 615 1067 Output Total 700 350 Balance -85 717 Result Diagrams: 05/22/20 04:37 05/22/20 04:37 Phys Exam - Physical Examination Constitutional: NAD HEENT: PERRLA, moist MMs Respiratory: no wheezing bibasilar crackles Cardiovascular: no significant murmur irregular Gastrointestinal: soft, non-tender Musculoskeletal: no edema Neurological: non-focal, moves all 4 limbs Psychiatric: normal affect, A&O x 3 Skin: no rash Dx/Plan - Plan Plan: 79 y/o F admitted for CODP exacerbation 1. COPD exacerbation without hypoxia - keep o2 sat 88-92% - prednisone 40 for 5 days, duonebs and abluterol nebs - restart home inhalers - nml WBC, band 6%, procal neg. I suspect just COPD exacerbation rather than infection. - hx of asthma 2. A fib with RVR - rate could be due to being clinically dry, but rate 100's after 500 mL LR on 05/19. Amniodarone loaded and restarted yesterday, pt endorses not taking medications well the past month. Increase metoprolol to 50mg - restarted BB and amniodarone - TSH slightly low @ 0.2, T4 wnl. mag 1.8, given 2 g IV 05/20, and phos 2.8. - Continue eliquis 3. HFrEF history - BMP at baseline, and not clinically volume overloaded - echo in 2018 EF 40-45% - repeat echo ordered - monitor fluid status and avoid unnecessary IVF hydration. - home dose lasix Po [id number], will increase to daily while hospitalized. 4. CKD stage III - Cr. @ baseline - euvoulemic 05/20. 5. Indeterminant tropinin levels, downtrended - at baseline since 2018. - Likely secondary to a fib with rvr and decreased renal clearance. 6. CAD s/p CABG and stent - EKG A fib with rate 117, no ST changes. - no current CP. - continue home meds. 7. HTN hx - continue home medications - BP controlled Code status: full code dvt ppx: lovenox diet: HH, fluid restrict 1800 ml daily Dispo: tele obs, <48 hrs anticipated. Addendum - Attending Addendum - Attending - Attending Attestation Date/Time: 05/22/20 1034 I personally evaluated the patient and discussed the management with Dr. Leblanc on 05/21. I agree with the History, Examination, Assessment and Plan documented above with any addition or exceptions noted below.
[2020-05-21 07:13] LABS: Magnesium 2.4 mg/dL (1.6-2.6); Phosphorus 2.7 mg/dL (2.3-4.7)
[2020-05-21] MEDS: Mometasone 200 MCG/Formoterol 5 MCG 120 PUFF INHALER INH SCH ×2 (07:48→19:05)
[2020-05-21] MEDS: Aspirin Chewable 81 MG TAB PO SCH (08:43)
[2020-05-21] MEDS: predniSONE 20 MG TAB PO SCH (08:43)
[2020-05-21] MEDS: Gabapentin 300 MG CAP PO SCH ×2 (08:44→21:19)
[2020-05-21] MEDS: Apixaban 5 MG TAB PO SCH ×2 (08:44→21:20)
[2020-05-21] MEDS: Amlodipine 10 MG TAB PO SCH (08:45)
[2020-05-21] MEDS: Amiodarone 200 MG TAB PO SCH (08:46)
[2020-05-21] MEDS: Potassium Chloride 10 MEQ TAB PO SCH ×2 (08:46→17:48)
[2020-05-21] MEDS: Multivit, Therapeutic 1 TAB PO SCH (08:47)
[2020-05-21] MEDS: Icosapent Ethyl 1 GM CAPSULE PO SCH ×2 (08:48→17:48)
[2020-05-21] MEDS: Polyethylene Glycol 3350 17 GM Packet PO SCH ×4 (08:48→21:22)
[2020-05-21] MEDS: Fluticasone Propionate Nasal Spray 16 gm Bottle NASAL SCH (08:49)
[2020-05-21] MEDS: Lidocaine 5% Patch TD SCH (08:50)
[2020-05-21] MEDS: Glycerin Adult Supp. (12 ct jar) PR SCH ×2 (08:50→21:20)
[2020-05-21] MEDS ORDERED: Non-Formulary Item 1 EACH (Multivitamin/Iron/Folic Acid [Centrum Adults Tablet] 1 EACH Ta PO SCH (09:00)
[2020-05-21] MEDS ORDERED: Furosemide 40 MG/4 ML VIAL SLOW IVP SCH (09:00)
[2020-05-21] MEDS ORDERED: Furosemide 40 MG TAB PO SCH (09:00)
[2020-05-21] MEDS: Acetaminophen 325 MG TAB PO PRN (15:35)
[2020-05-21] MEDS ORDERED: Diltiazem HCl 125 MG, Admixture Fee 1 EACH in Sodium Chloride 0.9% 100 ML IVPB PRN (18:31)
[2020-05-21] MEDS ORDERED: Lidocaine Patch Removal TOP SCH (21:00)
[2020-05-21] MEDS: Rosuvastatin 20 MG TAB PO SCH (21:20)
[2020-05-22 05:12] LABS: ALT (SGPT) 21 U/L (8-55); AST (SGOT) 28 U/L (5-34); Albumin 3.5 g/dL (3.4-4.8); Alkaline Phosphatase 71 U/L (40-110); Anion Gap 13 mmol/L (10-20); BUN (Urea Nitrogen) 26 mg/dL (9.8-20.1); Bilirubin, Total 0.6 mg/dL (0.2-1.2); Calc. Creatinine Clearance 38 mL/min (70-130); Calcium 8.7 mg/dL (7.8-10.44); Carbon Dioxide 23 mmol/L (23-31); Chloride 103 mmol/L (98-107); Globulin 3.3 g/dL (2.4-3.5); Glucose 138 mg/dL (83-110); Magnesium 2.4 mg/dL (1.6-2.6); Potassium 4.2 mmol/L (3.5-5.1); Protein, Total 6.8 g/dL (5.8-8.1); Sodium 135 mmol/L (136-145)
[2020-05-22 05:14] LABS: #Lymphocytes 0.8 thou/uL (1.20-3.40); #Monocytes 0.6 thou/uL (0.11-0.59); #Neutrophils 6.3 thou/uL (1.40-6.50); %Eosinophils 0.1 % (0.0-10.0); %Lymphocytes 10.6 % (21.0-51.0); %Monocytes 8.3 % (0.0-10.0); Mean Corpuscular Volume 88.3 fL (78.0-98.0); Platelet Count 219 thou/uL (130-400); RBC Distribution Width 16.8 % (11.5-14.5); Red Blood Cell (RBC) Count 3.32 mill/uL (4.20-5.40); White Blood Cell (WBC) Count 7.8 thou/uL (4.8-10.8)
--- NOTE | 2020-05-22 07:25 | PDOC.FM ---
- Subjective Subjective: Came off of cardizem gtt and has been rate controlled in 90-low 100s most of night with a few min into 130s with exertion. Pt breathign much improved. Seems to be able to ambulate at baseline but still with dypsnea with walking past beside commode. Still requiring 2L O2 - Objective Vital Signs & Weight: Vital Signs (12 hours) Temp Pulse Resp BP Pulse Ox 05/22/20 03:04 97.7 F 99 20 112/65 94 L 05/22/20 01:32 94 L 05/22/20 01:31 94 L 05/22/20 00:00 20 95 05/21/20 21:17 98.7 F 105 H 22 H 110/66 94 L Weight Weight 83.036 kg I&O: 05/21/20 05/22/20 05/23/20 06:59 06:59 06:59 Intake Total 1067 870 Output Total 350 1550 Balance 717 -680 Result Diagrams: 05/22/20 04:37 05/22/20 04:37 Dx/Plan - Plan Plan: 79 y/o F admitted for AHRF 2/2 COPD exacerbation vs. CHF exacerbation #AHRF 2/2 COPD exacerbation vs. CHF exacerbation -COPD-improved, Continue duonebs PRN, continue steroids to completion of 5 days -CHF- mild bibasilar crackles still present but fluid status improved. 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 @ baseline # Indeterminant tropinin levels, downtrended - at baseline since 2018. - Likely secondary to a fib with rvr and decreased renal clearance. # CAD s/p CABG and stent - EKG A fib with rate 117, no ST changes. - no current CP. - continue home meds. # HTN hx - continue home medications - BP controlled Code status: full code dvt ppx: lovenox diet: HH, fluid restrict 1800 ml daily Dispo: Pending PT/OT eval, further discuss placement with granddaughter. Pt will think about SNF/Rehab Addendum - Attending - Attending Attestation Date/Time: 05/22/20 5554 I personally evaluated the patient and discussed the management with Dr. Leblanc. I agree with the History, Examination, Assessment and Plan documented above with any addition or exceptions noted below.
[2020-05-22] MEDS ORDERED: Furosemide 40 MG TAB PO SCH (07:30)
[2020-05-22] MEDS: Mometasone 200 MCG/Formoterol 5 MCG 120 PUFF INHALER INH SCH (07:57)
[2020-05-22] MEDS: Fluticasone Propionate Nasal Spray 16 gm Bottle NASAL SCH (09:32)
[2020-05-22] MEDS: Aspirin Chewable 81 MG TAB PO SCH (09:34)
[2020-05-22] MEDS: Lidocaine 5% Patch TD SCH (09:34)
[2020-05-22] MEDS: Polyethylene Glycol 3350 17 GM Packet PO SCH ×2 (09:34→15:51)
[2020-05-22] MEDS: Apixaban 5 MG TAB PO SCH (09:35)
[2020-05-22] MEDS: Potassium Chloride 10 MEQ TAB PO SCH (09:35)
[2020-05-22] MEDS: predniSONE 20 MG TAB PO SCH (09:35)
[2020-05-22] MEDS: Multivit, Therapeutic 1 TAB PO SCH (09:35)
[2020-05-22] MEDS: Amiodarone 200 MG TAB PO SCH (09:36)
[2020-05-22] MEDS: Amlodipine 10 MG TAB PO SCH (09:36)
[2020-05-22] MEDS: Icosapent Ethyl 1 GM CAPSULE PO SCH (09:37)
[2020-05-22] MEDS: Gabapentin 300 MG CAP PO SCH (09:38)
[2020-05-22] MEDS: Glycerin Adult Supp. (12 ct jar) PR SCH (09:39)
[2020-05-22 11:41] VITALS: TEMP 98
[2020-05-22 16:30] VITALS: BP 131/68
[2020-05-22] MEDS ORDERED: Potassium Chloride 10 MEQ TAB PO SCH (17:00)
--- NOTE | 2020-05-23 13:49 | DIS ---
DATE OF ADMISSION: 05/20/2020 DATE OF DISCHARGE: 05/22/2020 ADMITTING ATTENDING: Kady Khan MD DISCHARGE ATTENDING: Phillip Kelly MD RESIDENT: Patti Leblanc, PGY-3. CONSULTS: None. PROCEDURES AND IMAGING: Chest x-ray, cardiac silhouette upper limits of normal size. Pulmonary vasculature also upper limits of normal. Reticulonodular markings at the bases are more pronounced. No lobar consolidation. Echocardiogram: Ejection fraction 40% to 45%. Mildly dilated left atrium. Moderately enlarged right ventricular cavity. IVC dilated. Severe tricuspid regurgitation. Moderate mitral regurgitation. Mild aortic regurgitation. PRIMARY DIAGNOSES: 1. Acute hypoxic respiratory failure secondary to chronic obstructive pulmonary disease and congestive heart failure exacerbation. 2. Atrial fibrillation with rapid ventricular response. 3. Possible new onset heart failure with preserved ejection fraction. 4. Chronic kidney disease, stage 3. 5. Coronary artery disease, status post CABG and stent placement. 6. Hypertension. 7. History of chronic obstructive pulmonary disease. 8. History of heart failure with preserved ejection fraction. SECONDARY DIAGNOSIS: Chronic kidney disease, stage 3b. DISCHARGE MEDICATIONS: New medications: 1. Prednisone 40 mg p.o. q.a.m., one tab. 2. Eliquis 5 mg p.o. b.i.d. 3. Combivent. 4. DuoNebs. 5. Lasix 40 mg p.o. daily. 6. Metoprolol succinate XL 50 mg p.o. daily. 7. Lidocaine patch 5%. Resume home medications: 1. Amiodarone 200 mg p.o. daily. 2. Flonase. 3. Tylenol. 4. Vascepa 2 g p.o. b.i.d. with meals. 5. Amlodipine 5 mg p.o. daily. 6. Flexeril 10 mg p.o. t.i.d. p.r.n. for muscle spasms. 7. Albuterol sulfate 1 to 2 puffs inhaled q.4 hours p.r.n. for short of breath or wheezing. 8. Gabapentin 300 mg p.o. b.i.d. 9. Potassium 10 mEq p.o. b.i.d. 10. Rosuvastatin 40 mg p.o. at bedtime. 11. Aspirin 81 mg p.o. b.i.d. 12. Symbicort two puffs inhaled b.i.d. Discontinued medications: Lasix 40 mg p.o. every three days. HISTORY OF PRESENT ILLNESS/HOSPITAL COURSE: Ms. Denisa Rick is a 79-year-old female with history of HFpEF, atrial fibrillation, asthma, and COPD, who presented to the ER for shortness of breath. She is found to be in a COPD exacerbation in 88% on room air, requiring nasal cannula oxygen. She was started on breathing treatments with steroids. In addition, she was found to be in atrial fibrillation with RVR. She was initially very difficult to control with her atrial fibrillation with RVR failing several IV medications. Patient admitted she was noncompliant with several of her medications including her amiodarone and her metoprolol. We restarted those medications and titrated them and she was rate controlled during her last hospital days. 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 She was diuresed with IV Lasix over the course of the next few days. An echo was obtained which did show a reduced ejection fraction of 40% to 45%. Her last echo in hospital was in 2016 that showed an echo read with HFpEF (EF 55% to 60%). It is unsure whether or not patient has been seeing Cardiology in the interim, and she has already had a diagnosis of HFpEF. However, decision was made not to consult Cardiology since she is already on several of the medications needed for HFpEF. Can consider an outpatient repeat echo and obtaining Cardiology records and discussing with the patient further. In addition, sure decision was made to start anticoagulation with Eliquis. She did also require Cardizem drip, but on discharge, is now rate controlled on metoprolol and amiodarone. In addition, she was found to have an NALDO on CKD, which resolved with fluids and control of her atrial fibrillation with RVR and IV diuresis for her CHF exacerbation. The patient was evaluated by PT and rehab was recommended, however, patient refused to go. She has good family support at home in which her daughter and, I believe, niece, live right down the street and checking on her every day. I did recommend to the patient that she follow up very early next week because there are a couple of things that need to be checked on with all her medication adjustments. DISPOSITION: Stable. DISCHARGE INSTRUCTIONS: 1. Location: Home. 2. Fluid: Restrict to heart healthy. 3. Activity: Ad abrahan as tolerated. . FOLLOWUP: 1. Please follow up with PCP, Dr. Foley or myself early next week. 2. Please repeat a BMP to make sure electrolytes and renal function are stable. 3. Please consider reaching up to Cardiology to confirm history of HFpEF. If not, the patient will likely need repeat echo to see if she still has a reduced ejection fraction. 4. Please consider Pulmonology consult in an outpatient setting. 5. Please do a walking O2 test as it is possible patient may need intermittent oxygen though she passed a walking test in the hospital, just based on symptoms. 6. Please be evaluated for outpatient sleep study. 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 7. Please further discuss importance of compliance with medications with the patient regarding CHF exacerbation and atrial fibrillation with RVR again. She does not really like taking her Lasix because it makes her urinate too frequently, so hopefully coming to the regimen that will ensure compliance if achievable. 8. Please feel free to call for any questions or concerns. Job ID: [id number]
== END 2020-05-22 17:06 | disposition home or self-care (01) | DRG 291 ==
LOC: ERS 05:40 → ERHOLD 07:39 → 2NO 13:38 → OBSVTOIN 05-20 13:17
PROVIDERS: ADMIT Family Medicine; ATTEND Family Medicine
DX: I13.0 Hypertensive heart and chronic kidney disease with heart failure and stage 1 through stage 4 chronic kidney disease, or unspecified chronic kidney disease (principal); J96.01 Acute respiratory failure with hypoxia; I50.43 Acute on chronic combined systolic (congestive) and diastolic (congestive) heart failure; J44.1 Chronic obstructive pulmonary disease with (acute) exacerbation; N17.9 Acute kidney failure, unspecified; Z20.822 Contact with and (suspected) exposure to COVID-19; I42.8 Other cardiomyopathies; I48.91 Unspecified atrial fibrillation; I25.10 Atherosclerotic heart disease of native coronary artery without angina pectoris; N18.32 Chronic kidney disease, stage 3b; F17.210 Nicotine dependence, cigarettes, uncomplicated; D63.1 Anemia in chronic kidney disease; K59.00 Constipation, unspecified; Z95.1 Presence of aortocoronary bypass graft; Z95.5 Presence of coronary angioplasty implant and graft; Z91.14 Patient's other noncompliance with medication regimen; Z88.6 Allergy status to analgesic agent; Z88.5 Allergy status to narcotic agent; Z88.8 Allergy status to other drugs, medicaments and biological substances; Z79.51 Long term (current) use of inhaled steroids; Z79.899 Other long term (current) drug therapy; Z79.82 Long term (current) use of aspirin; Z80.3 Family history of malignant neoplasm of breast; Z82.49 Family history of ischemic heart disease and other diseases of the circulatory system
CPT/HCPCS: 0240U; 36415; 71045; 80048; 80053; 82040; 82553; 83735; 83880; 84100; 84145; 84439; 84443; 84484; 85025; 87040; 87076; 87149; 93005; 93306; 94640; 94644; 96365; 96366; 96367; 96372; 96374; 96375; 96376; A4218; G0378; J1650; J1940; J2930; J3475; J3490; J7512; J7611; J7620

== ENCOUNTER 2020-06-26 19:00 | Outpatient (CLI) | payer MEDICARE | END 2020-06-26 19:01 | disposition home or self-care (01) | LOC: SLEEPLAB 19:00 | PROVIDERS: ATTEND Family Medicine | DX: G47.33 Obstructive sleep apnea (adult) (pediatric) (principal); R53.83 Other fatigue; I11.0 Hypertensive heart disease with heart failure; I50.9 Heart failure, unspecified; I48.91 Unspecified atrial fibrillation; G47.10 Hypersomnia, unspecified; J44.9 Chronic obstructive pulmonary disease, unspecified; G47.00 Insomnia, unspecified; R09.02 Hypoxemia | CPT/HCPCS: 95810 ==

== ENCOUNTER 2020-07-20 19:30 | Outpatient (CLI) | payer MEDICARE | END 2020-07-20 19:31 | disposition home or self-care (01) | LOC: SLEEPLAB 19:30 | PROVIDERS: ATTEND Family Medicine | DX: G47.33 Obstructive sleep apnea (adult) (pediatric) (principal); R53.82 Chronic fatigue, unspecified; J44.9 Chronic obstructive pulmonary disease, unspecified; I11.0 Hypertensive heart disease with heart failure; I50.9 Heart failure, unspecified; G47.10 Hypersomnia, unspecified; R09.02 Hypoxemia | CPT/HCPCS: 95811 ==

== ENCOUNTER → 2020-08-16 | Day surgery (SDC) | payer MEDICARE ==
[~2020-08-16] MED LIST changes: +Acetaminophen 500 MG TAB ONE; -ISOVUE-370 76%-LOCM 1 ML ONE; +Lidocaine 1% PF 5 ML VIAL ONE; +PROPOFOL 20 ML ONE
== END ==
LOC: CCL 06:05
PROVIDERS: ATTEND Internal Medicine Cardiovascular Disease
PROC: 5A2204Z Restoration of Cardiac Rhythm, Single (ICD-10-PCS; principal; 2020-08-16)
PROC: B24BZZ4 Ultrasonography of Heart with Aorta, Transesophageal (ICD-10-PCS; 2020-08-16)
DX: I48.0 Paroxysmal atrial fibrillation (principal); I08.3 Combined rheumatic disorders of mitral, aortic and tricuspid valves; I70.0 Atherosclerosis of aorta; I42.9 Cardiomyopathy, unspecified; E78.00 Pure hypercholesterolemia, unspecified; I25.10 Atherosclerotic heart disease of native coronary artery without angina pectoris; I12.9 Hypertensive chronic kidney disease with stage 1 through stage 4 chronic kidney disease, or unspecified chronic kidney disease; N18.9 Chronic kidney disease, unspecified; J44.9 Chronic obstructive pulmonary disease, unspecified; Z87.891 Personal history of nicotine dependence; Z79.01 Long term (current) use of anticoagulants; Z79.82 Long term (current) use of aspirin; Z79.899 Other long term (current) drug therapy; Z88.5 Allergy status to narcotic agent; Z95.1 Presence of aortocoronary bypass graft; Z95.5 Presence of coronary angioplasty implant and graft
CPT/HCPCS: 93005; 93010; 93312; J2704

== ENCOUNTER 2021-11-10 13:53 | Outpatient (CLI) | payer MEDICARE | END 2021-11-10 13:54 | disposition home or self-care (01) | LOC: BICRAD 13:53 | PROVIDERS: ATTEND Internal Medicine Cardiovascular Disease | DX: I48.0 Paroxysmal atrial fibrillation (principal) | CPT/HCPCS: 71046 ==

== ENCOUNTER 2022-06-13 14:18 | Outpatient (CLI) | payer MEDICARE | END 2022-06-13 14:19 | disposition home or self-care (01) | LOC: BICRAD 14:18 | PROVIDERS: ATTEND Internal Medicine Cardiovascular Disease | DX: R91.8 Other nonspecific abnormal finding of lung field (principal) | CPT/HCPCS: 71046 ==

== ENCOUNTER 2022-10-16 12:55 | Emergency (ER) | payer MEDICARE, OTHER ==
[~2022-10-16 12:55] MED LIST changes: -Acetaminophen 500 MG TAB ONE; +Iopamidol 370 76% 100 ML VIAL ONE; -Lidocaine 1% PF 5 ML VIAL ONE; -PROPOFOL 20 ML ONE
[2022-10-16 13:32] LABS: #Monocytes 0.8 thou/uL (0.11-0.59); #Neutrophils 6.4 thou/uL (1.40-6.50); %Basophils 0.2 % (0.0-1.0); %Eosinophils 0.4 % (0.0-10.0); %Lymphocytes 12.1 % (21.0-51.0); %Monocytes 9.6 % (0.0-10.0); %Neutrophils 77.5 % (42.0-75.0); Hemoglobin 10.2 g/dL (12.0-16.0); Mean Corpuscular HGB CONC 37.1 g/dL (32.0-36.0); Mean Corpuscular Hemoglobin 30.1 pg (27.0-31.0); Mean Corpuscular Volume 81.1 fl (78.0-98.0); Mean Platelet Volume 10.1 fL (7.4-10.4); Platelet Count 268 10x3/uL (130-400); RBC Distribution Width 15.4 % (11.5-14.5); Red Blood Cell (RBC) Count 3.39 mill/uL (4.20-5.40); White Blood Cell (WBC) Count 8.3 10x3/uL (4.8-10.8)
[2022-10-16] MEDS ORDERED: Ondansetron PF 4 MG/2 ML Vial ONE (13:47)
[2022-10-16] MEDS ORDERED: Acetaminophen 325 MG TAB ONE ×2 (13:47→16:26)
[2022-10-16 13:54] LABS: ALT (SGPT) 37 U/L (8-55); AST (SGOT) 155 U/L (5-34); Albumin 3.4 g/dL (3.4-4.8); Alkaline Phosphatase 212 U/L (40-110); Anion Gap 12 mmol/L (10-20); BUN (Urea Nitrogen) 16 mg/dL (9.8-20.1); Bilirubin, Total 0.8 mg/dL (0.2-1.2); Calc. Creatinine Clearance 0 mL/min (70-130); Calcium 9.8 mg/dL (7.8-10.44); Carbon Dioxide 25 mmol/L (23-31); Chloride 101 mmol/L (98-107); Estimated GFR 28; Globulin 3.4 g/dL (2.4-3.5); Glucose 119 mg/dL (83-110); Lipase 106 U/L (8-78); Protein, Total 6.8 g/dL (5.8-8.1); Sodium 134 mmol/L (136-145)
[2022-10-16] MEDS ORDERED: Metoclopramide HCl 10 MG/2 ML VIAL ONE (17:50)
[2022-10-16] MEDS ORDERED: Lidocaine 4% Patch TD SCH (18:00)
[2022-10-16 18:26] LABS: Bacteria/HPF None Seen HPF (None Seen); Bilirubin Negative (Negative); Blood, Urine Negative (Negative); CAUTI Indications for Culture Alt mental st,lethar; Clarity Clear (Clear); Glucose, Urine (Dipstick) Normal (Negative); Ketone, Urine Negative (Negative); Leukocyte Negative Leu/uL (Negative); Nitrite Negative (Negative); Protein, Urine (Dipstick) 30 mg/dL (Neg-Trace); RBC/HPF 0-3 HPF (0-3); Specific Gravity, Urine 1.044 (1.002-1.036)
[2022-10-16 18:27] LABS: Urine Culture Reflex No No
[2022-10-17] MEDS ORDERED: Transdermal Patch Removal TOP SCH (06:00)
== END 2022-10-16 18:59 | disposition home or self-care (01) ==
LOC: ERS 12:55
DX: C34.31 Malignant neoplasm of lower lobe, right bronchus or lung (principal); R74.01 Elevation of levels of liver transaminase levels; I13.0 Hypertensive heart and chronic kidney disease with heart failure and stage 1 through stage 4 chronic kidney disease, or unspecified chronic kidney disease; N18.30 Chronic kidney disease, stage 3 unspecified; I50.9 Heart failure, unspecified; I25.10 Atherosclerotic heart disease of native coronary artery without angina pectoris; E78.5 Hyperlipidemia, unspecified; J44.9 Chronic obstructive pulmonary disease, unspecified; F17.210 Nicotine dependence, cigarettes, uncomplicated; Z79.82 Long term (current) use of aspirin; Z79.01 Long term (current) use of anticoagulants; Z79.899 Other long term (current) drug therapy
CPT/HCPCS: 70450; 71045; 71275; 74177; 80053; 81001; 83690; 84484; 85025; 93005; 96361; 96365; 96375; J2405; J2765; Q9967